=== PATIENT | female | born 1965 | race Caucasian/White ===

== ENCOUNTER 2023-04-24 08:27 | Outpatient (OUT) | payer OTHER, SELFPAY ==
--- NOTE | 2023-04-24 08:37 | US_ITS ---
[address] [address] Patient Name: LEO BRAVO MRN: [id number] date: 1965 Sex: F Assigned Patient Location: MAMMO Current Patient Location: MAMMO Accession/Order Number: [id number] Exam Date: 04/24/2023 09:00 Report Date: 04/25/2023 05:34 At the request of: BOBBI RACHEL Procedure: US pelvis w/ transvaginal EXAM: US pelvis w/ transvaginal HISTORY: Pelvic cramping R10.2 COMPARISON: None. TECHNIQUE: Transabdominal and transvaginal images FINDINGS: The uterus is normal in size, contour and echotexture measuring 6.7 x 4.4 x 3.0 cm, anteverted. No focal myometrial mass The endometrium measures 3.2 mm, identified in the endometrial cavity is 1.6 x 0.9 x 0.6 cm hyperechogenic complex area. The right ovary is normal in appearance measuring 2.4 x 2.1 x 1.5 cm. The left ovary is not visualized IMPRESSION: Complex area within the endometrial cavity of unknown etiology, consider an endometrial polyp or mass Electronically authenticated by: LEYLA KWAN Date: 04/25/2023 05:34
--- NOTE | 2023-04-24 08:41 | MM_ITS ---
Patient: LEO BRAVO Exam Date: 04/24/2023 : 1965 Gender:F Ordering : DR Florentino Richards . Admission #: [id number] Family : DR CHIARA HOOKER M.D. Order #: [id number] CLICK HERE TO VIEW EXAM RADIOLOGY REPORT PROCEDURE: MM DIAGNOSTIC MAMMO UNILAT LT, 04/24/2023, 08:33 US BREAST LT LIMITED, 04/24/2023, 08:51 COMPARISON: MG MAMM SCREEN 3D ANDREW CAD, 03/14/2023. INDICATIONS: Abnormal mammogram R92.8 Calculator Name NCI Breast Cancer Risk Assessment Tool 5 Year Breast Cancer Risk 1.80% Lifetime Breast Cancer Risk 11.40% Personal Breast Cancer No Personal Ovarian Cancer No Treatments None Family Cancers None LOCATION: [facility] BREAST COMPOSITION: Heterogeneously dense,which may obscure small masses. FINDINGS: DIAGNOSTIC CATEGORY 4--SUSPICIOUS FOR MALIGNANCY. FINDING DOES NOT EXHIBIT CLASSIC FINDINGS OF BREAST CANCER: Spot images demonstrate persistent nodular densities upper outer quadrant. Ultrasound demonstrates at the 2 o'clock position oval hypodensity with hyper echogenic hilum likely representing a lymph node. Ultrasound demonstrates a simple cyst at the 3 o'clock position. A dilated duct is noted at the 5 o'clock position with presence of a 6.4 x 2.1 x 4.4 mm area of soft tissue attenuation within the duct, indeterminate. Ultrasound core biopsy of this area is required RECOMMENDATIONS: ULTRASOUND-GUIDED CORE BIOPSY: LEFT BREAST 6.4 mm intraductal soft tissue lesion at the 5 o'clock position PLEASE NOTE: A NORMAL MAMMOGRAM DOES NOT EXCLUDE THE POSSIBILITY OF BREAST CANCER. A CLINICALLY SUSPICIOUS PALPABLE LUMP SHOULD BE BIOPSIED. Dictated by: Shan Acevedo MD on 04/24/2023 at 10:09 Approved by: Shan Acevedo MD on 04/24/2023 at 10:11
== END 2023-04-24 08:28 ==
LOC: MAMMO 08:31
PROVIDERS: PCP Neurological Surgery; Visit Provider Obstetrics & Gynecology
DX: R92.8 Other abnormal and inconclusive findings on diagnostic imaging of breast (principal); R10.2 Pelvic and perineal pain; R93.89 Abnormal findings on diagnostic imaging of other specified body structures
CPT/HCPCS: 76642; 76830; 76856; 77065

== ENCOUNTER 2023-05-08 10:59 | Day surgery (SDC) | payer OTHER, SELFPAY ==
--- NOTE | 2023-05-08 11:08 | US_ITS ---
[address] [address] Patient Name: LEO BRAVO MRN: [id number] date: 1965 Sex: F Assigned Patient Location: US Current Patient Location: US Accession/Order Number: [id number] Exam Date: 05/08/2023 11:09 Report Date: 05/08/2023 13:51 At the request of: BOBBI RACHEL Procedure: US breast vac bx w/ clip LT EXAM: US breast vac bx w/ clip LT HISTORY: Abnormal Findings On Diagnostic Imaging Of Breast R92.8 COMPARISON: Ultrasound breast left Limited 04/24/2023 TECHNIQUE: After obtaining informed consent, ultrasound-guided biopsy was performed in the usual sterile manner. The location of the biopsy was then marked as indicated below. FINDINGS: Specimen #, Location: 4 core samples; left breast subareolar 5:00 intraductal lesion versus debris. Biopsy Needle: 13 gauge vacuum core biopsy needle. Marker(s): A single metallic marker was placed in the appropriate targeted location. Medication: Buffered 1% Lidocaine with epinephrine administered locally. Complications: None. Pathology: Pending. IMPRESSION: 1. Uneventful ultrasound-guided breast biopsy. 2. Pathology results are pending. An addendum to this report will be provided after pathology results are available. Electronically authenticated by: CINDY CHAU Date: 05/08/2023 13:51
[2023-05-08] MEDS: LIDOCAINE HCL/EPINEPHRINE 10 ML, SODIUM BICARBONATE 1 MEQ INJ (12:00)
[2023-05-08] MEDS: LIDOCAINE HCL 10 ML, SODIUM BICARBONATE 1 MEQ INJ (12:00)
--- NOTE | 2023-05-08 12:25 | MM_ITS ---
Patient: LEO BRAVO Exam Date: 05/08/2023 : 1965 Gender:F Ordering : DR Florentino Richards . Admission #: [id number] Family : Order #: [id number] CLICK HERE TO VIEW EXAM This report includes an Addendum and supersedes previous reports for this exam. RADIOLOGY REPORT PROCEDURE: MM POST BIOPSY LT COMPARISON: MM DIAGNOSTIC MAMMO UNILAT LT, 04/24/2023. MG MAMM SCREEN 3D ANDREW CAD, 03/14/2023. MG MAMM SCREEN ANDREW W CAD, 10/22/2018. MAMMO ANDREW SCREEN W CAD DIG, 11/15/2012. INDICATIONS: Abnormal Imaging Of Breast R92.6 BREAST COMPOSITION: Heterogeneously dense,which may obscure small masses. FINDINGS: BIOPSY MARKER: A metallic marker has been placed in the targeted location within the lower-outer quadrant of the left breast. BREAST FINDINGS: Expected post biopsy findings. RECOMMENDATIONS: Dictated by: Boogie Alatorre M.D. on 05/08/2023 at 14:02 Approved by: Boogie Alatorre M.D. on 05/08/2023 at 14:04 ADDENDUM: FINDINGS: DIAGNOSTIC CATEGORY 3--PROBABLY BENIGN FINDING. THE FOLLOWING FINDING(S) HAS A HIGH PROBABILITY OF A BENIGN ETIOLOGY: RECOMMENDATIONS: SHORT TERM FOLLOW-UP DIAGNOSTIC MAMMOGRAM LEFT BREAST IN 6 MONTHS. Dictated by: Boogie Alatorre M.D. on 07/20/2023 at 15:41 Approved by: Boogie Alatorre M.D. on 07/20/2023 at 15:41
[2023-05-08 13:44] VITALS: BP 149/104; PULSE 77; O2SAT 94
== END 2023-05-08 12:33 | disposition home or self-care (01) ==
LOC: US 10:59
PROVIDERS: Radiology Diagnostic Radiology; PCP Neurological Surgery; Visit Provider Obstetrics & Gynecology
DX: N64.89 Other specified disorders of breast (principal)
CPT/HCPCS: 19083; 77065; 88305

== ENCOUNTER 2023-09-07 08:53 | Outpatient (OUT) | payer OTHER, SELFPAY ==
--- NOTE | 2023-09-07 09:00 | ECG_ITS ---
[facility] Test Date: 2023-09-07 Pat Name: LEO BRAVO Department: Room: - Gender: Female [employer]: : 1965 Requested By: BOBBI RACHEL Order Number: [id number] Reading MD: LUTHER TONEY Measurements Intervals Weed Rate: 66 P: 14 UT: 171 QRS: 22 QRSD: 82 T: 16 QT: 390 QTc: 411 Interpretive Statements SINUS RHYTHM No previous ECG available for comparison Electronically Signed On 09-08-2023 7:00:00 EDT by LUTHER TONEY
[2023-09-07 10:03] LABS: Basophils Absolute Auto 0.1 10^3/uL (0.0-0.1); Basophils Percent Auto 0.6 % (0.2-2.0); Eosinophils Absolute Auto 0.3 10^3/uL (0.0-0.7); Eosinophils Percent Auto 2.5 % (0.9-7.0); Hematocrit 42.7 % (36.0-48.0); Hemoglobin 14.4 g/dL (12.0-16.0); Immature Granulocytes Abs Auto 0.15 10^3/uL (0.00-0.03); Immature Granulocytes Pct Auto 1.5 % (0.0-0.5); Lymphocytes Absolute Auto 2.3 10^3/uL (1.2-3.8); Lymphocytes Percent Auto 23.3 % (20.5-60.0); Mean Corpuscular HGB Conc 33.7 g/dL (29.9-35.2); Mean Corpuscular Hemoglobin 30.6 pg (26.7-34.0); Mean Corpuscular Volume 90.9 fL (81.0-99.0); Mean Platelet Volume 9.5 fL (9.5-13.5); Monocytes Percent Auto 10.2 % (1.7-12.0); Neutrophils Absolute Auto 6.1 10^3/uL (1.4-6.5); Neutrophils Percent Auto 61.9 % (43.0-75.0); Platelet Count 337 10^3/uL (150-450); Red Cell Distribution Width 13.2 % (11.0-15.0); White Blood Count 9.9 10^3/uL (4.0-11.0)
[2023-09-07 10:13] LABS: Alanine Aminotransferase 30 U/L (14-59); Albumin Level 3.5 g/dL (3.4-5.0); Alkaline Phosphatase 67 U/L (46-116); Anion Gap 9.9; Aspartate Amino Transferase 12 U/L (15-37); BUN Creatinine Ratio 10.6; Bilirubin Direct 0.1 mg/dL (0.0-0.2); Bilirubin Total 0.8 mg/dL (0.2-1.0); Calcium 8.9 mg/dL (8.5-10.1); Chloride 103 mmol/L (98-107); Estimated GFR (African America >60 (>=60); Estimated GFR (Non-African Ame >60 (>=60); Globulin 3.6 g/dL; Glucose 85 mg/dL (74-106); Potassium 3.9 mmol/L (3.5-5.1); Sodium 139 mmol/L (136-145); Total Protein 7.1 g/dL (6.4-8.2)
[2023-09-07 10:16] LABS: INR 1.05; Prothrombin Time 11.1 sec (9.0-11.6)
[2023-09-07 10:18] LABS: Partial Thromboplastin Time 24.7 sec (22.3-36.2)
== END 2023-09-07 08:54 | disposition home or self-care (01) ==
PROVIDERS: PCP Neurological Surgery; Visit Provider Obstetrics & Gynecology
DX: Z01.812 Encounter for preprocedural laboratory examination (principal); Z01.810 Encounter for preprocedural cardiovascular examination; R10.2 Pelvic and perineal pain; N95.0 Postmenopausal bleeding; R93.89 Abnormal findings on diagnostic imaging of other specified body structures
CPT/HCPCS: 36415; 80048; 80076; 85025; 85610; 85730; 93005

== ENCOUNTER 2023-09-18 09:15 | Outpatient (OUT) | payer OTHER, SELFPAY ==
--- OUTSIDE RECORDS SUMMARY | 2023-10-24 18:53 | XMS_ITS | CCD ---
Author Name Unknown Address [address] [place] [address] Organization [facility] Care Team Providers Care Stonehand Name Role Phone Eddie De León Unavailable Josué Santoro Unavailable Rosaline Hooker Unavailable WILSON ., DR MARTINES Admitting Unavailable WILSON ., DR MARTINES Attending Unavailable MORRO, DR ROSALINE Donovan Primary Care Unavailable WILSON ., DR MARTINES Admitting Unavailable WILSON ., DR MARTINES Attending Unavailable HOOKER, DR ROSALINE Donovan Primary Care Unavailable WILSON ., DR MARTINES Consulting Unavailable WILSON ., DR MARTINES Admitting Unavailable WILSON ., DR MARTINES Attending Unavailable MORRO, DR ROSALINE Donovan Primary Care Unavailable WILSON ., DR MARTINES Consulting Unavailable REECE GUIDO Consulting Unavailable CESAR GANN Consulting Unavailable MORRO, DR ROSALINE Donovan Admitting Unavailable MORRO, DR ROSALINE Donovan Attending Unavailable MORRO, DR ROSALINE Donovan Primary Care Unavailable VERNON CENTER, DR LEYLA Romero Consulting Unavailable MORRO, DR ROSALINE Donovan Consulting Unavailable WILSON ., DR MARTNIES Admitting Unavailable WILSON ., DR MARTINES Attending Unavailable MORRO, DR ROSALINE Donovan Primary Care Unavailable WILSON ., DR MARTINES Consulting Unavailable ISAC, DR CINDY Keita Consulting Unavailable WILSON ., DR MARTINES Admitting Unavailable WILSON ., DR MARTINES Attending Unavailable MORRO, DR ROSALINE Donovan Primary Care Unavailable WILSON ., DR MARTINES Consulting Unavailable WILSON ., DR MARTINES Admitting Unavailable WILSON ., DR MARTINES Attending Unavailable MORRO, DR ROSALINE Donovan Primary Care Unavailable VERNON CENTER, DR LEYLA Romero Consulting Unavailable WILSON ., DR MARTINES Consulting Unavailable DR CINDY CHAU R Consulting Unavailable MIESHA HASSAN Attending Unavailable AKILA TUTTLE Attending Unavailable BOBBI RICHARDS Attending Unavailable BOBBI RICHARDS Attending Unavailable Allergies Allergy Classification Reported Allergen(s) Allergy Type Date of Onset Reaction(s) Facility (1 source) Gentamicin Sulfate (CARE HOME) Drug Allergy 0 [facility] Repository (1 source) peanut allergenic extract Drug Allergy 4 [facility] Repository (1 source) Sulfamethoxazole / Trimethoprim Drug Allergy 4 [facility] Repository (1 source) Thimerosal Drug Allergy 4 [facility] Repository (1 source) Misc-Food; Translations: [Misc-Food] Food allergy (disorder) 4 [facility] Repository Medications Current Medications Medication Drug Class(es) Dates Sig (Normalized) Sig (Original) acetaminophen 325 mg oral tablet (8 sources) take 1 tablet by mouth every four hours cetirizine hydrochloride 10 mg oral tablet (8 sources) Histamine-1 Receptor Antagonist take 1 tablet by mouth once daily Esomeprazole (1 source) Proton Pump Inhibitor Esomeprazole Magnesi um Active loratadine 10 mg oral tablet (3 sources) take 1 tablet by mouth once daily Claritin 10 MG 1 tablet Orally Once a day Active montelukast 10 mg oral tablet (2 sources) Leukotriene Receptor Antagonist Start: 05-01-2023 take 1 tablet by mouth every twenty-four hours Singulair 10 MG 1 tablet Orally Once a day for 30 days Apr, Active Problems Active Problems Problem Classification Problem Date Documented Da te Episodic/Chronic Esophageal disorders (9 sources) Gastroesophageal reflux disease; Translations: [Gastro-esophageal reflux disease without esophagitis] Chronic Immunizations and screening for infectious disease (1 source) Encounter for screening for human papillomavirus (HPV); Translations: [ENC SCREENING HUMAN PAPILLOMAVIRUS] Onset: 3 Episodic Menopausal disorders (5 sources) Postmenopausal bleeding; Translations: [POSTMENOPAUSAL BLEEDING] Onset: 3 Chronic Other connective tissue disease (2 sources) Trochanteric bursitis, right hip Episodic Other connective tissue disease (1 source) Other bursitis of hip, unspecified hip Episodic Other gastrointestinal disorders (9 sources) Dysphagia; Translations: [Dysphagia, unspecified] Episodic Other nervous system disorders (8 sources) Chronic pain; Translations: [Other chronic pain] Chronic Other nervous system disorders (1 source) Other chronic pain Chronic Other screening for suspected conditions (not mental disorders or infectious disease) (1 source) Abnormal findings on diagnostic imaging of other specified body structures; Translations: [ABNORML FIND DX IMG OTH BODY STRUC] Onset: 3 Chronic Other screening for suspected conditions (not mental disorders or infectious disease) (9 sources) Encounter for screening mammogram for malignant neoplasm of breast; Translations: [Other abnormal and inconclusive findings on diagnostic imaging of breast] Onset: 3 Episodic Other upper respiratory disease (1 source) Acute bronchospasm; Translations: [Acute bronchospasm] Onset: 3 Episodic Other upper respiratory infections (1 source) Acute laryngitis; Translations: [Acute laryngitis] Onset: 3 Episodic Residual codes; unclassified (1 source) Asymptomatic menopausal state; Translations: [ASYMPTOMATIC MENOPAUSAL STATE] Onset: 3 Episodic Unclassified (1 source) CONTACT W/AND (SUSP) EXPOS COVID-19; Translations: [CONTACT W/AND (SUSP) EXPOS COVID-19] Onset: 3 Viral infection (1 source) COVID-19; Translations: [COVID-19] Onset: 3 Past or Other Problems Problem Classification Problem Date Documented Da te Episodic/Chronic Other non-traumatic joint disorders (4 sources) Pain in right hip; Translations: [PAIN IN RIGHT HIP] Onset: 06-27-2022 Episodic Unclassified (1 source) Other low back pain M54.59 Results Test Name Value Interpretation Reference Range Facil ity Strep Group A, Rapidon 08-30 Strep A, Molecular Negative Normal NEG [facility] Comment on above: Performed By: #### R SAB #### [facility] [address] [place] [address] Shredder Picker: Leyla Cortez MD Source .THROAT SWAB Normal [facility] Comment on above: Performed By: #### R SAB #### [facility] [address] [place] [address] Shredder Picker: Leyla Cortez MD XR CHEST PORTABLEon 08-30-20 XR CHEST PORTABLE EXAMINATION: ONE XRAY VIEW OF THE CHEST 08/30/2023 12:22 pm COMPARISON: None. HISTORY: ORDERING SYSTEM PROVIDED HISTORY: Covid TECHNOLOGIST PROVIDED HISTORY: Covid FINDINGS: The lungs appear clear. The heart and mediastinal structures are unremarkable. Bony thorax appears normal. Visualized upper abdomen is unremarkable. IMPRESSION: No abnormalities demonstrated. Interpreted by: Dante Rivas MD Signed by: Dante Rivas MD 08/30/23 Final result [facility] 3D ANDREW CADon 03-14-2023 MG MAMM SCREEN 3D ANDREW CAD Patient: KIM BRAVO Exam Date: 03/14/2023 : 1965 Gender:F Ordering : DR BOBBI RICHARDS . Admission #: [id number] Family : Order #: [id number] CLICK HERE TO VIEW EXAM RADIOLOGY REPORT PROCEDURE: MAMMOGRAM SCREENING 3D BILATERAL CAD COMPARISON: MAMMO ANDREW SCREEN W CAD DIG, 11/15/2012. MG MAMM SCREEN ANDREW W CAD, 10/22/2018. INDICATIONS: Screening mammography Calculator Name NCI Breast Cancer Risk Assessment Tool 5 Year Breast Cancer Risk 1.80% Lifetime Breast Cancer Risk 11.40% Personal Breast Cancer No Personal Ovarian Cancer No Treatments None Family Cancers None LOCATION: [facility] BREAST COMPOSITION: Heterogeneously dense,which may obscure small masses. FINDINGS: DIAGNOSTIC CATEGORY 0--INCOMPLETE: NEED ADDITIONAL IMAGING EVALUATION. The breasts are stable in size and overall fibroglandular configuration.Scattered benign-appearing nodules are present. Scattered benign-appearing calcifications are present. Scattered benign-appearing lymph nodes are present. RIGHT BREAST: No significant suspicious finding. LEFT BREAST: Multiple new focal nodules identified in the outer left breast, four lesions identified on the CC projection and 2 lesions identified the MLO projection. Spot imaging and ultrasound follow-up is recommended. Stable micro clip marker upper outer quadrant anterior breast RECOMMENDATIONS: ADDITIONAL MAMMOGRAPHIC VIEWS REQUIRED: LEFT BREAST - spot-compression outer breast quadrant ULTRASOUND: LEFT BREAST PLEASE NOTE: A NORMAL MAMMOGRAM DOES NOT EXCLUDE THE POSSIBILITY OF BREAST CANCER. A CLINICALLY SUSPICIOUS PALPABLE LUMP SHOULD BE BIOPSIED. Dictated by: Leyla Kwan MD on 03/15/2023 at 07:06 Approved by: Leyla Kwan MD on 03/15/2023 at 07:11 Normal [facility] XR DEXA BONE DENSITYon 03-14 XR DEXA BONE DENSITY EXAMINATION: XR DEX A BONE DENSITY, 03/14/2023 2:38 PM EDT HISTORY: Menopause present COMPARISON: None. TECHNIQUE: Dual-energy X-ray absorptiometry (DEXA) bone density study performed for the axial skeleton. FINDINGS: SPINE ANALYSIS: Average bone mineral density is 1.488 g/cm2. T-score (standard deviation relative to young adult mean): 2.6 . HIP ANALYSIS: Lowest bone mineral density is within the left femoral neck, 1.124 g/cm2. T-score (standard deviation relative to young adult mean): 0.6 . IMPRESSION: [employer] Classification: Normal - Low Fracture Risk Electronically authenticated by: CINDY CHAU Date: 2023-03-14 15:40 Normal [facility] l PAP ACOG PANEL 2: 30 to 65on 03-07-2023 . . Normal [facility] ospital Comment on above: Result Comment: Perf ormed at: WB Performed By: #### [id number] #### [facility] [address] [place] [address] Dr. Mary Ortiz Age Gdln ACOG Testing 30-65 Normal [facility] Comment on above: Performed By: #### [id number] #### [facility] [address] [address] [address] Mary Ortiz DIAGNOSIS: Comment Normal [facility] Comment on above: Result Comment: NEGA TIVE FOR INTRAEPITHELIAL LESION OR MALIGNANCY. Performed at: WB Performed By: #### [id number] #### [facility] [address] [address] [address] Mary Ortiz HPV Aptima Negative Normal Negative [facility] ostal Comment on above: Result Comment: This nucleic acid amplification test detects fourteen high-risk HPV types (16,18,31,33,35,39,45,51,52,56,58,59,66,68) without differentiation. Performed at: =G Performed By: #### [id number] #### [facility] [address] [address] [address] Mary Ortiz HPV Genotype Reflex Comment Normal [facility] Comment on above: Result Comment: Crit eria not met, HPV Genotype not performed. Performed at: WB Performed By: #### [id number] #### [facility] [address] [place] [address] Dr. Mary Ortiz Methodology: Comment Normal [facility] Comment on above: Result Comment: This liquid based ThinPrep(R) pap test was screened with the use of an image guided system. Performed at: WB Performed By: #### [id number] #### [facility] [address] [place] [address] Dr. Mary Ortiz Note: Comment Normal [facility] ospital Comment on above: Result Comment: The Pap smear is a screening test designed to aid in the detection of premalignant and malignant conditions of the uterine cervix. It is not a diagnostic procedure and should not be used as the sole means of detecting cervical cancer. Both false-positive and false-negative reports do occur. . Performed at: WB Performed By: #### [id number] #### [facility] [address] [place] [address] Dr. Mary Ortiz Performed by: Comment Normal [facility] Comment on above: Result Comment: Akila Arrieta, Planting Material Carrier (ASCP) Performed at: WB Performed By: #### [id number] #### [facility] [address] [place] [address] Dr. Mary Ortiz Specimen adequacy: Comment Normal [facility] Comment on above: Result Comment: Sati sfactory for evaluation. Endocervical and/or squamous metaplastic cells (endocervical component) are present. Performed at: WB Performed By: #### [id number] #### [facility] [address] [address] [address] Mary Ortiz CBC AUTO DIFFon 11-23-2022 BASO # 0.1 103/ul Normal 0.0-0.[address] [facility] Comment on above: Performed By: #### C BC #### [facility] [address] [place] [address] Dr. Mary Ortiz Basophils/100 WBC (Bld) 1.1 % Normal 0.2-2.0 [facility] Comment on above: Performed By: #### C BC #### [facility] [address] [place] [address] Dr. Mary Ortiz EO # 0.2 103/ul Normal 0.0-0.[address] [facility] Comment on above: Performed By: #### C BC #### [facility] [address] [place] [address] Dr. Mary Ortiz Eosinophils/100 WBC (Bld) 4.1 % Normal 0.9-7.0 [facility] Comment on above: Performed By: #### C BC #### [facility] [address] [place] [address] Dr. Mary Ortiz Erythrocyte distribution wid th (RBC) [Ratio] 13.3 % Normal 11.0-15.0 [facility] Comment on above: Performed By: #### C BC #### [facility] [address] [place] [address] Dr. Mary Ortiz Hematocrit (Bld) [Volume fraction] 41.8 % Normal 3 6.0-48.0 [facility] Comment on above: Performed By: #### C BC #### [facility] [address] [place] [address] Dr. Mary Ortiz Hemoglobin (Bld) [Mass/Vol] 13.8 g/dL Normal 12.0-16. 0 [facility] Comment on above: Performed By: #### C BC #### [facility] [address] [place] [address] Dr. Mary Ortiz IG # 0.01 10e3/ul Normal 0.00-0.03 [facility] Comment on above: Performed By: #### C BC #### [facility] [address] [place] [address] Dr. Mary Ortiz IG % 0.2 % Normal 0.0-0.5 [facility] Comment on above: Performed By: #### C BC #### [facility] [address] [place] [address] Dr. Mayr Ortiz LYMPH # 1.9 103/ul Normal 1.2-3.8 [facility] Comment on above: Performed By: #### C BC #### [facility] [address] [place] [address] Dr. Mary Ortiz Lymphocytes/100 WBC (Bld) 32.7 % Normal 20.5-60.0 [facility] Comment on above: Performed By: #### C BC #### [facility] [address] [place] [address] Dr. Mary Ortiz MANUAL DIFF REQ NO Normal [facility] Comment on above: Performed By: #### C BC #### [facility] [address] [place] [address] Dr. Mary Ortiz MCH (RBC) [Entitic mass] 29.5 pg Normal 26.7-34.0 [facility] Comment on above: Performed By: #### C BC #### [facility] [address] [place] [address] Dr. Mary Ortiz MCHC (RBC) [Mass/Vol] 33.0 g/dL Normal 29.9-35.2 [facility] Comment on above: Performed By: #### C BC #### [facility] [address] [place] [address] Dr. Mary Ortiz MCV (RBC) [Entitic vol] 89.3 fL Normal 81.0-99.0 [facility] Comment on above: Performed By: #### C BC #### [facility] [address] [place] [address] Dr. Mary Ortiz MONO # 0.4 103/ul Normal 0.3-0.8 [facility] Comment on above: Performed By: #### C BC #### [facility] [address] [place] [address] Dr. Mary Ortiz Monocytes/100 WBC (Bld) 7.4 % Normal 1.7-12.0 [facility] Comment on above: Performed By: #### C BC #### [facility] [address] [place] [address] Dr. Mary Ortiz NEUT # 3.1 103/ul Normal 1.4-6.5 [facility] ospital Comment on above: Performed By: #### C BC #### [facility] [address] [place] [address] Dr. Mary Ortiz Neutrophils/100 WBC (Bld) 54.5 % Normal 43.0-75.0 [facility] Comment on above: Performed By: #### C BC #### [facility] [address] [place] [address] Dr. Mary Ortiz Platelet mean volume (Bld) [Entitic vol] 9.6 fL Normal 9.5-13.5 [facility] Comment on above: Performed By: #### C BC #### [facility] [address] [place] [address] Dr. Mary Ortiz PLT 277 103/ul Normal 150-450 [facility] ospital Comment on above: Performed By: #### C BC #### [facility] [address] [place] [address] Dr. Mary Ortiz RBC 4.68 106/ul Normal 4.20-5.40 [facility] Comment on above: Performed By: #### C BC #### [facility] [address] [place] [address] Dr. Mary Ortiz WBC 5.7 103/ul Normal 4.0-11.0 [facility] ospital Comment on above: Performed By: #### C BC #### [facility] [address] [place] [address] Dr. Mary Ortiz PREG QUANT HCGon 11-23-2022 HCG QUANT 5 mIU/mL Normal [facility] ospital Comment on above: Performed By: #### P REGQNT #### [facility] [address] [place] [address] Dr. Mary Ortiz HCG RANGE SEE BELOW Normal [facility] ospital Comment on above: Result Comment: 5-50 0.2-1 WEEK 50-500 1-2 WEEKS 100-5,000 2-3 WEEKS 500-10,000 3-4 WEEKS 1,000-50,000 4-5 WEEKS 10,000-100,000 5-6 WEEKS 15,000-200,000 6-8 WEEKS 10,000- 100,000 2-3 MONTHS Performed By: #### P REGQNT #### [facility] [address] [place] [address] [address] [address] Mary Ortiz Covid-19 PCR ([facility])on 11-06 SARS-CoV-2 (COVID-19) RNA BRANDY+probe Ql (Unsp spec) Not detected Normal NOT DETECTED [facility] Comment on above: Result Comment: This test is not yet approved or cleared by the [place] FDA. When there are no FDA-approved or cleared tests available, and other criteria are met, FDA can make tests available under an emergency access mechanism called an Emergency Use Authorization (EUA). The EUA for this test is supported by the [place] of Health and Human Service's (HHS's) declaration that circumstances exist to justify the emergency use of in vitro diagnostics for the detection and/or diagnosis of the virus that causes COVID-19. This EUA will remain in effect (meaning this test can be used) for the duration of the COVID-19 declaration justifying emergency of IVDs, unless it is terminated or revoked by FDA (after which the test may no longer be used). When diagnostic testing is negative, the possibility of a false negative should be considered in the context of a patient's recent exposures and the presence of clinical signs and symptoms consistent with SARS-CoV-2. Performed By: #### [facility] #### [facility] [address] [place] [address] [id number] [address] Mary Ortiz US PELVIS AND TRANSVAGon US PELVIS AND TRANSVAG EXAMINATION: US P DAVID AND TRANSVAG HISTORY: Postmenopausal bleeding COMPARISON: Ultrasound pelvis 02/26/2020 TECHNIQUE: Transabdominal and transvaginal sonographic examination. FINDINGS: UTERUS: Normal size and appearance. Uterus size: 7.7 x 4.1 x 3.2 cm ENDOMETRIUM: Normal homogeneous appearance. Endometrial thickness: 4 mm RIGHT OVARY: Normal size and appearance. Blood flow present within ovary on color Doppler. Ovary size: 2.0 x 2.0 x 1.9 cm LEFT OVARY: Normal size and appearance. Blood flow present within ovary on color Doppler. Ovary size: 1.4 x 1.4 x 1.2 cm CUL-DE-SAC: Unremarkable. No significant free fluid. BLADDER: Unremarkable. OTHER: None. IMPRESSION: 1. No abnormal or suspicious findings to account for patient's symptoms. Electronically authenticated by: CINDY CHAU Date: 2022-11-08 15:56 Normal [facility] XR LSPINE MIN 4 VIEWSon 06-07 XR LSPINE MIN 4 VIEWS EXAMINATION: XR LS PINE MIN 4 VIEWS HISTORY: Pain in right hip joint COMPARISON: No relevant comparison available. FINDINGS: BONES: No acute fracture or spondylolisthesis. Mild dextrocurvature centered at L2-L3. Mild degenerative spondylosis and facet osteoarthropathy DISC SPACES: Moderate disc space narrowing L5-S1 PARASPINOUS: Negative. No paraspinous abnormality is seen. OTHER: Vascular calcifications IMPRESSION: Degenerative changes with dextrocurvature Electronically authenticated by: LEYLA KWAN Date: 2022-06-28 07:15 Normal [facility] Consent for COVID Vaccineon 02-28-2021 SARS-CoV-2 (COVID-19) RNA BRANDY+probe Ql (Unsp spec) [id number]:127 Normal [facility] Consent for COVID Vaccineon 01-28-2021 SARS-CoV-2 (COVID-19) RNA BRANDY+probe Ql (Unsp spec) [id number]:127 Normal [facility] Consent for Treatmenton 01-05 Consent for Treatment [id number]:127 Normal [facility] Coding Summary.on 01-26-2021 Coding Summary. CODING DATE: [facility] STATUS: PAYOR: [facility] [place] [facility] DESCRIPTION [employer] - Level 1B ($11-$20) ADMIT DX: REASON FOR VISIT DX: Z23 Encounter for immunization FINAL DX: PRINCIPAL: Z23 Encounter for immunization SECONDARY: PYMT PROC APC STAT DESCRIPTION DOCTOR NAME DATE NOTE: The code number assigned matches the documented diagnosis and / or procedure in the patient's chart. However, the narrative phrase printed from the coding software may appear abbreviated, or result in slightly different terminology. Coded By: Denisse Rodriguez Date Saved: 01/26/2021 09:41 am Normal [facility] Vital Signs Date Time Vital Sign Value Performing Clinician Thompson tolliver 10-24-2022 09:00-0500 Body height 157.48 cm Eddie Krishan Other [employer] Other 10-24-2022 09:00-0500 Body mass index (BMI) [Ratio] 41.15 kg/m2 Eddie Perkinsley Other [employer] Other 10-24-2022 09:00-0500 Body weight 102.06 kg Eddie Krishan Other [employer] Other 09-02-2022 09:00-0400 Body height 157.48 cm Eddie Krishan Other [employer] Other 09-02-2022 09:00-0400 Body mass index (BMI) [Ratio] 41.15 kg/m2 Eddie Perkinsley Other [employer] Other 09-02-2022 09:00-0400 Body weight 102.06 kg Eddie Krishan Other [employer] Other Encounters Encounter Date Encounter Type Care Provider Facility Start: 10-09-2023 End: 10-09-2023 ambulatory BOBBI WILSON Not Available Start: 10-02-2023 End: 10-02-2023 ambulatory BOBBI RICHARDS Not Available Start: 09-27-2023 End: 09-27-2023 ambulatory AKILA TUTTLE Not Available Start: 08-30-2023 End: 08-30-2023 Emergency department patient visit [facility] Start: 08-28-2023 End: 08-29-2023 Emergency department patient visit [facility] Start: 04-28-2023 End: 04-28-2023 ambulatory Josué Santoro Other [employer] Other Start: 04-28-2023 Telephone encounter Josué Santoro [facility] Start: 04-26-2023 End: 04-26-2023 ambulatory Rosaline Hooker Other [employer] Other Start: 04-26-2023 Telephone encounter Rosaline Morro [facility] Start: 03-17-2023 End: 03-17-2023 ambulatory Rosaline Morro Other [employer] Other Start: 03-17-2023 Telephone encounter Rosaline Morro [facility] Start: 03-14-2023 End: 03-15-[address] BOBBI RICHARDS . Facility:[facility] Start: 02-28-2023 End: 02-28-2023 ambulatory DR BOBBI RICHARDS . Facility:[facility] Start: 11-25-2022 Encounter for preprocedural cardiovascular examination DR BOBBI RICHARDS . [facility] Start: 11-23-2022 End: 11-23-[address] BOBBI RICHARDS . Facility:[facility] Start: 11-18-2022 End: 11-19-[address] BOBBI RICHARDS . Facility:[facility] Start: 11-18-2022 End: 11-19-2022 Encounter for preprocedural cardiovascular examination DR BOBBI RICHARDS . Facility:[facility] Start: 11-16-2022 Encounter for other preprocedural examination DR BOBBI RICHARDS . [facility] Start: 11-11-2022 End: 11-12-[address] BOBBI RICHARDS . Facility:[facility] Start: 11-11-2022 End: 11-12-2022 Encounter for other preprocedural examination DR BOBBI RICHARDS . Facility:[facility] Start: 11-08-2022 End: 11-09-[address] BOBBI RICHARDS . Facility:[facility] Start: 10-24-2022 End: 10-24-2022 ambulatory Eddie De León Other [facility] Other Start: 10-24-2022 Office outpatient vi sit 15 minutes Eddie De León [facility] Start: 10-03-2022 (Procedure) Short Josué Santoro [facility] Start: 10-03-2022 End: 10-03-2022 ambulatory Josué Santoro Other [facility] Other Start: 09-20-2022 End: 09-20-2022 ambulatory Josué Santoro Other [facility] Other Start: 09-20-2022 Telephone encounter Josué HENDERSON [facility] Start: 09-19-2022 End: 09-19-2022 ambulatory Josué Santoro Other [facility] Other Start: 09-19-2022 Office consultation new/estab patient 60 min Josué MONTIEL [facility] [place] Start: 09-02-2022 End: 09-02-2022 ambulatory Eddie De León Other [employer] Other Start: 09-02-2022 Office outpatient ne w 30 minutes Eddie De León [facility] Start: 06-27-2022 End: 06-28-[address] ROSALINE HOOKER Facility: Payers Date Payer Category Payer Unknown [id number] 2.16.84 [id number] 1965 Unknown [id number] 2.16.84 [id number] 1965 Unknown [id number] 2.16.84 [id number] 1966 Unknown [id number] 2.16.84 [id number] 1966 Unknown [id number] 2.16.84 [id number] 1966 Unknown [id number] 2.16.84 [id number] 1966 Unknown [id number] 2.16.84 [id number] 1966 Unknown [id number] 2.16.8 [id number] 1966 Unknown [id number] 2.16.8 [id number] 1966 Unknown [id number] 2.16.840 .[id number] 1966 Unknown [id number] 2.16.840 .[id number] 1966 Unknown [id number] 2.16.840 .[id number] 1959 Unknown [id number] 2. [id number] Social History Date Type Detail Facility Sex Assigned At [facility] Other Clinical Note 11-23-2022 Note Date & Type Note Facility 11-23-2022 Note OPERATIVE NOTE OPERATION DATE: 11/23/2022 PROCEDURE: D AND C hysteroscopy with MyoSure. PREOPERATIVE DIAGNOSIS: Postmenopausal bleeding, thickened endometrium. POSTOPERATIVE DIAGNOSIS: Postmenopausal bleeding, thickened endometrium. ANESTHESIA: General. SURGEON: Bobbi Richards D.O. GAMBLING MONITOR: None. BLOOD LOSS: 5 mL. URINE OUTPUT: Yellow and clear. FINDINGS: Uterine polyp, both ostia seen; otherwise, normal appearing endometrium. SPECIMEN: Endometrial curettings as well as endometrial polyp. PROCEDURE: The patient was taken back to the Operating Room where she was prepped and draped in normal sterile fashion after being placed under general anesthesia without difficulty. She was also placed in the dorsal lithotomy position. A weighted speculum was placed in the patient's vagina. The anterior lip of the cervix was identified and grasped with a single tooth tenaculum. The patient's uterus was then sounded roughly to (size not dictated) cm. The patient was then gently dilated using Hegar dilators. The hysteroscope was passed through the patient's cervix into the uterus. Both ostia were identified. Slightly thickened appearing endometrium. No gross evidence of malignancy. Please note that the MyoSure apparatus was placed through the hysteroscope under direct visualization. The apparatus was engaged and endometrial curettings were removed under direct visualization. The MyoSure was then removed from the scope. The hysteroscope was then removed from the patient's uterus. The endometrial curettings were sent out to pathology. The single tooth tenaculum was then removed from the patient's anterior lip of the cervix where excellent hemostasis was noted. All instruments were removed from the patient's vagina. The patient tolerated the procedure well. Sponge, lap and needle counts were correct times two. The patient was taken to the Recovery Room in stable condition. [facility] Evaluation note 10-24-2022 Note Date & Type Note Facility 10-24-2022 Evaluation note Encounter Date Diagnosis Assessment Notes Oct, Trochanteric bursitis of right hip (ICD-10 - M70.61) Kim is here today now 3 weeks s/p right hip trochanteric bursa injection with Dr. Angela Santoro. She states that she is doing good. She has had some improvement. She does feel like that is the appropriate area to treat. She is taking anti-inflammato nba as needed. She is doing physical therapy and exercises at home. I would continue this treatment course. She can return for pain worsens and we could consider repeat injection The patient has been involved in our cooperative treatment plan and agrees to move forward with treatment at this time. Instructed patient to continue with physical therapy exercises. Call with any questions or concerns [facility] Other Evaluation note 09-19-2022 Note Date & Type Note Facility 09-19-2022 Evaluation note Encounter Date Diagnosis Assessment Notes Sep, Bursitis, hip (ICD-10 - M70.70) Patients primary complaint today is pain over the outide of the right hip. She shows noteable tenderness over the trochanteric bursa upon exam. We discussed other conservative options including therapy, iontophoresis, oral and topical NSAIDS. Based on location of pain and exam findings, patient is a candidate for a right trochanteric bursa injection which we will proceed with under fluoroscopic guidance as suggested by orthopedics. Risks and benefits of procedure explained to patient; patient verbalizes understanding. Patient will follow up with orthopedics 2-3 weeks following the injection. Sep, Other low back pain (ICD-10 - M54.59) Should the patient continue to experience radiating right leg pain, we can consider further work up of the lumbar spine as a possible source of her pain symptoms. Sep, Chronic pain (ICD-10 - G89.29) Sep, Other Above note written by Raman Marks MA, Boat Tester. Edited and approved by Dr. Josué Santoro MD. Medical decision making shows a new problem to me with further workup planned or suggested with the potential for extensive treatment options that were considered with the most applicable given this patient's situation as noted above. Treatment options considered include a combination of physical therapy approaches, pharmacologic management, and interventional procedures. Those most applicable to the patient were discussed at this time. Risk of complications and/or morbidity and mortality is high given that acute and chronic pain poses a threat to life and bodily function if undertreated, poorly treated or with failure to maintain adequate treatment and timely followup. Given the serious and fluctuating nature of pain with extensive consideration for whenever pain changes, there always remains the possibility of prolonged functional impairment requiring constant patient reassessment and high-level medical decision making. The amount and complexity of data reviewed is high given that patient labs, radiology reports, and other test were obtained, reviewed and summarized as applicable from the physician portal and/or outside medical records. Pertinent positive and negative findings were considered in medical decision-making. [facility] Other Evaluation note 09-02-2022 Note Date & Type Note Facility 09-02-2022 Evaluation note Encounter Date Diagnosis Assessment Notes Aug, Trochanteric bursitis of right hip (ICD-10 - M70.61) Kim presents with right hip trochanteric bursitis. At this juncture we have discussed the findings and diagnosis as well as personally reviewed appropriate imaging and performed interpretation of related testing and examination with the patient in office today. Prior medical notes from Dr. Hooker and history have been reviewed. At this time I would recommend trial of cortisone injection into the right trochanteric bursa. I would recommend doing this with Dr. Santoro under fluoroscopy due to her habitus. We will plan for follow-up 2 to 3 weeks after injection with myself to see how we did. The patient has been involved in our cooperative treatment plan and agrees to move forward with treatment at this time. Radiographs reviewed and discussed in detail with patient. This appears to be pain secondary to greater trochanteric bursitis. Discussed treatment options as oral or topical NSAIDs, physical therapy with iontophoresis, or cortisone injection to the greater trochanteric bursa. Patient opts for cortisone injections. Patient will be referred to Dr. Oscar Santoro for bursal injection. We will also submit a formal order for physical therapy. Patient is agreeable to treatment plan. Aug, Other See orders for this visit as documented in the electronic medical record. [facility] Other Clinical Note 06-28-2022 Note Date & Type Note Facility 06-28-2022 Note PROCEDURE: XR HIP RT 2 3V W PELVIS COMPARISON: None. HISTORY: Pain in right hip joint FINDINGS: BONES:No acute fracture or dislocation 1 mm lytic change with surrounding sclerosis identified along the superior margin of the right acetabulum. Marginal osteophyte formation. SOFT TISSUES:Negative. No visible soft tissue swelling. EFFUSION:None visible. OTHER: Negative. IMPRESSION: Mixed lytic and sclerotic changes of the superior right acetabulum. I favor degenerative changes Electronically authenticated by: LEYLA KWAN Date: 2022-06-28 07:13 [facility] Evaluation note Note Date & Type Note Facility Evaluation note No Information [facility] Other History general Narrative - Reported Note Date & Type Note Facility History general Narrative - Reported Type Medical History GERD Medical History Dysphasia Medical History right hip pain Surgical History left ankle surgery [facility] Other History general Narrative - Reported Note Date & Type Note Facility History general Narrative - Reported [facility] Other Summary Purpose Family History No Family History Records FoundNo Family History Records FoundNo Family History Records FoundNo Family History Records Found Advance Directives No Advanced Directives Records FoundNo Advanced Directives Records FoundNo Advanced Directives Records FoundNo Advanced Directives Records Found Reason for Referral Reason Bursal injection of right hip Diagnosis 1 Trochanteric bursiti s of right hip (M70.61) Referral Organization [facility] Referring Provider First Name Eddie Referring Provider Last Name Krishan Referring Provider Specialty Orthopedic Surgery Referred Organization [facility] Pain Manageangie whitt Tim Ruiz Referred Address [address] [place] [facility],[place],[address] Referred Provider Specialty Pain Medicin e Referral Priority Routine General Notes schedule with Dr. Angela Santoro pain management Additional Source Comments INFORMATION SOURCE (unrecogn ized section and content) DATE CREATED AUTHOR 05/22/2021 [facility] DATE CREATED AUTHOR AUTHOR'S ORGANIZ ATION 03/19/2023 [facility] DATE CREATED AUTHOR AUTHOR'S ORGANIZ ATION 09/01/2023 [facility] DATE CREATED AUTHOR AUTHOR'S ORGANIZ ATION 10/11/2023 [facility] EPIC REASON FOR VISIT (unrecogniz ed section and content) Right Hip PainREF BY DR RENÉ ORNELAS FOR BURSAL INJECTION RIGHT HIP DUE TO TROCHANTERIC BURSITISPain management consult note*KRISHAN PTRIGHT TROCHANTARIC BURSA INJECTION VWRecheck Right Hipmamm resultNo Informationmessageallergies FOR RECORDS PERTAINING TO PATIENTS WHO ARE OR HAVE BEEN ENROLLED IN A CHEMICAL DEPENDENCY/SUBSTANCEABUSE PROGRAM, SOME INFORMATION MAY BE OMITTED. This clinical summary was aggregated from multiple sources. Caution should be exercised in using it in the provision of clinical care. This summary normalizes information from multiple sources, and as a consequence, information in this document may materially change the coding, format and clinical context of patient data. In addition, data may be omitted in some cases. CLINICAL DECISIONS SHOULD BE BASED ON THE PRIMARY CLINICAL RECORDS. [facility] [employer] [facility]. provides no warranty or guarantee of the accuracy or completeness of information in this document.
== END 2023-09-18 09:16 | disposition home or self-care (01) ==
LOC: LAB 09:15
PROVIDERS: PCP Family Medicine; Visit Provider Obstetrics & Gynecology
DX: Z01.812 Encounter for preprocedural laboratory examination (principal); R10.2 Pelvic and perineal pain; N95.0 Postmenopausal bleeding; R93.89 Abnormal findings on diagnostic imaging of other specified body structures
CPT/HCPCS: 36415; 86850; 86900; 86901

== ENCOUNTER 2023-09-21 11:35 | Day surgery (SDC) | payer OTHER, SELFPAY ==
[2023-09-07 09:44] VITALS: BP 126/76; PULSE 75; RESP 18; TEMP 36.5; O2SAT 97; BMI 40.0
[2023-09-21] VITALS (13 sets, daily range): BP systolic 108–132; BP diastolic 51–78; PULSE 50–87; RESP 14–18; TEMP 36.1–36.6; O2SAT 93–100; BMI 39.8
[2023-09-21 11:48] LABS: Basophils Absolute Auto 0.1 10^3/uL (0.0-0.1); Basophils Percent Auto 1.1 % (0.2-2.0); Eosinophils Absolute Auto 0.2 10^3/uL (0.0-0.7); Eosinophils Percent Auto 3.6 % (0.9-7.0); Hematocrit 40.4 % (36.0-48.0); Hemoglobin 13.5 g/dL (12.0-16.0); Lymphocytes Absolute Auto 1.9 10^3/uL (1.2-3.8); Mean Corpuscular HGB Conc 33.4 g/dL (29.9-35.2); Mean Corpuscular Hemoglobin 30.5 pg (26.7-34.0); Mean Corpuscular Volume 91.4 fL (81.0-99.0); Mean Platelet Volume 9.7 fL (9.5-13.5); Monocytes Absolute Auto 0.5 10^3/uL (0.3-0.8); Monocytes Percent Auto 9.6 % (1.7-12.0); Neutrophils Absolute Auto 2.7 10^3/uL (1.4-6.5); Neutrophils Percent Auto 50.7 % (43.0-75.0); Platelet Count 286 10^3/uL (150-450); Red Blood Count 4.42 10^6/uL (4.20-5.40); Red Cell Distribution Width 13.5 % (11.0-15.0); White Blood Count 5.3 10^3/uL (4.0-11.0)
[2023-09-21] MEDS: LACTATED RINGER'S SOLUTION 1,000 ML 50 ML IV ×2 (12:31→21:31)
[2023-09-21] MEDS: CEFAZOLIN SODIUM/DEXTROSE,ISO 2 GM/50 ML PIGGYBACK IV ×2 (14:27→21:32)
[2023-09-21] MEDS: SCOPOLAMINE 1 MG/3 DAYS TRANSDERM PATCH 1 PATCH TD (14:56)
[2023-09-21] MEDS: LACTATED RINGER'S SOLUTION 1,000 ML 1000 ML IV ×2 (15:34→17:31)
--- NOTE | 2023-09-21 17:22 | P.ON_ITS ---
Brief Operative Note Date of procedure: 09/21/23 Pre-op diagnosis: pmb, pelvic pain, dyspareunia Post-op diagnosis: same as pre-op Procedure: NAME OF PROCEDURE: ? Robotic assisted laparoscopic hysterectomy with cystoscopy, bilateral salpingoopherectomy PROCEDURE:? The patient was taken back to the operating room, where she was prepped and draped in the normal sterile fashion after being placed in the dorsal lithotomy position.? Patient?s anesthesia was found to be adequate.? Surgical timeout was performed using two patient identifiers.? SCDs were on and in place.? Two grams of Ancef were given prior to the surgery.? Sterile Fleming catheter was inserted.? Standard size VCare was secured to the uterine cervix and the surgeon changed gloves.? Attention then was turned to the patient's abdomen, where a supraumbilical incision was then made.? Two S retractors were used to identify the patient?s fascia.? The fascia was then tented up using Brissa clamps and the patient?s fascia was incised sharply.? Patient?s abdomen was identified and entered bluntly.? The patient had the trocar placed and a pneumoperitoneum was obtained.? Approximately 4 liters of CO2 gas was used.? The camera was then placed through the trocar.? At this time, two robot trocars were placed in the patient?s left and right side, two hand widths from the midline, and this was placed under direct visualization.? The patient?s tube on the right side was tented up and the vessel sealer was then used to come across the mesosalpinx and infundibular pelvic ligament, and this was carried down to the uterine ovarian ligament.? The vessel sealer was carried down serially to the broad ligament, to the area of the bladder flap, which was then created anteriorly, and the uterine arteries were skeletonized and sealed using the vessel sealer.? The colpotomy was made using the monopolar cautery on cut, and this was carried circumferentially, posteriorly to anteriorly, until the uterus was amputated.? The specimen was then removed intact through the vagina, without difficulty.? The vagina was then closed using two running V-Loc in a non-lock fashion.? The robot was undocked.? The abdomen was desufflated.? The skin defects were closed using 4-0 Vicryl.? Please note, the fascia was closed using 0 Vicryl.? Sponge, lap and needle counts were correct x2.? Patient was taken to recovery room in stable condition.? The patient was awakened by Anesthesia first.? Patient tolerated procedure well.??Please note left ovarian cystectomy was performed using the vessel sealer Anesthesia: RANGEL Surgeon: Florentino Richards [employer]ire Mold Tester: Phoebe Sen Estimated blood loss (mL): 100 Pathology: other (uterus tubes and ovaries) Condition: stable Disposition: PACU
[2023-09-22] MEDS: CEFAZOLIN SODIUM/DEXTROSE,ISO 2 GM/50 ML PIGGYBACK IV (01:37)
[2023-09-22 04:57] VITALS: BP 132/72; PULSE 79; RESP 16; TEMP 36.8; O2SAT 93
[2023-09-22 05:29] LABS: Basophils Percent Auto 0.2 % (0.2-2.0); Hematocrit 35.4 % (36.0-48.0); Immature Granulocytes Abs Auto 0.03 10^3/uL (0.00-0.03); Immature Granulocytes Pct Auto 0.4 % (0.0-0.5); Lymphocytes Absolute Auto 0.9 10^3/uL (1.2-3.8); Lymphocytes Percent Auto 10.3 % (20.5-60.0); Mean Corpuscular HGB Conc 33.9 g/dL (29.9-35.2); Mean Corpuscular Hemoglobin 30.6 pg (26.7-34.0); Mean Corpuscular Volume 90.3 fL (81.0-99.0); Mean Platelet Volume 10.4 fL (9.5-13.5); Monocytes Absolute Auto 0.4 10^3/uL (0.3-0.8); Monocytes Percent Auto 4.5 % (1.7-12.0); Neutrophils Absolute Auto 7.2 10^3/uL (1.4-6.5); Neutrophils Percent Auto 84.6 % (43.0-75.0); Platelet Count 253 10^3/uL (150-450); Red Blood Count 3.92 10^6/uL (4.20-5.40); Red Cell Distribution Width 13.2 % (11.0-15.0); White Blood Count 8.5 10^3/uL (4.0-11.0)
== END 2023-09-22 07:58 | disposition home or self-care (01) ==
LOC: SURGOUT 17:25 → MS 18:28
PROVIDERS: PCP Family Medicine; Visit Provider Obstetrics & Gynecology
PROC: (CPT 58571; principal; 2023-09-21 12:30)
DX: R10.2 Pelvic and perineal pain (principal); N95.0 Postmenopausal bleeding; R93.89 Abnormal findings on diagnostic imaging of other specified body structures; N72 Inflammatory disease of cervix uteri; N83.209 Unspecified ovarian cyst, unspecified side; N83.8 Other noninflammatory disorders of ovary, fallopian tube and broad ligament; N80.03 Adenomyosis of the uterus; J30.2 Other seasonal allergic rhinitis; H91.93 Unspecified hearing loss, bilateral; K58.9 Irritable bowel syndrome, unspecified; Z86.16 Personal history of COVID-19; N84.0 Polyp of corpus uteri; N84.2 Polyp of vagina; E66.01 Morbid (severe) obesity due to excess calories; Z68.41 Body mass index [BMI] 40.0-44.9, adult
CPT/HCPCS: 58571; 36415; 85025; 88307; 94667; J2704

== ENCOUNTER 2023-09-30 19:44 | Emergency (ER) | payer OTHER, SELFPAY ==
[2023-09-30 19:53] VITALS: BP 167/88; PULSE 74; RESP 18; TEMP 36.6; O2SAT 98; BMI 39.0
--- NOTE | 2023-09-30 20:14 | ED_ITS ---
HPI - General Adult General Chief complaint: Wound/Laceration Stated complaint: INCISION INFECTED Time Seen by Provider: 09/30/23 19:48 Source: patient Mode of arrival: walk-in History of Present Illness HPI narrative: Patient had lap hysterectomy 09/21/[address] Richards and had been doing well, she told me. She was evaluated in the office 09/27/23 and told that the incisions were healing normally. Steri-strips were left in place. Today she noted drainage from the large incision in the center of her abdomen so she came to the ED to have it evaluated, concerned for possible infection. No systemic symptoms such as fever or vomiting. No urinary or BM issues. Minimal pain at the incision site. Related Data Home Medications Medication Instructions Recorded Confirmed PreserVision AREDS 1 tab PO DAILY 05/08/23 09/30/23 montelukast 10 mg tablet 10 mg PO DAILY 05/08/23 09/30/23 (Singulair) soy isoflavone 56 mg-black cohosh 1 cap PO DAILY 05/08/23 09/30/23 ext 40 mg-Cissus ext 300 mg capsule (Estroven Weight Management) albuterol sulfate 90 mcg/actuation 2 inh inhalation Q4H PRN 09/07/23 09/30/23 aerosol inhaler bronchospasm estrogen stay active supplement PO 09/07/23 loratadine 10 mg tablet (Claritin) 10 mg PO DAILY 09/07/23 09/30/23 Previous Rx's Medication Instructions Recorded oxycodone-acetaminophen 5 mg-325 1 tab PO Q6H PRN pain 7 days #28 09/21/23 mg tablet (Percocet) tabs cephalexin 500 mg capsule 500 mg PO QID 7 days #28 caps 09/30/23 Allergies Allergy/AdvReac Type Severity Reaction Status Date / Time bacitracin Allergy Joint Pain Verified 09/30/23 19:57 gentamicin Allergy Rash Verified 09/30/23 19:57 peanut Allergy Anaphylaxis Verified 09/30/23 19:57 peas Allergy Verified 09/30/23 19:57 sulfamethoxazole Allergy joint edema Verified 09/30/23 19:57 [From Bactrim] thimerosal Allergy Rash Verified 09/30/23 19:57 trimethoprim [From Bactrim] Allergy joint edema Verified 09/30/23 19:57 [facility] Medical History (Updated 09/30/23 @ 21:29 by Ministerio Escalante) Arthritis ?M19.90 - Unspecified osteoarthritis, unspecified site (ICD-10) Back pain ?M54.9 - Dorsalgia, unspecified (ICD-10) Bronchitis ?J40 - Bronchitis, not specified as acute or chronic (ICD-10) COVID-19 (08/27/23) ?U07.1 - COVID-19 (ICD-10) Endometrial polyp ?N84.0 - Polyp of corpus uteri (ICD-10) GERD (gastroesophageal reflux disease) ?K21.9 - Gastro-esophageal reflux disease without esophagitis (ICD-10) Heartburn ?R12 - Heartburn (ICD-10) IBS (irritable bowel syndrome) ?K58.9 - Irritable bowel syndrome without diarrhea (ICD-10) Larynx disorder ?J38.7 - Other diseases of larynx (ICD-10) Menopause ?Z78.0 - Asymptomatic menopausal state (ICD-10) Mononucleosis (2018) ?B27.90 - Infectious mononucleosis, unspecified without complication (ICD-10) Post-menopausal bleeding ?N95.0 - Postmenopausal bleeding (ICD-10) Postoperative nausea and vomiting ?R11.2 - Nausea with vomiting, unspecified (ICD-10) ?Z98.890 - Other specified postprocedural states (ICD-10) Seasonal allergies ?J30.2 - Other seasonal allergic rhinitis (ICD-10) Thickened endometrium ?R93.89 - Abnormal findings on diagnostic imaging of other specified body structures (ICD-10) Vertigo ?R42 - Dizziness and giddiness (ICD-10) Surgical History (Updated 09/21/23 @ 12:06 by Keisha Tobias RN) H/O breast biopsy ?Z98.890 - Other specified postprocedural states (ICD-10) History of ankle surgery ?Z98.890 - Other specified postprocedural states (ICD-10) History of breast biopsy ?Z98.890 - Other specified postprocedural states (ICD-10) History of dilation and curettage ?Z98.890 - Other specified postprocedural states (ICD-10) History of dilation and curettage ?Z98.890 - Other specified postprocedural states (ICD-10) History of wisdom tooth extraction ?K08.409 - Partial loss of teeth, unspecified cause, unspecified class (ICD- 10) Hx of colonoscopy ?Z98.890 - Other specified postprocedural states (ICD-10) S/P breast biopsy, left ?Z98.890 - Other specified postprocedural states (ICD-10) Family History (Updated 09/07/23 @ 09:33 by Mellissa Sun NP) Other Family history of breast cancer Family history of colon cancer Family history of coronary artery disease Family history of diabetes mellitus Family history of heart disease Family history of hypertension Family history of pancreatic cancer Family history of stroke Family history of uterine cancer Thyroid disorder Social History (Updated 09/07/23 @ 09:24 by Mellissa Sun NP) Within the past year, how often did you have a drink containing alcohol: monthly or less Smoking status: Never smoker Non-prescribed substance use: denies use 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 afebrile General: Well-appearing and in no apparent distress. Skin: Warm, dry, no pallor noted. No generalized rash. See description of abdomen below Eye: Pupils are equal, round and EOMI. No scleral icterus. Cardiovascular: Regular Rate and Rhythm without murmur, gallop or rub. Respiratory: No accessory muscle use or respiratory distress. Lungs are clear to auscultation, no wheezing, rales or rhonchi Musculoskeletal: normal ROM GI: Abdomen is soft, non-distended. Normal bowel sounds. After removing the steri-strips, all of the smaller surgical incisions are healiong as expected without erythema, warmth or discharge. The larger central incision has an 8mm area of dehiscence on the patient's left - there is serous drainage with some yellow discharge and that portion of the incision has a halo of erythema. Deeper into the incision it is closed and does not track deeply into the peritoneal space that I can appreciate. No masses appreciated. No tenderness to palpation. No rebound, guarding, or rigidity noted. Neurological: A&O x4. No cranial nerve dysfunction observed. No truncal ataxia. Moves all extremities. Sensation intact. Psychiatric: Cooperative and interactive. Normal mood and affect. Constitutional Vital Signs, click to edit/add: Last Vital Signs Temp 98 F 09/30/23 19:53 Pulse 62 09/30/23 20:38 Resp 16 09/30/23 20:38 BP 134/78 09/30/23 20:38 Pulse Ox 98 09/30/23 20:38 O2 Del Method Room Air 09/30/23 20:38 Course Vital Signs Vital signs: Vital Signs Temperature 98 F 09/30/23 19:53 Pulse Rate 74 09/30/23 19:53 Respiratory Rate 18 09/30/23 19:53 Blood Pressure 167/88 H 09/30/23 19:53 Pulse Oximetry 98 09/30/23 19:53 Oxygen Delivery Method Room Air 09/30/23 19:53 Temperature 98 F 09/30/23 19:53 Pulse Rate 62 09/30/23 20:38 Respiratory Rate 16 09/30/23 20:38 Blood Pressure 134/78 09/30/23 20:38 Pulse Oximetry 98 09/30/23 20:38 Oxygen Delivery Method Room Air 09/30/23 20:38 Medical Decision Making MDM Narrative Medical decision making narrative: wound culture obtained and sent for testing. Blood was also drawn and sent for testing. I asked the emergency Department nurse to dress the patient's dehisced incision. The patient is ALLERGIC to bacitracin therefore none was applied. She was given her first dose of Keflex. White blood cell count is normal and no left shift is noted. ESR elevated at 33 but CMP and CRP are normal. Patient is afebrile. Patient informed of results and discharged home with prescription for additional keflex and instructions to see Dr Richards for close follow up early next week. Lab Data Lab results reviewed: Yes I reviewed the patient's lab results Labs: Lab Results 09/30/23 Range/Units 20:25 WBC 7.1 (4.0-11.0) 10^3/uL RBC 4.42 (4.20-5.40) 10^6/uL Hgb 13.4 (12.0-16.0) g/dL Hct 40.8 (36.0-48.0) % MCV 92.3 (81.0-99.0) fL MCH 30.3 (26.7-34.0) pg MCHC 32.8 (29.9-35.2) g/dL RDW 13.7 (11.0-15.0) % Plt Count 282 (150-450) 10^3/uL MPV 10.2 (9.5-13.5) fL Neut % (Auto) 51.2 (43.0-75.0) % Lymph % (Auto) 32.2 (20.5-60.0) % [place] % (Auto) 9.3 (1.7-12.0) % Eos % (Auto) 6.1 (0.9-7.0) % Baso % (Auto) 0.8 (0.2-2.0) % Neut # (Auto) 3.6 (1.4-6.5) 10^3/uL Lymph # (Auto) 2.3 (1.2-3.8) 10^3/uL [place] # (Auto) 0.7 (0.3-0.8) 10^3/uL Eos # (Auto) 0.4 (0.0-0.7) 10^3/uL Baso # (Auto) 0.1 (0.0-0.1) 10^3/uL Abs Immat Gran (auto) 0.03 (0.00-0.03) 10^3/uL Imm/Tot Granulo (auto) 0.4 (0.0-0.5) % ESR 33 H (<=30) mm/hr Sodium 143 (136-145) mmol/L Potassium 3.5 (3.5-5.1) mmol/L Chloride 105 (98-107) mmol/L Carbon Dioxide 26.5 (21.0-32.0) mmol/L Anion Gap 15.0 BUN 8.0 (7.0-18.0) mg/dL Creatinine 0.95 (0.55-1.02) mg/dL Est GFR ( Amer) >60 (>=60) Est GFR (Non-Af Amer) >60 (>=60) BUN/Creatinine Ratio 8.4 Glucose 95 (74-106) mg/dL Lactate 1.4 (0.4-2.0) mmol/L Calcium 9.1 (8.5-10.1) mg/dL C-Reactive Protein 0.24 (<=0.30) mg/dL Discharge Plan Discharge Chief Complaint: Wound/Laceration Clinical Impression: Abdominal wound dehiscence Patient Disposition: Home, Self-Care Time of Disposition Decision: 21:29 Prescriptions / Home Meds: New cephalexin 500 mg capsule 500 mg PO QID 7 Days Qty: 28 0RF No Action montelukast [Singulair] 10 mg tablet 10 mg PO DAILY PreserVision AREDS 1 tab PO DAILY Estroven Weight Management 56-40-300 mg capsule 1 cap PO DAILY loratadine [Claritin] 10 mg tablet 10 mg PO DAILY estrogen stay active supplement PO albuterol sulfate 90 mcg/actuation HFA aerosol inhaler 2 inh INHALATION Q4H PRN (Reason: bronchospasm) oxycodone-acetaminophen [Percocet] 5-325 mg tablet 1 tab PO Q6H PRN (Reason: pain) 7 Days Qty: 28 0RF Instructions: Wound Dehiscence (ED) Stand Alone Forms: Portal Instructions Referrals: Florentino Richards DO [Physician] - As soon as possible
[2023-09-30 20:31] LABS: Basophils Absolute Auto 0.1 10^3/uL (0.0-0.1); Basophils Percent Auto 0.8 % (0.2-2.0); Eosinophils Absolute Auto 0.4 10^3/uL (0.0-0.7); Eosinophils Percent Auto 6.1 % (0.9-7.0); Hematocrit 40.8 % (36.0-48.0); Hemoglobin 13.4 g/dL (12.0-16.0); Immature Granulocytes Abs Auto 0.03 10^3/uL (0.00-0.03); Immature Granulocytes Pct Auto 0.4 % (0.0-0.5); Lymphocytes Absolute Auto 2.3 10^3/uL (1.2-3.8); Lymphocytes Percent Auto 32.2 % (20.5-60.0); Mean Corpuscular HGB Conc 32.8 g/dL (29.9-35.2); Mean Corpuscular Hemoglobin 30.3 pg (26.7-34.0); Mean Corpuscular Volume 92.3 fL (81.0-99.0); Mean Platelet Volume 10.2 fL (9.5-13.5); Monocytes Absolute Auto 0.7 10^3/uL (0.3-0.8); Monocytes Percent Auto 9.3 % (1.7-12.0); Neutrophils Absolute Auto 3.6 10^3/uL (1.4-6.5); Neutrophils Percent Auto 51.2 % (43.0-75.0); Platelet Count 282 10^3/uL (150-450); Red Blood Count 4.42 10^6/uL (4.20-5.40); Red Cell Distribution Width 13.7 % (11.0-15.0); White Blood Count 7.1 10^3/uL (4.0-11.0)
[2023-09-30] MEDS: CEPHALEXIN 500 MG CAPSULE PO (20:32)
[2023-09-30 20:38] VITALS: BP 134/78; PULSE 62; RESP 16; O2SAT 98
[2023-09-30 20:50] LABS: Lactate/Lactic Acid 1.4 mmol/L (0.4-2.0)
[2023-09-30 21:14] LABS: BUN Creatinine Ratio 8.4; Calcium 9.1 mg/dL (8.5-10.1); Carbon Dioxide 26.5 mmol/L (21.0-32.0); Chloride 105 mmol/L (98-107); Estimated GFR (African America >60 (>=60); Estimated GFR (Non-African Ame >60 (>=60); Glucose 95 mg/dL (74-106); Potassium 3.5 mmol/L (3.5-5.1); Sodium 143 mmol/L (136-145)
[2023-09-30 21:26] LABS: C Reactive Protein 0.24 mg/dL (<=0.30)
[2023-09-30 21:27] LABS: Erythrocyte Sedimentation Rate 33 mm/hr (<=30)
== END 2023-09-30 21:35 | disposition home or self-care (01) ==
PROVIDERS: Emergency Provider Emergency Medicine; PCP Family Medicine
DX: T81.31XA Disruption of external operation (surgical) wound, not elsewhere classified, initial encounter (principal); Z90.710 Acquired absence of both cervix and uterus; M19.90 Unspecified osteoarthritis, unspecified site; Z86.16 Personal history of COVID-19; K21.9 Gastro-esophageal reflux disease without esophagitis; K58.9 Irritable bowel syndrome, unspecified; Z98.890 Other specified postprocedural states; Z79.899 Other long term (current) drug therapy
CPT/HCPCS: 36415; 80048; 83605; 85025; 85652; 86140; 87070; 87150; 87186; 99283

== ENCOUNTER 2024-01-05 12:27 | Outpatient (OUT) | payer OTHER, SELFPAY ==
--- NOTE | 2024-01-05 12:30 | MM_ITS ---
Patient Name: LEO BRAVO MR#: [id number] : 1965 Exam Date: 01/05/2024 Ordering Doctor: DR Florentino Richards . RADIOLOGY REPORT PROCEDURE: MM TOMOSYNTHESIS DIAGNOSTIC LT COMPARISON: MM POST BIOPSY LT, 05/08/2023. INDICATIONS: history of left breast biopsy Calculator Name NCI Breast Cancer Risk Assessment Tool 5 Year Breast Cancer Risk 2.40% Lifetime Breast Cancer Risk 13.90% Personal Breast Cancer No Personal Ovarian Cancer No Treatments None Family Cancers None LOCATION: [facility] BREAST COMPOSITION: Heterogeneously dense,which may obscure small masses. FINDINGS: DIAGNOSTIC CATEGORY 2--BENIGN FINDING. NO CHANGE FROM COMPARISON. Scattered benign-appearing calcifications are present. Scattered benign-appearing nodules are present. Scattered benign-appearing lymph nodes are present. Two stable micro clip markers. The patient is due bilateral screening mammography March of 2024 RECOMMENDATIONS: ROUTINE MAMMOGRAM AND CLINICAL EVALUATION IN 12 MONTHS. PLEASE NOTE: A NORMAL MAMMOGRAM DOES NOT EXCLUDE THE POSSIBILITY OF BREAST CANCER. A CLINICALLY SUSPICIOUS PALPABLE LUMP SHOULD BE BIOPSIED. Dictated by: Shan Acevedo MD on 01/05/2024 at 12:44 Approved by: Shan Acevedo MD on 01/05/2024 at 12:47
--- OUTSIDE RECORDS SUMMARY | 2024-01-05 12:31 | XMS_ITS | CCD ---
Author Name Unknown Address [address] [place] [address] Organization [facility] Care Team Providers [employer] Organizer Name Role Phone Eddie De León Unavailable [...] MORRO, DR ROSALINE Donovan Primary Care Unavailable [place]K [place]S, DR LEYLA Romero Consulting Unavailable MORRO, DR ROSALINE Donovan Consulting Unavailable WILSON ., DR MARTINES Admitting [...] MORRO, DR ROSALINE Donovan Primary Care Unavailable [place], DR LEYLA Romero Consulting Unavailable WILSON ., DR MARTINES Consulting Unavailable DR CINDY CHAU Consulting Unavailable MIESHA HASSAN Attending Unavailable AKLIA TUTTLE Attending Unavailable AKILA TUTTLE Attending Unavailable BOBBI RICHARDS Attending Unavailable BOBBI RICHARDS Attending Unavailable Allergies Allergy Classification Reported Allergen(s) Allergy Type Date of Onset Reaction(s) Facility (1 source) Gentamicin Sulfate (JAIL) Drug Allergy 0 [facility] (1 source) peanut allergenic extract Drug Allergy 4 [facility] (1 source) Sulfamethoxazole / Trimethoprim Drug Allergy 4 [facility] (1 source) Thimerosal Drug Allergy 4 [facility] (1 source) Misc-Food; Translations: [Misc-Food] Food allergy (disorder) 4 [facility] Medications Current Medications Medication Drug [...] 08-30 Strep A, Molecular Negative Normal NEG [facility] Comment on above: Performed By: #### R SAB #### [facility] [address] [place] [address] Publicity Person: Leyla Cortez MD Source .THROAT SWAB Normal [facility] Comment on above: Performed By: #### R SAB #### [facility] [address] [place] [address] Publicity Person: Leyla Cortez MD XR CHEST PORTABLEon 08-30-20 [...] Dante Rivas MD 08/30/23 Final result Normal [facility] MG MAMM SCREEN 3D ANDREW CADon 03-14-2023 MG MAMM SCREEN 3D ANDREW CAD Patient: KIM BRAVO Exam Date: 03/14/2023 : 1965 Gender:F Ordering : DR BOBBI RICHARDS . Admission #: [id number] Family : Order #: [id number] CLICK HERE TO VIEW EXAM RADIOLOGY REPORT [...] Treatments None Family Cancers None LOCATION: [facility] BREAST COMPOSITION: Heterogeneously dense,which may obscure small masses. FINDINGS: DIAGNOSTIC CATEGORY 0--INCOMPLETE: NEED ADDITIONAL IMAGING EVALUATION. The breasts are stable in size and overall fibroglandular configuration.Scattere d benign-appearing nodules are present. Scattered benign-appearing calcifications [...] Kwan MD on 03/15/2023 at 07:11 Normal [facility] XR DEXA BONE DENSITYon 03-14 XR DEXA BONE DENSITY EXAMINATION: XR DEXA BONE DENSITY, 03/14/2023 2:38 PM EDT HISTORY: [...] authenticated by: CINDY CHAU Date: 2023-03-14 15:40 [facility] PAP ACOG PANEL 2: 30 to 65on 03-07-2023 . . Normal [facility] Comment on above: Result Comment: Perf ormed at: WB Performed By: #### [id number] #### [facility] [address] [address] [address] Mary Ortiz Age Gdln ACOG Testing 30-65 [facility] Comment on above: Performed By: #### [id number] #### [facility] [address] [address] [address] Mary Ortiz DIAGNOSIS: Comment Normal [facility] Comment on above: Result Comment: NEGA TIVE FOR INTRAEPITHELIAL LESION OR MALIGNANCY. Performed at: WB Performed By: #### [id number] #### [facility] [address] [address] [address] Mary Ortiz HPV Aptima Negative Normal Negative [facility] Comment on above: Result Comment: This nucleic acid amplification test detects fourteen high-risk HPV types (16,18,31,33,35,39,45,51,52,56,58,59,66,68) without differentiation. Performed at: =G Performed By: #### [id number] #### [facility] [address] [address] [address] Mary Ortiz HPV Genotype Reflex Comment Normal [facility] Comment on above: Result Comment: Crit eria not met, HPV Genotype not performed. Performed at: WB Performed By: #### [id number] #### [facility] [address] [place] [address] Dr. Mary Ortiz Methodology: Comment Normal [facility] Comment on above: Result Comment: This liquid based ThinPrep(R) pap test was screened with the use of an image guided system. Performed at: WB Performed By: #### [id number] #### [facility] [address] [place] [address] Dr. Mary Ortiz Note: Comment Normal [facility] Comment on above: Result Comment: The Pap smear is a screening test designed to aid in the detection of premalignant and malignant conditions of the uterine cervix. It is not a diagnostic procedure and should not be used as the sole means of detecting cervical cancer. Both false-positive and false-negative reports do occur. . Performed at: WB Performed By: #### [id number] #### [facility] [address] [place] [address] Dr. Mary Ortiz Performed by: Comment Normal [facility] Comment on above: Result Comment: Akila Arrieta, Weed Cooking Operator (ASCP) Performed at: WB Performed By: #### [id number] #### [facility] [address] [place] [address] Dr. Mary Ortiz Specimen adequacy: Comment Normal [facility] Comment on above: Result Comment: Sati sfactory for evaluation. Endocervical and/or squamous metaplastic cells (endocervical component) are present. Performed at: WB Performed By: #### [id number] #### [facility] [address] [place] [address] Dr. Mary Ortiz CBC AUTO DIFFon 11-23-2022 BASO # 0.1 103/ul Normal 0.0-0.1 [facility] Comment on above: Performed By: #### C BC #### [facility] [address] [place] [address] Dr. Mary Ortiz Basophils/100 WBC (Bld) 1.1 % Normal 0.2-2.0 [facility] Comment on above: Performed By: #### C BC #### [facility] [address] [address] [address] Mary Ortiz EO # 0.2 103/ul Normal 0.0-0.7 [facility] Comment on above: Performed By: #### C BC #### [facility] [address] [place] [address] Dr. Mary Ortiz Eosinophils/100 WBC (Bld) 4.1 % Normal 0.9-7.0 [facility] Comment on above: Performed By: #### C BC #### [facility] [address] [place] [address] Dr. Mary Ortiz Erythrocyte distribution width (RBC) [Ratio] 13.3 % Normal 11.0-15.0 [facility] Comment on above: Performed By: #### C BC #### [facility] [address] [place] [address] Dr. Mary Ortiz Hematocrit (Bld) [Volume fraction] 41.8 % Normal 36.0-48.0 [facility] Comment on above: Performed By: #### C BC #### [facility] [address] [place] [address] Dr. Mary Ortiz Hemoglobin (Bld) [Mass/Vol] 13.8 g/dL Normal 12.0-16.0 [facility] Comment on above: Performed By: #### C BC #### [facility] [address] [place] [address] Dr. Mary Ortiz IG # 0.01 10e3/ul Normal 0.00-0.03 [facility] Comment on above: Performed By: #### C BC #### [facility] [address] [place] [address] Dr. Mary Ortiz IG % 0.2 % Normal 0.0-0.5 [facility] Comment on above: Performed By: #### C BC #### [facility] [address] [place] [address] Dr. Mary Ortiz LYMPH # 1.9 103/ul Normal 1.2-3.8 [facility] Comment on above: Performed By: #### C BC #### [facility] [address] [place] [address] Dr. Mary Ortiz Lymphocytes/100 WBC (Bld) 32.7 % Normal 20.5-60.0 [facility] Comment on above: Performed By: #### C BC #### [facility] [address] [place] [address] Dr. Mary Ortiz MANUAL DIFF REQ NO Normal [facility] Comment on above: Performed By: #### C BC #### [facility] [address] [place] [address] Dr. Mary Ortiz MCH (RBC) [Entitic mass] 29.5 pg Normal 26.7-34.0 [facility] Comment on above: Performed By: #### C BC #### [facility] [address] [place] [address] Dr. Mary Ortiz MCHC (RBC) [Mass/Vol] 33.0 g/dL Normal 29.9-35.2 [facility] Comment on above: Performed By: #### C BC #### [facility] [address] [place] [address] Dr. Mary Ortiz MCV (RBC) [Entitic vol] 89.3 fL Normal 81.0-99.0 [facility] Comment on above: Performed By: #### C BC #### [facility] [address] [place] [address] Dr. Mary Ortiz MONO # 0.4 103/ul Normal 0.3-0.8 [facility] Comment on above: Performed By: #### C BC #### [facility] [address] [place] [address] Dr. Mary Ortiz Monocytes/100 WBC (Bld) 7.4 % Normal 1.7-12.0 [facility] Comment on above: Performed By: #### C BC #### [facility] [address] [place] [address] Dr. Mary Ortiz NEUT # 3.1 103/ul Normal 1.4-6.5 [facility] Comment on above: Performed By: #### C BC #### [facility] [address] [place] [address] Dr. Mary Ortiz Neutrophils/100 WBC (Bld) 54.5 % Normal 43.0-75.0 [facility] Comment on above: Performed By: #### C BC #### [facility] [address] [place] [address] Dr. Mary Ortiz Platelet mean volume (Bld) [Entitic vol] 9.6 fL Normal 9.5-13.5 [facility] Comment on above: Performed By: #### C BC #### [facility] [address] [place] [address] Dr. Mary Ortiz PLT 277 103/ul Normal 150-450 [facility] Comment on above: Performed By: #### C BC #### [facility] [address] [place] [address] Dr. Mary Ortiz RBC 4.68 106/ul Normal 4.20-5.40 [facility] Comment on above: Performed By: #### C BC #### [facility] [address] [place] [address] Dr. Mary Ortiz WBC 5.7 103/ul Normal 4.0-11.0 [facility] Comment on above: Performed By: #### C BC #### [facility] [address] [place] [address] Dr. Mary Ortiz PREG QUANT HCGon 11-23-2022 HCG QUANT 5 mIU/mL Normal [facility] Comment on above: Performed By: #### P REGQNT #### [facility] [address] [place] [address] Dr. Mary Ortiz HCG RANGE SEE BELOW Normal [facility] Comment on above: Result Comment: 5-50 0.2-1 WEEK 50-500 1-2 WEEKS 100-5,000 2-3 WEEKS 500-10,000 3-4 WEEKS 1,000-50,000 4-5 WEEKS 10,000-100,000 5-6 WEEKS 15,000-200,000 6-8 WEEKS 10,000-100,000 2-3 MONTHS Performed By: #### P REGQNT #### [facility] [address] [place] [address] [address] [address] Mayr Ortiz [facility]on 11-06 SARS-CoV-2 (COVID-19) RNA BRANDY+probe Ql (Unsp spec) Not detected Normal NOT DETECTED [facility] Comment on above: Result Comment: This test is not yet approved or cleared by the [place] FDA. When there are no FDA-approved or cleared tests available, and other criteria are met, FDA can make tests available under an emergency access mechanism called an Emergency Use Authorization (EUA). The EUA for this test is supported by the [place] of Health and Human Service's (HHS's) declaration [...] consistent with SARS-CoV-2. Performed By: #### C [facility] #### [facility] [address] [place], [place] [id number] Dr. Mary Ortiz US PELVIS AND TRANSVAGon US PELVIS AND TRANSVAG EXAMINATION: US PELVIS AND TRANSVAG HISTORY: Postmenopausal bleeding COMPARISON: Ultrasound [...] by: CINDY CHAU Date: 2022-11-08 15:56 Normal [facility] XR LSPINE MIN 4 VIEWSon 06-07 XR LSPINE MIN 4 VIEWS EXAMINATION: XR LSPINE MIN 4 VIEWS HISTORY: Pain in right hip joint COMPARISON: No relevant comparison available. FINDINGS: BONES: No acute fracture or spondylolisthesis. Mild dextrocurvature centered at L2-L3. Mild degenerative spondylosis and facet osteoarthropathy DISC SPACES: Moderate disc space narrowing L5-S1 PARASPINOUS: Negative. No paraspinous abnormality is seen. OTHER: Vascular calcifications IMPRESSION: Degenerative changes with dextrocurvature Electronically authenticated by: LEYLA KWAN Date: 2022-06-28 07:15 Normal [facility] Consent for COVID Vaccineon 02-28-2021 SARS-CoV-2 (COVID-19) RNA BRANDY+probe Ql (Unsp spec) [id number]. 00CD:127 Normal [facility] Consent for COVID Vaccineon 01-28-2021 SARS-CoV-2 (COVID-19) RNA BRANDY+probe Ql (Unsp spec) [id number] 0CD:127 [facility] Consent for Treatmenton 01-05 Consent for Treatment [id number] 0CD:127 [facility] Coding Summary.on 01-26-2021 Coding Summary. CODING DATE: 01/26/2021 FINAL [facility] STATUS: PAYOR: Medical [place] APC DESCRIPTION [employer] - Level [...] Denisse Rodriguez Date Saved: 01/26/2021 09:41 am [facility] Vital Signs Date Time Vital Sign Value Performing Clinician Thompson tolliver 10-24-2022 09:00-0500 Body height 157.48 cm Eddie Perkinsley Other [facility] 10-24-2022 09:00-0500 Body mass index (BMI) [Ratio] 41.15 kg/m2 Eddie Krishan Other [facility] 10-24-2022 09:00-0500 Body weight 102.06 kg Eddie Perkinsley Other [facility] 09-02-2022 09:00-0400 Body height 157.48 cm Eddie De eLón Other [facility] 09-02-2022 09:00-0400 Body mass index (BMI) [Ratio] 41.15 kg/m2 Eddie Perkinsley Other [facility] 09-02-2022 09:00-0400 Body weight 102.06 kg Eddie Perkinsley Other [facility] Other Encounters Encounter Date Encounter Type Care Provider Facility Start: 11-01-2023 End: 11-01-2023 ambulatory AKILA TUTTLE Not Available Start: 10-09-2023 End: 10-09-2023 ambulatory BOBBI WILSON Not Available Start: 10-02-2023 End: 10-02-2023 ambulatory BOBBI WILSON Not Available Start: 09-27-2023 End: 09-27-2023 ambulatory AKILA TUTTLE Not Available Start: 08-30-2023 End: 08-30-2023 Emergency department patient visit [facility] Start: 08-28-2023 End: 08-29-2023 Emergency department patient visit [facility] Start: 04-28-2023 End: 04-28-2023 ambulatory Josué Santoro Other [facility] Start: 04-28-2023 Telephone encounter Josué Santoro [facility] Start: 04-26-2023 End: 04-26-2023 ambulatory Rosalinesalvatore Hooker Other [facility] Start: 04-26-2023 Telephone encounter Rosaline Morro [facility] Start: 03-17-2023 End: 03-17-2023 ambulatory Rosaline Morro Other [facility] Start: 03-17-2023 Telephone encounter Rosaline Morro [facility] Start: 03-14-2023 End: 03-15-[address] BOBBI RICHARDS . Facility:[facility] Start: 02-28-2023 End: 02-28-[address] BOBBI RICHARDS . Facility:[facility] Start: 11-25-2022 Encounter for preprocedural cardiovascular examination DR BOBBI RICHARDS . [facility] Start: 11-23-2022 End: 11-23-[address] BOBBI RICHARDS . Facility:[facility] Start: 11-18-2022 End: 11-19-[address] BOBBI RICHARDS . Facility:[facility] Start: 11-18-2022 End: 11-19-2022 Encounter for preprocedural cardiovascular examination DR BOBBI RICHARDS . Facility:[facility] Start: 11-16-2022 Encounter for other preprocedural examination DR BOBBI RICHARDS . [facility] Start: 11-11-2022 End: 11-12-[address] BOBBI RICHARDS . Facility:[facility] Start: 11-11-2022 End: 11-12-2022 Encounter for other preprocedural examination DR BOBBI RICHARDS . Facility:[facility] Start: 11-08-2022 End: 11-09-[address] BOBBI RICHARDS . Facility:[facility] Start: 10-24-2022 End: 10-24-2022 ambulatory Eddie De León Other [facility] Start: 10-24-2022 Office outpatient vi sit 15 minutes Eddie De León [facility] Start: 10-03-2022 (Procedure) Short Josué Santoro [facility] Start: 10-03-2022 End: 10-03-2022 ambulatory Josué Santoro Other [facility] Start: 09-20-2022 End: 09-20-2022 ambulatory Josué Maxbyron Other [facility] Start: 09-20-2022 Telephone encounter Josué Santoro [facility] Start: 09-19-2022 End: 09-19-2022 ambulatory Josué Santoro Other [facility] Start: 09-19-2022 Office consultation new/estab patient 60 min Josué Santoro [facility] Start: 09-02-2022 End: 09-02-2022 ambulatory Eddie De León Other [facility] Start: 09-02-2022 Office outpatient ne w 30 minutes Eddie De León [facility] Start: 06-27-2022 End: 06-28-[address] ROSALINE HOOKER Facility: Payers Date Payer Category Payer Unknown [id number] 2.16.84 [id number] 1965 Unknown [id number] 2.16.84 [id number] 1965 Unknown [id number] 2.16.84 [id number] 1965 Unknown [id number] 2.16.84 [id number] 1965 Unknown [id number] 2.16.84 0.1.641419.3.579.2.593 1965 Unknown [id number] 2.16.84 0.1.682916.3.579.2.593 1965 Unknown [id number] 2.16.84 0.1.787317.3.579.2.593 1965 Unknown [id number] 2.16.8 [id number] 1965 Unknown [id number] 2.16.8 [id number] 1965 Unknown [id number] 2.16.840 .1.188950.3.579.2.1259 1965 Unknown [id number] 2.16.840 .1.644401.3.579.2.9 1965 Unknown [id number] 2.16.840 .1.072459.3.579.2.9 1965 Unknown [id number] 2.16.840 .[id number] 1959 Unknown [id number] 2. [id number] Social History Date Type Detail Facility Sex Assigned At [facility] Clinical Note 11-23-2022 Note Date & Type Note Facility 11-23-2022 Note OPERATIVE NOTE OPERATION DATE: 11/23/2022 PROCEDURE: D AND C hysteroscopy with MyoSure. PREOPERATIVE DIAGNOSIS: Postmenopausal bleeding, thickened endometrium. POSTOPERATIVE DIAGNOSIS: Postmenopausal bleeding, thickened endometrium. ANESTHESIA: General. SURGEON: Bobbi Richards D.O. MEDICAL ENGINEER: None. BLOOD LOSS: 5 mL. URINE OUTPUT: [...] the Recovery Room in stable condition. [facility] Evaluation note 10-24-2022 Note Date & [...] exercises. Call with any questions or concerns [facility] Evaluation note 09-19-2022 Note Date & [...] Above note written by Raman Marks MA, Family [employer] Teacher. Edited and approved by Dr. Josué Santoro [...] negative findings were considered in medical decision-making. [facility] Evaluation note 09-02-2022 Note Date & [...] injections. Patient will be referred to Dr. Jose Eduardo Santoro for bursal injection. We will also submit a formal order for physical therapy. Patient is agreeable to treatment plan. Aug, Other See orders for this visit as documented in the electronic medical record. [facility] Clinical Note 06-28-2022 Note Date & [...] by: LEYLA KWAN Date: 2022-06-28 07:13 [facility] Evaluation note Note Date & Type Note Facility Evaluation note No Information [employer] Other History general Narrative - Reported Note Date & Type Note Facility History general Narrative - Reported Type Medical History GERD Medical History Dysphasia Medical History right hip pain Surgical History left ankle surgery [facility] Other History general Narrative - Reported Note Date & Type Note Facility History general Narrative - Reported [facility] Other Summary Purpose Family History No Family History Records FoundNo Family History Records FoundNo Family History Records FoundNo Family History Records Found Advance Directives No Advanced Directives Records FoundNo Advanced Directives Records FoundNo Advanced Directives Records FoundNo Advanced Directives Records Found Reason for Referral Reason Bursal injection of right hip Diagnosis 1 Trochanteric bursiti s of right hip (M70.61) Referral Organization [facility] pedics Referring Provider First Name Eddie Referring Provider Last Name Krishan Referring Provider Specialty Orthopedic Surgery Referred Organization [facility] Referred Address [address] [place],[address] Referred Provider Specialty Pain Medicin e Referral Priority Routine General Notes schedule with Dr. Angela Santoro pain management Additional Source Comments INFORMATION SOURCE (unrecogn ized section and content) DATE CREATED AUTHOR 05/22/2021 Ureña Delvis [facility] DATE CREATED AUTHOR AUTHOR'S ORGANIZ ATION 03/19/2023 [facility] DATE CREATED AUTHOR AUTHOR'S ORGANIZ ATION 09/01/2023 [facility] DATE CREATED AUTHOR AUTHOR'S ORGANIZ ATION 11/02/2023 [facility] dical Specialists EPIC REASON FOR VISIT (unrecogniz [...] BE BASED ON THE PRIMARY CLINICAL RECORDS. [facility] provides no warranty or guarantee of the accuracy or completeness of information in this document.
== END 2024-01-05 12:28 | disposition home or self-care (01) ==
LOC: MAMMO 12:27
PROVIDERS: PCP Family Medicine; Visit Provider Obstetrics & Gynecology
DX: M79.89 Other specified soft tissue disorders (principal); Z79.890 Hormone replacement therapy
CPT/HCPCS: 77065; G0279

== ENCOUNTER 2024-09-30 20:44 | Outpatient (REF) | payer OTHER, SELFPAY ==
--- OUTSIDE RECORDS SUMMARY | 2024-09-30 20:50 | XMS_ITS | CCD ---
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 Name Role Phone Eddie De León Unavailable Yvan Josué Unavailable Rosaline Hooker Unavailable WILSON ., DR [...] MORRO, DR ROSALINE Donovan Primary Care Unavailable [place], DR LEYLA Romero Consulting Unavailable MORRO, DR [...] MORRO, DR ROSALINE Donovan Primary Care Unavailable [place], DR LEYLA Romero Consulting Unavailable WILSON ., DR MARTINES Consulting Unavailable ISAC, DR CINDY Keita Consulting Unavailable MIESHA HASSAN Attending Unavailable AKILA TUTTLE Attending Unavailable AKILA TUTTLE Attending Unavailable BOBBI RICHARDS Attending Unavailable BOBBI RICHARDS Attending Unavailable Allergies Allergy Classification Reported Allergen(s) Allergy Type Date of Onset Reaction(s) Facility (1 source) Gentamicin Sulfate (SKILLED NURSING) Drug Allergy 0 [facility] (1 source) peanut allergenic extract Drug Allergy 4 [facility] (1 source) Sulfamethoxazole / Trimethoprim Drug Allergy 4 [facility] (1 source) Thimerosal Drug Allergy 4 [facility] (1 source) Misc-Food; Translations: [Misc-Food] Food allergy (disorder) 4 [facility] Medications Current Medications Medication Drug Class(es) [...] 08-30 Strep A, Molecular Negative Normal NEG [facility] Comment on above: Performed By: #### R SAB #### [facility] [address] [place] [address] [employer]ble [employer]ber: Leyla Cortez MD Source .THROAT SWAB Normal [facility] Comment on above: Performed By: #### R SAB #### [facility] [address] [place] [address] [employer]: Leyla Cortez MD XR CHEST PORTABLEon 08-30-20 [...] Dante Rivas MD 08/30/23 Final result Normal [facility] MG MAMM SCREEN 3D ANDREW CADon 03-14-2023 MG MAMM SCREEN 3D ANDREW CAD Patient: KIM BRAVO Exam Date: 03/14/2023 : 1965 Gender:F Ordering : DR BOBBI RICHARDS . Admission #: [id number] Family : Order #: [id number] CLICK HERE TO VIEW EXAM RADIOLOGY REPORT [...] Treatments None Family Cancers None LOCATION: [facility] BREAST COMPOSITION: Heterogeneously dense,which may obscure small [...] PALPABLE LUMP SHOULD BE BIOPSIED. Dictated by: Lelya Kwan MD on 03/15/2023 at 07:06 Approved by: Leyla Kwan MD on 03/15/2023 at 07:11 Normal [facility] XR DEXA BONE DENSITYon 03-14 XR [...] by: CINDY CHAU Date: 2023-03-14 15:40 Normal [facility] PAP ACOG PANEL 2: 30 to 65on 03-07-2023 . . Normal [facility] Comment on above: Result Comment: Perf ormed at: WB Performed By: #### [id number] #### [facility] [address] [address] [address] Mary Ortiz Age Gdln ACOG Testing 30-65 Normal [facility] Comment on above: Performed By: #### [id number] #### [facility] [address] [address] [address] Mary Ortiz DIAGNOSIS: Comment Normal [facility] Comment on above: Result Comment: NEGA TIVE FOR INTRAEPITHELIAL LESION OR MALIGNANCY. Performed at: WB Performed By: #### [id number] #### [facility] [address] [address] [address] Mary Ortiz HPV Aptima Negative Normal Negative [facility] Comment on above: Result Comment: This nucleic acid amplification test detects fourteen high-risk HPV types (16,18,31,33,35,39,45,51,52,56,58,59,66,68) without differentiation. Performed at: =G Performed By: #### [id number] #### [facility] [address] [address] [address] Mary Ortiz HPV Genotype Reflex Comment Normal [facility] Comment on above: Result Comment: Crit eria not met, HPV Genotype not performed. Performed at: WB Performed By: #### [id number] #### [facility] [address] [place] [address] Dr. Mary Ortiz Methodology: Comment Normal [facility] Comment on above: Result Comment: This liquid based ThinPrep(R) pap test was screened with the use of an image guided system. Performed at: WB Performed By: #### [id number] #### [facility] [address] [place] [address] Dr. Mary Ortiz Note: Comment Normal [facility] Comment on above: Result Comment: The Pap smear is a screening test designed to aid in the detection of premalignant and malignant conditions of the uterine cervix. It is not a diagnostic procedure and should not be used as the sole means of detecting cervical cancer. Both false-positive and false-negative reports do occur. . Performed at: WB Performed By: #### [id number] #### [facility] [address] [place] [address] Dr. Mary Ortiz Performed by: Comment Normal [facility] Comment on above: Result Comment: Akila Arrieta, Health And Fitness Professor (ASCP) Performed at: WB Performed By: #### [id number] #### [facility] [address] [place] [address] Dr. Mary Ortiz Specimen adequacy: Comment Normal [facility] Comment on above: Result Comment: Sati sfactory for evaluation. Endocervical and/or squamous metaplastic cells (endocervical component) are present. Performed at: WB Performed By: #### [id number] #### [facility] [address] [place] [address] Dr. Mary Ortiz CBC AUTO DIFFon 11-23-2022 BASO # 0.1 103/ul Normal 0.0-0.1 [facility] Comment on above: Performed By: #### C BC #### [facility] [address] [place] [address] Dr. Mary Ortiz Basophils/100 WBC (Bld) 1.1 % Normal 0.2-2.0 [facility] Comment on above: Performed By: #### C BC #### [facility] [address] [place] [address] Dr. Mary Ortiz EO # 0.2 103/ul Normal 0.0-0.7 [facility] Comment on above: Performed By: #### C BC #### [facility] [address] [place] [address] Dr. Mary Ortiz Eosinophils/100 WBC (Bld) 4.1 % Normal 0.9-7.0 [facility] Comment on above: Performed By: #### C BC #### [facility] [address] [place] [address] Dr. Mary Ortiz Erythrocyte distribution width (RBC) [Ratio] 13.3 % Normal 11.0-15.0 [facility] Comment on above: Performed By: #### C BC #### [facility] [address] [place] [address] Dr. Mary Ortiz Hematocrit (Bld) [Volume fraction] 41.8 % Normal 36.0-48.0 [facility] Comment on above: Performed By: #### C BC #### [facility] [address] [place] [address] Dr. Mary Ortiz Hemoglobin (Bld) [Mass/Vol] 13.8 g/dL Normal 12.0-16.0 [facility] Comment on above: Performed By: #### C BC #### [facility] [address] [place] [address] Dr. Mary Ortiz IG # 0.01 10e3/ul Normal 0.00-0.03 [facility] Comment on above: Performed By: #### C BC #### [facility] [address] [place] [address] Dr. Mary Ortiz IG % 0.2 % Normal 0.0-0.5 [facility] Comment on above: Performed By: #### C BC #### [facility] [address] [place] [address] Dr. Mary Ortiz LYMPH # 1.9 103/ul Normal 1.2-3.8 [facility] Comment on above: Performed By: #### C BC #### [facility] [address] [place] [address] Dr. Mary Ortiz Lymphocytes/100 WBC (Bld) 32.7 % Normal 20.5-60.0 [facility] Comment on above: Performed By: #### C BC #### [facility] [address] [place] [address] Dr. Mary Ortiz MANUAL DIFF REQ NO Normal [facility] Comment on above: Performed By: #### C BC #### [facility] [address] [place] [address] Dr. Mary Ortiz MCH (RBC) [Entitic mass] 29.5 pg Normal 26.7-34.0 [facility] Comment on above: Performed By: #### C BC #### [facility] [address] [place] [address] Dr. Mary Ortiz MCHC (RBC) [Mass/Vol] 33.0 g/dL Normal 29.9-35.2 [facility] Comment on above: Performed By: #### C BC #### [facility] [address] [place] [address] Dr. Mary Ortiz MCV (RBC) [Entitic vol] 89.3 fL Normal 81.0-99.0 [facility] Comment on above: Performed By: #### C BC #### [facility] [address] [place] [address] Dr. Mary Ortiz MONO # 0.4 103/ul Normal 0.3-0.8 [facility] Comment on above: Performed By: #### C BC #### [facility] [address] [place] [address] Dr. Mary Ortiz Monocytes/100 WBC (Bld) 7.4 % Normal 1.7-12.0 [facility] Comment on above: Performed By: #### C BC #### [facility] [address] [place] [address] Dr. Mary Ortiz NEUT # 3.1 103/ul Normal 1.4-6.5 [facility] Comment on above: Performed By: #### C BC #### [facility] [address] [place] [address] Dr. Mary Ortiz Neutrophils/100 WBC (Bld) 54.5 % Normal 43.0-75.0 [facility] Comment on above: Performed By: #### C BC #### [facility] [address] [place] [address] Dr. Mary Ortiz Platelet mean volume (Bld) [Entitic vol] 9.6 fL Normal 9.5-13.5 [facility] Comment on above: Performed By: #### C BC #### [facility] [address] [place] [address] Dr. Mary Ortiz PLT 277 103/ul Normal 150-450 [facility] Comment on above: Performed By: #### C BC #### [facility] [address] [place] [address] Dr. Mary Ortiz RBC 4.68 106/ul Normal 4.20-5.40 [facility] Comment on above: Performed By: #### C BC #### [facility] [address] [place] [address] Dr. Mary Ortiz WBC 5.7 103/ul Normal 4.0-11.0 [facility] Comment on above: Performed By: #### C BC #### [facility] [address] [place] [address] Dr. Mary Ortiz PREG QUANT HCGon 11-23-2022 HCG QUANT 5 mIU/mL Normal [facility] Comment on above: Performed By: #### P REGQNT #### [facility] [address] [place] [address] Dr. Mary Ortiz HCG RANGE SEE BELOW Normal [facility] Comment on above: Result Comment: 5-50 0.2-1 WEEK 50-500 1-2 WEEKS 100-5,000 2-3 WEEKS 500-10,000 3-4 WEEKS 1,000-50,000 4-5 WEEKS 10,000-100,000 5-6 WEEKS 15,000-200,000 6-8 WEEKS 10,000-100,000 2-3 MONTHS Performed By: #### P REGQNT #### [facility] [address] [place] [address] Dr. Mary Ortiz Covid-19 PCR (CVDTB)on 11-06 SARS-CoV-2 (COVID-19) RNA BRANDY+probe Ql (Unsp spec) Not detected Normal NOT DETECTED [facility] Comment on above: Result Comment: This test is not yet approved or cleared by the [place] FDA. When there are no FDA-approved or cleared tests available, and other criteria are met, FDA can make tests available under an emergency access mechanism called an Emergency Use Authorization (EUA). The EUA for this test is supported by the [employer] of [employer] and Human Service's (HHS's) declaration [...] consistent with SARS-CoV-2. Performed By: #### C [facility] #### [facility] [address] [place] [address] Dr. Mary Ortiz US PELVIS AND TRANSVAGon [...] by: CINDY CHAU Date: 2022-11-08 15:56 Normal [facility] XR LSPINE MIN 4 VIEWSon 06-07 [...] by: LEYLA KWAN Date: 2022-06-28 07:15 Normal [facility] Consent for COVID Vaccineon 02-28-2021 SARS-CoV-2 (COVID-19) RNA BRANDY+probe Ql (Unsp spec) [id number]. 00CD:127 Normal [facility] Consent for COVID Vaccineon 01-28-2021 SARS-CoV-2 (COVID-19) RNA BRANDY+probe Ql (Unsp spec) [id number] 0CD:127 Normal [facility] Consent for Treatmenton 01-05 Consent for Treatment [id number] 0CD:127 Normal [facility] Coding Summary.on 01-26-2021 Coding Summary. CODING DATE: 01/26/2021 FINAL [facility] STATUS: PAYOR: Medical [place] [employer] DESCRIPTION 1492 [employer] - Level [...] Denisse Rodriguez Date Saved: 01/26/2021 09:41 am [facility] Vital Signs Date Time Vital Sign Value Performing Clinician Faci lity 10-24-2022 09:00-0500 Body height 157.48 cm Eddie Krishan Other [facility] Other 10-24-2022 09:00-0500 Body mass index (BMI) [Ratio] 41.15 kg/m2 Eddie Perkinsley Other [facility] Other 10-24-2022 09:00-0500 Body weight 102.06 kg Eddie Perkinsley Other [facility] Other 09-02-2022 09:00-0400 Body height 157.48 cm Eddie De León Other [facility] Other 09-02-2022 09:00-0400 Body mass index (BMI) [Ratio] 41.15 kg/m2 Eddie Perkinsley Other [facility] Other 09-02-2022 09:00-0400 Body weight 102.06 kg Eddie Krishan Other [facility] Other Encounters Encounter Date Encounter Type Care Provider Facility Start: 11-01-2023 End: 11-01-2023 ambulatory AKILA PARAG Not Available Start: 10-09-2023 End: 10-09-2023 ambulatory BOBBI WILSON Not Available Start: 10-02-2023 End: 10-02-2023 ambulatory BOBBI WILSON Not Available Start: 09-27-2023 End: 09-27-2023 ambulatory AKLIA PARAG Not Available Start: 08-30-2023 End: 08-30-2023 Emergency department patient visit [facility] Start: 08-28-2023 End: 08-29-2023 Emergency department patient visit [facility] Start: 04-28-2023 End: 04-28-2023 ambulatory Josué Santoro Other [facility] Other Start: 04-28-2023 Telephone encounter Josué HENDERSON G [facility] Start: 04-26-2023 End: 04-26-2023 ambulatory Rosaline Hooker Other [facility] Other Start: 04-26-2023 Telephone encounter Rosaline Hooker [facility] Start: 03-17-2023 End: 03-17-2023 ambulatory Rosaline Hooker Other [facility] Other Start: 03-17-2023 Telephone encounter Rosaline Hooker [facility] Start: 03-14-2023 End: 03-15-[address] BOBBI RICHARDS . Facility:[facility] Start: 02-28-2023 End: 02-28-[address] BOBBI RICHARDS . Facility:[facility] Start: 11-25-2022 Encounter for preprocedural cardiovascular examination DR BOBBI RICHARDS . [facility] Start: 11-23-2022 End: 11-23-[address] BOBBI RICHARDS . Facility:[facility] Start: 11-18-2022 End: 11-19-[address] BOBBI RICHARDS . Facility:[facility] Start: 11-18-2022 End: 11-19-2022 Encounter for preprocedural cardiovascular examination DR BOBBI RICHARDS . Facility:[facility] Start: 11-16-2022 Encounter for other preprocedural examination DR BOBBI RICHARDS . [facility] Start: 11-11-2022 End: 11-12-[address] BOBBI RICHARDS . Facility:[facility] Start: 11-11-2022 End: 11-12-2022 Encounter for other preprocedural examination DR BOBBI RICHARDS . Facility:[facility] Start: 11-08-2022 End: 11-09-[address] BOBBI RICHARDS . Facility:[facility] Start: 10-24-2022 End: 10-24-2022 ambulatory Eddie De León Other [facility] Other Start: 10-24-2022 Office outpatient vi sit 15 minutes Eddie De León [facility] Start: 10-03-2022 (Procedure) Short Josué Santoro [facility] Start: 10-03-2022 End: 10-03-2022 ambulatory Josué Maxbyron Other [facility] Other Start: 09-20-2022 End: 09-20-2022 ambulatory Josué Maxbyron Other [facility] Other Start: 09-20-2022 Telephone encounter Josué HENDERSON [facility] Start: 09-19-2022 End: 09-19-2022 ambulatory Josué Santoro Other [facility] Other Start: 09-19-2022 Office consultation new/estab patient 60 min Josué Santoro [facility] Start: 09-02-2022 End: 09-02-2022 ambulatory Eddie De León Other [facility] Other Start: 09-02-2022 Office outpatient ne w 30 minutes Eddie De León [facility] Start: 06-27-2022 End: 06-28-[address] ROSALINE HOOKER Facility: Payers Date Payer Category Payer Unknown [id number] 2.16.84 [id number] 1965 Unknown [id number] 2.16.84 [id number] 1965 Unknown [id number] 2.16.84 [id number] 1965 Unknown [id number] 2.16.84 0.1.412479.3.579.2.593 1965 Unknown [id number] 2.16.84 0.1.413408.3.579.2.593 1965 Unknown [id number] 2.16.84 0.1.020549.3.579.2.593 1965 Unknown [id number] 2.16.84 0.1.108396.3.579.2.593 1965 Unknown [id number] 2.16.8 40.1.178300.3.579.2.173 1965 Unknown [id number] 2.16.8 40.1.481741.3.579.2.173 1965 Unknown [id number] 2.16.840 .1.703625.3.579.2.1259 1965 Unknown [id number] 2.16.840 .1.942685.3.579.2.1259 1965 Unknown [id number] 2.16.840 .1.079538.3.579.2.1259 1965 Unknown [id number] 2.16.840 .1.133717.3.579.2.1259 1959 Unknown [id number] 2. [id number] Social History Date Type Detail Facility Sex Assigned At [facility] Other Clinical Note 11-23-2022 Note Date & Type Note Facility 11-23-2022 Note OPERATIVE NOTE OPERATION DATE: 11/23/2022 PROCEDURE: D AND C hysteroscopy with MyoSure. PREOPERATIVE DIAGNOSIS: Postmenopausal bleeding, thickened endometrium. POSTOPERATIVE DIAGNOSIS: Postmenopausal bleeding, thickened endometrium. ANESTHESIA: General. SURGEON: Bobbi Richards D.O. GROUND CREWMAN: None. BLOOD LOSS: 5 mL. URINE OUTPUT: [...] the Recovery Room in stable condition. [facility] Evaluation note 10-24-2022 Note Date & Type [...] exercises. Call with any questions or concerns [facility] Other Evaluation note 09-19-2022 Note Date & [...] Above note written by Raman Marks MA, Power Wheelchair Mechanic. Edited and approved by Dr. Josué Santoro [...] negative findings were considered in medical decision-making. [facility] Other Evaluation note 09-02-2022 Note Date & [...] as documented in the electronic medical record. [facility] Other Clinical Note 06-28-2022 Note Date & [...] by: LEYLA KWAN Date: 2022-06-28 07:13 [facility] Evaluation note Note Date & Type Note Facility Evaluation note No Information [employer] [facility] Other History general Narrative - Reported Note Date & Type Note Facility History general Narrative - Reported Type Medical History GERD Medical History Dysphasia Medical History right hip pain Surgical History left ankle surgery [facility] Other History general Narrative - Reported Note Date & Type Note Facility History general Narrative - Reported [facility] Other Summary Purpose Family History No Family History Records FoundNo Family History Records FoundNo Family History Records FoundNo Family History Records Found Advance Directives No Advanced Directives Records FoundNo Advanced Directives Records FoundNo Advanced Directives Records FoundNo Advanced Directives Records Found Reason for Referral Reason Bursal injection of right hip Diagnosis 1 Trochanteric bursiti s of right hip (M70.61) Referral Organization [facility] Referring Provider First Name Eddie Referring Provider Last Name Krishan Referring Provider Specialty Orthopedic Surgery Referred Organization [facility] Referred Address [address] [place], [place],[address] Referred Provider Specialty Pain Medicin e Referral Priority Routine General Notes schedule with Dr. Angela Santoro pain management Additional Source Comments INFORMATION SOURCE (unrecogn ized section and content) DATE CREATED AUTHOR 05/22/2021 Niranjan Edmondson [facility] DATE CREATED AUTHOR AUTHOR'S ORGANIZ ATION 03/19/2023 [facility] DATE CREATED AUTHOR AUTHOR'S ORGANIZ ATION 09/01/2023 [facility] DATE CREATED AUTHOR AUTHOR'S ORGANIZ ATION 11/02/2023 [facility] EPIC REASON FOR VISIT [...] BE BASED ON THE PRIMARY CLINICAL RECORDS. [facility] [employer] [facility]. provides no warranty or guarantee of the accuracy or completeness of information in this document.
== END 2024-09-30 20:45 | disposition home or self-care (01) ==
LOC: LAB 20:44
PROVIDERS: PCP Family Medicine; Visit Provider Obstetrics & Gynecology
DX: Z01.419 Encounter for gynecological examination (general) (routine) without abnormal findings (principal); Z90.710 Acquired absence of both cervix and uterus
CPT/HCPCS: 87624; 88175

== ENCOUNTER 2024-11-13 13:52 | Outpatient (OUT) | payer OTHER, SELFPAY ==
--- NOTE | 2024-11-13 13:55 | MM_ITS ---
Patient Name: LEO BRAVO MR#: [id number] : 1965 Exam Date: 11/13/2024 Ordering Doctor: DR Florentino Richards . RADIOLOGY REPORT PROCEDURE: MM TOMOSYNTHESIS SCREENING BI COMPARISON: MG MAMM SCREEN 3D ANDREW CAD, 03/14/2023. MM TOMOSYNTHESIS DIAGNOSTIC LT, 01/05/2024. MM POST BIOPSY LT, 05/08/2023. INDICATIONS: Screening for malignant neoplasm Calculator Name NCI Breast Cancer Risk Assessment Tool 5 Year Breast Cancer Risk 2.40% Lifetime Breast Cancer Risk 13.60% Personal Breast Cancer No Personal Ovarian Cancer No Treatments None Family Cancers None LOCATION: [facility] BREAST COMPOSITION: The breasts are heterogeneously dense,which may obscure small masses. FINDINGS: DIAGNOSTIC CATEGORY 2--BENIGN FINDING. NO CHANGE FROM COMPARISON. Scattered benign-appearing nodules are present. Scattered benign-appearing calcifications are present. Scattered benign-appearing lymph nodes are present. RIGHT BREAST: No significant suspicious finding. Small area of subtle but stable architectural distortion seen in the upper outer quadrant, mid breast LEFT BREAST: No significant suspicious finding. Two stable micro clip markers anterior breast RECOMMENDATIONS: ROUTINE MAMMOGRAM AND CLINICAL EVALUATION IN 12 MONTHS. PLEASE NOTE: A NORMAL MAMMOGRAM DOES NOT EXCLUDE THE POSSIBILITY OF BREAST CANCER. A CLINICALLY SUSPICIOUS PALPABLE LUMP SHOULD BE BIOPSIED. Dictated by: Shan Acevedo MD on 11/13/2024 at 15:14 Approved by: Shan Acevedo MD on 11/13/2024 at 15:17
== END 2024-11-13 13:53 | disposition home or self-care (01) ==
LOC: MAMMO 13:52
PROVIDERS: PCP Family Medicine; Visit Provider Obstetrics & Gynecology
DX: Z12.31 Encounter for screening mammogram for malignant neoplasm of breast (principal)
CPT/HCPCS: 77063; 77067

== ENCOUNTER 2025-03-28 10:45 | Outpatient (OUT) | payer OTHER, SELFPAY ==
--- OUTSIDE RECORDS SUMMARY | 2025-03-13 11:22 | XMS_ITS ---
Author Name Auto Generated Organization OHIP Care Team Providers Care German Instructor Name Role Phone DINORAH OROURKE Attending Unavailable ROSALINE HOOKER Referring Unavailable DINORAH OROURKE Attending Unavailable BOBBI RACHEL Attending Unavailable NILCisco Del Rosario Attending Unavailable NILCisco Del Rosario Referring Unavailable NILCisco Del Rosario Admitting Unavailable NILCisco Del Rosario Attending Unavailable ROSALINE HOOKER Referring Unavailable PROBLEMS No Problem Records Found PROCEDURES No Procedure Records Found RESULTS REMINDERS Observed: 12/02/2024 8:35 AM Status: F Source: [facility] Reminders From: Maris Serrato LPN To: N - Clinical; Sent: 12/02/2024 08:35:12 EST Show up: 10/29/2034 07:00:00 EST Subject: colonoscopy recall Due Date/Time: 11/29/2034 07:00:00 EST Reminder/Recall Patient due for screening colonoscopy 11/29/2034. PROGRESS NOTE-PHYSICIAN Observed: 2024 10:16 AM Status: F Source: [facility] Progress Note-Physician Patient: LEO BRAVO Age: 59 years Sex: Female : 1965 Associated Diagnoses: None Author: Zay Pardo Jr., DO Postoperative Information Postoperative disposition: Postoperative disposition: Home. Optimetrix number: Optimetrix number [id number]. Anesthetic utilized: General. Physical Examination Vital Signs 11/29/2024 8:45 EST Heart Rate Monitored 65 bpm Respiratory Rate Monitored 17 br/min Systolic Blood Pressure 112 mmHg Diastolic Blood Pressure 75 mmHg Blood Pressure Location Left arm Mean Arterial Pressure, Cuff 87 mmHg SpO2 97 % 11/29/2024 8:35 EST Heart Rate Monitored 73 bpm Respiratory Rate Monitored 14 br/min Systolic Blood Pressure 121 mmHg Diastolic Blood Pressure 74 mmHg Blood Pressure Location Left arm Mean Arterial Pressure, Cuff 90 mmHg SpO2 96 % 11/29/2024 8:30 EST Heart Rate Monitored 79 bpm Respiratory Rate Monitored 18 br/min Systolic Blood Pressure 103 mmHg Diastolic Blood Pressure 71 mmHg Blood Pressure Location Left arm Mean Arterial Pressure, Cuff 82 mmHg SpO2 96 % 11/29/2024 8:25 EST Heart Rate Monitored 84 bpm Respiratory Rate Monitored 20 br/min Systolic Blood Pressure 104 mmHg Diastolic Blood Pressure 69 mmHg Blood Pressure Location Left arm Mean Arterial Pressure, Cuff 81 mmHg SpO2 95 % 11/29/2024 8:23 EST Temperature Temporal Artery 36.2 DegC LOW Heart Rate Monitored 86 bpm Respiratory Rate Monitored 14 br/min Systolic Blood Pressure 110 mmHg Diastolic Blood Pressure 65 mmHg Blood Pressure Location Left arm Mean Arterial Pressure, Cuff 80 mmHg SpO2 95 % Pain Assessment: Controlled. General: Awake, Alert, Appropriate. Respiratory: Adequate air exchange, Non-labored. Cardiovascular: Stable, Normal peripheral perfusion. Neurological: Neurologic exam at baseline. No changes.. Assessment Anesthetic outcome No anesthetic complications noted. No nausea/vomiting. Review / Management Condition: Stable. Plan Transfer/Discharge: Transfer/Discharge Discharge when meets criteria ( From PACU to Ambulatory Surgery Unit, and To home ). Result Comment: Electronical ly Signed By: Zay Pardo Jr., DO\.br\Date and Time Signed: 11/29/24 10:16 EST COLONOSCOPY PROCEDURE REPORT Observed: 0 11/29/2024 10:08 AM Status: F Source: [facility] Colonoscopy Procedure Report Patient: LEO BRAVO Age: 59 years Sex: Female : 1965 Associated Diagnoses: None Author: Cisco ZAVALA MD Pre-Procedure Procedure Date 11/29/2024 08:30:00 . Procedure Type: Colonoscopy. Procedure provider Cisco Zavala M.D.. Referred by Rosaline Hooker MD. Current history and physical Documented on chart. Colorectal neoplasm risk assessment Average risk. Informed Consent After discussing the rationale, risks and benefits, and alternatives to this procedure, the patient provided signed consent for the procedure. Pre-procedure diagnosis: Age 50 years or over. ASA Classification: Class III. . Monitoring: See anesthesia record. . Procedure The procedure was performed in the hospital. See anesthesia record for sedation given during procedure. Rectal exam was performed and was normal. The patient was positioned starting in the left lateral decubitus position. Endoscope type used was an adult-size. The endoscope was lubricated then introduced through the anus. The scope was advanced to the cecum verified by photographing the appendiceal orifice, verified by photographing the ileocecal valve. No difficulties encountered during the procedure. The bowel preparation quality was good and was adequate (see polyps greater than or equal to 6 millimeters). The patient tolerated the procedure well. Findings Diverticulosis was identified in the sigmoid colon. The severity of the diverticulosis is moderate. Post-Procedure Complications: none. Estimated blood loss: none. Specimens: none. Devices/ implants: none left in place. Impression and Plan Diagnosis: Sigmoid diverticulosis ([id number] K57.30, Discharge, Medical). Course: Progressing as expected. Recommendations: Repeat colonoscopy:: In 10 years. Follow-up:: if problems/questions. Diet:: Regular diet. Medication resumption:: Continue current medications. Return to activities:: After 24 hours. Education and Follow-up: Counseled: Family. EGD Observed: 11/29/2024 10:03 AM Status: F Source: [facility] EGD Patient: LEO BRAVO Age: 59 years Sex: Female : 1965 Associated Diagnoses: None Author: ILENE CLEVELAND, Cisco Keita Pre-Procedure Procedure Date 11/29/2024 08:30:00 . Procedure Type: Esophagogastroduodenoscopy. Procedure provider Cisco Zavala MD. Referred by Rosaline Hooker MD. Current history and physical Documented on chart. Pre-procedure diagnosis: Dyspepsia. Diagnostic: chronic GERD. ASA Classification: Class III. . Monitoring: See anesthesia record. . Procedure The procedure was performed in the hospital. See anesthesia record for sedation given during procedure. The patient was positioned starting in the left lateral decubitus position. Endoscope type used was an adult-size, introduced orally, advanced to the 2nd portion of the duodenum. No difficulty was encountered during the procedure. Views were excellent. The patient tolerated the procedure well. Findings Examination of the esophagus revealed a normal esophagus. The squamocolumnar junction appeared regular and was located 34 cm from incisors. Examination of the stomach revealed a normal stomach. Examination of the duodenum revealed a normal duodenum. Images Procedure images: distal esophagus antrum hiatus . Post-Procedure Complications: none. Estimated blood loss: none. Devices/ implants: none left in place. Impression and Plan EGD: Diagnosis: Chronic GERD ([id number] K21.9, Discharge, Medical). Course: Progressing as expected. Education and Follow-up: Counseled: Family. Other Comment: Missing Attac hment - attachment storage system not supported [id number] Can be viewed in source system Missing Attachment - attachment storage system not supported [id number] Can be viewed in source systemMissing Attachment - attachment storage system not supported [id number] Can be viewed in source system PATIENT EDUCATION - TEXT Observed: 11/29 8:55 AM Status: C Source: [facility] Patient Education - Text Diverticulosis Many people have small pouches in their colon called diverticulum. The diverticulum bulge outward through weak spots in the colon. You could have one or more of these pouches in the colon. The condition of having these pouches in the colon is called diverticulosis or diverticular disease. Diverticulosis is usually diagnosed by tests to evaluate something else. For example, you may have had a colonoscopy to screen for colon cancer when the diverticulosis was found. Most people with diverticulosis do not have any discomfort or problems. If symptoms develop, they may include mild cramps, bloating, and constipation. A complication of this condition is called diverticulitis. This is when the diverticulum become inflamed and infected. How to treat diverticulosis: Increasing the amount of fiber in the diet may reduce symptoms of diverticulosis and prevent complications such as diverticulitis (infected diverticuli). Fiber keeps stool soft and lowers pressure inside the colon so that bowel contents can move through easily. You should eat 20 to 35 grams of fiber each day. The table below shows the amount of fiber in some foods that you can easily add to your diet. Adding fiber slowly may decrease the bloating and fullness sometimes felt with an immediate high fiber diet. The doctor may also recommend taking a fiber product such as Citrucel or Metamucil once a day. In the past people with diverticulosis were to avoid nuts, corn, and seeds. This has not been found to be true. If you find that certain foods create cramping or bloating, avoid that food. Foods high in fiber include: Fresh fruits, fresh vegetables, legumes (beans), whole wheat bread, bran muffins or cereal, and nuts. See the table below for examples of high fiber foods. Remember, your goal is 20- 35 grams per day. Amount of fiber in different foods Food Serving Grams of fiber Fruits Apple (with skin) 1 medium apple 4.4 Banana 1 medium banana 3.1 Oranges 1 orange 3.1 Prunes 1 cup, pitted 12.4 Juices Apple, unsweetened, w/added ascorbic acid 1 cup 0.5 Grapefruit, white, canned, sweetened 1 cup 0.2 Grape, unsweetened, w/added ascorbic acid 1 cup 0.5 [place] 1 cup 0.7 Vegetables Cooked Green beans 1 cup 4.0 Carrots 1/2 cup sliced 2.3 Peas 1 cup 8.8 Potato (baked, with skin) 1 medium potato 3.8 Raw [place] (with peel) 1 cucumber 1.5 Lettuce 1 cup shredded 0.5 Tomato 1 medium tomato 1.5 Spinach 1 cup 0.7 Legumes Baked beans, canned, no salt added 1 cup 13.9 Kidney beans, canned 1 cup 13.6 Flowers beans, canned 1 cup 11.6 Lentils, boiled 1 cup 15.6 Breads, pastas, flours Bran muffins 1 medium muffin 5.2 Oatmeal, cooked 1 cup 4.0 White bread 1 slice 0.6 Whole-wheat bread 1 slice 1.9 Pasta and rice, cooked Macaroni 1 cup 2.5 Rice, brown 1 cup 3.5 Rice, white 1 cup 0.6 Spaghetti (regular) 1 cup 2.5 Nuts Almonds 1/2 cup 8.7 Peanuts 1/2 cup 7.9 Chart from [facility] 2013. SEEK IMMEDIATE MEDICAL CARE IF: You develop abdominal (belly) pain. An oral temperature above _ 101??? F__develops. Repeated vomiting occurs. Blood is being passed in stools (bright red or black tarry stools). You develop any bowel problems or changes which you have not had before. Extra Information: To learn how much fiber and other nutrients are in different foods, visit the [place] Department of Agriculture (USDA) National Nutrient Database at: http://www.nal.usda.gov/fnic/foodcomp/search/ Created using data from the USDA National Nutrient Database for Standard Reference. Available at http://www.[employer].usda.gov/fnic/foodcomp/search/. Information adapted from: [facility] [place]??? Patient Information ???2009 [employer]. [facility] 2012 [email or web address].[facility]/contents/zvbdaoxhejxv-hbpzcdh-ezajqh-the-basics Colonoscopy Care After Surgery Please read the instructions outlined below and refer to this sheet in the next few weeks. These discharge instructions provide you with general information on caring for yourself after you leave the hospital. Your doctor may also give you specific instructions. While your treatment has been planned according to the most current medical practices available, unavoidable complications occasionally occur. If you have any problems or questions after discharge, please call your doctor. ACTIVITY You may resume your regular activity, but move at a slower pace for the next 24 hours. Take frequent rest periods for the next 24 hours. Walking will help get rid of the air and reduce the bloated feeling in your abdomen (belly). No driving for 24 hours (because of the anesthesia (medicine) used during the test). You may shower. Do not sign any important legal documents or operate any machinery for 24 hours (because of the anesthesia used during the test). NUTRITION Drink plenty of fluids. You may resume your normal diet as instructed by your doctor. Begin with a light meal and progress to your normal diet. Heavy or fried foods are harder to digest and may make you feel nauseated (sick to your stomach). Avoid alcoholic beverages for 24 hours or as instructed. MEDICATIONS You may resume your normal medications unless your doctor tells you otherwise. WHAT YOU CAN EXPECT TODAY Some feelings of bloating in the abdomen. Passage of more gas than usual. Spotting of blood in your stool or on the toilet paper. FOLLOW-UP Your doctor will discuss the results of your test with you. SEEK IMMEDIATE MEDICAL ATTENTION IF: There is more than a spotting of blood in your stool. There is abdominal distention (your abdomen is swollen). There is vomiting. You have a temperature over 101.5 F. There is abdominal pain or discomfort that is severe or gets worse throughout the day. OUTPATIENT SURGERY DISCHARGE INSTRUCTION Observed: 11/29/2024 8:55 AM Status: F Source: [facility] Outpatient Surgery Discharge Instruction [address] [address] Patient Discharge Instructions PERSON INFORMATION Name: LEO BRAVO Date of : 1965 Current Date: 11/29/2024 08:55:20 PHYSICIANS Admitting Physician: Cisco ZAVALA MD Discharge Diagnosis: Chronic GERD; Sigmoid diverticulosis LEO BRAVO has been given the following list of follow-up instructions, prescriptions, and patient education materials: PATIENT FOLLOW-UP INFORMATION Diet: Regular Discharge Activity: Arrange for a responsible adult supervision for 24 hours Discharge Restrictions: No driving for 24 hrs, Do not operate machinery or tools, Do not make important decisions for 24 hours, Do not drink alcoholic beverages for 24 hours Call Your Doctor For: Persistent or heavy bleeding, Temperature above 101.5 degrees, Severe pain at the operative site, Persistent vomiting IF UNABLE TO CONTACT YOUR PHYSICIAN AND YOU FEEL IT IS AN EMERGENCY, GO TO THE NEAREST EMERGENCY ROOM OR CALL 911 I, LEO BRAVO, have received the attached patient education materials/instructions and have verbalized understanding: May we do a follow up call? Yes No I was present when discharge instructions were given Patient Signature Date Clinican/Nurse Signature Date Follow up: With: Address: When: Cisco SALAZARMiguel [address]ng[address], [address], [place] [address] Business (1) Within 7 to 10 days With: Address: When: Cisco SALAZARMiguel [address]ngel [address], [address], [place] [address] [phone] Business (1) Comments: Call for any problems. Pharmacy Information: You may receive a survey from [facility] asking you to rate your care experience. Your feedback is important and will help us understand what we do well and how we can improve the quality of care we provide to you, your loved ones and our community. It???s an honor to serve you. Thank you for choosing [facility] HERE ARE THE MEDICATION CHANGES THAT OCCURRED DURING YOUR HOSPITAL STAY Medications to Continue with No Changes Other Medications cetirizine (Zyrtec) 10 Milligram By Mouth every day. fluticasone nasal (fluticasone 93 mcg/inh nasal spray) 2 Sprays Inhalation every day. PATIENT EDUCATION INFORMATION Instructions: Diverticulosis Many people have small pouches in their colon called diverticulum. The diverticulum bulge outward through weak spots in the colon. You could have one or more of these pouches in the colon. The condition of having these pouches in the colon is called diverticulosis or diverticular disease. Diverticulosis is usually diagnosed by tests to evaluate something else. For example, you may have had a colonoscopy to screen for colon cancer when the diverticulosis was found. Most people with diverticulosis do not have any discomfort or problems. If symptoms develop, they may include mild cramps, bloating, and constipation. A complication of this condition is called diverticulitis. This is when the diverticulum become inflamed and infected. How to treat diverticulosis: Increasing the amount of fiber in the diet may reduce symptoms of diverticulosis and prevent complications such as diverticulitis (infected diverticuli). Fiber keeps stool soft and lowers pressure inside the colon so that bowel contents can move through easily. You should eat 20 to 35 grams of fiber each day. The table below shows the amount of fiber in some foods that you can easily add to your diet. Adding fiber slowly may decrease the bloating and fullness sometimes felt with an immediate high fiber diet. The doctor may also recommend taking a fiber product such as Citrucel or Metamucil once a day. In the past people with diverticulosis were to avoid nuts, corn, and seeds. This has not been found to be true. If you find that certain foods create cramping or bloating, avoid that food. Foods high in fiber include: Fresh fruits, fresh vegetables, legumes (beans), whole wheat bread, bran muffins or cereal, and nuts. See the table below for examples of high fiber foods. Remember, your goal is 20- 35 grams per day. Amount of fiber in different foods Food Serving Grams of fiber Fruits Apple (with skin) 1 medium apple 4.4 Banana 1 medium banana 3.1 Oranges 1 orange 3.1 Prunes 1 cup, pitted 12.4 Juices Apple, unsweetened, w/added ascorbic acid 1 cup 0.5 Grapefruit, white, canned, sweetened 1 cup 0.2 Grape, unsweetened, w/added ascorbic acid 1 cup 0.5 [place] 1 cup 0.7 Vegetables Cooked Green beans 1 cup 4.0 Carrots 1/2 cup sliced 2.3 Peas 1 cup 8.8 Potato (baked, with skin) 1 medium potato 3.8 Raw [place] (with peel) 1 cucumber 1.5 Lettuce 1 cup shredded 0.5 Tomato 1 medium tomato 1.5 Spinach 1 cup 0.7 Legumes Baked beans, canned, no salt added 1 cup 13.9 Kidney beans, canned 1 cup 13.6 Flowers beans, canned 1 cup 11.6 Lentils, boiled 1 cup 15.6 Breads, pastas, flours Bran muffins 1 medium muffin 5.2 Oatmeal, cooked 1 cup 4.0 White bread 1 slice 0.6 Whole-wheat bread 1 slice 1.9 Pasta and rice, cooked Macaroni 1 cup 2.5 Rice, brown 1 cup 3.5 Rice, white 1 cup 0.6 Spaghetti (regular) 1 cup 2.5 Nuts Almonds 1/2 cup 8.7 Peanuts 1/2 cup 7.9 Chart from [facility] 2013. SEEK IMMEDIATE MEDICAL CARE IF: You develop abdominal (belly) pain. An oral temperature above _ 101??? F__develops. Repeated vomiting occurs. Blood is being passed in stools (bright red or black tarry stools). You develop any bowel problems or changes which you have not had before. Extra Information: To learn how much fiber and other nutrients are in different foods, visit the [place] Department of Agriculture (USDA) National Nutrient Database at: http://www.nal.usda.gov/fnic/foodcomp/search/ Created using data from the USDA National Nutrient Database for Standard Reference. Available at http://www.nal.usda.gov/fnic/foodcomp/search/. Information adapted from: [employer]??? Patient Information ???2009 [employer]. [employer] 2012 http://www.[facility]/contents/lxjycdfjkfsu-wrzbzmp-bhiual-the-basics Colonoscopy Care After Surgery Please read the instructions outlined below and refer to this sheet in the next few weeks. These discharge instructions provide you with general information on caring for yourself after you leave the hospital. Your doctor may also give you specific instructions. While your treatment has been planned according to the most current medical practices available, unavoidable complications occasionally occur. If you have any problems or questions after discharge, please call your doctor. ACTIVITY You may resume your regular activity, but move at a slower pace for the next 24 hours. Take frequent rest periods for the next 24 hours. Walking will help get rid of the air and reduce the bloated feeling in your abdomen (belly). No driving for 24 hours (because of the anesthesia (medicine) used during the test). You may shower. Do not sign any important legal documents or operate any machinery for 24 hours (because of the anesthesia used during the test). NUTRITION Drink plenty of fluids. You may resume your normal diet as instructed by your doctor. Begin with a light meal and progress to your normal diet. Heavy or fried foods are harder to digest and may make you feel nauseated (sick to your stomach). Avoid alcoholic beverages for 24 hours or as instructed. MEDICATIONS You may resume your normal medications unless your doctor tells you otherwise. WHAT YOU CAN EXPECT TODAY Some feelings of bloating in the abdomen. Passage of more gas than usual. Spotting of blood in your stool or on the toilet paper. FOLLOW-UP Your doctor will discuss the results of your test with you. SEEK IMMEDIATE MEDICAL ATTENTION IF: There is more than a spotting of blood in your stool. There is abdominal distention (your abdomen is swollen). There is vomiting. You have a temperature over 101.5 F. There is abdominal pain or discomfort that is severe or gets worse throughout the day. Medication Leaflets: INPATIENT PATIENT SUMMARY Observed: 11/07 8:55 AM Status: F Source: [facility] Inpatient Patient Summary [address] [address] [facility] Clinical Discharge Instructions PERSON INFORMATION Name: LEO BRAVO PHYSICIANS Admitting Physician: Cisco ZAVALA MD Attending Physician: Cisco ZAVALA MD PCP: ROSALINE HOOKER MD Discharge Diagnosis: Chronic GERD; Sigmoid diverticulosis Comment: PATIENT EDUCATION INFORMATION Instructions: Diverticulosis MAGR (CUSTOM); Colonoscopy, Care After Surgery Salam (CUSTOM) Medication Leaflets: Follow up: With: Address: When: Cisco ZAVALA [address], [address], [address] [address] Business (1) Within 7 to 10 days With: Address: When: Cisco ZAVALA [address], [address], [address] [address] Business (1) Comments: Call for any problems. MEDICATION LIST Medications to Continue with No Changes Other Medications cetirizine (Zyrtec) 10 Milligram By Mouth every day. fluticasone nasal (fluticasone 93 mcg/inh nasal spray) 2 Sprays Inhalation every day. Comment: DISCHARGE INSTRUCTIONS Observed: 025 8:29 AM Status: F Source: [facility] Discharge Instructions LEO BRAVO :1965 Visit Date:11/29/2024 Inpatient Discharge Instructions Your Care Team Admitting Physician - Cisco ZAVALA MD Referring Physician - Cisco ZAVALA MD Reason for Your Visit SCREENING This Is Your Medications List cetirizine (Zyrtec) fluticasone nasal (fluticasone 93 mcg/inh nasal spray) Procedure History Arthroscopy of ankle (09/03/2001), Colonoscopy, Core needle biopsy of breast, Dilation and curettage, Endometrial biopsy, Extraction of wisdom tooth, Laparoscopic total hysterectomy. Discharge Vitals Temperature (Temporal Artery) 36.2 ???C Heart Rate (Monitored) 84 Respiratory Rate 20 Blood Pressure 104/69 Height 157.4 cm Weight 107.1 kg BMI 43.23 What to do next Instructions From Your Doctor No qualifying data available. New Follow Up Appointments after Discharge Follow Up with Cisco ZAVALA When: Comments: Call for any problems. Where: [address], [address] [address]- Business (1) Medications What How Much When Instructions Next Dose Unchanged cetirizine (Zyrtec) 10 Milligram By Mouth Every day Unchanged fluticasone nasal (fluticasone 93 mcg/ inh nasal spray) 2 Sprays Inhalation Every day Test Results No qualifying data available. Allergies Bactrim (Joint pain) Mold Pea (Swelling of throat.) Peanuts (Swelling of throat) gentamicin (Rash) thimerosal topical (Rash) Problems Ongoing - Any problem that you are currently receiving treatment for. Allergic rhinitis due to pollen Asthma BMI 40.0-44.9, adult Chronic GERD IBS (irritable bowel syndrome) Morbid obesity Screening for malignant neoplasm of colon Education Materials Diverticulosis Many people have small pouches in their colon called diverticulum. The diverticulum bulge outward through weak spots in the colon. You could have one or more of these pouches in the colon. The condition of having these pouches in the colon is called diverticulosis or diverticular disease. Diverticulosis is usually diagnosed by tests to evaluate something else. For example, you may have had a colonoscopy to screen for colon cancer when the diverticulosis was found. Most people with diverticulosis do not have any discomfort or problems. If symptoms develop, they may include mild cramps, bloating, and constipation. A complication of this condition is called diverticulitis. This is when the diverticulum become inflamed and infected. How to treat diverticulosis: Increasing the amount of fiber in the diet may reduce symptoms of diverticulosis and prevent complications such as diverticulitis (infected diverticuli). Fiber keeps stool soft and lowers pressure inside the colon so that bowel contents can move through easily. You should eat 20 to 35 grams of fiber each day. The table below shows the amount of fiber in some foods that you can easily add to your diet. Adding fiber slowly may decrease the bloating and fullness sometimes felt with an immediate high fiber diet. The doctor may also recommend taking a fiber product such as Citrucel or Metamucil once a day. In the past people with diverticulosis were to avoid nuts, corn, and seeds. This has not been found to be true. If you find that certain foods create cramping or bloating, avoid that food. Foods high in fiber include: Fresh fruits, fresh vegetables, legumes (beans), whole wheat bread, bran muffins or cereal, and nuts. See the table below for examples of high fiber foods. Remember, your goal is 20- 35 grams per day. Amount of fiber in different foods Food Serving Grams of fiber Fruits Apple (with skin) 1 medium apple 4.4 Banana 1 medium banana 3.1 Oranges 1 orange 3.1 Prunes 1 cup, pitted 12.4 Juices Apple, unsweetened, w/added ascorbic acid 1 cup 0.5 Grapefruit, white, canned, sweetened 1 cup 0.2 Grape, unsweetened, w/added ascorbic acid 1 cup 0.5 [place] 1 cup 0.7 Vegetables Cooked Green beans 1 cup 4.0 Carrots 1/2 cup sliced 2.3 Peas 1 cup 8.8 Potato (baked, with skin) 1 medium potato 3.8 Raw [place] (with peel) 1 cucumber 1.5 Lettuce 1 cup shredded 0.5 Tomato 1 medium tomato 1.5 Spinach 1 cup 0.7 Legumes Baked beans, canned, no salt added 1 cup 13.9 Kidney beans, canned 1 cup 13.6 Flowers beans, canned 1 cup 11.6 Lentils, boiled 1 cup 15.6 Breads, pastas, flours Bran muffins 1 medium muffin 5.2 Oatmeal, cooked 1 cup 4.0 White bread 1 slice 0.6 Whole-wheat bread 1 slice 1.9 Pasta and rice, cooked Macaroni 1 cup 2.5 Rice, brown 1 cup 3.5 Rice, white 1 cup 0.6 Spaghetti (regular) 1 cup 2.5 Nuts Almonds 1/2 cup 8.7 Peanuts 1/2 cup 7.9 Chart from [facility] 2013. SEEK IMMEDIATE MEDICAL CARE IF: You develop abdominal (belly) pain. An oral temperature above _ 101??? F__develops. Repeated vomiting occurs. Blood is being passed in stools (bright red or black tarry stools). You develop any bowel problems or changes which you have not had before. Extra Information: To learn how much fiber and other nutrients are in different foods, visit the [place] Department of Agriculture (USDA) National Nutrient Database at: http://www.nal.usda.gov/fnic/foodcomp/search/ Created using data from the USDA National Nutrient Database for Standard Reference. Available at http://www.nal.usda.gov/fnic/foodcomp/search/. Information adapted from: ExitCare??? Patient Information ???2009 [employer]. [employer] 2012 http://www.[facility]/contents/vubilmfjamhx-zavvkpr-bruhwp-the-basics Colonoscopy Care After Surgery Please read the instructions outlined below and refer to this sheet in the next few weeks. These discharge instructions provide you with general information on caring for yourself after you leave the hospital. Your doctor may also give you specific instructions. While your treatment has been planned according to the most current medical practices available, unavoidable complications occasionally occur. If you have any problems or questions after discharge, please call your doctor. ACTIVITY You may resume your regular activity, but move at a slower pace for the next 24 hours. Take frequent rest periods for the next 24 hours. Walking will help get rid of the air and reduce the bloated feeling in your abdomen (belly). No driving for 24 hours (because of the anesthesia (medicine) used during the test). You may shower. Do not sign any important legal documents or operate any machinery for 24 hours (because of the anesthesia used during the test). NUTRITION Drink plenty of fluids. You may resume your normal diet as instructed by your doctor. Begin with a light meal and progress to your normal diet. Heavy or fried foods are harder to digest and may make you feel nauseated (sick to your stomach). Avoid alcoholic beverages for 24 hours or as instructed. MEDICATIONS You may resume your normal medications unless your doctor tells you otherwise. WHAT YOU CAN EXPECT TODAY Some feelings of bloating in the abdomen. Passage of more gas than usual. Spotting of blood in your stool or on the toilet paper. FOLLOW-UP Your doctor will discuss the results of your test with you. SEEK IMMEDIATE MEDICAL ATTENTION IF: There is more than a spotting of blood in your stool. There is abdominal distention (your abdomen is swollen). There is vomiting. You have a temperature over 101.5 F. There is abdominal pain or discomfort that is severe or gets worse throughout the day. Common Emergency Awareness Tips IS IT A STROKE? Act FAST and Check for these signs: FACE Does the face look uneven? ARM Does one arm drift down? SPEECH Does their speech sound strange? TIME Call at any sign of stroke Heart Attack Signs Chest discomfort: Most heart attacks involve discomfort in the center of the chest and lasts more than a few minutes, or goes away and comes back. It can feel like uncomfortable pressure, squeezing, fullness or pain. Discomfort in upper body: Symptoms can include pain or discomfort in one or both arms, back, neck, jaw or stomach. Shortness of breath: With or without discomfort. Other signs: Breaking out in a cold sweat, nausea, or lightheaded. Remember, MINUTES DO MATTER. If you experience any of these heart attack warning signs, call to get immediate medical attention! Patient Survey You may receive a survey in the mail asking you about your stay with us. We want to hear from you, please share your experience with us by completing your survey. Thank you for choosing [facility]. [facility]ez Award Nomination The MERCEDEZ (Diseases Attacking the Immune SYstem) Award is an international recognition program that honors and celebrates the skillful, compassionate care nurses provide every day. Anyone who experiences or observes amazing care being provided by a nurse is encouraged to submit a nomination. To nominate your nurse, use your smart phone to scan the QR code below. Patient Portal You may access all of your results and other medical record information on our secure patient portal. If you are not signed up for this yet, please contact [employer] at [phone] to get signed up today. Patient Name: LEO BRAVO I have received this information and my questions have been answered. Patient/Search Engine Optimization Consultant Name: Patient/Search Engine Optimization Consultant Signature: Relationship to Patient: Witness Name/Signature: Date: Result Comment: Electronical ly Signed By: Dimitri MAYO, [email or web address].all\Date and Time Signed: 11/29/24 08:29 EST MAIN OR PREOPERATIVE RECORD Observed: 8:00 AM Status: F Source: [facility] Main OR Preoperative Record Holding Area Document Type FT Summary Primary Physician: Cisco ZAVALA MD Finalized Date/Time: 11/29/24 06:56:19 Pt. Name: SHELLYLEO/Sex: 1965 Female Med Rec #: [id number] Physician: Cisco ZAVALA MD Financial #: [id number] Pt. Type: O Room/Bed: / Admit/Disch: 11/29/24 06:43:11 - Institution: Case Times Holding FT Pre-Care Text: Verifies consent for planned procedure, identifies individual values and wishes concerning care, includes family members in perioperative teaching Secures patient's records' belongings, and valuables, maintains patient's dignity and privacy, and maintains patient confidentiality Entry 1 In Holding 11/29/24 06:55:00 Outcomes Met? Yes Last Modified By: Trudi MAYO, Margarita Triana 11/29/24 06:55:14 Post-Care Text: The patient participates in decisions affecting his or her perioperative plan of care The patient's right to privacy is maintained Surgery Checklist FT Entry 1 Patient Birthday, ID Band Procedure History and Physical, Identification: Check, Patient Verification: Surgical Consent, With Participation Patient NPO after Midnight: Yes Date/Time: 11/29/24 02:40:00 Personal Items: Glasses, Jewelry Personal Items glasses, clothes, Comment: shoes, left breast marker, watch, ring Limitations: n/a Complaints of Pain: No Pain Comment: denies Operative Site n/a Marking: Marked By: n/a Availability Equipment Verified: Does Patient Smoke No Patient states Yes Comment - Adult La postop adult Supervision supervision available Case Cancelled in No Holding Area see comments below for reason Last Modified By: Margarita Brush RN 11/29/24 06:56:17 General Comments: Pt finished colon prep at 0240, states stool is clear liquid yellow, has been NPO since. /MDRN Finalized By: Margarita Brush RN Document Signatures Signed By: Margarita Brush RN 11/29/24 06:56 MAIN OR PACU II RECORD Observed: 025 7:56 AM Status: F Source: [facility] Main OR PACU II Record PACU Phase II Document Type FT Summary Primary Physician: Cisco ZAVALA MD Finalized Date/Time: 11/29/24 09:00:06 Pt. Name: SHELLYLEO/Sex: 1965 Female Med Rec #: [id number] Physician: Cisco ZAVALA MD Financial #: [id number] Pt. Type: O Room/Bed: / Admit/Disch: 11/29/24 06:43:11 - Institution: Case Times PACU II FT Pre-Care Text: Identifies barriers to communication and implements measures to provide psychological support and determines knowledge level Develops individualized plan of care, and ensures continuity of care Maintains patient's dignity and privacy, and maintains patient confidentiality Identifies and reports philosophical, cultural, and spiritual beliefs and values Identifies individual values and wishes concerning care administers prescribed antibiotic therapy and immunizing agents as ordered, Evaluates postoperative tissue perfusion Implements thermoregulation measures, and monitors body temperature Evaluates postoperative respiratory status Evaluates postoperative cardiac status Evaluates postoperative neurological status Assesses pain control, collaborated in initiating patient-controlled analgesia and implements alternative methods of pain control Verifies allergies, administers prescribed medications and solutions, evaluates response to medications Entry 1 In PACU II 11/29/24 08:23:00 Discharge from PACU 11/29/24 08:53:00 II Outcomes Met? Yes Last Modified By: Sharlene Mosley RN 11/29/24 09:00:00 Post-Care Text: The patient demonstrates knowledge of the expected response to the operative or invasive procedure The patient's care is consistent with the individualized perioperative plan of care The patient's right to privacy is maintained The patient's value system, lifestyle, ethnicity, and culture are considered, respected, and incorporated into the perioperative plan of care The patient participates in decisions affecting his or her perioperative plan of care. The patient is free from signs and symptoms of infection The patient has wound/tissue perfusion consistent with or improved from baseline levels established preoperatively The patient is at or returning to normothermia at the conclusion of the immediate postoperative period The patient's respiratory function is consistent with or improved from baseline levels established preoperatively The patient's cardiovascular status is consistent with or improved from baseline levels established preoperatively The patient's neurological status is consistent with or improved from baseline levels established preoperatively The patient demonstrates and/or reports adequate pain control throughout the perioperative period The patient received appropriate medication(s), safely administered during the perioperative period Finalized By: Sharlene Mosley RN Document Signatures Signed By: Sharlene Mosley RN 11/29/24 09:00 MAIN OR INTRAOPERATIVE RECORD Observed: 11/29/2024 7:56 AM Status: C Source: [facility] Main OR Intraoperative Recor d IntraOp Document Type FT Summary Primary Physician: Cisco ZAVALA MD Finalized Date/Time: 12/02/24 12:41:15 Pt. Name: LEO BRAVO/Sex: 1965 Female Med Rec #: [id number] Physician: Cisco ZAVALA MD Financial #: [id number] Pt. Type: O Room/Bed: / Admit/Disch: 11/29/24 06:43:11 - 11/29/24 23:59:59 Institution: Case Times FT Entry 1 Patient Times In Room 11/29/24 07:53:00 Out Room 11/29/24 08:21:00 Procedure Times Start 11/29/24 07:56:00 Stop 11/29/24 08:18:00 Anesthesia Times Start 11/29/24 07:53:00 Stop 11/29/24 08:21:00 Time at [facility] 11/29/24 08:09:00 Last Modified By: Mohamud Estrada RN 11/29/24 08:22:26 General Comments: 0759 EGD completed MSRN 0803 Colonoscopy started MSRN 12/02/24 Chart opened to review and send charges [facility] CSFA Case Attendance FT Entry 1 Entry 2 Entry 3 Case Attendee Greg Jc MD, Cisco Estrada RN, Mohamud Donovan Role Performed Anesthesiologist Surgeon - Primary Overweaver - Primary Tower Erector Helper Time In 11/29/24 07:53:00 11/29/24 07:53:00 11/29/24 07:53:00 Time Out 11/29/24 08:21:00 11/29/24 08:21:00 11/29/24 08:21:00 Procedure EGD AND COLONOSCOPY(.) EGD AND COLONOSCOPY(.) EGD AND COLONOSCOPY(.) Comments Dr. Pardo supervising case Last Modified By: Sean RN, Mohamud Estrada RN, Mohamud Estrada RN, Mohamud Donovan 11/29/24 08:22:26 11/29/24 08:22:26 11/29/24 08:22:26 Entry 4 Entry 5 Case Attendee Jasmin Warner CST, Rhianna Pink Role Performed Scrub - Primary Staff - Other Time In 11/29/24 07:53:00 11/29/24 07:53:00 Time Out 11/29/24 08:21:00 11/29/24 08:21:00 Procedure EGD AND COLONOSCOPY(.) EGD AND COLONOSCOPY(.) Comments help in room Last Modified By: Sean RN, Mohamud Estrada RN, Mohamud Donovan 11/29/24 08:22:26 11/29/24 08:22:26 Perioperative Protocols FT Pre-Care Text: Implements protective measures prior to operative or invasive procedure, confirms identity before the operative or invasive procedure, verifies operative procedure, surgical site, and laterality Entry 1 Procedure(s) EGD AND COLONOSCOPY(.) Patient Identity Birthday, ID Band Verified (select at Check, Patient least 2): Participation Consents / H and P Anesthesia Consent, Operative Site N/A Verified H&P, Surgery/Procedure Marking Verified Consent Surgical Site No Laterality Verified n/a Verified Procedure Verified Yes Correct Patient Yes Position Verified Availability Equipment, Medication Prep Dry n/a Verified (If Applicable) PreOp Antibiotic No Time Out Greg Jc, Given Participants ILENE CLEVELAND, Sean Cao RN, Timmy Rios Micala E, Schafer CST, Rhianna M Time Out Complete 11/29/24 07:54:00 Outcomes Met? Yes Last Modified By: Mohamud Estrada RN 11/29/24 07:57:40 Post-Care Text: The patient is free from signs and symptoms of injury caused by extraneous objects Allergy Information FT Pre-Care Text: Verifies allergies Entry 1 Allergies Reviewed? Yes Allergies Reviewed Self/Patient With Outcomes Met? Yes Last Modified By: Mohamud Estrada RN 11/29/24 07:57:46 Post-Care Text: The patient received appropriate medication(s) safely administered during the perioperative period Surgical Procedures FT Entry 1 Procedure Description Procedure EGD AND COLONOSCOPY Modifiers . Surgeon Description EGD. Colonoscopy Primary Procedure Yes Primary Surgeon ILENE CLEVELAND, Cisco Lemos 11/29/24 07:56:00 Stop 11/29/24 08:18:00 Anesthesia Type General Surgical Service General Wound Class 2 - Clean-Contaminated Last Modified By: Mohamud Estrada RN 11/29/24 08:22:19 General Case Data FT Pre-Care Text: Classifies surgical wound, implements aseptic technique, initiates traffic control Entry 1 Case Information OR ENDO 2 FT Case Level Level 2 Wound Class 2 - Clean-Contaminated Specialty General ASA Class 3 Preop Diagnosis Chronic GERD, Colon Postop Same As Preop No cancer screening Postop Diagnosis Normal EGD. Outcomes Met? Yes Colonoscopy- Sigmoid diverticulosis Last Modified By: Mohamud Estrada RN 11/29/24 08:18:16 Post-Care Text: The patient is free from signs and symptoms of infection Skin Assessment (Pre Procedure) FT Pre-Care Text: Implements protective measures to prevent skin/ tissue injury due to thermal or mechanical sources Evaluates for signs and symptoms of physical injury to skin and tissue Entry 1 Skin Integrity Dry, Warm Skin Abnormality No Outcomes Met? Yes Last Modified By: Mohamud Estrada RN 11/29/24 08:02:57 Post-Care Text: The patient is free from signs and symptoms of injury caused by extraneous objects Patient Positioning FT Pre-Care Text: Identifies physical alterations that require additional precautions for procedure-specific positioning, verifies presence of prosthetics or corrective devices, positions the patient, evaluates the patient for signs and symptoms of injury as a result of positioning Entry 1 Procedure EGD AND COLONOSCOPY(.) Body Position Lateral, right side up Feet Uncrossed? Yes Left Arm Position Resting at Side Right Arm Position Resting at Side Left Leg Position Extended Right Leg Position Extended Positioning Device Safety Strap, Pillow Under Head Large Press Points Checked Yes By Mohamud Estrada RN Outcomes Met? Yes Last Modified By: Mohamud Estrada RN 11/29/24 08:02:47 Post-Care Text: The patient is free from signs and symptoms of injury related to positioning Patient Care Devices FT Pre-Care Text: Implements protective measures to prevent skin/ tissue injury due to thermal or mechanical sources Entry 1 Entry 2 Equipment Type MONITOR CHARGE SURGERY ENDOSCOPY VIDEO SYSTEM Equipment Number [id number] Equipment Setting Outcomes Met? Yes Yes Last Modified By: Mohamud Estrada RN, RN, Morgan E 11/29/24 08:31:56 11/29/24 08:31:56 Post-Care Text: The patient is free from signs and symptoms of injury caused by extraneous objects Transport To OR Pre-Care Text: Transports according to individual needs. Evaluates for signs and symptoms of skin and tissue injury as a result of transfer or transport Entry 1 Via Cart By Mohamud Estrada RN Safety Precautions Side Rails Up Outcomes Met? Yes Last Modified By: Mohamud Estrada RN 11/29/24 08:02:25 Post-Care Text: The patient is free from signs and symptoms of injury related to transfer/transport Departure From OR FT Pre-Care Text: Transports according to individual needs. Evaluates for signs and symptoms of skin and tissue injury as a result of transfer or transport. Entry 1 Via Cart Safety Precautions Side Rails Up PostOp Destination PACU Transported By Mohamud Estrada RN Patient Status Stable Report Given Sharlene Mosley RN To/Hand Off Communication Skin. Condition Dry, Warm Airway Maintenance Oxygen in Use? No Airway Device N/A Outcomes Met? Yes Last Modified By: Mohamud Estrada RN 11/29/24 08:29:00 Post-Care Text: The patient is free from signs and symptoms of injury related to transfer/transport General Comments: Report given to PACU nurse MSRN Medication Administration FT Pre-Care Text: Verifies allergies, administers prescribed medications and solutions, administers prescribed antibiotic therapy and immunizing agents as ordered, evaluates response to medications Administers prescribed medications and solutions Entry 1 Expiration Date Yes Outcomes Met? Yes Verified Last Modified By: Mohamud Estrada RN 11/29/24 08:02:20 Post-Care Text: The patient received appropriate medication(s) safely administered during the perioperative period [facility] scanned medication reconcilliation form for medications used at the field during the procedure. Cultures & Specimens FT Pre-Care Text: Manages specimen handling and disposition Manages culture specimen collection Entry 1 Cultures Ordered n/a Specimens Ordered n/a Frozen Section Times Outcomes Met? Yes Last Modified By: Mohamud Etsrada RN 11/29/24 08:18:26 Post-Care Text: The patient is free from signs and symptoms of injury caused by extraneous objects The patient is free from signs and symptoms of infection Sign Out FT Entry 1 Before Patient Leaves OR Nurse verbally Yes Nurse verbally n/a confirms with the confirms with the team the name of team that the procedure(s) instrument, sponge, recorded and needle counts are correct (or N/A) Nurse verbally n/a Nurse verbally Yes confirms with the confirms with the team how the team whether there specimen is labeled are any equipment (including patient problems to be name), if applicable addressed Sign Out Complete 11/29/24 08:19:00 Last Modified By: Mohamud Estrada RN 11/29/24 08:19:28 Case Comments <None> Finalized By: Haleigh Burdick CST Document Signatures Signed By: Mohamud Estrada RN 11/29/24 08:29 Mohamud Estrada RN 11/29/24 08:31 Haleigh Burdick CST 12/02/24 12:41 HISTORY AND PHYSICAL Observed: 7:37 AM Status: F Source: [facility] History and Physical Patient: LEO BRAVO Age: 59 years Sex: Female : 1965 Associated Diagnoses: None Author: Cisco ZAVALA MD Subjective no changes to H & P Result Comment: Electronical ly Signed By: Cicso ZAVALA MD\.br\Date and Time Signed: 11/29/24 07:38 EST PROGRESS NOTE-PHYSICIAN Observed: 2024 7:15 AM Status: F Source: [facility] Progress Note-Physician Patient: LEO BRAVO Age: 59 years Sex: Female : 1965 Associated Diagnoses: None Author: Zay Pardo Jr., DO Preoperative Information NPO after midnight Review of Systems Eye Respiratory: Negative except as documented in history of present illness. Cardiovascular: Negative except as documented in history of present illness. Health Status Allergies: Allergic Reactions (Selected) Severity Not Documented Bactrim- Joint pain. Gentamicin- Rash. Mold- No reactions were documented. Pea- Swelling of throat.. Peanuts- Swelling of throat. Thimerosal topical- Rash., Allergies (6) Active Severity Reaction Mold None Documented Bactrim Joint pain gentamicin Rash thimerosal topical Rash Pea Swelling of throat. Peanuts Swelling of throat Current medications: (Selected) Inpatient Medications Ordered Sodium Chloride 0.9% IV Angela 1000 mL 1,000 mL: 1,000 mL, IV, 20 mL/hr, Routine, Start date 11/29/24 6:39:00 EST, 50 hour(s), Total volume (mL): 1,000, 107.1 kg, 2.16, m2 Documented Medications Documented Zyrtec: 10 mg, Oral, Daily, Refills(s) 0, Allergy symptoms fluticasone 93 mcg/inh nasal spray: 2 spray(s), Inhalation, Daily, Refill(s) 0, Allergy symptoms, Home Medications (2) Active fluticasone 93 mcg/inh nasal spray 2 spray(s), Inhalation, Daily Zyrtec 10 mg, Oral, Daily , Medications (1) Active Scheduled: (0) Continuous: (1) Sodium Chloride 0.9% 1,000 mL 1,000 mL, IV, 20 mL/hr PRN: (0) Problem list: All Problems Allergic rhinitis due to pollen / SNOMED CT 0166232846 / Confirmed Asthma / SNOMED CT 100514586 / Confirmed BMI 40.0-44.9, adult / SNOMED CT 2314319700 / Confirmed Chronic GERD / SNOMED CT 394526436 / Confirmed IBS (irritable bowel syndrome) / SNOMED CT 34910696 / Confirmed Morbid obesity / SNOMED CT 225986715 / Confirmed Screening for malignant neoplasm of colon / SNOMED CT 673180635 / Confirmed Histories Past Medical History: No active or resolved past medical history items have been selected or recorded. Procedure history: Arthroscopy of ankle ([id number]) on 09/03/2001 at 35 Years. Comments: 11/13/2024 15:15 Maris Yoo LPN with cartilage removal Endometrial biopsy ([id number]). Comments: 10/23/2024 11:29 Maris Yoo LPN x 3 Dilation and curettage ([id number]). Core needle biopsy of breast ([id number]). Laparoscopic total hysterectomy ([id number]). Extraction of wisdom tooth ([id number]). Colonoscopy ([id number]). Social History Social & Psychosocial Habits Tobacco 11/29/2024 Tobacco Use: Never (less than 100 in l Smokeless tobacco use: Never . Physical Examination Vital Signs 11/29/2024 7:05 EST Temperature Temporal Artery 36.6 DegC Heart Rate Monitored 80 bpm Respiratory Rate Monitored 18 br/min Systolic Blood Pressure 132 mmHg Diastolic Blood Pressure 80 mmHg Blood Pressure Location Left arm SpO2 96 % Measurements from flowsheet : Measurements 11/29/2024 6:56 EST Height/Length Measured 157.4 cm Height/Length Dosing 157.4 cm Weight Dosing 107.1 kg BSA Measured 2.16 m2 Body Mass Index Measured 43.23 kg/m2 Weight Measured 107.1 kg Airway: Mallampati classification: II (soft palate, fauces, uvula visible). Plan [employer] [employer] (ASA) physical status classification: Class III. Anesthetic Preoperative Plan: Anesthesia Monitored anethesia care. Result Comment: Electronical ly Signed By: Zay Pardo Jr., DO\.br\Date and Time Signed: 11/29/24 07:16 EST GENERAL SURGERY OFFICE/CLINI C NOTE Observed: 11/13/2024 3:34 PM Status: F Source: [facility] General Surgery Office/Clini c Note Chief Complaint consultation for colonoscopy HPI Staff 59 year old female presents on self referral consultation for screening colonoscopy. Denies abdominal or rectal pain. No rectal bleeding or change in bowel habits. Denies nausea or vomiting. No unexplained weight loss. Previous colonoscopy completed greater than 10 years ago and reported normal per patient. Father with history of colon cancer, diagnosed age mid-late 70's. History of Present Illness 59 yo female with h/o asthma, presents for colorectal screening; denies change in bms or blood in stools, no abd complaints; does report worsening GERD symptoms over past month despite over the counter H2 blockers; worse at night, burning pain radiating into chest, no dysphagia or early satiety, no wt loss, no N/V; abd operations significant for LS hysterectomy; last colonoscopy over 10 years ago, reportedly wnl, no asa or NSAID use; no tobacco use; fmhx of colon cancer in patient's father, dx at age 80 ; no fmhx of IBD. Review of Systems PHQ Score Initial Depression Screen Score: 0 SCORE ROS - Provider Constitutional: no fever, no sweats, no weight loss. Eyes: no glasses, no blurred vision, no visual loss. ENMT: no dentures, no hoarseness, no swallowing difficulties, no hearing loss, no ear infection(s), no nose bleeds. Cardiovascular: normal blood pressure, no chest pain, regular heartbeat, no heart murmur. Respiratory: no shortness of breath, no cough, no asthma, no wheezing. Gastrointestinal: no nausea, no vomiting, no diarrhea, no constipation, no blood in stool, no change in bowel habits, no abdominal pain, no hepatitis. Genitourinary: no kidney stones, no urine infection, no dysuria. Musculoskeletal: no pain, no weakness. Skin: no changing moles, no rash, no skin lumps. Neurologic: no seizures, no epilepsy, no headache. Psychiatric: no emotional or psychiatric problem. Heme/Lymph: no bleeding problems, no anemia, no blood clots, no transfusions. Allergy/Immunologic: no swollen lymph nodes/glands, no IV drug abuse. Other: Additional ROS info: Except as noted in the above Review of Systems and in the History of Present Illness, all other systems have been reviewed and are negative or noncontributory. Physical Exam Vitals & Measurements HR: 76(Peripheral) RR: 16 BP: 132/82 HT: 62 in HT: 157.4 cm WT: 107.1 kg WT: 236.115 lb BMI: 43.23 HEENT: normal conjunctiva, sclera clear, no scleral icterus, EOM intact, PERRLA, oral mucosa moist without lesions. Neck: trachea midline, no mass, symmetric, no thyromegaly or nodules, no adenopathy Respiratory: lungs CTA, respirations non labored. Cardiovascular: regular rate and rhythm, no murmur, no pedal edema or varicosities. Gastrointestinal: obese, soft, non distended, no tenderness, no masses, no palpable hernias, diastasis recti no, no hepatosplenomegaly; normal bs Lymphatic: no cervical adenopathy, no supraclavicular adenopathy. Musculoskeletal: normal gait, digits and nails without infection, nodes, cyanosis, clubbing. Skin: no rashes, no lesions, no ulcers, no subcutaneous nodules, induration. Psychiatric/Neuro: oriented to time, place, person, judgement normal, affect appropriate for age, insight intact, no focal deficits. Tests: review of old records completed , Discussed surgical options, risks, and possible complications with patient. Assessment/Plan 1. Screening for malignant neoplasm of colon (Z12.11: Encounter for screening for malignant neoplasm of colon) plan colonoscopy under anesthesia, informed consent obtained. 2. Chronic GERD (K21.9: Gastro-esophageal reflux disease without esophagitis) plan EGD under anesthesia, informed consent obtained. Follow-up No qualifying data available Problem List/Past Medical History Ongoing Allergic rhinitis due to pollen Asthma BMI 40.0-44.9, adult Chronic GERD IBS (irritable bowel syndrome) Morbid obesity Screening for malignant neoplasm of colon Historical No qualifying data Procedure/Surgical History Arthroscopy of ankle (09/03/2001), Colonoscopy, Core needle biopsy of breast, Dilation and curettage, Endometrial biopsy, Extraction of wisdom tooth, Laparoscopic total hysterectomy. Medications fluticasone 93 mcg/inh nasal spray, 2 spray(s), Inhalation, Daily Zyrtec, 10 mg, Oral, Daily Allergies Bactrim (Joint pain) Mold Pea (Swelling of throat.) Peanuts (Swelling of throat) gentamicin (Rash) thimerosal topical (Rash) Social History Alcohol Current. Beer, Wine, Liquor. 1-2 times per year., 11/10/2024 Substance Abuse Never., 11/10/2024 Tobacco Never (less than 100 in lifetime) Tobacco Use:. Never Smokeless Tobacco Use:., 11/13/2024 Family History Dementia: Father. Heart disease: Father. Hyperlipidemia: Mother. Hypothyroidism: Mother. Primary malignant neoplasm of colon: Father. Uterine cancer: Mother. Immunizations Vaccine Date Status Comments SARSCoV2 mRNA(oshwhzcqz-tjxx-dpilig) vac 04/13/2022 Recorded SARS-CoV-2 (COVID-19) mRNA BNT-162b2 vax 10/28/2021 Recorded SARS-CoV-2 (COVID-19) mRNA BNT-162b2 vax 02/19/2021 Given Prophylaxis SARS-CoV-2 (COVID-19) mRNA BNT-162b2 vax 01/22/2021 Given Prophylaxis Result Comment: Electronical ly Signed By: ILENE CLEVELAND, Cisco Keita\.br\Date and Time Signed: 11/13/24 15:35 EST ALLERGIES DATE TYPE / CODE NAME / CODE REACTION SEVERITY SOURCE [id number](SNOMED CT) gentamicin [id number] [facility] [id number](SNOMED CT) thimerosal topical [id number] [facility] NISHANT116721765(SNOMED CT) Mold [facility] NISHANT246340885(SNOMED CT) Peanuts 9343982742 [facility] NISHANT594967707(SNOMED CT) Bactrim 82195363 [facility] NISHANT098743878(SNOMED CT) Pea [id number] [facility] ENCOUNTERS ADMIT/DISCHARGE ACCOUNT NUMBER ADMITTING ENCOUNTER CLASS LOCATION SOURCE 03/13/2025/03/13/20 [id number] Ambulatory Building:NOM S [facility] 03/11/2025/03/11/20 [id number] Ambulatory Building:NOM S [facility] 11/29/2024/11/29/19 [id number] Cisco ZAVALA Ambulatory FTBuilding :FT END [facility] 11/13/2024/11/13/19 [id number] [place] [facility] [facility] [place] [facility] 11/07/2024 [id number] [place]ulatory [place] [facility] 10/23/2024 [id number] [place] [facility] 09/30/2024/09/30/20 [id number] Ambulatory Building:NOM S [facility] PAYERS ENCOUNTER GUARANTOR PAYER SUBSCRIBER SOURCE 03/13/2025 LEO GOLDEN: [id number] [address] [address]Bkw: (HP) Primary Insurance:MEDICAL MUTUALPolicy Number: [id number] e Date:2022-11-06 LEO BRAVOB: [id number] [address] [address] [facility] 03/11/2025 LEO Siegel LUCIEVICB: [id number] [address] [address]Bzm: (HP) Primary Insurance:MEDICAL MUTUALPolicy Number: [id number] e Date:2022-11-06 LEO BRAVOB: [id number] [address] [address] [facility] 11/29/2024 LEO LUCIEVICB: [id number] E [facility] 58Tel: ~~([phone] (HP) Primary Insurance:MEDICAL MUTUALPolicy Number: [id number] e Date:[id number] [address] [address]GI: LEOGENNY MILLER [facility] 11/13/2024 LEOGENNY BRAVOB: [id number] E [facility] 58Tel: ~~([phone] (HP) Primary Insurance:MEDICAL MUTUALPolicy Number: [id number] e Date:0400-57-61VU [address] [address]NE[facility]07/2024 LEO BRAVOB: [id number] E [facility] 58Tel: ~([phone] (HP) Primary Insurance:MEDICAL MUTUALPolicy Number: [id number] e Date:[id number] [place] [id number]: LEO MILLER [facility] 10/23/2024 LEO GOLDEN: [id number] E [facility] 58Tel: ~[phone] (HP) Primary Insurance:MEDICAL MUTUALPolicy Number: [id number] e Date:4602-77-85WM [address] [place] [id number]: LEO MILLER [facility] 09/30/2024 LEO GOLDEN: [id number] [address] [address]Lwa: (HP) Primary Insurance:MEDICAL MUTUALPolicy Number: [id number] e Date:2022-11-06 LEO GOLDEN: [id number] [address] [facility] EPIC
--- OUTSIDE RECORDS SUMMARY | 2025-03-28 10:49 | XMS_ITS | Encounter Summary ---
Author Organization [facility] Address [address] [place] [address] Care Team Providers Care Exploration Geologist Name Role Phone Rosaline Singh MD Primary Care Provider [phone] Rosaline Singh MD Primary Care Provider [phone] Encounter Details Date Type Department Care Team (Late st Contact Info) Description 09/27/2023 Abstract [facility] [address] [place] [address] Annette Matthew LPN [address] [facility] [address] [place] [address] [place] [address] Social History Tobacco Use Types Packs/Day Years Used Date Smoking Tobacco: Never Alcohol Use Standard Drinks/Week Comments Yes 0 (1 standard drink = 0.6 oz pure alcohol) 1or 2 drinks on typical day/monthly or less. caffeine: 1-2 cups/day AUDIT-C Answer Date Recorded Q1: How often do you have a drink containing alc ohol? Monthly or less 09/25/2023 Q2: How many drinks containi ng alcohol do you have on a typical day when you are drinking? 1 or 2 09/25/2023 Q3: How often do you have si x or more drinks on one occasion? Never 09/25/2023 Comments No Sex and Gender Information Value Date Recorded Sex Assigned at Female 04/30/2023 9:02 PM EDT Legal Sex Female 6:57 PM EDT Gender Identity Female 04/30/2023 9:02 PM EDT Sexual Orientation Straight 04/30/2023 9: 02 PM EDT documented as of this encounter Plan of Treatment Upcoming Encounters Date Type Department Care Team (Late st Contact Info) Description 10/07/2025 9:00 AM EST Office Visit [facility] [address] [place] [address] Florentino Richards, DO [address] [place] [address] documented as of this encounter Visit Diagnoses Not on filedocumented in this encounter Care Teams Exploration Geologist Relationship Specialty Start Date End Date Rosaline Singh MD PCP - General 04/30/23 03/10/25 Rosaline Singh MD [facility] Referrals ONLY PCP - General Family Medicine 03/11/25 documented as of this encounter
--- OUTSIDE RECORDS SUMMARY | 2025-03-28 10:49 | XMS_ITS | Encounter Summary ---
Author Organization [facility] Address [address] [place] [address] Care Team Providers Care Boat Designer Name Role Phone Rosaline Singh MD Primary Care Provider [phone] Rosaline Singh MD Primary Care Provider [phone] Encounter Details Date Type Department Care Team (Late st Contact Info) Description 11/13/2024 Clinisync Result Encounter [facility] External Department Unsolicited Florentino Richards, DO [address] [facility] [address] [place], [place] [id number] Social History Tobacco Use Types Packs/Day Years [...] EST Office Visit [facility] [address] [place] [address] Florentino Richards, DO [address] [place] [address] documented as of this encounter Procedures Procedure Name Priority Date/Time Associated Diagnosis Comments MM TOMOSYNTHESIS SCREENING BI 11/13/2024 3:17 PM EST documented in this encounter Results * MM TOMOSYNTHESIS SCREENING BI (11/13/2024 3:17 PM EST) Anatomical Region Laterality Modality Other 11/13/2024 3:17 PM EST Narrative 11/13/2024 3:18 PM EST [address] [address] Mammography Report Signed Patient: LEO BRAVO MR#: [id number] : 1965 Acct:[id number] Age/Sex: 59 / F ADM Date: 11/13/24 Loc: MAMMO Attending Dr: Florentino Richards D.O. Ordering Physician: Florentino Richards D.O. Results: Date of Service: 11/13/24 Follow Up: Procedure(s): MM tomosynthesis screening BI Accession Number(s): [id number] cc: Rosaline Singh M.D.; Florentino Richards D.O. Patient Name: LEO BRAVO MR#: [id number] : 1965 Exam Date: 11/13/2024 Ordering Doctor: DR Florentino Richards . RADIOLOGY REPORT PROCEDURE: MM TOMOSYNTHESIS SCREENING BI COMPARISON: MG MAMM SCREEN 3D ANDREW CAD, 03/14/2023. MM TOMOSYNTHESIS DIAGNOSTIC LT, 01/05/2024. MM POST BIOPSY LT, 05/08/2023. INDICATIONS: Screening for malignant neoplasm Calculator Name NCI Breast Cancer Risk Assessment Tool 5 Year Breast Cancer Risk 2.40% Lifetime Breast Cancer Risk 13.60% Personal Breast Cancer No Personal Ovarian Cancer No Treatments None Family Cancers None LOCATION: [facility] BREAST COMPOSITION: The breasts are heterogeneously dense,which may obscure small masses. FINDINGS: DIAGNOSTIC CATEGORY 2--BENIGN FINDING. NO CHANGE FROM COMPARISON. Scattered benign-appearing nodules are present. Scattered benign-appearing calcifications are present. Scattered benign-appearing lymph nodes are present. RIGHT BREAST: No significant suspicious finding. Small area of subtle but stable architectural distortion seen in the upper outer quadrant, mid breast LEFT BREAST: No significant suspicious finding. Two stable micro clip markers anterior breast RECOMMENDATIONS: ROUTINE MAMMOGRAM AND CLINICAL EVALUATION IN 12 MONTHS. PLEASE NOTE: A NORMAL MAMMOGRAM DOES NOT EXCLUDE THE POSSIBILITY OF BREAST CANCER. A CLINICALLY SUSPICIOUS PALPABLE LUMP SHOULD BE BIOPSIED. Dictated by: Shan Acevedo MD on 11/13/2024 at 15:14 Approved by: Shan Acevedo MD on 11/13/2024 at 15:17 Dictated By: Shan Acevedo M.D. Signed By: 11/13/24 1518 DD/ 1517 TD/TT: Director Of Preclinical Research: Procedure Note Radiology, RadiologistMD - 11/13/2024 [place] [address] Mammography Report Signed Patient: LEO BRAVO AMR#: [id number] : 1965Acct:[id number] Age/Sex: 59 / FADM Date: 11/13/24 Loc: MAMMO Attending Dr: Florentino Richards D.O. Ordering Physician: Florentino Richards D.O.Results: Date of Service: 11/13/24Follow Up: Procedure(s): MM tomosynthesis screening BI Accession Number(s): [id number] cc: Rosaline Singh M.D.; Florentino Richards D.O. Patient Name: LEO BRAVO MR#: [id number] : 1965 Exam Date: 11/13/2024 Ordering Doctor: DR Florentino Richards . RADIOLOGY REPORT PROCEDURE: MM TOMOSYNTHESIS SCREENING BI COMPARISON: MG MAMM SCREEN 3D ANDREW CAD, 03/14/2023. MM TOMOSYNTHESIS DIAGNOSTIC LT, 01/05/2024. MM POST BIOPSY LT, 05/08/2023. INDICATIONS: Screening for malignant neoplasm Calculator Name NCI Breast Cancer Risk Assessment Tool 5 Year Breast Cancer Risk 2.40% Lifetime Breast Cancer Risk 13.60% Personal Breast Cancer No Personal Ovarian Cancer No Treatments None Family Cancers None LOCATION: [facility] BREAST COMPOSITION: The breasts are heterogeneously dense,which may obscure small masses. FINDINGS: DIAGNOSTIC CATEGORY 2--BENIGN FINDING. NO CHANGE FROM COMPARISON. Scattered benign-appearing nodules are present. Scatteredbenign-appearing calcifications are present. Scattered benign-appearing lymph nodes are present. RIGHT BREAST: No significant suspicious finding. Small area of subtlebut stable architectural distortion seen in the upper outer quadrant, midbreast LEFT BREAST: No significant suspicious finding. Two stable micro clip markers anterior breast RECOMMENDATIONS: ROUTINE MAMMOGRAM AND CLINICAL EVALUATION IN 12 MONTHS. PLEASE NOTE: A NORMAL MAMMOGRAM DOES NOT EXCLUDE THE POSSIBILITY OFBREAST CANCER. A CLINICALLY SUSPICIOUS PALPABLE LUMP SHOULD BE BIOPSIED. Dictated by: Shan Acevedo MD on 11/13/2024 at 15:14 Approved by: Shan Acevedo MD on 11/13/2024 at 15:17 Dictated By: Shan Acevedo M.D. Signed By:11/13/24 1518 DD/ 1517 TD/TT: Director Of Preclinical Research: Florentino Richards DO [facility] Final Result documented in this encounter Visit Diagnoses Not on filedocumented in this encounter Care Teams Boat Designer Relationship Specialty Start Date End Date Rosailne Singh MD PCP - General 04/30/23 03/10/25 Rosaline Singh MD [facility] Referrals ONLY PCP - General Family Medicine 03/11/25 documented as of this encounter
--- OUTSIDE RECORDS SUMMARY | 2025-03-28 10:49 | XMS_ITS | Encounter Summary ---
Author Organization [facility] Address [address] [place] [address] Care Team Providers Care Spring Repairer Helper Hand Name Role Phone Rosaline Singh MD Primary Care Provider [phone] Rosaline Singh MD Primary Care Provider [phone] Encounter Details Date Type Department Care Team (Late st Contact Info) Description 05/08/2023 Clinisync Result Encounter [facility] External Department Unsolicited Florentino Richards DO [address] [facility] [address] [place] [address] Social History Tobacco Use Types Packs/Day Years Used Date Smoking Tobacco: Never Assessed Comments Unknown Sex and Gender Information Value Date Recorded Sex Assigned at Female 04/30/2023 9:02 PM EDT Legal Sex Female 6:57 PM EDT Gender Identity Female 04/30/2023 9:02 PM EDT Sexual Orientation Straight 04/30/2023 9: 02 PM EDT COVID-19 Exposure Response Date Recorded In the last 10 days, have yo u been in contact with someone who was confirmed or suspected to have Coronavirus/COVID-19? No / Unsure 04/30/2023 9:20 PM EDT documented as of this encounter Plan of Treatment Upcoming Encounters Date Type Department Care Team (Late st Contact Info) Description 10/07/2025 9:00 AM EST Office Visit [facility] [address] [facility] [place] [phone] Florentino Richards, DO [address] [facility] [address] [place] [address] documented as of this encounter Procedures Procedure Name Priority Date/Time Associated Diagnosis Comments US GUIDED BREAST BIOPSY LT 05/08/2023 1:51 PM EDT documented in this encounter Results * US GUIDED BREAST BIOPSY LT (05/08/2023 1:51 PM EDT) Anatomical Region Laterality Modality Radiographic Kelsey ging 05/08/2023 1:51 PM EDT Narrative 05/31/2024 11:54 AM EDT The [address] [address] Ultrasound Report Signed with Addenda Patient: LEO BRAVO MR#: [id number] : 1965 Acct:[id number] Age/Sex: 57 / F ADM Date: 05/08/23 Loc: US Attending Dr: Florentino Richards D.O. Ordering Physician: Florentino Richards D.O. Date of Service: 05/08/23 Procedure(s): US breast vac bx w/ clip LT Accession Number(s): [id number] cc: CHIARA SINGH; Florentino Richards D.O. ADDENDUM The [address] [id number] Patient Name: LEO BRAVO MRN: [id number] date: 1965 Sex: F Assigned Patient Location: US Current Patient Location: US Accession/Order Number: [id number] Exam Date: 05/08/2023 11:09 Report Date: 05/16/2023 10:18 At the request of: FLORENTINO RICHARDS Procedure: US breast vac bx w/ clip LT Begin Addendum #1 COLLECTED DATE/TIME: 05/08/2023 12:12 EDT Final Diagnosis: Report for [facility] [place] LEFT BREAST 5 O'CLOCK INTRADUCTAL LESION BIOPSY: - BENIGN BREAST PARENCHYMA WITH DENSE STROMA, SEE COMMENT: COMMENT: Multiple levels were examined. Microcalcifications are not seen. Clinical and radiographic correlation is suggested to determine if the targeted lesion was adequately sampled. Intradepartmental consultation was obtained with diagnostic concurrence by Dr. Raven Cordova. 05/12/[address] Richards. 05/16/2023 Verified with Annette that report was present in office. Original Report EXAM: US breast vac bx w/ clip LT HISTORY: Abnormal Findings On Diagnostic Imaging Of Breast R92. 8 COMPARISON: Ultrasound breast left Limited 04/24/2023 TECHNIQUE: After obtaining informed consent, ultrasound-guided biopsy was performed in the usual sterile manner. The location of the biopsy was then marked as indicated below. FINDINGS: Specimen #, Location: 4 core samples; left breast subareolar 5:00 intraductal lesion versus debris. Biopsy Needle: 13 gauge vacuum core biopsy needle. Marker(s): A single metallic marker was placed in the appropriate targeted location. Medication: Buffered 1% Lidocaine with epinephrine administered locally. Complications: None. Pathology: Pending. Addendum Dictated By: Boogie Alatorre M.D. Addendum Signed By: <Electronically signed by Boogie Alatorre M.D.> 05/31/24 1154 Addendum Cosigned By: DD/ /28/1018 TD/TT: / ADDENDUM US/US breast vac bx w/ clip LT IMPRESSION: 1. Uneventful ultrasound-guided breast biopsy. 2. Pathology results are pending. An addendum to this report will be provided after pathology results are available. Electronically authenticated by: BOOGIE ALATORRE Date: 05/16/2023 10:18 Addendum Dictated By: Boogie Alatorre M.D. Addendum Signed By: <Electronically signed by Boogie Alatorre M.D.> 05/31/24 1154 Addendum Cosigned By: DD/ /28/1018 TD/TT: / [place] [address] [place], [place] [address] Patient Name: LEO BRAVO MRN: [id number] date: 1965 Sex: F Assigned Patient Location: US Current Patient Location: US Accession/Order Number: [id number] Exam Date: 05/08/2023 11:09 Report Date: 05/08/2023 13:51 At the request of: FLORENTINO RICHARDS Procedure: US breast vac bx w/ clip LT EXAM: US breast vac bx w/ clip LT HISTORY: Abnormal Findings On Diagnostic Imaging Of Breast R92.8 COMPARISON: Ultrasound breast left Limited 04/24/2023 TECHNIQUE: After obtaining informed consent, ultrasound-guided biopsy was performed in the usual sterile manner. The location of the biopsy was then marked as indicated below. FINDINGS: Specimen #, Location: 4 core samples; left breast subareolar 5:00 intraductal lesion versus debris. Biopsy Needle: 13 gauge vacuum core biopsy needle. Marker(s): A single metallic marker was placed in the appropriate targeted location. Medication: Buffered 1% Lidocaine with epinephrine administered locally. Complications: None. Pathology: Pending. IMPRESSION: 1. Uneventful ultrasound-guided breast biopsy. 2. Pathology results are pending. An addendum to this report will be provided after pathology results are available. Electronically authenticated by: BOOGIE ALATORRE Date: 05/08/2023 13:51 Dictated By: Boogie Alatorre M.D. Signed By: 05/08/23 1353 DD/ 1351 TD/TT: Chancellor: Procedure Note Radiology, Radiologist, MD - 05/31/2024 [place] [address] Ultrasound Report Signed with Addenda Patient: LEO BRAVO AMR#: [id number] : 1965Acct:[id number] Age/Sex: 57 / FADM Date: 05/08/23 Loc: US Attending Dr: Florentino Richards D.O. Ordering Physician: Florentino Richards D.O. Date of Service: 05/08/23 Procedure(s): US breast vac bx w/ clip LT Accession Number(s): [id number] cc: CHIARA SINGH; Florentino Richards D.O. ADDENDUM The [address] [address] Patient Name: LEO BRAVO MRN: [id number] date: 1965 Sex: F Assigned Patient Location: US Current Patient Location: US Accession/Order Number: [id number] Exam Date: 05/08/2023 11:09 Report Date: 05/16/2023 10:18 At the request of: FLORENTINO RICHARDS Procedure: US breast vac bx w/ clip LT Begin Addendum #1 COLLECTED DATE/TIME: 05/08/2023 12:12 EDT Final Diagnosis: Report for [facility] [place] LEFT BREAST 5 O'CLOCK INTRADUCTAL LESION BIOPSY: - BENIGN BREAST PARENCHYMA WITH DENSE STROMA, SEE COMMENT: COMMENT: Multiple levels were examined. Microcalcifications are not seen. Clinical and radiographic correlation is suggested to determine if the targeted lesion was adequately sampled. Intradepartmental consultation was obtained with diagnostic concurrence by Dr. Raven Cordova. 05/12/[address] Richards. 05/16/2023 Verified with Annette that report was present in office. Original Report EXAM: US breast vac bx w/ clip LT HISTORY: Abnormal Findings On Diagnostic Imaging Of Breast R92. 8 COMPARISON: Ultrasound breast left Limited 04/24/2023 TECHNIQUE: After obtaining informed consent, ultrasound-guided biopsy was performed in the usual sterile manner. The location of the biopsy was then marked as indicated below. FINDINGS: Specimen #, Location: 4 core samples; left breast subareolar 5:00intraductal lesion versus debris. Biopsy Needle: 13 gauge vacuum core biopsy needle. Marker(s): A single metallic marker was placed in the appropriate targeted location. Medication: Buffered 1% Lidocaine with epinephrine administered locally. Complications: None. Pathology: Pending. Addendum Dictated By: Boogie Alatorre M.D. Addendum Signed By: <Electronically signed by Boogie Alatorre M.D.> 05/31/24 1154 Addendum Cosigned By: DD/ /28/1018 TD/TT: / ADDENDUM US/US breast vac bx w/ clip LT IMPRESSION: 1. Uneventful ultrasound-guided breast biopsy. 2. Pathology results are pending. An addendum to this report will be provided after pathology results are available. Electronically authenticated by: BOOGIE ALATORRE Date: 05/16/2023 10:18 Addendum Dictated By: Boogie Alatorre M.D. Addendum Signed By: <Electronically signed by Boogie Alatorre M.D.> 05/31/24 1154 Addendum Cosigned By: DD/ /28/1018 TD/TT: / [place] [id number] Patient Name: LEO BRAVO MRN: [id number] date: 1965 Sex: F Assigned Patient Location: US Current Patient Location: US Accession/Order Number: [id number] Exam Date: 05/08/2023 11:09 Report Date: 05/08/2023 13:51 At the request of: FLORENTINO RICHARDS Procedure: US breast vac bx w/ clip LT EXAM: US breast vac bx w/ clip LT HISTORY: Abnormal Findings On Diagnostic Imaging Of Breast R92.8 COMPARISON: Ultrasound breast left Limited 04/24/2023 TECHNIQUE: After obtaining informed consent, ultrasound-guided biopsy was performed in the usual sterile manner. The location of the biopsy was then marked as indicated below. FINDINGS: Specimen #, Location: 4 core samples; left breast subareolar 5:00intraductal lesion versus debris. Biopsy Needle: 13 gauge vacuum core biopsy needle. Marker(s): A single metallic marker was placed in the appropriate targeted location. Medication: Buffered 1% Lidocaine with epinephrine administered locally. Complications: None. Pathology: Pending. IMPRESSION: 1. Uneventful ultrasound-guided breast biopsy. 2. Pathology results are pending. An addendum to this report will be provided after pathology results are available. Electronically authenticated by: BOOGIE ALATORRE Date: 05/08/2023 13:51 Dictated By: Boogie Alatorre M.D. Signed By:05/08/23 1353 DD/ 1351 TD/TT: Chancellor: us Florentino Askewo DO IMG XR PROCEDURES Final Result documented in this encounter Visit Diagnoses Not on filedocumented in this encounter Care Teams Spring Repairer Helper Hand Relationship Specialty Start Date End Date Rosaline Singh MD PCP - General 04/30/23 03/10/25 Rosaline Singh MD [facility] Referrals ONLY PCP - General Family Medicine 03/11/25 documented as of this encounter
--- OUTSIDE RECORDS SUMMARY | 2025-03-28 10:49 | XMS_ITS | Encounter Summary ---
Author Organization [facility] Address [address] [place] [address] Care Team Providers Care Production Director Name Role Phone Rosaline Singh MD Primary Care Provider [phone] Rosaline Singh MD Primary Care Provider [phone] Encounter Details Date Type Department Care Team (Late st Contact Info) Description 05/05/2023 Abstract [facility] OB [address] [place] [address] Florentino Richards, [address] [facility] [address] [place], [place] [phone] Social History Tobacco Use Types Packs/Day Years [...] EST Office Visit [facility] OB [address] [facility] [place] [address] Florentino Richards DO [address] [place] [address] [place] [address] documented as of this encounter Visit Diagnoses Not on filedocumented in this encounter Care Teams Production Director Relationship Specialty Start Date End Date Rosaline Singh MD PCP - General 04/30/23 03/10/25 Rosaline Singh MD [facility] Referrals ONLY PCP - General Family Medicine 03/11/25 documented as of this encounter
--- OUTSIDE RECORDS SUMMARY | 2025-03-28 10:49 | XMS_ITS | Clinical Summary ---
Author Organization [facility] Address [address] [place] [address] Care Team Providers Care Aging Box Hand Name Role Phone Unavailable Primary Care Provider Unavailabl e Allergies Active Allergy Reactions Criticality Noted Date Comments Dust Mite Extract 01/09/2012 Peanut-Containing Drug Products 03/2012 peanuts Other 01/09/2012 peas Seasonal 01/09/2012 Grass, pollen Medications CIPROFLOXACIN HCL PO take by mouth 2 times daily. Active Misc Natural Products (GREEN FOOD COMPLEX PO) Act marimar Active Problems Problem Noted Date Diagnosed Date Primary localized osteoarthrosis, lower leg 01/04 Family History Medical History Relation Name Comments Heart Disease - Other Father Other - Specify Father high cholest canelo Other - Specify Mother hypothyroid Other - Specify Sister 1 hypothyroid Relation Name Status Comments Brother 1 Alive Brother 2 Alive Father Alive Mother Alive Sister 1 Alive Sister 2 Alive Sister 3 Alive Sister 4 Alive Social History Tobacco Use Types Packs/Day Years Used Date Smoking Tobacco: Never Smokeless Tobacco: Never Alcohol Use Standard Drinks/Week Comments Yes 0 (1 standard drink = 0.6 oz pur e alcohol) Comments Unknown Sex and Gender Information Value Date Recorded Sex Assigned at Not on file Legal Sex Female 7:10 PM EST Gender Identity Not on file Sexual Orientation Not on file Last Filed Vital Signs Vital Sign Reading Time Taken Comments Blood Pressure 110/70 03/14/2012 3:18 PM EDT Pulse 72 03/14/2012 3:18 PM EDT Temperature - - Respiratory Rate 16 03/14/2012 3:18 PM EDT Oxygen Saturation - - Inhaled Oxygen Concentration - - Weight 83.5 kg (184 lb) 01/23/2012 1:50 PM EDT Height 157.5 cm (5' 2 ) 01/23/2012 1:50 PM EDT Body Mass Index 33.65 01/23/2012 1:50 PM EDT Plan of Treatment Health Maintenance Due Date Last Done Comments HEPATITIS C VIRUS SCREENING 1965 TETANUS 1965 HIV SCREENING DISCUSSION 1981 HEP B VACCINE (1 of 3 - 19+ 3-dose series) 1985 TDAP (ADULT) 1985 CERVICAL CANCER SCREENING DISCUSSION 1987 LIPID SCREENING 2006 MAMMOGRAM SCREENING DISCUSSION 2006 COLORECTAL CANCER SCREENING DISCUSSION 2011 PNEUMOCOCCAL VACCINE SERIES (1 of 1 - PCV) 2016 ZOSTER (SHINGLES) VACCINE (1 of 2) 2016 COVID-19 VACCINE ( - season) 2024 INFLUENZA VACCINE (Season Ended) [address] [place] [address] MMO
--- OUTSIDE RECORDS SUMMARY | 2025-03-28 10:49 | XMS_ITS | Encounter Summary ---
Author Organization [facility] Address [address] [place] [address] Care Team Providers Care Retail Event Assistant Name Role Phone Rosaline Singh MD Primary Care Provider [phone] Rosaline Singh MD Primary Care Provider [phone] Encounter Details Date Type Department Care Team (Late st Contact Info) Description 02/09/2021 Abstract [facility] [address] [place] [phone] Kristie Kurtz, [facility] [address] [place] [address] Social History Tobacco Use Types Packs/Day Years [...] 10/07/2025 9:00 AM EST Office Visit [facility] OB [address] [place] [address] Florentino Richards, DO [address] [place] [address] documented as of this encounter Visit Diagnoses Not on filedocumented in this encounter Care Teams Retail Event Assistant Relationship Specialty Start Date End Date Rosaline Singh MD PCP - General 04/30/23 03/10/25 Rosaline Singh MD [facility] Referrals ONLY PCP - General Family Medicine 03/11/25 documented as of this encounter
--- OUTSIDE RECORDS SUMMARY | 2025-03-28 10:49 | XMS_ITS | Encounter Summary ---
Author Organization [facility] Address [address] [place] [address] Care Team Providers Care Manager Support Services Name Role Phone Rosaline Singh MD Primary Care Provider [phone] Rosaline Singh MD Primary Care Provider [phone] Encounter Details Date Type Department Care Team (Late st Contact Info) Description 07/20/2023 Clinisync Result Encounter [facility] External Department Unsolicited Florentino Richards, DO [address] [place], [place] [id number] Social History Tobacco Use Types Packs/Day Years Used Date Smoking Tobacco: Never Alcohol Use Standard Drinks/Week Comments Yes 0 (1 standard drink = 0.6 oz pure alcohol) 1or 2 drinks on typical day/monthly or less. caffeine: 1-2 cups/day Comments Unknown Sex and Gender Information Value [...] EST Office Visit [facility] [address] [facility] [place] [place] [address] Florentino Richards, DO [address] [facility] [place] [address] documented as of this encounter Procedures Procedure Name Priority Date/Time Associated Diagnosis Comments MM POST BIOPSY LT 07/20/2023 3:4 1 PM EDT documented in this encounter Results * MM POST BIOPSY LT (07/20/2023 3:41 PM EDT) Anatomical Region Laterality Modality Other 07/20/2023 3:41 PM EDT Narrative 07/20/2023 3:41 PM EDT [address] [address] Mammography Report Signed Patient: Leo Bravo MR#: [id number] : 1965 Acct:[id number] Age/Sex: 57 / F ADM Date: 05/08/23 Loc: US Attending Dr: Florentino Richards D.O. Ordering Physician: Florentino Richards D.O. Results: Date of Service: 05/08/23 Follow Up: Procedure(s): MM post biopsy LT Accession Number(s): [id number] cc: CHIARA SINGH ; Florentino Richards D.O. Patient: LEO BRAVO Exam Date: 05/08/2023 : 1965 Gender:F Ordering : DR Florentino Richards . Admission #: [id number] Family : Order #: [id number] CLICK HERE TO VIEW EXAM This report includes an Addendum and supersedes previous reports for this exam. RADIOLOGY REPORT PROCEDURE: MM POST BIOPSY LT COMPARISON: MM DIAGNOSTIC MAMMO UNILAT LT, 04/24/2023. MG MAMM SCREEN 3D ANDREW CAD, 03/14/2023. MG MAMM SCREEN ANDREW W CAD, 10/22/2018. MAMMO ANDREW SCREEN W CAD DIG, 11/15/2012. INDICATIONS: Abnormal Imaging Of Breast R92.6 BREAST COMPOSITION: Heterogeneously dense,which may obscure small masses. FINDINGS: BIOPSY MARKER: A metallic marker has been placed in the targeted location within the lower-outer quadrant of the left breast. BREAST FINDINGS: Expected post biopsy findings. RECOMMENDATIONS: Dictated by: Boogie Alatorre M.D. on 05/08/2023 at 14:02 Approved by: Boogie Alatorre M.D. on 05/08/2023 at 14:04 ADDENDUM: FINDINGS: DIAGNOSTIC CATEGORY 3--PROBABLY BENIGN FINDING. THE FOLLOWING FINDING(S) HAS A HIGH PROBABILITY OF A BENIGN ETIOLOGY: RECOMMENDATIONS: SHORT TERM FOLLOW-UP DIAGNOSTIC MAMMOGRAM LEFT BREAST IN 6 MONTHS. Dictated by: Boogie Alatorre M.D. on 07/20/2023 at 15:41 Approved by: Boogie Alatorre M.D. on 07/20/2023 at 15:41 Dictated By: Boogie Alatorre M.D. Signed By: 07/20/23 1542 DD/ 154 TD/TT: Cinder Pitman: Procedure Note Radiology, Radiologist, MD - 07/28/2023 [place] [address] Mammography Report Signed Patient: Leo Bravo AMR#: [id number] : 1965Acct:[id number] Age/Sex: 57 / FADM Date: 05/08/23 Loc: US Attending Dr: Florentino Richards D.O. Ordering Physician: Florentino Richards D.O.Results: Date of Service: 05/08/23Follow Up: Procedure(s): MM post biopsy LT Accession Number(s): [id number] cc: CHIARA SINGH ; Florentino Richards D.O. Patient: LEO BRAVO Exam Date: 05/08/2023 : 1965 Gender:F Ordering : DR Florentino Richards . Admission #: [id number] Family : Order #: [id number] CLICK HERE TO VIEW EXAM This report includes an Addendum and supersedes previous reports for this exam. RADIOLOGY REPORT PROCEDURE: MM POST BIOPSY LT COMPARISON: MM DIAGNOSTIC MAMMO UNILAT LT, 04/24/2023. MG MAMM [id number] ANDREW CAD, 03/14/2023. MG MAMM SCREEN ANDREW W CAD, 10/22/2018. MAMMO BILSCREEN W CAD DIG, 11/15/2012. INDICATIONS: Abnormal Imaging Of Breast R92.6 BREAST COMPOSITION: Heterogeneously dense,which may obscure smallmasses. FINDINGS: BIOPSY MARKER: A metallic marker has been placed in the targetedlocation within the lower-outer quadrant of the left breast. BREAST FINDINGS: Expected post biopsy findings. RECOMMENDATIONS: Dictated by: Boogie Alatorre M.D. on 05/08/2023 at 14:02 Approved by: Boogie Alatorre M.D. on 05/08/2023 at 14:04 ADDENDUM: FINDINGS: DIAGNOSTIC CATEGORY 3--PROBABLY BENIGN FINDING. THE FOLLOWING FINDING(S)HAS A HIGH PROBABILITY OF A BENIGN ETIOLOGY: RECOMMENDATIONS: SHORT TERM FOLLOW-UP DIAGNOSTIC MAMMOGRAM LEFT BREAST IN 6 MONTHS. Dictated by: Boogie Alatorre M.D. on 07/20/2023 at 15:41 Approved by: Boogie Alatorre M.D. on 07/20/2023 at 15:41 Dictated By: Boogie Alatorre M.D. Signed By:07/20/23 1542 DD/ 1541 TD/TT: Cinder Pitman: [facility] DO [facility] Final Result documented in this encounter Visit Diagnoses Not on filedocumented in this encounter Care Teams Manager Support Services Relationship Specialty Start Date End Date Rosaline Singh MD PCP - General 04/30/23 03/10/25 Rosaline Singh MD [facility] Referrals ONLY PCP - General Family Medicine 03/11/25 documented as of this encounter
--- OUTSIDE RECORDS SUMMARY | 2025-03-28 10:49 | XMS_ITS | Encounter Summary ---
Author Organization [facility] Address [address] [place] [address] Care Team Providers Care Jet Wiper Name Role Phone Rosaline Singh MD Primary Care Provider [phone] Rosaline Singh MD Primary Care Provider [phone] Encounter Details Date Type Department Care Team (Late st Contact Info) Description 05/26/2023 Abstract [facility] OB [address] [place] [address] Folrentino Richards, DO [address] [facility] [address] [place], [place] [id number] Social History Tobacco Use Types Packs/Day Years [...] EST Office Visit [facility] OB [address] [place] [phone] Florentino Richards, DO [address] [facility] [address] [place], [place] [phone] documented as of this encounter Visit Diagnoses Not on filedocumented in this encounter Care Teams Jet Wiper Relationship Specialty Start Date End Date Rosaline Singh MD PCP - General 04/30/23 03/10/25 Rosaline Singh MD [facility] Referrals ONLY PCP - General Family Medicine 03/11/25 documented as of this encounter
--- OUTSIDE RECORDS SUMMARY | 2025-03-28 10:49 | XMS_ITS | Clinical Summary ---
Author Organization [facility] Address [address] [place] [address] Care Team Providers Care Report Checker Name Role Phone Unavailable Primary Care Provider Unavailabl e Allergies Active Allergy Reactions Criticality Noted Date Comments Bacitracin Swelling 08/21/2023 Sulfamethoxazole-Trimethoprim 2022 Gentamicin 08/28/2023 Other/Food 08/28/2023 Peanuts, peas Medications loratadine (CLARITIN) 10 MG capsule Take 1 capsule by mouth daily Active Multiple Vitamins-Minera ls ([facility] HEALTH PO) Take by mouth A ctive acetaminophen (TYLENOL) 500 MG tablet Take 2 tablets by mouth every 6 hours as needed for Pain Active albuterol sulfate HFA (VENTOLIN HFA) 108 (90 Base) MCG/ACT inhaler Inhale 2 puffs into the lungs 4 times daily as needed for Wheezing 18 g 08/30/2023 Active Active Problems No known active problems Social History Tobacco Use Types Packs/Day Years Used Date Smoking Tobacco: Never Smokeless Tobacco: Never Tobacco Cessation:Counseling Given: Not Answered AUDIT-C Answer Date Recorded Q1: How often do you have a drink containing alcohol? Never 08/30/2023 Q2: How many drinks containi ng alcohol do you have on a typical day when you are drinking? Patient does not drink Q3: How often do you have si x or more drinks on one occasion? Never 08/30/2023 PHQ-2 Answer Date Recorded PHQ-9 Total Score 0 08/30/2023 Comments Unknown Sex and Gender Information Value Date Recorded Sex Assigned at Not on file Legal Sex Female 12:33 PM EST Gender Identity Not on file Sexual Orientation Not on file Last Filed Vital Signs Vital Sign Reading Time Taken Comments Blood Pressure 125/83 08/30/2023 11:56 AM EDT Pulse 83 08/30/2023 11:54 AM EDT Temperature 36.8 C (98.3 F) 08/30/2023 12:16 PM EDT Respiratory Rate 18 08/30/2023 11:54 AM EDT Oxygen Saturation 97% 08/30/2023 12:28 PM EDT Inhaled Oxygen Concentration - - Weight - - Height - - Body Mass Index - - Plan of Treatment Health Maintenance Due Date Last Done Comments HIV screen 1981 Hepatitis C screen 1984 DTaP/Tdap/Td vaccine (1 - Tdap) 1985 Hepatitis B vaccine (1 of 3 - 19+ 3-dose series) 1985 Pap smear 1987 Cervical cancer screen 1996 HPV (without or with Pap) 1996 Lipids 2006 Colonoscopy 2011 Colorectal Cancer Screen 2011 FIT/FOBT: Average risk 2011 Fecal-DNA (Cologuard): Average risk 2011 Sigmoidoscopy/CT colonography 2011 Pneumococcal 50+ years Vaccine (1 of 1 - PCV) 2016 Shingles vaccine (1 of 2) 2016 COVID-19 Vaccine (5 - season) 2024 04/13/2022, 10/28/2021, 02/19/2021, Additional history exists Depression Screen 08/30/2024 08/30/2023 Breast cancer screen 03/14/2025 03/14/2023 Flu vaccine (Season Ended) 06/06/202508/12, 11/14/2019, 09/14/2018, Additional history exists Hepatitis A vaccine Aged Out No longe r eligible based on patient's age to complete this topic Hib vaccine Aged Out No longer eligi ble based on patient's age to complete this topic Meningococcal (ACWY) vaccine Aged Out No longer eligible based on patient's age to complete this topic Meningococcal B vaccine Aged Out No l onger eligible based on patient's age to complete this topic Polio vaccine Aged Out No longer elig ible based on patient's age to complete this topic Insurance [employer]
--- OUTSIDE RECORDS SUMMARY | 2025-03-28 10:49 | XMS_ITS | Clinical Summary ---
Author Organization [facility] Address [address] [place] [address] Care Team Providers Care Composition Molder Name Role Phone Rosaline Singh MD Primary Care Provider [phone] Allergies Active Allergy Reactions Criticality Noted Date Comments Bacitracin Swelling 08/21/2023 Dust Mite Extract 01/09/2012 Gentamicin Itching,Rash,Unknow n Low 08/21/2023 Grass Pollen(K-O-R-T-Swt Les) Runny nose,Wheezing 08/23/2023 Molds & Smuts Cough,Itching,Runny nose,Wheezing 08/23/2023 Other Unknown 01/09/2012 peas Peanut-Containing Drug Products Anaphylaxis,Cough,H eadache,Shortness of breath,Wheezing High 01/09/2012 peanuts Pollen Extract 01/09/2012 Grass, pollen Sulfamethoxazole Unknown 08/21/2023 Sulfamethoxazole-Trimethopr im 08/28/2023 Thimerosal (Thiomersal) Unknown 08/21/2023 Trimethoprim Unknown 08/21/2023 Medications albuterol HFA 90 mcg/act inhaler Inhale 2 puffs. 08/30/2023 Active Loratadine 10 MG capsule Take 1 capsule by mouth in the morning. Active Active Problems No known active problems Encounters Date Type Department Care Team Description 03/13/2025 11:30 AM EDT Clinical Support [facility] [address] [facility] [place] [address] Kristie Kurtz CCC-A Sensorineural hearing loss (SNHL) of both ears (Primary Dx); Otalgia, right 03/13/2025 Bamboo flowsheet [facility] [address] [facility] [address] Kristie Kurtz CCC-A 03/11/2025 1:30 PM EDT Clinical Support [facility] [address] [facility] [place] [address] Kristie Kurtz CCC-A Sensorineural hearing loss (SNHL) of both ears (Primary Dx); Otalgia, right 03/11/2025 Bamboo flowsheet [facility] [address] [facility] [place] [address] Kristie Kurtz CCC-A from Last 3 Months Family History Medical History Relation Name Comments Heart disease Father Cancer Mother Crohn's disease Other Ulcerative colitis Other Relation Name Status Comments Father Alive Mother Alive Other Social History Tobacco Use Types Packs/Day Years Used Date Smoking Tobacco: Never Tobacco Cessation:Counseling Given: Not Answered Alcohol Use Standard Drinks/Week Comments Yes 0 [...] Orientation Straight 04/30/2023 9: 02 PM EDT Last Filed Vital Signs Vital Sign Reading Time Taken Comments Blood Pressure 124/76 09/30/2024 8:50 AM EST Pulse - - Temperature - - Respiratory Rate - - Oxygen Saturation - - Inhaled Oxygen Concentration - - Weight 104 kg (230 lb) 09/30/2024 8:50 AM EST Height 157.5 cm (5' 2 ) 10/09/2023 10:50 AM EST Body Mass Index 42.07 10/09/2023 10:50 AM EST Plan of Treatment Upcoming Encounters Date Type Department Care Team (Late st Contact Info) Description 10/07/2025 9:00 AM EST Office Visit [facility] [address] [place] [address] Florentino Richards, DO [address] [facility] [place] [address] Health Maintenance Due Date Last Done Comments CT Colonography 1966 Colonoscopy 1966 Colorectal Cancer Screening 1966 FIT-DNA 1966 FIT 1966 FOBT 1966 Sigmoidoscopy 1966 Influenza Vaccine (Season Ended) 2025 12/29/2023, 08/12/2020, 11/14/2019, Additional history exists Mammogram 11/13/2025 11/13/2024, 03/14/2023 Cervical Cancer Screening 09/30/2029 HPV/Cotest 09/30/2029 Pap Smear 09/30/2029 09/30/2024, 02/28/2023 Procedures Procedure Name Priority Date/Time Associated Diagnosis Comments AUDITORY FUNCTION TESTS Routine 03/13/2025 1:46 PM EDT MM TOMOSYNTHESIS SCREENING BI 11/13/2024 3:17 PM EST PAP SMEAR Routine 09/30/2024 12:00 AM EST from Last 3 Months or Most Recently Relevant to Health Maintenance Results * Auditory function tests (03/13/2025 1:46 PM EDT) Addenda Addendum by Kristie Kurtz CCC-A on 03/13/2025 1:46 PM EDT Narrative Kristie Kurtz CCC-A - 03/11/2025 2:09 PM EDT Bilateral Mild sloping to moderate sensorineural hearing loss above 2K Hz Kristie Kurtz [facility] ORDERA BLES Edited Result - Final * MM TOMOSYNTHESIS SCREENING BI (11/13/2024 3:17 PM EST) Anatomical Region Laterality Modality Other 11/13/2024 3:17 PM EST Narrative 11/13/2024 3:18 [place] [address] Mammography Report Signed Patient: LEO BRAVO MR#: [id number] : 1965 Acct:[id number] Age/Sex: 59 / F ADM Date: 11/13/24 Loc: MAMMO Attending Dr: Florentino Richards D.O. Ordering Physician: Florentino Richards D.O. Results: Date of Service: 11/13/24 Follow Up: Procedure(s): MM tomosynthesis screening BI Accession Number(s): [id number] cc: Rosaline Singh M.D.; Florentino Richards D.O. Patient Name: LEO BRAVO MR#: [id number] : 1965 Exam Date: 11/13/2024 Ordering Doctor: [...] Treatments None Family Cancers None LOCATION: [facility] BREAST COMPOSITION: The breasts are heterogeneously dense,which [...] Signed By: 11/13/24 1518 DD/ 1517 TD/TT: Production Analyst: Procedure Note Radiology, Radiologist, MD - 11/13/2024 [place] [address] Mammography Report Signed Patient: LEO BRAVO AMR#: [id number] : 1965Acct:[id number] Age/Sex: 59 / FADM Date: 11/13/24 Loc: MAMMO Attending Dr: Florentino Richards D.O. Ordering Physician: Florentino Richards D.O.Results: Date of Service: 11/13/24Follow Up: Procedure(s): MM tomosynthesis screening BI Accession Number(s): [id number] cc: Rosaline Singh M.D.; Florentino Richards D.O. Patient Name: LEO BRAVO MR#: [id number] : 1965 Exam Date: 11/13/2024 Ordering Doctor: [...] Treatments None Family Cancers None LOCATION: [facility] BREAST COMPOSITION: The breasts are heterogeneously dense,which [...] M.D. Signed By:11/13/24 1518 DD/ 1517 TD/TT: Production Analyst: us Florentino Maurice DO [facility] Final Result * Pap Smear (09/30/2024 12:00 AM EST) Swab Cervical swab / Unknown us Florentino Maurice DO LAB CYTOLOGY ORDERABLES Final Re sult EXTERNAL LAB from Last 3 Months or Most Recently Relevant to Health Maintenance Insurance [employer] Care Teams Composition Molder Relationship Specialty Start Date End Date Rosaline Singh MD [facility] Referrals ONLY PCP - General Family Medicine 03/11/25
--- OUTSIDE RECORDS SUMMARY | 2025-03-28 10:49 | XMS_ITS | Encounter Summary ---
Author Organization [facility] Address [address] [place] [address] Care Team Providers Care Chassis Engineer Name Role Phone Rosaline Singh MD Primary Care Provider [phone] Rosaline Singh MD Primary Care Provider [phone] Encounter Details Date Type Department Care Team (Late st Contact Info) Description 05/02/2023 Abstract [facility] [address] [place] [address] Florentino Richards, [address] [facility] [address] [place], [place] [id number] Social History Tobacco Use Types Packs/Day Years [...] EST Office Visit [facility] [address] [facility] [place] [address] Florentino Richards DO [address] [place] [address] [place] [address] documented as of this encounter Visit Diagnoses Not on filedocumented in this encounter Care Teams Chassis Engineer Relationship Specialty Start Date End Date Rosaline Singh MD PCP - General 04/30/23 03/10/25 Rosaline Singh MD [facility] Referrals ONLY PCP - General Family Medicine 03/11/25 documented as of this encounter
--- OUTSIDE RECORDS SUMMARY | 2025-03-28 10:49 | XMS_ITS | Encounter Summary ---
Author Organization [facility] Address [address] [place] [address] Care Team Providers Care Stocking Inspector Name Role Phone Rosaline Singh MD Primary Care Provider [phone] Rosaline Singh MD Primary Care Provider [phone] Encounter Details Date Type Department Care Team (Late st Contact Info) Description 05/05/2023 Abstract [facility] [address] [place] [address] Florentino Richards, [address] [facility] [address] [place], [place] [id number] Social History Tobacco Use Types Packs/Day Years [...] EST Office Visit [facility] [address] [facility] [place] [address] Florentino Richards DO [address] [place] [address] [place] [address] documented as of this encounter Visit Diagnoses Not on filedocumented in this encounter Care Teams Stocking Inspector Relationship Specialty Start Date End Date Rosaline Singh MD PCP - General 04/30/23 03/10/25 Rosaline Singh MD [facility] Referrals ONLY PCP - General Family Medicine 03/11/25 documented as of this encounter
--- OUTSIDE RECORDS SUMMARY | 2025-03-28 10:49 | XMS_ITS | Encounter Summary ---
Author Organization [facility] Address [address] [place] [address] Care Team Providers Care Cardiovascular Surgeon Name Role Phone Rosaline Singh MD Primary Care Provider [phone] Rosaline Singh MD Primary Care Provider [phone] Encounter Details Date Type Department Care Team (Late st Contact Info) Description 10/22/2024 Orders Only [facility] [address] [facility] [place] [address] Tania Regan MA [address] [facility] [place] [address] Social History Tobacco Use Types Packs/Day Years [...] EST Office Visit [facility] [address] [facility] [place] [address] Florentino Richards DO [address] [place] [address] [place] [address] documented as of this encounter Procedures Procedure Name Priority Date/Time Associated Diagnosis Comments PAP SMEAR Routine 09/30/2024 12:00 AM EST documented in this encounter Results * Pap Smear (09/30/2024 12:00 AM EST) Swab Cervical swab / Unknown us Florentino Richards DO LAB CYTOLOGY ORDERABLES Final Re sult EXTERNAL LAB documented in this encounter Visit Diagnoses Not on filedocumented in this encounter Care Teams Cardiovascular Surgeon Relationship Specialty Start Date End Date Rosaline Singh MD PCP - General 04/30/23 03/10/25 Rosaline Singh MD [facility] Referrals ONLY PCP - General Family Medicine 03/11/25 documented as of this encounter
--- OUTSIDE RECORDS SUMMARY | 2025-03-28 10:49 | XMS_ITS | Encounter Summary ---
Author Organization [facility] Address [address] [place] [address] Care Team Providers Care Personnel Manager Name Role Phone Rosaline Singh MD Primary Care Provider [phone] Rosaline Singh MD Primary Care Provider [phone] Encounter Details Date Type Department Care Team (Late st Contact Info) Description 05/18/2023 Abstract [facility] [address] [place] [address] Florentino Richards, DO [address] [facility] [address] [place], [place] [id number] Social History Tobacco Use Types Packs/Day Years [...] Office Visit [facility] [address] [place] [address] Florentino Richards, DO [address] [facility] [address] [place], [place] [id number] documented as of this encounter Visit Diagnoses Not on filedocumented in this encounter Care Teams Personnel Manager Relationship Specialty Start Date End Date Rosaline Singh MD PCP - General 04/30/23 03/10/25 Rosaline Singh MD [facility] Referrals ONLY PCP - General Family Medicine 03/11/25 documented as of this encounter
--- OUTSIDE RECORDS SUMMARY | 2025-03-28 10:49 | XMS_ITS | Encounter Summary ---
Author Organization [facility] Address [address] [place] [address] Care Team Providers Care External Grinder Tool Name Role Phone Rosaline Singh MD Primary Care Provider [phone] Rosaline Singh MD Primary Care Provider [phone] Encounter Details Date Type Department Care Team (Late st Contact Info) Description 05/22/2023 Abstract [facility] [address] [place] [address] Florentino Richards, DO [address] [facility] [address] [place], [place] [id number] Social History Tobacco Use Types Packs/Day Years [...] Office Visit [facility] [address] [place] [address] Florentino Richards, DO [address] [facility] [address] [place], [place] [address] documented as of this encounter Visit Diagnoses Not on filedocumented in this encounter Care Teams External Grinder Tool Relationship Specialty Start Date End Date Rosaline Singh MD PCP - General 04/30/23 03/10/25 Rosaline Singh MD [facility] Referrals ONLY PCP - General Family Medicine 03/11/25 documented as of this encounter
--- OUTSIDE RECORDS SUMMARY | 2025-03-28 10:49 | XMS_ITS | Encounter Summary ---
Author Organization [facility] Address [address] [place] [address] Care Team Providers Care Lead Technologist In Cytogenetics Name Role Phone Rosaline Singh MD Primary Care Provider [phone] Rosaline Singh MD Primary Care Provider [phone] Encounter Details Date Type Department Care Team (Late st Contact Info) Description 09/07/2023 Clinisync Result Encounter [facility] External Department Unsolicited Bobbi Richards, DO [address] [facility] [address] [place], [place] [phone] Social History Tobacco Use Types Packs/Day Years [...] suspected to have Coronavirus/COVID-19? No / Unsure 08/16/2023 8:39 AM EDT documented as of this encounter Plan of Treatment Upcoming Encounters Date Type Department Care Team (Late st Contact Info) Description 10/07/2025 9:00 AM EST Office Visit [facility] [address] [facility] [place] [address] Bobbi Richards, [address] [facility] [place] [address] documented as of this encounter Procedures Procedure Name Priority Date/Time Associated Diagnosis Comments ECG 12-LEAD 09/07/2023 9:45 AM EDT documented in this encounter Results * ECG 12-LEAD (09/07/2023 9:45 AM EDT) Anatomical Region Laterality Modality Other 09/07/2023 9:45 AM EDT Narrative 09/07/2023 9:45 AM EDT The [address] [address] Electrocardiograph Report Signed Patient: LEO BRAVO MR#: [id number] : 1965 Acct:[id number] Age/Sex: 57 / F ADM Date: 09/07/23 Loc: PST Attending Dr: Bobbi Richards D.O. Ordering Physician: Bobbi Richards D.O. Date of Service: 09/07/23 Procedure(s): ECG 12 lead Accession Number(s): [id number] cc: [facility] Test Date: 2023-09-07 Pat Name: LEO BRAVO Department: Room: - Gender: Female Ram Car Operator: : 1965 Requested By: BOBBI RICHARDS Order Number: [id number] Reading MD: MICAH TONEY Measurements Intervals [place] Rate: 66 P: 14 DE: 171 QRS: 22 QRSD: 82 T: 16 QT: 390 QTc: 411 Interpretive Statements SINUS RHYTHM No previous ECG available for comparison Electronically Signed On 09-08-2023 7:00:00 EDT by MICAH TONEY Dictated By: Micah Toney D.O. Signed By: 09/08/23 0700 DD/ 4 TD/TT: Quality Assurance Group Leader: Procedure Note Radiology, Radiologist, MD - 09/08/[address] [address] Electrocardiograph Report Signed Patient: LEO BRAVO AMR#: [id number] : 1965Acct:[id number] Age/Sex: 57 / FADM Date: 09/07/23 Loc: PST Attending Dr: Bobbi Richards D.O. Ordering Physician: Bobbi Richards D.O. Date of Service: 09/07/23 Procedure(s): ECG 12 lead Accession Number(s): [id number] cc: [facility] Test Date: 2023-09-07 Pat Name: LEO BRAVO Department: Room: - Gender: Female Ram Car Operator: : 1965 Requested By: BOBBI RICHARDS Order Number: [id number] Reading MD: MICAH TONEY Measurements Intervals [place] Rate: 66 P: 14 DE: 171 QRS: 22 QRSD: 82 T: 16 QT: 390 QTc: 411 Interpretive Statements SINUS RHYTHM No previous ECG available for comparison Electronically Signed On 09-08-2023 7:00:00 EDT by MICAH TONEY Dictated By: Micah Toney D.O. Signed By:09/08/23 0700 DD/ 4 TD/TT: Quality Assurance Group Leader: us Bobbi Richards DO [facility] Final Result documented in this encounter Visit Diagnoses Not on filedocumented in this encounter Care Teams Lead Technologist In Cytogenetics Relationship Specialty Start Date End Date Rosaline Singh MD PCP - General 04/30/23 03/10/25 Rosaline Singh MD [facility] Referrals ONLY PCP - General Family Medicine 03/11/25 documented as of this encounter
--- NOTE | 2025-03-28 10:52 | XR_ITS ---
The [address] [address] Patient Name: LEO BRAVO MRN: [id number] date: 1965 Sex: F Assigned Patient Location: [facility] Current Patient Location: [facility] Accession/Order Number: [id number] Exam Date: 03/28/2025 12:56 Report Date: 03/28/2025 12:57 At the request of: RAMONITA HOOKER MD Procedure: XR knee LT 4V XR knee LT 4V 03/28/2025 11:09 AM SIGNS AND SYMPTOMS: ^Left Knee Pain PROTOCOL: Frontal, lateral, and oblique radiographs of the left knee COMPARISON: 07/12/2018 FINDINGS: The weightbearing joint spaces are preserved. There is narrowing of the patellofemoral joint space. There is mild prepatellar soft tissue swelling. No joint. No acute bony injury. XR/XR knee LT 4V IMPRESSION: No acute bony injury. Degenerative changes are noted in the patellofemoral joint space. Impression dictated by: Dennis Medrano M.D. 03/28/2025 12:57 PM Dictation Location: [place] [address] Electronically authenticated by: [id number] Y Date: 03/28/2025 12:57
== END 2025-03-28 10:46 | disposition home or self-care (01) ==
LOC: RAD 10:47
PROVIDERS: PCP Family Medicine; Visit Provider Family Medicine
DX: M25.562 Pain in left knee (principal)
CPT/HCPCS: 73564

== ENCOUNTER 2025-08-10 21:08 | Emergency (ER) | payer OTHER, SELFPAY ==
--- OUTSIDE RECORDS SUMMARY | 2025-08-10 21:14 | XMS_ITS | Clinical Summary ---
Author Organization [facility] Address [address] [place] [address] Care Team Providers Care Agile Tester Name Role Phone Unavailable Primary Care Provider [...] VACCINE (1 of 2) 2016 COVID-19 VACCINE (1 - season) 2025 INFLUENZA VACCINE (#1) [address] [place] [address] MMO
--- OUTSIDE RECORDS SUMMARY | 2025-08-10 21:14 | XMS_ITS | CCD ---
Author Organization [facility] CliniSyin Care Team Providers Care Farmer Vegetable Name Role Phone Eddie De León Unavailable Josué Santoro Unavailable Ramonita Hooker Unavailable MAURICE ., DR MARTINES Admitting Unavailable MAURICE ., DR MARTINES Attending Unavailable HOOKER, DR RAMONITA Donovan Primary Care Unavailable MAURICE ., DR MARTINES Admitting Unavailable MAURICE ., DR MARTINES Attending Unavailable MORRO, DR RAMONITA Donovan Primary Care Unavailable MAURICE ., DR MARTINES Consulting Unavailable MAURICE ., DR MARTINES Admitting Unavailable MAURICE ., DR MARTINES Attending Unavailable HOOKER, DR RAMONITA Donovan Primary Care Unavailable MAURICE ., DR MARTINES Consulting Unavailable REECE GUIDO Consulting Unavailable CESAR GANN Consulting Unavailable MORRO, DR RAMONITA Donovan Admitting Unavailable MORRO, DR RAMONITA Donovan Attending Unavailable MORRO, DR RAMONITA Donovan Primary Care Unavailable AQUILES, DR LEYLA Romero Consulting Unavailable MORRO, DR RAMONITA Donovan Consulting Unavailable MAURICE ., DR MARTINES Admitting Unavailable MAURICE ., DR MARTINES Attending Unavailable MORRO, DR RAMONITA Donovan Primary Care Unavailable MAURICE ., DR MARTINES Consulting Unavailable ZIANKIT, DR CINDY Keita Consulting Unavailable MAURICE ., DR MARTINES Admitting Unavailable MAURICE ., DR MARTINES Attending Unavailable MORRO, DR RAMONITA Donovan Primary Care Unavailable MAURICE ., DR MARTINES Consulting Unavailable MAURICE ., DR MARTINES Admitting Unavailable MAURICE ., DR MARTINES Attending Unavailable MORRO, DR RAMONITA Donovan Primary Care Unavailable [place], DR LEYLA Romero Consulting Unavailable MAURICE ., DR MARTINES Consulting Unavailable ISAC, DR CINDY Keita Consulting Unavailable MIESHA HASSAN Attending Unavailable Ramonita Hooker MD Primary Care Provider [phone] RAMONITA HOOKER Primary Care Physician Cisco ZAVALA Referring Unavailable NILL, Cisco R Attending Unavailable Cisco ZAVALA Admitting Unavailable RAMONITA HOOKER Referring Unavailable Cisco ZAVALA Attending Unavailable Ramonita Hooker MD Primary Care Provider [phone] KRISTIE KURTZ Attending Unavailable RAMONITA HOOKER Referring Unavailable KRISTIE KURTZ Attending Unavailable FLORENTINO RICHARDS Attending Unavailable Ramonita Hooker MD Primary Care Provider [phone] Sharlene Skelton APRN Attending Provider Allergies Allergy Classification Reported Allergen(s) Allergy Type Date of Onset Reaction(s) Facility (5 sources) Gentamicin Sulfate (LONG TERM); Translations: [gentamicin] Drug Allergy 11-06-19 [facility] Repository (4 sources) peanut allergenic extract Drug Allergy 09-13-20 14 [facility] Repository Comment on above: Onset Date: 02/27/20 20 (1 source) Sulfamethoxazole / Trimethoprim Drug Allergy 09-13-20 14 [facility] Repository (4 sources) Thimerosal Drug Allergy 09-13-20 14 [facility] Repository Comment on above: Onset Date: 02/27/20 20 (1 source) Misc-Food; Translations: [Misc-Food] Food allergy (disorder) 10-13-20 14 [facility] Repository (8 sources) Bacitracin Drug Allergy 08-21-20 Swelling [facility] (9 sources) Gentamicin; Translations: [gentamicin] Drug Allergy 08-21-20 Itching, Rash, Unknown, Eruption of skin (disorder) [facility] (8 sources) Grass pollen Propensity to adverse reactions 08-23-20 23 Runny nose, Wheezing [facility] (8 sources) House dust mite Propensity to adverse reactions 01-09-20 12 [facility] Work Phone: (8 sources) Mold Extract Drug Allergy 08-23-20 Cough, Itching, Runny nose, Wheezing [facility] (8 sources) Pollen Propensity to adverse reactions 01-09-20 12 [facility] (11 sources) Sulfamethoxazole Allergy to substance 08-21-20 Unknown [facility] (9 sources) Sulfamethoxazole / Trimethoprim; Translations: [sulfamethoxazole-t rimethoprim] Drug Allergy 08-28-20 Joint pain (finding) [facility] Healthcare (8 sources) Thimerosal Drug Allergy 08-21-20 Unknown [facility] (11 sources) Trimethoprim Drug Allergy 08-21-20 Unknown [facility] (8 sources) Other Propensity to adverse reactions 01-09-20 Unknown [facility] (8 sources) Peanut-Containing Drug Products Drug Intolerance 01-09-20 Anaphylaxis, Cough, Headache, Shortness of breath, Wheezing [facility] (2 sources) Mold Extract; Translations: [Mold] Drug Allergy [facility] (2 sources) peanut; Translations: [Peanuts] Drug allergy Pharyngeal swelling (finding) [facility] (2 sources) Pisum sativum (pea) extract; Translations: [Pea] Drug Allergy Pharyngeal swelling (finding) [facility] (2 sources) Thimerosal; Translations: [thimerosal topical] Drug Allergy Eruption of skin (disorder) [facility] (1 source) Sulfamethoxazole / Trimethoprim; Translations: [Bactrim] Drug Allergy [facility] Repository (3 sources) peas Allergy to substance 01-15-20 [facility] Comment on above: Onset Date: 02/27/20 Medications Current Medications Medication Drug Class(es) Dates Sig (Normalized) Sig (Original) acetaminophen 500 mg oral tablet (11 sources) End: 09-30-2024 take 2 tablets by mouth every six hours as needed acetaminophen (Tylenol) 500 MG tablet Take 2 tablets by mouth every 6 (six) hours if needed. 09/30/2024 Discontinued (Therapy completed) take 1 tablet by mouth every fou r hours [id number] 200 actuat albuterol 0.09 mg/actuat metered dose inhaler (8 sources) beta2-Adrenergic Agonist Start: 08-30-2023 albuterol HFA 90 mcg/act inhaler Inhale 2 puffs. 08/30/2023 Active azithromycin 250 mg oral tablet (1 source) Macrolide Antimicrobial Start: 07-17-2025 Azithromycin 250 mg tablet Active 0 PO daily 04 10July 17, 2025 12:00am Take 2 on day 1 and then take 1 for the next 4 days (days 2-5) Complies with drug therapy benzonatate 200 mg oral capsule (1 source) Non-narcotic Antitussive Start: 07-17-2025 take 1 capsule by mouth three times daily as needed for cough Benzonatate 200 mg capsule Active 200 MG PO Three times daily as needed for cough 04 09July 17, 2025 12:00am Complies with drug therapy cetirizine hydrochloride 10 mg chewable tablet (11 sources) Histamine-1 Receptor Antagonist Start: 03-26-2025 take 1 tablet by mouth once daily Start: 11-08-2024 take 10 mg by mouth once daily Zyrtec 10 mg, Oral, Daily, Refills(s) 0 Start Date: 11/08/24 Status: Ordered take 1 tablet by sharon once daily Esomeprazole (1 source) Proton Pump Inhibitor Esomeprazo le Magnesium Active fluticasone propionate 0.05 mg/actuat metered dose nasal spray (6 sources) Corticosteroid Start: 03-28-20 take 1 spray(s) nasal route once daily as needed Fluticasone Propionate (Flonase Allergy Relief) 50 mcg/actuation spray,suspension Active 1 SPRAY INTRANASAL Daily as needed March 28, 2025 12:00am administer into each nostril Complies with drug therapy Start: 11-08-2024 take 2 spray(s) by i nhalation once daily fluticasone 93 mcg/inh nasal spray 2 spray(s), Inhalation, Daily, Refill(s) 0 Start Date: 11/08/24 Status: Ordered Start: 10-07-2024 End: 01-14-2025 take 1 spray(s) nasal route once daily Fluticasone Propionate (Flonase Allergy Relief) 50 mcg/actuation spray,suspension Discontinued 2 SPRAY INTRANASAL Daily October 07, 2024 1:00am January 14, 2025 10:28am administer into each nostril Completed/Discontinued Medications Medication Drug Class(es) Dates Sig (Normalized) Sig (Original) cephalexin 500 mg oral capsule (6 sources) Cephalosporin Antibacterial Start: 01-14-2025 End: 03-28-2025 take 1 capsule by mouth three times daily Cephalexin 500 mg capsule Discontinued 500 MG PO Three times daily 26 05January 14, 2025 12:00am March 28, 2025 10:12am Start: 10-01-2023 End: 11-25-2024 cephalexin (Keflex) 500 MG c apsule Take 500 mg by mouth in the morning and 500 mg at noon and 500 mg in the evening and 500 mg before bedtime. 10/01/2023 09/30/2024 Discontinued (Therapy completed) diclofenac sodium 0.01 mg/mg topical gel (1 source) Nonsteroidal Anti-inflammatory Drug Start: 03-28-2025 End: 07-17-2025 apply 4 g topically four times daily Diclofenac Sodium 1 % gel Discontinued 4 GM TOPICAL Four times daily 100 March 28, 2025 12:00am July 17, 2025 10:43am apply to single knee loratadine 10 mg oral tablet (13 sources) Start: 03-26-2025 End: 03-28-2025 take 1 tablet by mouth once daily Loratadine (Claritin) 10 mg tablet Discontinued 10 MG PO Daily March 26, 2025 12:00am March 28, 2025 10:13am FreeTextSi tablet Orally Once a day; Note: Source Status: Taking; Provider: Morro Waggoner ( ) take 1 capsule by mouth in the m orning Loratadine 10 MG capsule Take 1 capsule by mouth in the morning. Active take 1 tablet by mouth once baldemar y Claritin 10 MG 1 tablet Orally Once a day Active montelukast 10 mg oral tablet (7 sources) Leukotriene Receptor Antagonist Start: 03-26-2025 End: 03-28-2025 take 1 tablet by mouth once daily Montelukast 10 mg tablet Discontinued 1 TAB PO Daily March 26, 2025 12:00am March 28, 2025 10:13am FreeTextSig: take 1 tablet by mouth once daily; Note: Source Status: Start; Refills: 0; Qty: 30 Tablet; Provider: Morro Waggoner ( ) Start: 06-23-2023 End: 09-30-2024 take 1 tablet by mouth in the morning montelukast (Singulair) 10 MG tablet Take 10 mg by mouth in the morning. 06/23/2023 09/30/2024 Discontinued (Therapy completed) Start: 05-01-2023 take 1 tablet by sharon th every twenty-four hours Singulair 10 MG 1 tablet Orally Once a day for 30 days 26 Juan, 2023 Active Problems Active Problems Problem Classification Problem Date Documented Da te Episodic/Chronic Asthma (1 source) Asthma 10-23-2024 Chronic Chronic obstructive pulmonary disease and bronchiectasis (2 sources) Bronchitis; Translations: [Bronchitis, not specified as acute or chronic] 07-17-2025 Episodic Esophageal disorders (11 sources) Gastroesophageal reflux disease; Translations: [Gastro-esophageal reflux disease without esophagitis] Onset: 5 Chronic Immunizations and screening for infectious disease (1 source) Encounter for screening for human papillomavirus (HPV); Translations: [ENC SCREENING HUMAN PAPILLOMAVIRUS] Onset: 3 Episodic Menopausal disorders (5 sources) Postmenopausal bleeding; Translations: [POSTMENOPAUSAL BLEEDING] Onset: 3 Chronic Other connective tissue disease (2 sources) Trochanteric bursitis, right hip Episodic Other connective tissue disease (1 source) Other bursitis of hip, unspecified hip Episodic Other ear and sense organ disorders (2 sources) Sensorineural hearing loss, bilateral; Translations: [Sensorineural hearing loss, bilateral] 03-11-2025 Chronic Other ear and sense organ disorders (2 sources) Otalgia, right ear; Translations: [Otalgia, unspecified] 03-11-2025 Episodic Other gastrointestinal disorders (1 source) Irritable bowel syndrome 11-13-2024 Chronic Other gastrointestinal disorders (9 sources) Dysphagia; Translations: [Dysphagia, unspecified] Episodic Other nervous system disorders (8 sources) Chronic pain; Translations: [Other chronic pain] Chronic Other nervous system disorders (1 source) Other chronic pain Chronic Other non-traumatic joint disorders (3 sources) Pain in left knee; Translations: [Left knee pain] 03-28-2025 Episodic Other nutritional; endocrine; and metabolic disorders (1 source) Body mass index 40+ - severely obese 11-13-2024 Chronic Other nutritional; endocrine; and metabolic disorders (1 source) Morbid obesity 11-13-2024 Chronic Other screening for suspected conditions (not mental disorders or infectious disease) (1 source) Abnormal findings on diagnostic imaging of other specified body structures; Translations: [ABNORML FIND DX IMG OT BODY STRUC] Onset: 3 Chronic Other screening for suspected conditions (not mental disorders or infectious disease) (12 sources) Encounter for screening mammogram for malignant neoplasm of breast; Translations: [Other abnormal and inconclusive findings on diagnostic imaging of breast] Onset: 3 Episodic Other upper respiratory disease (1 source) Allergic rhinitis due to pollen 11-08-2024 Chronic Other upper respiratory disease (1 source) Acute bronchospasm; Translations: [Acute bronchospasm] Onset: 3 Episodic Other upper respiratory infections (1 source) Acute laryngitis; Translations: [Acute laryngitis] Onset: 3 Episodic Otitis media and related conditions (4 sources) Otitis media; Translations: [Unspecified nonsuppurative otitis media, right ear] 10-07-2024 Episodic Residual codes; unclassified (1 source) Asymptomatic menopausal state; Translations: [ASYMPTOMATIC MENOPAUSAL STATE] Onset: 3 Episodic Unclassified (1 source) CONTACT W/AND (SUSP) EXPOS COVID-19; Translations: [CONTACT W/AND (SUSP) EXPOS COVID-19] Onset: 3 Unclassified (1 source) Patient encounter status 11-13-2024 Viral infection (1 source) COVID-19; Translations: [COVID-19] Onset: 3 Past or Other Problems Problem Classification Problem Date Documented Da te Episodic/Chronic Other non-traumatic joint disorders (4 sources) Pain in right hip; Translations: [PAIN IN RIGHT HIP] Onset: 06-27-2022 Episodic Unclassified (1 source) Other low back pain M54.59 Results Test Name Value Interpretation Reference Range Facility Auditory function testson Bilateral Mild sloping to moderate sensorineural hearing loss above 2K Hz [facility] Main OR Intraoperative Recor don 12-02-2024 Main OR Intraoperative Record Main OR Intraoperative Record IntraOp Document Type FT Summary Primary Physician: Cisco ZAVALA MD Finalized Date/Time: 12/02/24 12:41:15 Pt. Name: LEO BRAVO/Sex: 1965 Female Med Rec #: [id number] Physician: Cisco ZAVALA MD Financial #: [id number] Pt. Type: O Room/Bed: / Admit/Disch: 11/29/24 [...] 1 Entry 2 Entry 3 Case Attendee Chauncey COELLO, Greg ZAVALA MD, Cisco Estrada RN, Mohamud Donovan Role Performed Anesthesiologist Surgeon - Primary Efficiency Engineer - Primary Testing Lead Time In 11/29/24 07:53:00 11/29/24 07:53:00 11/29/24 07:53:00 Time Out 11/29/24 08:21:00 11/29/24 08:21:00 11/29/24 08:21:00 Procedure EGD AND COLONOSCOPY(.) EGD AND COLONOSCOPY(.) EGD AND COLONOSCOPY(.) Comments Dr. Pardo supervising case Last Modified By: Sean RN, Mohamud Estrada RN, Mohamud Adams RN 11/29/24 08:22:26 11/29/24 08:22:26 11/29/24 08:22:26 Entry 4 Entry 5 Case Attendee Jasmin Warner CST, Rhianna Pink Role Performed Scrub - Primary Staff - Other Time In 11/29/24 07:53:00 11/29/24 07:53:00 Time Out 11/29/24 08:21:00 11/29/24 08:21:00 Procedure EGD AND COLONOSCOPY(.) EGD AND COLONOSCOPY(.) Comments help in room Last Modified By: Sean RN, Mohamud Adams RN 11/29/24 08:22:26 11/29/24 08:22:26 Perioperative Protocols FT [...] Out Greg Jc, Given Participants ILENE CLEVELAND, Cisco Keita, Sean MAYO, Timmy Rios Micala E, Elaine CHANDLER, Rhianna Pink Time Out Complete 11/29/24 07:54:00 Outcomes Met? [...] EGD. Colonoscopy Primary Procedure Yes Primary Surgeon Cisco ZAVALA MD Start 11/29/24 07:56:00 Stop 11/29/24 08:18:00 Anesthesia Type [...] patient, evaluates the patient for signs and symp (more content not included)... [facility] Reminderson 12-02-2024 Reminders Reminders --- From: Maris Serrato LPN To: [facility] ER - Clinical; Sent: 12/02/2024 08:35:12 EST Show up: 10/29/2034 07:00:00 EST Subject: colonoscopy recall Due Date/Time: 11/29/2034 07:00:00 EST Reminder/Recall Patient due for screening colonoscopy 11/29/2034. [facility] Discharge Instructionson Discharge Instructions Discharge Instructions LEO BRAVO :1965 Visit Date:11/29/2024 [...] When: Comments: Call for any problems. Where: [address] [place] [address], [address] [address] Business (1) Medications What How Much When [...] high fiber foods. Remember, your goal is 20-35 grams per day. Amount of fiber in different foods Food Serving Grams of fiber Fruits Apple (with skin) 1 medium apple 4.4 Banana 1 medium banana 3.1 Oranges 1 orange 3.1 Prunes 1 cup, pitted 12.4 Juices Apple, unsweetened, w/added ascorbic acid 1 cup 0.5 Grapefruit, white, canned, sweetened 1 cup 0.2 Grape, unsweetened, w/added ascorbic acid 1 cup 0.5 [place] 1 cup 0.7 Vegetables Cooked Green beans 1 cup 4.0 Carrots 1/2 cup sliced 2.3 Peas 1 cup 8.8 Potato (baked, with skin) 1 medium potato 3.8 Raw [place] (with peel) 1 cucumber 1.5 Lettuce 1 [...] 8.7 Peanuts 1/2 cup 7.9 Chart from [facility] 2013. SEEK IMMEDIATE MEDICAL CARE IF: You develo (more content not included)... [facility] Comment on above: Result Comment: Elec tronically Signed By: Dimitri MAYO, Sharlene\.all\Date and Time Signed: 11/29/24 08:29 ISRRAEL Gross 11-29-2024 Esophagogastroduodenoscopy EGD Patient: LEO BRAVO Age: 59 years Sex: Female : 1965 Associated Diagnoses: None Author: Cisco ZAVALA MD Pre-Procedure Procedure Date 11/29/2024 08:30:00 . Procedure Type: Esophagogastroduod enoscopy. Procedure provider Cisco Zavala MD. Referred by Ramonita Hooker MD. Current history and physical Documented [...] Impression and Plan EGD: Diagnosis: Chronic GERD ([id number]-CW K21.9, Discharge, Medical). Course: Progressing as expected. Education and Follow-up: Counseled: Family. [facility] Comment on above: Other Comment: Ashli chung Attachment - attachment storage system not supported [id number] Can be viewed in source systemMissing Attachment - attachment storage system not supported [id number] Can be viewed in source systemMissing Attachment - attachment storage system not supported [id number] Can be viewed in source system Inpatient Patient Summaryon 11-29-2024 Inpatient Patient Summary Inpatient Catarina ent Summary [address] [address] [facility] Clinical Discharge Instructions PERSON INFORMATION Name: ELO BRAVO PHYSICIANS Admitting Physician: Cisco ZAVALA MD Attending Physician: Cisco ZAVALA MD PCP: RAMONITA HOOKER MD Discharge Diagnosis: Chronic GERD; Sigmoid diverticulosis Comment: PATIENT EDUCATION INFORMATION Instructions: Diverticulosis MAGR (CUSTOM); Colonoscopy, Care After Surgery Salam (CUSTOM) Medication Leaflets: Follow up: With: Address: When: Cisco [address], [address], [facility] [address] [place] [address] Business (1) Within 7 to 10 days With: Address: When: Cisco [address], [address], [facility] [address] [place] [address] Business (1) Comments: Call for any problems. MEDICATION LIST Medications to Continue with No Changes Other Medications cetirizine (Zyrtec) 10 Milligram By Mouth every day. fluticasone nasal (fluticasone 93 mcg/inh nasal spray) 2 Sprays Inhalation every day. Comment: [facility] Main OR PACU II Recordon Main OR PACU II Record Main OR PACU II Record PACU Phase II Document Type FT Summary Primary Physician: Cisco ZAVALA MD Finalized Date/Time: 11/29/24 09:00:06 Pt. Name: LEO BRAVO/Sex: 1965 Female Med Rec #: [id number] Physician: Cisco ZAVALA MD Financial #: [id number] Pt. Type: O Room/Bed: / Admit/Disch: 11/29/24 [...] Signed By: Sharlene Mosley RN 11/29/24 09:00 [facility] Main OR Preoperative Recordo n 11-29-2024 Main OR Preoperative Record Main OR Preoperative Record Holding Area Document Type FT Summary Primary Physician: Cisco ZAVALA MD Finalized Date/Time: 11/29/24 06:56:19 Pt. Name: LEO BRAVO Dennis/Sex: 1965 Female Med Rec #: [id number] Physician: Cisco ZAVALA MD Financial #: [id number] Pt. Type: O Room/Bed: / Admit/Disch: 11/29/24 [...] No Patient states Yes Comment - Adult Anupama postop adult Supervision supervision available Case Cancelled in No Holding Area see comments below for reason Last Modified By: Margarita Brush RN 11/29/24 06:56:17 General Comments: Pt finished colon prep at 0240, states stool is clear liquid yellow, has been NPO since. /,RN Finalized By: Margarita Brush RN Document Signatures Signed By: Margarita Brush RN 11/29/24 06:56 [facility] Outpatient Surgery Discharge Instructionon 11-29-2024 Outpatient Surgery Discharge Instruction Outpatient Surgery Discharge Instruction [place] [id number] Patient Discharge Instructions PERSON INFORMATION Name: LEO [...] THE NEAREST EMERGENCY ROOM OR CALL 911 ISHELLY CYNTHIA, have received the attached patient education materials/instruct ions and have verbalized understanding: May we do a follow up call? Yes No I was present when discharge instructions were given Patient Signature Date Clinican/Nurse Signature Date Follow up: With: Address: When: Cisco [address]ane [address]athanael [address], [facility] [address], [place] [address] Business (1) Within 7 to 10 days With: Address: When: Cisco Mane Nathanael Ugal[place], [facility] [address], [facility] [address] [place] [address] Business (1) Comments: Call for any problems. [...] to serve you. Thank you for choosing [facility] HERE ARE THE MEDICATION CHANGES THAT [...] high fiber foods. Remember, your goal is 20-35 grams per day. Amount of fiber in different foods Food Serving Grams of fiber Fruits Apple (with skin) 1 medium apple 4.4 Banana 1 medium banana 3.1 Oranges 1 orange 3.1 Prunes 1 cup, pitted 12.4 Juices Apple, unsweetened, w/added ascorbic acid 1 cup 0.5 Grapefruit, white, canned, sweetened 1 cup 0.2 Grape, unsweetened, w/added ascorbic acid 1 cup 0.5 [place] 1 cup 0.7 Vegetables Cooked Green beans 1 c (more content not included)... [facility] IGP,APTIMA HPV,AGE GDLNon AGE GDLN ACOG TESTING Note . [facility] Comment on above: TESTS RESULT FLAG UN ITS REF RANGE LAB ---- Clinician Provided Cytology Information Source.............Vagina No. of containers..01 ThinPrep Vial Age Algo ACOG Vicky... ---- FLAG LEGEND: L-Low Normal,H-High Normal,LL-Alert Low,HH-Alert High <-Panic Low,>-Panic High,A-Abnormal,AA-Critical Abnormal ---- Performed at: 01 = [facility] [place] [place] [address] Sulma Kerr MD, HPV APTIMA Negative Negative [facility] Comment on above: This nucleic acid am plification test detects fourteen high- risk HPV types (16,18,31,33,35,39,45,51,52,56,58,59,66,68) without differentiation. Performed at: =[facility] [id number] Spa Manager: Sulma Kerr MD, Phone: [phone] Performed at: [place] [address] [facility] [id number] Spa Manager: Sulma Kerr MD, Phone: [phone] IGP, APTIMA HPV, RFX 16/18,45 Note . [facility] Comment on above: TESTS RESULT FLAG UN ITS REF RANGE LAB ---- DIAGNOSIS: 02 NEGATIVE FOR INTRAEPITHELIAL LESION OR MALIGNANCY. Specimen adequacy: 02 Satisfactory for evaluation. No endocervical component is identified. Performed by: 02 Amanda Prescott, Credit And Collections Analyst (ASC) . 02 Note: Note 02 The Pap smear is a screening test designed to aid in the detection of premalignant and malignant conditions of the uterine cervix. It is not a diagnostic procedure and should not be used as the sole means of detecting cervical cancer. Both false-positive and false-negative reports do occur. Test Methodology: Note 02 This liquid based ThinPrep(R) pap test was screened with the use of an image guided system. HPV Genotype Reflex Note 02 Criteria not met, HPV Genotype not performed. ---- FLAG LEGEND: L-Low Normal,H-High Normal,LL-Alert Low,HH-Alert High <-Panic Low,>-Panic High,A-Abnormal,AA-Critical Abnormal ---- Performed at: 02 WB [facility] [address] [facility] [place] [address] Sulma Kerr MD, SPATULA-ALONE VAGINA CLINISYNC [facility] Strep Group A, Rapidon 08-30 Strep A, Molecular Negative Normal NEG [facility] Comment on above: Performed By: #### R SAB #### [facility] [address] [place] [address] Spa Manager: Leyla Cortez MD Source .THROAT SWAB Normal [facility] Comment on above: Performed By: #### R SAB #### [facility] [address] [place] [address] Spa Manager: Leyla Cortez MD XR CHEST PORTABLEon 08-30-20 [...] Dante Rivas MD 08/30/23 Final result Normal [facility] MG MAMM SCREEN 3D ANDREW CADon 03-14-2023 MG MAMM SCREEN 3D ANDREW CAD Patient: LEO MONAHAN. Exam Date: 03/14/2023 : 1965 Gender:F Ordering : DR FLORENTINO RICHARDS . Admission #: [id number] Family : Order #: [id number] CLICK HERE TO VIEW EXAM RADIOLOGY REPORT [...] None Family Cancers None LOCATION: [facility] BREAST COMPOSITION: Heterogeneously dense,which may obscure small masses. FINDINGS: DIAGNOSTIC CATEGORY 0--INCOMPLETE: NEED ADDITIONAL IMAGING EVALUATION. The breasts are stable in size and overall fibroglandular configuration.Scat tered benign-appearing nodules are present. Scattered benign-appearing calcifications [...] Leyla Kwan MD on 03/15/2023 at 07:11 [facility] XR DEXA BONE DENSITYon 03-14 XR [...] authenticated by: CINDY CHAU Date: 2023-03-14 15:40 [facility] PAP ACOG PANEL 2: 30 to 65on 03-07-2023 . . Normal [facility] Comment on above: Result Comment: Perf ormed at: WB Performed By: #### [id number] #### [facility] [address] [place] [address] Dr. Mary Ortiz Age Gdln ACOG Testing 30-65 [facility] Comment on above: Performed By: #### [id number] #### [facility] [address] [address] [address] Mary Ortiz DIAGNOSIS: Comment [facility] Comment on above: Result Comment: NEGA TIVE FOR INTRAEPITHELIAL LESION OR MALIGNANCY. Performed at: WB Performed By: #### [id number] #### [facility] [address] [place] [address] Dr. Mary Ortiz HPV Aptima Negative Normal Negative [facility] Comment on above: Result Comment: This nucleic acid amplification test detects fourteen high-risk HPV types (16,18,31,33,35,39,45,51,52,56,58,59,66,68) without differentiation. Performed at: =G Performed By: #### [id number] #### [facility] [address] [place] [address] Dr. Mary Ortiz HPV Genotype Reflex Comment Normal [facility] Comment on above: Result Comment: Crit eria not met, HPV Genotype not performed. Performed at: WB Performed By: #### [id number] #### [facility] [address] [place] [address] Dr. Mary Ortiz Methodology: Comment Normal [facility] Comment on above: Result Comment: This liquid based ThinPrep(R) pap test was screened with the use of an image guided system. Performed at: WB Performed By: #### [id number] #### [facility] [address] [place] [address] Dr. Mary Ortiz Note: Comment Normal [facility] Comment on above: Result Comment: The Pap smear is a screening test designed to aid in the detection of premalignant and malignant conditions of the uterine cervix. It is not a diagnostic procedure and should not be used as the sole means of detecting cervical cancer. Both false-positive and false-negative reports do occur. . Performed at: WB Performed By: #### [id number] #### [facility] [address] [place] [address] Dr. Mary Ortiz Performed by: Comment Normal [facility] Comment on above: Result Comment: Akila Arrieta, Credit And Collections Analyst (ASCP) Performed at: WB Performed By: #### [id number] #### [facility] [address] [place] [address] Dr. Mary Ortiz Specimen adequacy: Comment Normal [facility] Comment on above: Result Comment: Sati sfactory for evaluation. Endocervical and/or squamous metaplastic cells (endocervical component) are present. Performed at: WB Performed By: #### 4 [id number] #### [facility] [address] [address] [address] Mary Ortiz CBC AUTO DIFFon 11-23-2022 BASO # 0.1 103/ul Normal 0.0-0.1 [facility] Comment on above: Performed By: #### C BC #### [facility] [address] [address] [address] Mary Ortiz Basophils/100 WBC (Bld) 1.1 % Normal 0.2-2.0 [facility] Comment on above: Performed By: #### C BC #### [facility] [address] [place] [address] Dr. Mary Ortiz EO # 0.2 103/ul Normal 0.0-0.7 [facility] Comment on above: Performed By: #### C BC #### [facility] [address] [place] [address] Dr. Mary Ortiz Eosinophils/100 WBC (Bld) 4.1 % Normal 0.9-7.0 [facility] Comment on above: Performed By: #### C BC #### [facility] [address] [place] [address] Dr. Mary Ortiz Erythrocyte distribution width (RBC) [Ratio] 13.3 % Normal 11.0-15.0 [facility] Comment on above: Performed By: #### C BC #### [facility] [address] [place] [address] Dr. Mary Ortiz Hematocrit (Bld) [Volume fraction] 41.8 % Normal 36.0-48.0 [facility] Comment on above: Performed By: #### C BC #### [facility] [address] [place] [address] Dr. Mary Ortiz Hemoglobin (Bld) [Mass/Vol] 13.8 g/dL Normal 12.0-16. 0 [facility] Comment on above: Performed By: #### C BC #### [facility] [address] [place] [address] Dr. Mary Ortiz IG # 0.01 10e3/ul Normal 0.00-0.03 [facility] Comment on above: Performed By: #### C BC #### [facility] [address] [place] [address] Dr. Mary Ortiz IG % 0.2 % Normal 0.0-0.5 [facility] Comment on above: Performed By: #### C BC #### [facility] [address] [place] [address] Dr. Mary Ortiz LYMPH # 1.9 103/ul Normal 1.2-3.8 [facility] Comment on above: Performed By: #### C BC #### [facility] [address] [place] [address] Dr. Mary Ortiz Lymphocytes/100 WBC (Bld) 32.7 % Normal 20.5-60.0 [facility] Comment on above: Performed By: #### C BC #### [facility] [address] [place] [address] Dr. Mary Ortiz MANUAL DIFF REQ NO Normal [facility] Comment on above: Performed By: #### C BC #### [facility] [address] [place] [address] Dr. Mary Ortiz MCH (RBC) [Entitic mass] 29.5 pg Normal 26.7-34.0 [facility] Comment on above: Performed By: #### C BC #### [facility] [address] [place] [address] Dr. Mary Ortiz MCHC (RBC) [Mass/Vol] 33.0 g/dL Normal 29.9-35.2 [facility] Comment on above: Performed By: #### C BC #### [facility] [address] [place] [address] Dr. Mary Ortiz MCV (RBC) [Entitic vol] 89.3 fL Normal 81.0-99.0 [facility] Comment on above: Performed By: #### C BC #### [facility] [address] [place] [address] Dr. Mary Ortiz MONO # 0.4 103/ul Normal 0.3-0.8 [facility] Comment on above: Performed By: #### C BC #### [facility] [address] [place] [address] Dr. Mary Ortiz Monocytes/100 WBC (Bld) 7.4 % Normal 1.7-12.0 [facility] Comment on above: Performed By: #### C BC #### [facility] [address] [place] [address] Dr. Mary Ortiz NEUT # 3.1 103/ul Normal 1.4-6.5 [facility] Comment on above: Performed By: #### C BC #### [facility] [address] [place] [address] Dr. Mary Ortiz Neutrophils/100 WBC (Bld) 54.5 % Normal 43.0-75.0 [facility] Comment on above: Performed By: #### C BC #### [facility] [address] [place] [address] Dr. Mary Ortiz Platelet mean volume (Bld) [Entitic vol] 9.6 fL Normal 9.5-13.5 [facility] Comment on above: Performed By: #### C BC #### [facility] [address] [place] [address] Dr. Mary Ortiz PLT 277 103/ul Normal 150-450 [facility] Comment on above: Performed By: #### C BC #### [facility] [address] [place] [address] Dr. Mary Ortiz RBC 4.68 106/ul Normal 4.20-5.40 [facility] Comment on above: Performed By: #### C BC #### [facility] [address] [place] [address] Dr. Mary Ortiz WBC 5.7 103/ul Normal 4.0-11.0 [facility] Comment on above: Performed By: #### C BC #### [facility] [address] [place] [address] Dr. Mary Ortiz PREG QUANT HCGon 11-23-2022 HCG QUANT 5 mIU/mL Normal [facility] Comment on above: Performed By: #### P REGQNT #### [facility] [address] [place] [address] Dr. Mary Ortiz HCG RANGE SEE BELOW Normal [facility] Comment on above: Result Comment: 5-50 0.2-1 WEEK 50-500 1-2 WEEKS 100-5,000 2-3 WEEKS 500-10,000 3-4 WEEKS 1,000-50,000 4-5 WEEKS 10,000-100,000 5-6 WEEKS 15,000-200,000 6-8 WEEKS 10,000-100,000 2-3 MONTHS Performed By: #### P REGQNT #### [facility] [address] [place] [address] Dr. aMry Ortiz Covid-19 PCR ([facility])on 11-06 SARS-CoV-2 (COVID-19) RNA BRANDY+probe Ql (Unsp spec) Not detected Normal NOT DETECTED [facility] Comment on above: Result Comment: This test is not yet approved or cleared by the [place] FDA. When there are no FDA-approved or cleared tests available, and other criteria are met, FDA can make tests available under an emergency access mechanism called an Emergency Use Authorization (EUA). The EUA for this test is supported by the [place] of Health and Human Service's (HHS's) declaration [...] consistent with SARS-CoV-2. Performed By: #### C VDTBH #### [facility] [address] [place], [place] [id number] Dr. Mary Ortiz US PELVIS AND TRANSVAGon [...] by: CINDY CHAU Date: 2022-11-08 15:56 Normal [facility] XR LSPINE MIN 4 VIEWSon 06-07 [...] by: LEYLA KWAN Date: 2022-06-28 07:15 Normal [facility] Vital Signs Date Time Vital Sign Value Performing Clinician Facility 07-17-2025 10:36-0400 Body height 157.48 cm Ramonita Hooker MD Work Phone: [facility] 07-17-2025 10:36-0400 Body mass index (BMI) [Ratio] 43 kg/m2 Ramonita Hooker MD Work Phone: [facility] 07-17-2025 10:36-0400 Body temperature 96.6 [degF] Ramonita Hooker MD Work Phone: [facility] 07-17-2025 10:36-0400 Body weight 106.59 kg Ramonita Hooker MD Work Phone: [facility] 07-17-2025 10:36-0400 Diastolic blood pressure 84 mm[Hg] Ramonita Hooker MD Work Phone: [facility] 07-17-2025 10:36-0400 Heart rate 71 /min Ramonita Hooker MD Work Phone: [facility] 07-17-2025 10:36-0400 SaO2% (BldA) [Mass fraction] 98 % Ramonita Hooker MD Work Phone: [facility] 07-17-2025 10:36-0400 Systolic blood pressure 132 mm[Hg] Ramonita Hooker MD Work Phone: [facility] 03-28-2025 10:09-0400 Body height 157.48 cm [facility] 03-28-2025 10:09-0400 Body mass index (BMI) [Ratio] 42.6 kg/m2 [facility] 03-28-2025 10:09-0400 Body weight 105.68 kg [facility] 03-28-2025 10:09-0400 Diastolic blood pressure 74 mm[Hg] [facility] 03-28-2025 10:09-0400 Heart rate 75 /min [facility] 03-28-2025 10:09-0400 Systolic blood pressure 105 mm[Hg] [facility] 01-14-2025 10:14-0400 Body height 157.48 cm [facility] 01-14-2025 10:14-0400 Body mass index (BMI) [Ratio] 42.6 kg/m2 [facility] 01-14-2025 10:14-0400 Body temperature 98.1 [degF] [facility] 01-14-2025 10:14-0400 Body weight 105.68 kg [facility] 01-14-2025 10:14-0400 Diastolic blood pressure 83 mm[Hg] [facility] 01-14-2025 10:14-0400 Heart rate 65 /min [facility] 01-14-2025 10:14-0400 SaO2% (BldA) [Mass fraction] 97 % [facility] 01-14-2025 10:14-0400 Systolic blood pressure 125 mm[Hg] [facility] 11-13-2024 15:09-0500 Blood Pressure Location [facility] [place] 11-13-2024 15:09-0500 Diastolic blood pressure 82 mm[Hg] [facility] [place] 11-13-2024 15:09-0500 Heart rate 76 /min [facility] [place] 11-13-2024 15:09-0500 Respiratory rate 16 /min [facility] [place] 11-13-2024 15:09-0500 Systolic blood pressure 132 mm[Hg] [facility] 09-30-2024 08:50-0500 Body mass index (BMI) [Ratio] 42.07 kg/m2 Florentino Maurice DO Work Phone: [facility] 09-30-2024 08:50-0500 Body weight 104.33 kg Florentino Maurice DO Work Phone: [facility] 09-30-2024 08:50-0500 Diastolic blood pressure 76 mm[Hg] Florentino Maurice DO Work Phone: [facility] 09-30-2024 08:50-0500 Systolic blood pressure 124 mm[Hg] Florentino Maurice DO Work Phone: [facility] 10-24-2022 09:00-0500 Body height 157.48 cm Eddie De León Other [employer] Other 10-24-2022 09:00-0500 Body mass index (BMI) [Ratio] 41.15 kg/m2 Eddie De León Other [employer] Other 10-24-2022 09:00-0500 Body weight 102.06 kg Eddie De León Other [employer] Other 09-02-2022 09:00-0400 Body height 157.48 cm Eddie De León Other [employer] Other 09-02-2022 09:00-0400 Body mass index (BMI) [Ratio] 41.15 kg/m2 Eddie De León Other [employer] Other 09-02-2022 09:00-0400 Body weight 102.06 kg Eddie De León Other [employer] Other Encounters Encounter Date Encounter Type Care Provider Facility Start: 07-17-2025 End: 07-17-2025 ambulatory Ramonita Hooker MD Work Phone: [facility] Work Phone: Start: 07-17-2025 End: 07-17-2025 Patient encounter procedure Sharlene Skelton APRN [facility] Work Phone: Start: 03-28-2025 End: 03-28-2025 ambulatory [facility] Work Phone: Start: 03-28-2025 End: 03-28-2025 Patient encounter procedure [facility] Physician [facility] Work Phone: Start: 03-13-2025 End: 03-13-2025 Bamboo flowsheet Kristie Kurtz [facility] Work Phone: [facility] Start: 03-13-2025 End: 03-13-2025 Bamboo flowsheet Kristie Kurtz CCC-A Work Phone: [facility] Start: 03-13-2025 End: 03-13-2025 Clinical Support Kristie Kurtz CCC-A Work Phone: [facility] Comment on above: Sensorineural hearin g loss (SNHL) of both ears (Primary Dx); Otalgia, right Start: 03-11-2025 End: 03-11-2025 Bamboo flowsheet Kristie Kurtz CCC-A Work Phone: [facility] Start: 03-11-2025 End: 03-11-2025 Bamboo flowsheet Kristie Kurtz CCC-A Work Phone: [facility] Start: 03-11-2025 End: 03-11-2025 Clinical Support Kristie Kurtz CCC-A Work Phone: [facility] Comment on above: Sensorineural hearin g loss (SNHL) of both ears (Primary Dx); Otalgia, right Start: 01-14-2025 End: 01-14-2025 ambulatory [facility] Work Phone: Start: 01-14-2025 End: 01-14-2025 Patient encounter procedure [facility] Work Phone: Start: 11-29-2024 End: 11-29-2024 ambulatory Cisco R NILL Facility:[facility] Start: 11-13-2024 End: 11-13-2024 ambulatory RAMONITA HOOKER Facility: [facility] Start: 11-13-2024 End: 11-13-2024 Patient encounter procedure Cisco R MARTINL [facility] [place] Start: 11-07-2024 ambulatory Cisco NILL Facility:[facility] Start: 10-23-2024 ambulatory Cisco NILL Facility:[facility] Start: 09-30-2024 End: 09-30-2024 Bamboo flowsheet Florentino Maurice DO Work Phone: [facility] Start: 09-30-2024 End: 10-10-2024 Bamboo flowsheet Florentino Maurice DO Work Phone: [facility] Start: 09-30-2024 End: 10-10-2024 Clinisync Result Encounter Florentino Maurice DO Work Phone: [facility] Unsolicited Start: 09-30-2024 End: 09-30-2024 ambulatory FLORENTINO RICHARDS Not Available Start: 09-30-2024 End: 09-30-2024 Patient encounter procedure Florentino Richards DO Work Phone: [facility] Start: 09-30-2024 End: 09-30-2024 Periodic preventive med est patient 40-64yrs Florentino Richards DO Work Phone: [facility] Comment on above: Well woman exam with routine gynecological exam; H/O: hysterectomy; Breast cancer screening by mammogram Start: 08-30-2023 End: 08-30-2023 Emergency department patient visit [facility] Start: 08-28-2023 End: 08-29-2023 Emergency department patient visit [facility] Start: 04-28-2023 End: 04-28-2023 ambulatory Josué Santoro Other [employer] Other Start: 04-28-2023 Telephone encounter Josué Santoro [facility] Start: 04-26-2023 End: 04-26-2023 ambulatory Ramonita Hooker Other [employer] Other Start: 04-26-2023 Telephone encounter Ramonita Hooker [facility] Start: 03-17-2023 End: 03-17-2023 ambulatory Ramonita Hooker Other [employer] Other Start: 03-17-2023 Telephone encounter Ramonita Hooker [facility] Start: 03-14-2023 End: 03-15-[address] FLORENTINO RICHARDS . Facility:[facility] Start: 02-28-2023 End: 02-28-[address] FLORENTINO RICHARDS . Facility:[facility] Start: 11-25-2022 Encounter for preprocedural cardiovascular examination DR FLORENTINO RICHARDS . [facility] Start: 11-23-2022 End: 11-23-[address] FLORENTINO RICHARDS . Facility:[facility] Start: 11-18-2022 End: 11-19-[address] FLORENTINO RICHARDS . Facility:[facility] Start: 11-18-2022 End: 11-19-2022 Encounter for preprocedural cardiovascular examination DR FLORENTINO RICHARDS . Facility:[facility] Start: 11-16-2022 Encounter for other preprocedural examination DR FLORENTINO RICHARDS . [facility] Start: 11-11-2022 End: 11-12-[address] FLORENTINO RICHARDS . Facility:[facility] Start: 11-11-2022 End: 11-12-2022 Encounter for other preprocedural examination DR FLORENTINO RICHARDS . Facility:[facility] Start: 11-08-2022 End: 11-09-[address] FLORENTINO RICHARDS . Facility: Start: 10-24-2022 End: 10-24-2022 ambulatory Eddie D eLeón Other [employer] Other Start: 10-24-2022 Office outpatient vi sit 15 minutes Eddie De León [facility] [facility] Start: 10-03-2022 (Procedure) Short Josué Santoro [facility] Start: 10-03-2022 End: 10-03-2022 ambulatory Josué Santoro Other [employer] Other Start: 09-20-2022 End: 09-20-2022 ambulatory Josué Santoro Other [employer] Other Start: 09-20-2022 Telephone encounter Josué Santoro [facility] Start: 09-19-2022 End: 09-19-2022 ambulatory Josué Santoro Other [employer] Other Start: 09-19-2022 Office consultation new/estab patient 60 min Josué Santoro [facility] Start: 09-02-2022 End: 09-02-2022 ambulatory Eddie De León Other [employer] Other Start: 09-02-2022 Office outpatient ne w 30 minutes Eddie De León [facility] Start: 06-27-2022 End: 06-28-[address] RAMONITA HOOKER Facility:[facility] Procedures Date Procedure Procedure Detail Performing Clinician Start: 03-11-2025 AUDITORY FUNCTION TESTS Kristie Kurtz CCC-A Work Phone: Start: 11-13-2024 Mammography Kristie Moy CCC-A Work Phone: Start: 09-30-2024 IGP,APTIMA HPV,AGE GDLN Florentino Maurice DO Work Phone: Start: 09-30-2024 Microscopic observat ion [Identifier] in Cervix by Cyto stain Kristie Kurtz CCC-A Work Phone: Start: 03-14-2023 Mammography Florentino Fazi o DO Work Phone: Start: 02-28-2023 Microscopic observat ion [Identifier] in Cervix by Cyto stain Florentino Maurice DO Work Phone: Start: 09-03-2001 Arthroscopy of ankle Mi keke NILL Comment on above: with cartilage remov al Colonoscopy [facility] Core needle biopsy o f breast [facility] Dilation and curettage Manpreet nguyen NILL Endometrial biopsy [facility] Comment on above: x 3 Extraction of wisdom tooth M dwayne NILL H/O: hysterectomy H/O: hysterectomy Florentino Maurice DO Work Phone: Laparoscopic total hysterectomy [facility] Plan of Treatment Date Care Activity Detail Author Start: 09-30-2029 Screening for malignant neoplasm of cervix [facility] Start: 02-29-2028 Screening for malignant neoplasm of cervix [facility] Start: 11-13-2025 Screening for malignant neoplasm of breast Mammogram [facility] Start: 10-07-2025 End: 12-02-2025 Patient encounter procedure 10/07/2025 9:00 AM EST Office Visit [facility] [address] [place] [place] [id number] Florentino Richards DO [address] [place] [address] [facility] Start: 07-07-2025 Influenza vaccination Influenz a Vaccine (Season Ended) [facility] Start: 03-13-2025 End: 03-13-2025 Clinical Support [facility] Comment on above: Arrived Start: 03-11-2025 End: 03-11-2025 Clinical Support 03/11/2025 1:30 PM EDT Clinical Support [facility] [address] [facility] [place] [id number] Kristie Kurtz, [facility] [address] [place] [address] Arrived [facility] Comment on above: Arrived Start: 09-30-2024 End: 11-30-2025 MG Breast - bilateral Screening Bilateral screening mammogram Imaging Routine Breast cancer screening by mammogram Expected: 09/30/2024 (Approximate), Expires: 11/30/2025 [facility] Comment on above: Expected: 09/30/2024 (Approximate), Expires: 11/30/2025 Start: 07-07-2024 Influenza vaccination Influenza Vacc ine (#1) [facility] Start: 03-14-2024 Screening for malignant neoplasm of breast Mammogram [facility] Start: 1965 Screening for malignant neoplasm of colon [facility] THIN PREP TIS PAP AN D HR HPV DNA THIN PREP TIS PAP AND HR HPV DNA Pathology and Cytology Routine Well woman exam with routine gynecological exam H/O: hysterectomy Ordered: 09/30/2024 [facility] Work Phone: Comment on above: Ordered: 09/30/2024 XR Knee - left 4 Views [facility] Immunizations Immunization Date Immunization Notes Care Provider Olinda victoria 12-29-2023 influenza virus vaccine, unspecified formulation Florentino Mauirce DO Work Phone: [facility] 04-13-2022 SARS-CoV-2 mRNA (aakhxkfnqbc-qlgs-aocpa se) vaccine [facility] [place] 10-28-2021 SARS-CoV-2 (COVID-19 ) mRNA BNT-162b2 vax [facility] [place] 02-19-2021 SARS-CoV-2 (COVID-19 ) mRNA BNT-162b2 vax [facility] Comment on above: Reason for Medicatio n: Prophylaxis 01-22-2021 SARS-CoV-2 (COVID-19 ) mRNA BNT-162b2 vax [facility] Comment on above: Reason for Medicatio n: Prophylaxis 08-12-2020 influenza virus vaccine, unspecified formulation [facility] Payers Date Payer Category Payer Private Health Insurance [employer] [id number] 1965 Unknown [id number]. 593 1965 Unknown [id number] 2.0.1.159647.3.579.2. 593 1965 Unknown [id number] 2.0.1.327917.3.579.2. 593 1965 Unknown [id number] 2.16.840.1.881591.3.579.2. 593 1965 Unknown [id number] 2.16.840.1.827997.3.579.2. 593 1965 Unknown [id number] 2.16.840.1.141608.3.579.2. 593 1966 Unknown [id number] 2.16.840.1.321788.3.579.2. 593 1966 Unknown [id number] 2.16.840.1.380675.3.579.2. 173 1966 Unknown [id number] 2.16.840.1.609185.3.579.2. 173 1966 Unknown [id number] 2.16.840.1.595423.3.579.2. 727 1966 Unknown [id number] 2.16.840.1.560651.3.579.2. 727 1966 Unknown [id number] 2.16.840.1.183307.3.579.2. 727 1966 Unknown [id number] 2.16.840.1.946420.3.579.2. 727 1966 Unknown [id number] 2.16.840.1.255737.3.579.2. 1259 1966 Unknown [id number] 2.16.840.1.019083.3.579.2. 1259 1966 Unknown [id number] 2.16.840.1.014859.3.579.2. 1259 1959 Unknown [id number] 2.16.840.1.354407.19 Social History Date Type Detail Facility Start: 09-25-2023 End: 11-01-2023 Sex Assigned At [facility] Start: 05-10-2023 End: 03-28-2025 Tobacco smoking status MSIS Never smoked tobacco [facility] Start: 11-01-2023 End: 09-30-2024 Alcoholic beverage intake Current drinker of alcohol (finding) [facility] Start: 09-25-2023 End: 11-01-2023 History of Social function [facility] How often to you hav e a drink containing alcohol? Monthly or less [facility] How many standard drinks containing alcohol do you have on a typical day? 1 or 2 [facility] How often do you hav e 6 or more drinks on 1 occasion? Never [facility] Start: 05-10-2023 Alcohol Comment 1or 2 drinks on typical day/monthly or less. caffeine: 1-2 cups/day [facility] Start: 1965 Sex assigned at Female [facility] Start: 04-30-2023 Gender identity Identifies as female gender (finding) [facility] Start: 04-30-2023 Sexual orientation Heterosexual (finding) [facility] Tobacco smoking status Never [facility] Tobacco smoking stat [facility] Unknown if ever smoked [facility] Work Phone: Start: 01-14-2025 End: 03-28-2025 Sex Female (finding) [facility] Functional Status Date Assessment Result Facility 11-13-2024 Functional Status N/A [facility] General Surgery [place] Clinical Notes 06-28-2022 to 03-13-2025 JOSELUIS Buenrostro - 03/13/2025 11:30 AM EDTJOSELUIS Buenrostro - 03/11/2025 1:30 PM EDT Note Date & Type Note Facility 03-13-2025 History of Presen t illness Narrative Tymp completed today. Did not have working tymp when audio was completed. Tympanometry Right Ear: Type A tympanogram Left Ear: Type A tympanogram documented in this encounter [facility] 03-11-2025 History of Presen t illness Narrative History: Pt was referred to Dr. Lopez because of right otitis media. Per Dr. Lopez, pt was scheduled only for an audiogram. Last fall pt had difficulty with her right ear when flying - she lost her hearing, had pain in the ear, and was dizzy. Symptoms occurred on the flight to and from her destination. Ear slowly improved after her flight was over. Pt reports periodic right ear pain. She wants to be able to fly without ear pain and hearing loss. History is positive for noise exposure and bilateral mild sensorineural hearing loss. Last audio at this office was 02-09-2021. Otoscopic Exam: Ear canal clear and TM intact. Pure Tone Audiometry Right Ear: Mild sloping to moderate sensorineural hearing loss above 2K Hz Left Ear: Mild sloping to moderate sensorineural hearing loss above 2K Hz Speech Audiometry Right SRT = 30 dB and word discrimination score at 55 dBHL = 100% Left SRT = 30 dB and word discrimination score at 55 dBHL = 96% Tympanometry [place] Equipment not working Impressions: Bilateral high frequency sensorineural hearing loss, slightly worse in the right ear. Recommendations: Will schedule Tympanogram Dr. Lopez will review results and make ENT recommendations. documented in this encounter [facility] 01-14-2025 Evaluation note Diagnosis Onset Date Resolution Right otitis media with effusion acute January 14, 2025 10:08am Left knee pain acute March 28, 2025 10:04am [facility] Work Phone: 1(933) 710-639501-24-2025 NoteProgress Note-Physician Patient: LEO BRAVO Age: 59 years Sex: Female : 1965 Associated Diagnoses: None Author: Zay Pardo Jr., DO Postoperative Information Postoperative disposition: Postoperative disposition: Home. Optimetrix number: Optimetrix number [id number]. Anesthetic utilized: General. Physical Examination Vital Signs [...] to Ambulatory Surgery Unit, and To home ).[facility]:Result Comment: Electronically Signed By: Zay Pardo Jr., DO\.br\Date and Time Signed: 11/29/24 10:16 [id number] NoteColonoscopy Procedure Report Patient: LEO BRAVO Age: 59 years Sex: Female : 1965 Associated Diagnoses: None Author: Cisco ZAVALA MD Pre-Procedure Procedure Date 11/29/2024 08:30:00 . Procedure Type: Colonoscopy. Procedure provider Cisco Zavala M.D.. Referred by Ramonita Hooker MD. Current history and physical Documented [...] place. Impression and Plan Diagnosis: Sigmoid diverticulosis (URI29-IU K57.30, Discharge, Medical). Course: Progressing as expected. Recommendations: Repeat colonoscopy:: In 10 years. Follow-up:: if problems/questions. Diet:: Regular diet. Medication resumption:: Continue current medications. Return to activities:: After 24 hours. Education and Follow-up: Counseled: Family.[facility] NotePatient Education - Text Diverticulosis Many people have [...] colon so that bowel contents can move througheasily. You should eat 20 to 35 grams [...] corn, and seeds. This has not been foundto be true. If you find that certain [...] unsweetened, w/added ascorbic acid 1 cup 0.5 [place] 1 cup 0.7 Vegetables Cooked Green beans 1 cup 4.0 Carrots 1/2 cup sliced 2.3 Peas 1 cup 8.8 Potato (baked, with skin) 1 medium potato 3.8 Raw [place] (with peel) 1 cucumber 1.5 Lettuce 1 [...] 8.7 Peanuts 1/2 cup 7.9 Chart from [facility] 2013. SEEK IMMEDIATE MEDICAL CARE IF: You [...] Nutrient Database for Standard Reference. Available at http://www.FasterPants.usda.gov/fnic/foodcomp/search/. Information adapted from: ExitCare??? Patient Information ???2009 [employer] 2012 http://www.SixDoors/contents/inbfoxnjuthm-hwnvgov-wsosed-the-basics Colonoscopy Care After Surgery Please read the instructions outlined below and refer to this sheet in the next few weeks. These discharge instructions provide you with general information on caring for yourself after you leave thehospital. Your doctor may also give you specific [...] normal diet as instructed by your doctor. Beg (more content not included)...[facility] Note History and Physical Patient: LEO BRAVO Age: 59 years Sex: Female : 1965 Associated Diagnoses: None Author: Cisco ZAVALA MD Subjective no changes to H & PFMansfield HospitalComment on above:Result Comment: Electronically Signed By: Cisco ZAVALA MD\.br\Date and Time Signed: 11/29/24 07:38 [id number] NoteProgress Note-Physician Patient: LEO BRAVO Age: 59 years [...] rhinitis due to pollen / SNOMED CT 0449391779 / Confirmed Asthma / SNOMED CT 163317986 / Confirmed BMI 40.0-44.9, adult / SNOMED CT 7428317467 / Confirmed Chronic GERD / SNOMED CT 942847526 / Confirmed IBS (irritable bowel syndrome) / SNOMED CT 11247666 / Confirmed Morbid obesity / SNOMED CT 610732735 / Confirmed Screening for malignant neoplasm of colon / SNOMED CT 343849287 / Confirmed Histories Past Medical History: No active or resolved past medical history items have been selected or recorded. Procedure history: Arthroscopy of ankle ([id number]) on 09/03/2001 at 35 Years. Comments: 11/13/2024 15:15 EST - Maris Serrato LPN with cartilage removal Endometrial biopsy ([id number]). Comments: 10/23/2024 11:29 EST - Maris Serrato LPN x 3 Dilation and curettage (75131324). Core needle biopsy of breast ([id number]). Laparoscopic total hysterectomy (4840910284). Extraction of wisdom tooth (017170116). Colonoscopy (136881827). Social History Social & Psychosocial Habits Tobacco [...] II (soft palate, fauces, uvula visible). Plan [place] Society of Anesthesiologists (ASA) physical status classification: Class III. Anesthetic Preoperative Plan: Anesthesia Monitored anethesia care.[facility] HospitalComment on above:Result Comment: Electronically Signed By: Zay Pardo Jr., DO.all\Date and Time Signed: 11/29/24 07:16 [id number] Note General Surgery Office/Clinic Note Chief Complaint consultation for colonoscopy HPI Staff 59 year old female presents on self referral consultation for screening colonoscopy. Denies abdominal or rectal pain. No rectal bleeding or change in bowel habits. Denies nausea or vomiting. No unexplained weight loss. Previous colonoscopy completed greater than 10 years ago and reported normal perpatient. Father with history of colon cancer, diagnosed age mid-late 70's. History of Present Illness 59 yo female with h/o asthma, presents for colorectal screening; denies change in bms or blood in stools, no abd complaints; does report worsening GERD symptoms over past month despite over the counter H2 blockers; worse at night, burning pain radiating into chest, no dysphagia or early satiety, nowt loss, no N/V; abd operations significant for [...] swallowing difficulties, no hearing loss, no ear infection(s),no nose bleeds. Cardiovascular: normal blood pressure, no [...] Mother. Immunizations Vaccine Date Status Comments SARSCoV2 mRNA(mikina (more content not included)...[facility] Comment on above:Result Comment: Electronically Signed By: ILENE CLEVELAND, Cisco Gtz\Date and Time Signed: 11/13/24 15:35 [id number] History of Present illness Narrative* Janet Davidson, CITRIX ARCHITECT - 09/30/2024 8:30 AM EST Reason for Appointment: Patient ID: Tanya Bravo is a 58 y.o. female who presents for Gynecologic Exam Patient presents today for Annual Exam. MEDICATIONS Current Outpatient Medications Medication Instructions albuterol HFA 90 mcg/act inhaler 2 puffs, Inhalation Loratadine 10 MG capsule 1 capsule, Oral, Daily ALLERGIES Allergies Allergen Reactions Peanut-Containing Drug Products Anaphylaxis, Cough, Headache, Shortness of breath and Wheezing peanuts Bacitracin Swelling Dust Mite Extract Grass Pollen(K-O-R-T-Swt Les) Runny nose and Wheezing Molds & Smuts Cough, Itching, Runny nose and Wheezing Other Unknown peas Pollen Extract Grass, pollen Sulfamethoxazole Unknown Sulfamethoxazole-Trimethoprim Thimerosal (Thiomersal) Unknown Trimethoprim Unknown Gentamicin Itching, Rash and Unknown PROBLEMS Active Ambulatory Problems Diagnosis Date Noted No Active Ambulatory Problems Resolved Ambulatory Problems Diagnosis Date Noted No Resolved Ambulatory Problems Past Medical History: Diagnosis Date Environmental allergies Hearing loss, bilateral IBS (irritable bowel syndrome) Sciatica Seasonal allergies Swallowing difficulty HISTORY PAST MEDICAL HISTORY SOCIAL HISTORY Past Medical History: Diagnosis Date Environmental allergies Hearing loss, bilateral IBS (irritable bowel syndrome) Sciatica Seasonal allergies Swallowing difficulty Social History Tobacco Use Smoking status: Never Smokeless tobacco: Not on file Substance Use Topics Alcohol use: Yes Comment: 1or 2 drinks on typical day/monthly or less. caffeine: 1-2 cups/day Drug use: Not on file FAMILY HISTORY Family History Problem Relation Name Age of Onset Cancer Mother Heart disease Father Crohn's disease Other Ulcerative colitis Other SURGICAL HISTORY Past Surgical History: Procedure Laterality Date ANKLE SURGERY 1999 left ankle reconstruction BI US GUIDED BREAST LOCALIZATION AND BIOPSY LEFT Left 05/18/2023 BI US GUIDED BREAST LOCALIZATION AND BIOPSY LEFT DILATION AND CURETTAGE 03/2020 DILATION AND CURETTAGE 11/23/2022 D&C with polyp removal PAP SMEAR 02/25/2020 ROBOTIC ASSISTED HYSTERECTOMY 09/21/2023 REVIEW OF SYSTEMS Review of Systems: Review of Systems Constitutional: Negative. HENT: Negative. Eyes: Negative. Respiratory: Negative. Cardiovascular: Negative. Gastrointestinal: Negative. Genitourinary: Negative. Musculoskeletal: Negative. Skin: Negative. Neurological: Negative. All other systems reviewed and are negative. Hematological: Negative. Endocrine: Negative. Allergic/Immunologic: Negative. OBJECTIVE Objective: Physical Exam Constitutional: Appearance: Normal appearance. She is well-developed. Genitourinary: Vulva normal. Vaginal cuff intact. Cervix is absent. Uterus is absent. Breasts: Breasts are soft. Right: Normal. Left: Normal. Cardiovascular: Rate and Rhythm: Normal rate and regular rhythm. Pulmonary: Effort: Pulmonary effort is normal. Breath sounds: Normal breath sounds. Abdominal: General: Bowel sounds are normal. There is no distension. Palpations: Abdomen is soft. Tenderness: There is no abdominal tenderness. There is no guarding or rebound. Musculoskeletal: General: No swelling. Normal range of motion. Right lower leg: No edema. Left lower leg: No edema. Neurological: Mental Status: She is alert and oriented to person, place, and time. Skin: General: Skin is warm and dry. Psychiatric: Mood and Affect: Mood normal. Behavior: Behavior normal. Vitals and nursing note reviewed. Exam conducted with a pear picker present. Vitals: Estimated body mass index is 42.07 kg/m as calculated from the following: Height as of 10/09/23: 5' 2 . Weight as of this encounter: 230 lb. BP: 124/76 No LMP recorded. Patient has had a hysterectomy. ASSESSMENT & PLAN ICD-10-CM 1. Well woman exam with routine gynecological exam Z01.419 THIN PREP TIS PAP AND HR HPV DNA 2. H/O: hysterectomy Z90.710 THIN PREP TIS PAP AND HR HPV DNA 3. Breast cancer screening by mammogram Z12.31 Bilateral screening mammogram Bilateral screening mammogram Annual: Patient presents today for an annual exam. Patient states she is doing well and has no complaints. Pap was obtained without difficulty and patient given mammogram order to have scheduled/obtained. Ptadvised to have colonoscopy Orders Placed This Encounter Procedures Bilateral screening mammogram Follow Up: Patient is to return in one year for annual unless needed otherwise. Documented by Janet Davidson LPN on behalf of: Florentino Richards DO [id number] NoteOPERATIVE NOTE OPERATION DATE: 11/23/2022 PROCEDURE: D AND C hysteroscopy with MyoSure. PREOPERATIVE DIAGNOSIS: Postmenopausal bleeding, thickened endometrium. POSTOPERATIVE DIAGNOSIS: Postmenopausal bleeding, thickened endometrium. ANESTHESIA: General. SURGEON: Florentino Richards D.O. MOTOR COACH DRIVER: None. BLOOD LOSS: 5 mL. URINE OUTPUT: [...] taken to the Recovery Room in stable condition.[facility] [id number] Evaluation note* Encounter Date Diagnosis Assessment Notes Treatment Notes Treatment Clinical Notes Oct, Trochanteric bursitis of right hip (ICD-10 - M70.61) Leo is here today now 3 weeks s/p right hip trochanteric bursa injection with Dr. Angela Santoro. She states that she is doing good. She has had some improvement. She does feel like that is the appropriate area to treat. She is taking anti-inflammatorie s as needed. She is doing physical therapy and exercises at home. I would continue this treatment course. She can return for pain worsens and we could consider repeat injection The patient has been involved in our cooperative treatment plan and agrees to move forward with treatment at this time. Instructed patient to continue with physical therapy exercises. Call with any questions or concerns [employer] Other 11-14-2022 Evaluation note* Encounter Date Diagnosis Assessment Notes Treatment Notes Treatment Clinical Notes Sep, Bursitis, hip (ICD-10 - M70.70) [...] (ICD-10 - G89.29) Sep, Other Above note writ ten by Raman Marks MA, Manufacturing Software Engineer. Edited and approved by Dr. Josué Santoro [...] negative findings were considered in medical decision-making. [employer] Other 10-28-2022 Evaluation note* Encounter Date Diagnosis Assessment Notes Treatment Notes Treatment Clinical Notes Aug, Trochanteric bursitis of right hip (ICD-10 - M70.61) Leo presents with right hip trochanteric bursitis. At [...] as documented in the electronic medical record. [employer] Other 08-23-2022 NotePROCEDURE: XR HIP RT 2 3V W PELVIS [...] Electronically authenticated by: LEYLA KWAN Date: 2022-06-28 07:13[facility] note Future Appointments Appointment Date:11/29/2024 08:00:00 AM Scheduled Provider: Location:[facility] Appointment Type:Surgery FT [facility] General Surgery [place] Evaluation noteNo InformationNortNew [facility] [place] Other Evaluation note* Diagnosis Well woman exam with routine gynecological exam Routine gynecological examination H/O: hysterectomy Acquired absence of both cervix and uterus Breast cancer screening by mammogram documented in this encounter [facility]eral[facility] noteNo assessment information availableUniversity Hospitals [facility] Work Phone: Evaluation note* Diagnosis Sensorineural hearing loss (SNHL) of both ears- Primary Otalgia, right documented in this encounter [facility] SportyBirdaluation note* Diagnosis Sensorineural hearing loss (SNHL) of both ears- Primary Otalgia, right [facility]* Diagnosis Onset Date Resolution Status Admit Date Bronchitis acute July 10:31am [facility] Work Phone: History general Narrative - Reported* Type Description Date Medical History GERD Medical History Dysphasia Medical History right hip pain Surgical History left ankle surgery [facility] [place] Other History [facility] - [facility] [place] Other Hospital course Narrative No data available for this section [facility] [place] [facility] Discharge instructions No data available for this section [facility] Surgery [place] Progress note No data available for this section [facility] Surgery [place] Reason for referral (narrative)No reason for referral information availableUniversity Hospitals [facility] Center Work Phone: Reason for Referral Reason Bursal injection of right hip Diagnosis 1 Trochanteric bursiti s of right hip (M70.61) Referral Organization [facility] Referring Provider First Name Eddie Referring Provider Last Name Genet Referring Provider Specialty Orthopedic Surgery Referred Organization [facility] Tim Ruiz Referred Address [address] [place],[address] Referred Provider Specialty Pain Medicin e Referral Priority Routine General Notes schedule with Dr. Angela Santoro pain management Summary Purpose Family History Relationship Condition Age at Onset Recorded Date/T vanessa father Unknown Advance Directives Advance Directive Response Recorded Date/ Time Advance Directives No October 07, 2024 11:47am Chief Complaint and Reason for Visit Chief Complaint Admit Date Cough January 14, 2025 10: 08am Chief Complaint Admit Date Cough January 14, 2025 10: 08am knee pain March 28, 2025 10:04 am Reason for Visit Admit Date Right otitis media with effusion January 042024 10:08am Left knee pain March 28, 2025 10:04 am Chief Complaint Admit Date Congestion/Cough/COVID- July 17, 2025 10:31am Reason for Visit Admit Date Bronchitis July 17, 2025 10:31am Additional Source Comments REASON FOR VISIT (unrecogniz ed section and content) Reason Comments Gynecologic Exam INFORMATION SOURCE (unrecogn ized section and content) DATE CREATED AUTHOR 03/19/2023 [facility] DATE CREATED AUTHOR AUTHOR'S ORGANIZ ATION 09/01/2023 [facility] DATE CREATED AUTHOR AUTHOR'S ORGANIZ ATION 12/03/2024 [facility] DATE CREATED AUTHOR AUTHOR'S ORGANIZ ATION 03/14/2025 [facility] Care Teams (unrecognized sec tion and content) Farmer Vegetable Relationship Specialty Start Date End Date Ramonita Hooker MD [address] [place] [address] PCP - General 04/30/23 Farmer Vegetable Relationship Specialty Start Date End Date Ramonita Hooker MD [address] [place] [id number] PCP - General 04/30/23 Farmer Vegetable Relationship Specialty Start Date End Date Ramonita Hooker MD [address] [facility] [place] [address] PCP - General 04/30/23 Team Status: Active Member Role Status Dates Ramonita Hooker MD Primary Care Provider Active Team Status: Inactive Member Role Status Dates Ramonita Hooker MD Primary Care Provide r, Attending Provider Active Start: January 14, 2025 End: January 14, 2025 Farmer Vegetable Relationship Specialty Start Date End Date Ramonita Hooker MD [facility] Referrals ONLY PCP - [facility] 03/11/25 Farmer Vegetable Relationship Specialty Start Date End Date Ramonita Hooker MD [facility] Referrals ONLY PCP - [facility] 03/11/25 Farmer Vegetable Relationship Specialty Start Date End Date Ramonita Hooker MD [facility] Referrals ONLY PCP - [facility] 03/11/25 Team Status: Inactive Member Role Status Dates Ramonita Hooker MD Primary Care Provide r, Attending Provider Active Start: March 28, 2025 End: March 28, 2025 Team Status: Inactive Member Role Status Dates Ramonita Hooker MD Primary Care Provider Active Start: July 17, 2025 End: July 17, 2025 Sharlene Skelton APRN WAREHOUSE ADMINISTRATIVE ASSISTANT-C Attending Provider Active Start: July End: July 17, 2025 Goals (unrecognized section and content) Goals may be documented in a n alternate section FOR RECORDS PERTAINING TO PATIENTS WHO ARE [...] BE BASED ON THE PRIMARY CLINICAL RECORDS. [employer] [facility]. provides no warranty or guarantee of the accuracy or completeness of information in this document.
[2025-08-10 21:42] VITALS: BP 138/75; PULSE 74; TEMP 36.7; O2SAT 96; BMI 41.7
--- NOTE | 2025-08-10 22:28 | ECG_ITS ---
The [facility] Test Date: 2025-08-10 Pat Name: LEO BRAVO Department: Room: - Gender: Female [employer]: : 1965 Requested By: [id number] Order Number: [id number] Reading MD: HAILEY CANTRELL M.D. Measurements Intervals [place] Rate: 68 P: 50 AL: 160 QRS: 60 QRSD: 80 T: 48 QT: 386 QTc: 404 Interpretive Statements 1100 Sinus rhythm 8102 Low QRS voltage in chest leads 9120 atypical ECG Compared to ECG 09/07/2023 09:45:07 Low QRS voltage now present Electronically Signed On 08-11-2025 18:23:45 EDT by HAILEY CANTRELL M.D.
--- NOTE | 2025-08-10 22:28 | XR_ITS ---
The [address] [address] Patient Name: LEO BRAVO MRN: [id number] date: 1965 Sex: F Assigned Patient Location: ER Current Patient Location: ED.MAIN Accession/Order Number: [id number] Exam Date: 08/10/2025 22:30 Report Date: 08/11/2025 08:14 At the request of: ROSA ELENA DAVALOS MD Procedure: XR chest 1V Single view chest: CLINICAL HISTORY: SOB COMPARISON: None FINDINGS: The heart is normal in size. The lungs are clear. The pulmonary vasculature is normal. Mediastinum and hilar regions are unremarkable. No pleural effusions are seen. Visualized bones are intact. XR/XR chest 1V IMPRESSION: NO ACUTE PROCESS. Impression dictated by: Saeid Aleman Jr., D.OMichelle 08/11/2025 8:14 AM Dictation Location: [place] [address] Electronically authenticated by: [id number] Date: 08/11/2025 08:14
--- NOTE | 2025-08-10 22:28 | ED.GENADUL1 ---
HPI HPI - General Adult General Stated complaint: shortness of breath Time Seen by Provider: 08/10/25 22:24 Source: patient Mode of arrival: walk-in Limitations: no limitations History of Present Illness HPI narrative: 59-year-old female presented to the emergency department for rash. It is pruritic and its on her right arm. She states around July 26 she was bitten by something and she is not sure if it was a spider or not. She then contracted poison rita on the right arm as well and was treated for that with steroids. She still on the tapering dose. She felt a little bit short of breath and thought it was probably from the rash. No fever or cough or chest pain or palpitations. Related Data Home Medications ?Medication ?Instructions ?Recorded ?Confirmed PreserVision AREDS 1 tab PO DAILY 05/08/23 09/30/23 montelukast 10 mg tablet 10 mg PO DAILY 05/08/23 09/30/23 (Singulair) soy isoflavone 56 mg-black cohosh 1 cap PO DAILY 05/08/23 09/30/23 ext 40 mg-Cissus ext 300 mg capsule (Estroven Weight Management) albuterol sulfate 90 mcg/actuation 2 inh inhalation Q4H PRN 09/07/23 09/30/23 aerosol inhaler bronchospasm estrogen stay active supplement PO 09/07/23 loratadine 10 mg tablet (Claritin) 10 mg PO DAILY 09/07/23 09/30/23 Previous Rx's ?Medication ?Instructions ?Recorded oxycodone-acetaminophen 5 mg-325 1 tab PO Q6H PRN pain 7 days #28 09/21/23 mg tablet (Percocet) tabs cephalexin 500 mg capsule 500 mg PO QID 7 days #28 caps 09/30/23 hydroxyzine HCl 25 mg tablet 25 mg PO Q8H PRN itching #20 tabs 08/10/25 Allergies Allergy/AdvReac Type Severity Reaction Status Date / Time peas Allergy Intermediate Swelling Verified 08/10/25 21:41 of Lip/Tongue/Throat bacitracin Allergy Joint Pain Verified 08/10/25 21:41 gentamicin Allergy Rash Verified 08/10/25 21:41 peanut Allergy Anaphylaxis Verified 08/10/25 21:41 sulfamethoxazole (From Allergy joint edema Verified 08/10/25 21:41 Bactrim) thimerosal Allergy Rash Verified 08/10/25 21:41 trimethoprim (From Bactrim) Allergy joint edema Verified 08/10/25 21:41 Opioid HPI Opioid Management Most Recent Opioid Data: Last Pain Scale 5 09/30/23, 20:05 Review of Systems ROS Narrative A ten point review of systems is negative except as noted above. [facility] Medical History (Updated 08/10/25 @ 23:06 by Bobby Marie MD) Arthritis ?M19.90 - Unspecified osteoarthritis, unspecified site (ICD-10) Back pain ?M54.9 - Dorsalgia, unspecified (ICD-10) Bronchitis ?J40 - Bronchitis, not specified as acute or chronic (ICD-10) Vertigo ?R42 - Dizziness and giddiness (ICD-10) GERD (gastroesophageal reflux disease) ?K21.9 - Gastro-esophageal reflux disease without esophagitis (ICD-10) Heartburn ?R12 - Heartburn (ICD-10) Postoperative nausea and vomiting ?R11.2 - Nausea with vomiting, unspecified (ICD-10) ?Z98.890 - Other specified postprocedural states (ICD-10) Larynx disorder ?J38.7 - Other diseases of larynx (ICD-10) Endometrial polyp ?N84.0 - Polyp of corpus uteri (ICD-10) Thickened endometrium ?R93.89 - Abnormal findings on diagnostic imaging of other specified body structures (ICD-10) Post-menopausal bleeding ?N95.0 - Postmenopausal bleeding (ICD-10) Mononucleosis (2018) ?B27.90 - Infectious mononucleosis, unspecified without complication (ICD-10) Menopause ?Z78.0 - Asymptomatic menopausal state (ICD-10) Seasonal allergies ?J30.2 - Other seasonal allergic rhinitis (ICD-10) COVID-19 (08/27/23) ?U07.1 - COVID-19 (ICD-10) IBS (irritable bowel syndrome) ?K58.9 - Irritable bowel syndrome without diarrhea (ICD-10) Surgical History (Updated 09/21/23 @ 12:06 by Keisha Tobias RN) Hx of colonoscopy ?Z98.890 - Other specified postprocedural states (ICD-10) History of wisdom tooth extraction ?K08.409 - Partial loss of teeth, unspecified cause, unspecified class (ICD-10) History of breast biopsy ?Z98.890 - Other specified postprocedural states (ICD-10) History of dilation and curettage ?Z98.890 - Other specified postprocedural states (ICD-10) History of dilation and curettage ?Z98.890 - Other specified postprocedural states (ICD-10) History of ankle surgery ?Z98.890 - Other specified postprocedural states (ICD-10) S/P breast biopsy, left ?Z98.890 - Other specified postprocedural states (ICD-10) H/O breast biopsy ?Z98.890 - Other specified postprocedural states (ICD-10) Family History (Updated 09/07/23 @ 09:33 by Mellissa Sun NP) Other Family history of breast cancer Family history of colon cancer Family history of coronary artery disease Family history of diabetes mellitus Family history of heart disease Family history of hypertension Family history of pancreatic cancer Family history of stroke Family history of uterine cancer Thyroid disorder Social History (Updated 09/07/23 @ 09:24 by Mellissa Sun NP) Within the past year, how often did you have a drink containing alcohol: monthly or less Smoking status: Never smoker Non-prescribed substance use: denies use 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 General:The patient appears well and in no apparent distress.Patient is resting comfortably on cart. Skin:Warm, dry, no pallor noted.There is areas of what appear to be healing poison rita on her right arm. Some areas are linear. Head:Normocephalic, atraumatic Eye: Normal conjunctiva, no drainage Ears, Nose, Mouth, and Throat: oral mucosa is moist. Nares patent. Cardiovascular:Regular Rate and Rhythm Respiratory:Patient is in no distress, no accessory muscle use, lungs are clear to auscultation, no wheezing, rales or rhonchi. Good air movement present. Back:non-tender GI:Normal bowel sounds, no tenderness to palpation, no masses appreciated.No rebound, guarding, or rigidity noted. Musculoskeletal: The patient has no evidence of calf tenderness, no pitting edema, symmetrical pulses noted bilaterally Neurological:A&O, normal speech Psychiatric:Cooperative Constitutional Vital Signs, click to edit/add: Last Vital Signs Temp 98.1 F 08/10/25 21:42 Pulse 74 08/10/25 21:42 Resp 16 08/10/25 21:42 BP 138/75 08/10/25 21:42 Pulse Ox 96 08/10/25 21:42 O2 Del Method Room Air 08/10/25 21:42 Course Vital Signs Vital signs: Vital Signs Temperature 98.1 F 08/10/25 21:42 Pulse Rate 74 08/10/25 21:42 Respiratory Rate 16 08/10/25 21:42 Blood Pressure 138/75 08/10/25 21:42 Pulse Oximetry 96 08/10/25 21:42 Oxygen Delivery Method Room Air 08/10/25 21:42 Temperature 98.1 F 08/10/25 21:42 Pulse Rate 74 08/10/25 21:42 Respiratory Rate 16 08/10/25 21:42 Blood Pressure 138/75 08/10/25 21:42 Pulse Oximetry 96 08/10/25 21:42 Oxygen Delivery Method Room Air 08/10/25 21:42 Medical Decision Making MDM Narrative Medical decision making narrative: Chest x-ray and EKG are negative. There are no physical findings to explain her shortness of breath. I have no clinical suspicion of pulmonary embolism. She will be treated for the rash with Atarax and was given IM Solu-Medrol. Follow-up with her doctor if there is no improvement. Treatment diagnosis and follow-up were discussed with the patient. Differential Diagnosis Differential Diagnosis: Contact dermatitis, anxiety Imaging Data Chest x-ray: My impression: No acute findings ECG Data Attestation: I personally reviewed and interpreted this ECG as follows: (EKG on my interpretation shows sinus rhythm with a rate of 68 and no acute findings) Discharge Plan Discharge Clinical Impression: Contact dermatitis Patient Disposition: Home, Self-Care Time of Disposition Decision: 23:06 Condition: Good Mode of Transportation: Private Vehicle Prescriptions / Home Meds: New hydroxyzine HCl 25 mg tablet 25 mg PO Q8H PRN (Reason: itching) Qty: 20 0RF No Action cephalexin 500 mg capsule 500 mg PO QID 7 Days Qty: 28 0RF montelukast [Singulair] 10 mg tablet 10 mg PO DAILY PreserVision AREDS 1 tab PO DAILY Estroven Weight Management 56-40-300 mg capsule 1 cap PO DAILY loratadine [Claritin] 10 mg tablet 10 mg PO DAILY estrogen stay active supplement PO albuterol sulfate 90 mcg/actuation HFA aerosol inhaler 2 inh INHALATION Q4H PRN (Reason: bronchospasm) oxycodone-acetaminophen [Percocet] 5-325 mg tablet 1 tab PO Q6H PRN (Reason: pain) 7 Days Qty: 28 0RF Print Language: Eritrean Instructions: Contact Dermatitis (ED) Referrals: Rosaline Singh MD [Primary Care Provider, Family Practice] - 1 week
[2025-08-10] MEDS: METHYLPREDNISOLONE SOD SUCC PF 125 MG/2 ML VIAL IM (23:01)
== END 2025-08-10 23:23 | disposition home or self-care (01) ==
PROVIDERS: Emergency Provider Emergency Medicine; PCP Family Medicine
DX: L25.9 Unspecified contact dermatitis, unspecified cause (principal); R06.02 Shortness of breath
CPT/HCPCS: 71045; 93005; 96372; 99284; J2919

== ENCOUNTER 2025-10-07 16:29 | Outpatient (REF) | payer OTHER, SELFPAY ==
--- OUTSIDE RECORDS SUMMARY | 2025-10-07 09:00 | XMS_ITS | Encounter Summary ---
Author Organization [facility] Address [address] [place] [address] Care Team Providers Care Nitrogen Operator Name Role Phone Rosaline Singh MD Primary Care Provider [phone] Reason for Visit * ReasonCommentsGynecologic Exam Encounter Details DateTypeDepartmentCare Team (Latest Contact Info)Gskszxgozww92/02/2025 9:00 AM ESTOffice Visit [facility] [address] [place] [place] [address] Florentino Richards, [address] [place], [place] [id number] Well woman exam with routine gynecological exam; Encounter for screening mammogram for malignant neoplasm of breast; Postmenopausal state Social History Tobacco UseTypesPacks/DayYears UsedDateSmoking Tobacco: FormerCigarettes Smokeless Tobacco: Never Tobacco Cessation:Counseling Given: Not Answered Alcohol UseStandard Drinks/WeekCommentsYes0 (1 standard drink = 0.6 oz pure alcohol)SocialAUDIT-CAnswerDate RecordedQ1: How often do you have a drink containing alcohol?Monthly or less09/25/2023Q2: How many drinks containing alcohol do you have on a typical day when you are drinking?1 or Q3: How often do you have six or more drinks on one occasion?Never11/20/2023 CommentsNoSex and Gender InformationValueDate RecordedSex Assigned at Cckwhw3704/30/2023 9:02 PM EDTLegal MapTacglc93/15/2023 6:57 PM EDTGender Identity Ypycww8104/30/2023 9:02 PM EDTSexual XlpxloxnkkvJmztjlka41/25/2023 9:02 PM EDT documented as of this encounter Last Filed Vital Signs Vital SignReadingTime TakenCommentsBlood Tduulwzd019/9210/07/2025 9:22 AM EST Pulse--Temperature--Respiratory Rate--Oxygen Saturation--Inhaled Oxygen Concentration--Knhuwl891 kg (241 lb)10/07/2025 9:22 AM ESTHeight--Body Mass Index44.0810/09/2023 10:50 AM ESTdocumented in this encounter Plan of Treatment DateTypeDepartmentCare Team (Latest Contact Info)Oyjkbhuptfk05/07/2026 9:00 AM ESTProcedure Visit [facility] [address] [place] [phone] Florentino Richards DO [address] [place] [place] [address] NameTypePriorityAssociated DiagnosesOrder ScheduleBilateral screening mammogram ImagingRoutine Encounter for screening mammogram for malignant neoplasm of breast Expected: 10/07/2025, Expires: 12/08/2026DEXA bone densityImagingRoutine Postmenopausal state Expected: 10/07/2025 (Approximate), Expires: 10/07/2026THIN PREP TIS PAP AND HR HPV DNAPathology and CytologyRoutine Well woman exam with routine gynecological exam Ordered: 10/07/2025documented as of this encounter Visit Diagnoses Diagnosis Well woman exam with routine gynecological exam Routine gynecological examination Encounter for screening mammogram for malignant neoplasm of breast Postmenopausal state Asymptomatic postmenopausal status (age-related) (natural) documented in this encounter Care Teams Team MemberRelationshipSpecialtyStart DateEnd Date Rosaline Singh MD [facility] Referrals ONLY PCP - GeneralFamily Medicine03/11/25documented as of this encounter
--- OUTSIDE RECORDS SUMMARY | 2025-10-07 16:35 | XMS_ITS | Clinical Summary ---
Author Organization [facility] Address [address], [address] [place] [address] Care Team Providers Care Employment Legal Assistant Name Role Phone Unavailable Primary Care Provider Unavailabl e Allergies Active AllergyReactionsCriticalityNoted ZizhTnezyujnTkdgvinrgeIpusirra40/16/2023 Sulfamethoxazole-Rlwgpmrsodzd61/23/4736Jgucbijdby53/23/6587Vuinh41/23/2023 Peanuts, peas Medications MedicationSigDispense QuantityRefillsLast FilledStart DateEnd DateStatus loratadine (CLARITIN) 10 MG capsule Take 1 capsule by mouth dailyActive Multiple Vitamins-Minerals (ADVANCED EYE HEALTH PO) Take by mouthActive acetaminophen (TYLENOL) 500 MG tablet Take 2 tablets by mouth every 6 hours as needed for PainActive albuterol sulfate HFA (VENTOLIN HFA) 108 (90 Base) MCG/ACT inhaler Inhale 2 puffs into the lungs 4 times daily as needed for Wheezing 18 g 08/30/2023ctive Active Problems No known active problems Social History Tobacco UseTypesPacks/DayYears UsedDateSmoking Tobacco: NeverSmokeless Tobacco: Never Tobacco Cessation:Counseling Given: Not Answered AUDIT-CAnswerDate RecordedQ1: How often do you have a drink containing alcohol? Never08/30/2023Q2: How many drinks containing alcohol do you have on a typical day when you are drinking?Patient does not drink08/30/2023Q3: How often do you have six or more drinks on one occasion?Never08/30/2023HQ-2AnswerDate Recorded PHQ-9 Total Ygqme029regnantCommentsUnknownSex and Gender Information ValueDate RecordedSex Assigned at BirthNot on fileLegal ZzfKaoymz16/10/2013 12:33 PM ESTGender IdentityNot on fileSexual OrientationNot on file Last Filed Vital Signs Vital SignReadingTime TakenCommentsBlood Fkyxnuqy129/8308/30/2023 11:56 AM EDT Aqmth667308/30/2023 11:54 AM EBDModpnxthvcu26.8 ??C (98.3 ??F)08/30/2023 12:16 PM EDTRespiratory Qgve7546 11:54 AM EDTOxygen Njnehtwukd27%08/30/2023 12:28 PM EDTInhaled Oxygen Concentration--Weight--Height--Body Mass Index-- Plan of Treatment Health MaintenanceDue DateLast DoneCommentsDepression Sflpia4211/03/1978HIV screen 1981Hepatitis C eqosjn3911/03/1984DTaP/Tdap/Td vaccine (1 - Tdap)1985 Hepatitis B vaccine (1 of 3 - 19+ 3-dose series)1985Pap smear1987 Cervical cancer ddmovp4311/03/1996HPV (without or with Pap)1996Lipids 11/03/20065796Idrhitfdlwo21/29/2011Colorectal Cancer Nbtnep6711/03/2011FIT/FOBT: Average risk2011Fecal-DNA (Cologuard): Average risk2011 Sigmoidoscopy/CT vdupfpoexwlq66/29/2011Pneumococcal 50+ years Vaccine (1 of 1 - PCV)2016Shingles vaccine (1 of 2)2016Breast cancer vgwfcm8603/14/2025 03/14/2023Flu vaccine (#1), 11/14/2019, 09/14/2018, Additional history existsCOVID-19 Vaccine ( season)2025 04/13/2022, 10/28/2021, 02/19/2021, Additional history existsHepatitis A vaccine Aged OutNo longer eligible based on patient's age to complete this topicHib vaccineAged OutNo longer eligible based on patient's age to complete this topic Meningococcal (ACWY) vaccineAged OutNo longer eligible based on patient's age to complete this topicMeningococcal B vaccineAged OutNo longer eligible based on patient's age to complete this topicPolio vaccineAged OutNo longer eligible based on patient's age to complete this topic Insurance
--- OUTSIDE RECORDS SUMMARY | 2025-10-07 16:35 | XMS_ITS | Clinical Summary ---
Author Organization [facility] Address [address] [place] [address] Care Team Providers Care Audit Associate Name Role Phone Rosaline Singh MD Primary Care Provider [phone] Allergies Active AllergyReactionsCriticalityNoted XewmUvxsqzdwLhmsbxzwedGzrxuiba36/16/2023 Dust Mite Emysufs9001/09/2012GentamicinItching,Rash,BvsdtsiWsf20/16/2023rass Pollen(K-O-R-T-Swt Les)Runny nose,Odpczrkm96/18/2023Molds & SmutsCough,Itching, Runny nose,Ysfyxyhx81/18/9007VcovlNzydhan86/05/2012 peas Peanut-Containing Drug ProductsAnaphylaxis,Cough,Headache,Shortness of breath, YlyhljvqDkcm12/05/2012 peanuts Pollen Ereqfwd5001/09/2012 Grass, pollen YurvqnjzsinxskulJkmdqnu64/16/2023Sulfamethoxazole-Kovgupgjzlyl90/23/2023 Thimerosal (Thiomersal)Exgqkgk1008/21/20231260MmuiuvqkwyubHsnzohb15/16/2023 Medications MedicationSigDispense QuantityRefillsLast FilledStart DateEnd DateStatus albuterol HFA 90 mcg/act inhaler Inhale 2 puffs.08/30/2023ctive Loratadine 10 MG capsule Take 1 capsule by mouth in the morning.Active Active Problems No known active problems Encounters DateTypeDepartmentCare LcpjYuaubuakzto40/02/2025 9:00 AM ESTOffice Visit [facility] [address] [place] [address] Florentino Richards, DO Well woman exam with routine gynecological exam; Encounter for screening mammogram for malignant neoplasm of breast; Postmenopausal state10/07/2025amboo flowsheet [facility] [address] [place] [address] Florentino Richards, 10/01/2025Travelfrom Last 3 Months Family History Medical HistoryRelationNameCommentsCancerFatherEugene AichholzHeart disease FatherEugene AichholzCancerFather's Brother 1Gilbert AichholzCancerFather's Brother 2Gilbert AichholzBreast cancerFather's Sister 1Evelyn AichholzBreast cancerFather's Sister 2Evelyn AichholzCancerMotherCarol AichholzCancerMother's Brother 1Richard MillerCancerMother's Brother 2Richard MillerCrohn's disease OtherUlcerative colitisOtherRelationNameStatusCommentsFatherEugene AichholzAlive Father's Brother 1Gilbert AichholzAliveFather's Brother 2Gilbert AichholzAlive Father's Sister 1Evelyn AichholzAliveFather's Sister 2Evelyn AichholzAliveMother Lluvia AichholzAliveMother's Brother 1Richard MillerAliveMother's Brother 2 Rj MillerAliveOther Social History Tobacco UseTypesPacks/DayYears UsedDateSmoking Tobacco: FormerCigarettes [...] have six or more drinks on one occasion?Never3 CommentsNoSex and Gender InformationValueDate RecordedSex Assigned at Gohlfc1804/30/2023 9:02 PM EDTLegal SebZrfgzh09/15/2023 6:57 PM EDTGender Identity Tfdhdv4304/30/2023 9:02 PM EDTSexual CeregzkpnqrKiohwgdy86/25/2023 9:02 PM EDT Last Filed Vital Signs Vital SignReadingTime TakenCommentsBlood Horkybtv646/9210/07/2025 9:22 AM EST Pulse--Temperature--Respiratory Rate--Oxygen Saturation--Inhaled Oxygen Concentration--Inrwls906 kg (241 lb)10/07/2025 9:22 AM RJTRcwtec746.5 cm (5' 2 ) 10/09/2023 10:50 AM ESTBody Mass Index44.0810/09/2023 10:50 AM EST Plan of Treatment DateTypeDepartmentCare Team (Latest Contact Info)Mztlbhlaguj66/07/2026 9:00 AM ESTProcedure Visit [facility] [address] [address] Florentino Richards DO [address] [place], [facility] Insurance * Guarantor: Kim Paz AAccount TypeRelation to PatientDate of BirthPhone Billing AddressPersonal/CvwqicChqu1965 [address] [address] Care Teams Team MemberRelationshipSpecialtyStart DateEnd Date Rosaline Singh MD [facility] Referrals ONLY [facility] - [facility]/25
--- OUTSIDE RECORDS SUMMARY | 2025-10-07 16:35 | XMS_ITS | CCD ---
Author Organization [facility] Care Team Providers Care Head Sawyer Name Role Phone Eddie De León Unavailable [...] MORRO, DR RAMONITA Donovan Primary Care Unavailable BURLINGTON, DR LEYLA Romero Consulting Unavailable MORRO, DR RAMONITA Donovan Consulting Unavailable MAURICE ., DR MARTINES Admitting Unavailable MAURICE ., DR MARTINES Attending Unavailable MORRO, DR RAMONITA Donovan Primary Care Unavailable MAURICE ., DR MARTINES Consulting Unavailable ISAC, DR CINDY Keita Consulting Unavailable MAURICE ., DR MARTINES Admitting Unavailable MAURICE ., DR MARTINES Attending Unavailable MORRO, DR RAMONITA Donovan Primary Care Unavailable MAURICE ., DR MARTINES Consulting Unavailable MAURICE ., DR MARTINES Admitting Unavailable MAURICE ., DR MARTINES Attending Unavailable MORRO, DR RAMONITA Donovan Primary Care Unavailable BURLINGTON, DR LEYLA Romero Consulting Unavailable MAURICE ., DR MARTINES Consulting Unavailable ISAC, DR CINDY Keita Consulting Unavailable MIESHA HASSAN Attending Unavailable Ramonita Hooker MD Primary Care Provider RAMONITA HOOKER Primary Care Physician NILL, Cisco R Referring Unavailable NILL, Cisco R Attending Unavailable Cisco ODOM R Admitting Unavailable RAMONITA HOOKER Referring Unavailable ILENE, Cisco Keita Attending Unavailable Ramonita Hooker MD Primary Care Provider [phone] KRISTIE OROURKE Attending Unavailable RAMONITA HOOKER Referring Unavailable KRISTIE OROURKE Attending Unavailable FLORENTINO RICHARDS Attending Unavailable Ramonita Hooker MD Primary Care Provider Sharlene Skelton APRN Attending Provider Beverly Leon CMA Attending Provider UnavailRamonita Burgos MD Attending Provider Ramonita Hooker MD Primary Care Provider Allergies Allergy ClassificationReported Allergen(s)Allergy TypeDate of OnsetReaction(s) Facility (6 sources)Gentamicin Sulfate ([facility]ARE [facility]); Translations: [gentamicin]Drug Allergy 40-40-8958YpjhtYpjHolmes [facility] (5 sources)peanut allergenic extractDrug Qqlywvs24-35-5413OoyorSdkHocking Valley Community Hospital RepositoryComment on above:Onset Date: 02/27/2020 (1 source)Sulfamethoxazole / TrimethoprimDrug Qeyksvw18-26-7069AuqReg[facility] Rep[facility] (5 sources)ThimerosalDrug Ykkqjem27-25-9767HvhtrQxuHocking Valley Community Hospital Repository Comment on above:Onset Date: 02/27/2020 (1 source)Misc-Food; Translations: [Misc-Food]Food allergy (disorder)10-13-2014 [facility] Repository (11 sources)BacitracinDrug Owncmls95-03-0270RvlhypwoIJRO Healthcare (12 sources)Gentamicin; Translations: [gentamicin]Drug Zlxqmfg57-08-2563Fztkulk, Rash, Unknown, Eruption of skin (disorder)[facility] Healthcare (11 sources)Grass pollenPropensity to adverse ybkufsryg56-32-5738Twmtp nose, WheezingNOMS Healthcare (11 sources)House dust mitePropensity to adverse sjpyhxxuq36-60-0950EQNL Healthcare Work Phone: (11 sources)Mold ExtractDrug Nuuavvi56-44-9873Liavf, Itching, Runny nose, WheezingNOMS Healthcare (11 sources)PollenPropensity to adverse cehagyhjo81-52-0503LYFS Healthcare (15 sources)SulfamethoxazoleAllergy to diwvarukf31-28-3764VungrniUYPI Healthcare (12 sources)Sulfamethoxazole / Trimethoprim; Translations: [sulfamethoxazole-trimethoprim]Drug Iewzmpt18-34-2914Ndvxl pain (finding)[facility] (11 sources)ThimerosalDrug Tcdxkkz80-42-0938KvpzqyxBEKW Healthcare (15 sources)TrimethoprimDrug Hhgcrsu01-95-7860ZfunxrjQMCM Healthcare (11 sources)OtherPropensity to adverse zpobyyccl22-14-5394DtjxvijEAEL Healthcare (11 sources)Peanut-Containing Drug ProductsDrug Klkrnbnbhbr47-70-4606 Anaphylaxis, Cough, Headache, Shortness of breath, WheezingSSM Health [facility] (2 sources)Mold Extract; Translations: [Mold][facility] (2 sources)peanut; Translations: [Peanuts]Drug allergyPharyngeal swelling (finding)[facility] (2 sources)Pisum sativum (pea) extract; Translations: [Pea]Drug Allergy Pharyngeal swelling (finding)[facility] (2 sources)Thimerosal; Translations: [thimerosal topical]Drug AllergyEruption of skin (disorder)[facility] (1 source)Sulfamethoxazole / Trimethoprim; Translations: [Bactrim]Drug Allergy [facility] Repository (4 sources)peasAllergy to hxkamiosy91-26-3489NaxksYzviaqdewTriHealth Bethesda Butler HospitalComment on above:Onset Date: 02/27/2020 Medications Current Medications MedicationDrug Class(es)DatesSig (Normalized)Sig (Original)acetaminophen 500 mg oral tablet (11 sources) End: 86-01-1565xltf 2 tablets by mouth every six hours as neededacetaminophen (Tylenol) 500 MG tablet Take 2 tablets by mouth every 6 (six) hours if needed. 09/30/2024 Discontinued (Therapy completed)take 1 tablet by mouth every four [id number] 200 actuat albuterol 0.09 mg/actuat metered dose inhaler (10 sources)beta2-Adrenergic AgonistStart: 61-13-3313ibjpcygkt HFA 90 mcg/act inhaler Inhale 2 puffs. 08/30/2023 Activecetirizine hydrochloride 10 mg chewable tablet (12 sources)Histamine-1 Receptor AntagonistStart: 69-28-8240cyeg 1 tablet by mouth once dailyStart: 93-66-7674tpbq 10 mg by mouth once dailyZyrtec 10 mg, Oral, Daily, Refills(s) 0 Start Date: 11/08/24 Status: Orderedtake 1 tablet by mouth once dailyEsomeprazole (1 source)Proton Pump InhibitorEsomeprazole Magnesium Activefluticasone propionate 0.05 mg/actuat metered dose nasal spray (8 sources)CorticosteroidStart: 39-93-6788enja 1 spray(s) nasal route once daily as neededFluticasone Propionate (Flonase Allergy Relief) 50 mcg/actuation spray,suspension Active 1 SPRAY INTRANASAL Daily as needed March 28, 2025 12:00am administer into each nostril Complies with drug therapyStart: 11-08-2024 take 2 spray(s) by inhalation once dailyfluticasone 93 mcg/inh nasal spray 2 spray(s), Inhalation, Daily, Refill(s) 0 Start Date: 11/08/24 Status: Ordered Start: 10-07-2024 End: 62-57-4284ojor 1 spray(s) nasal route once dailyFluticasone Propionate (Flonase Allergy Relief) 50 mcg/actuation spray,suspension Discontinued 2 SPRAY INTRANASAL Daily October 07, 2024 1:00am January 14, 2025 10:28am administer into each nostril Completed/Discontinued Medications MedicationDrug Class(es)DatesSig (Normalized)Sig (Original)azithromycin 250 mg oral tablet (2 sources)Macrolide AntimicrobialStart: 07-17-2025 End: 35-29-5744Rmdntausyfzi 250 mg tablet Discontinued 0 PO daily 6 July 17, 2025 12:00am August 14, 2025 11:46am Take 2 on day 1 and then take 1 for the next 4 days (days 2-5)benzonatate 200 mg oral capsule (2 sources)Non-narcotic AntitussiveStart: 07-17-2025 End: 21-71-3425maog 1 capsule by mouth three times daily as needed for cough Benzonatate 200 mg capsule Discontinued 200 MG PO Three times daily as needed for cough 30 July 17, 2025 12:00am August 14, 2025 11:46amcephalexin 500 mg oral capsule (7 sources)Cephalosporin AntibacterialStart: 01-14-2025 End: 42-00-7256huti 1 capsule by mouth three times dailyCephalexin 500 mg capsule Discontinued 500 MG PO Three times daily 26 05January 14, 2025 12:00am March 28, 2025 10:12amStart: 10-01-2023 End: 23-12-2946hnuszqbesj (Keflex) 500 MG capsule Take 500 mg by mouth in the morning and 500 mg at noon and 500 mg in the evening and 500 mg before bedtime. 10/01/2023 09/30/2024 Discontinued (Therapy completed)diclofenac sodium 0.01 mg/mg topical gel (2 sources)Nonsteroidal Anti-inflammatory DrugStart: 03-28-2025 End: 76-23-6653cbtim 4 g topically four times dailyDiclofenac Sodium 1 % gel Discontinued 4 GM TOPICAL Four times daily March 28, 2025 12:00am July 17, 2025 10:43am apply to single kneeloratadine 10 mg oral tablet (16 sources)Start: 03-26-2025 End: 55-27-5106bidl 1 tablet by mouth once dailyLoratadine (Claritin) 10 mg tablet Discontinued 10 MG PO Daily March 26, 2025 12:00am March 28, 2025 10:13am FreeTextSi tablet Orally Once a day; Note: Source Status: Taking; Provider: Morro Waggoner ( )take 1 capsule by mouth in the morningLoratadine 10 MG capsule Take 1 capsule by mouth in the morning. Activetake 1 tablet by mouth once dailyClaritin 10 MG 1 tablet Orally Once a day Activemontelukast 10 mg oral tablet (8 sources)Leukotriene Receptor AntagonistStart: 03-26-2025 End: 75-31-6601pvvv 1 tablet by mouth once dailyMontelukast 10 mg tablet Discontinued 1 TAB PO Daily March 26, 2025 12:00am March 28, 2025 10:13am F reeTextSig: take 1 tablet by mouth once daily; Note: Source Status: Start; Refills: 0; Qty: 30 Tablet; Provider: Morro Waggoner ( )Start: 06-23-2023 End: 40-53-9332xzqy 1 tablet by mouth in the morningmontelukast (Singulair) 10 MG tablet Take 10 mg by mouth in the morning. 06/23/2023 09/30/2024 Discontinued (Therapy completed)Start: 23-18-8407rdxu 1 tablet by mouth every twenty-four hoursSingulair 10 MG 1 tablet Orally Once a day for 30 days Apr, Active Problems Active Problems Problem ClassificationProblemDateDocumented DateEpisodic/ChronicAsthma (1 source)Qawdks35-98-0701BtmuzepGsrffsf obstructive pulmonary disease and bronchiectasis (4 sources)Bronchitis; Translations: [Bronchitis, not specified as acute or chronic]99-24-0773FzcdpglzPbumngvaaj disorders (11 sources)Gastroesophageal reflux disease; Translations: [Gastro-esophageal reflux disease without esophagitis]Onset: 42-32-3816FfnigxtPatozosyfzfex and screening for infectious disease (1 source)Encounter for screening for human papillomavirus (HPV); Translations: [ENC SCREENING HUMAN PAPILLOMAVIRUS]Onset: 16-59-5667ByayvyuhIjdfqwjcmr disorders (5 sources)Postmenopausal bleeding; Translations: [POSTMENOPAUSAL BLEEDING] Onset: 66-11-0409NmqrqvdWffte connective tissue disease (2 sources)Trochanteric bursitis, right hipEpisodicOther connective tissue disease (1 source)Other bursitis of hip, unspecified hipEpisodicOther ear and sense organ disorders (2 sources)Sensorineural hearing loss, bilateral; Translations: [Sensorineural hearing loss, bilateral]73-55-3066JlzixbrLrisa ear and sense organ disorders (2 sources)Otalgia, right ear; Translations: [Otalgia, unspecified]03-11-2025 EpisodicOther gastrointestinal disorders (1 source)Irritable bowel ouetqeuy92-22-5860MbebrnkGbrno gastrointestinal disorders (9 sources)Dysphagia; Translations: [Dysphagia, unspecified]EpisodicOther nervous system disorders (8 sources)Chronic pain; Translations: [Other chronic pain]ChronicOther nervous system disorders (1 source)Other chronic painChronicOther non-traumatic joint disorders (4 sources)Pain in left knee; Translations: [Left knee pain]46-68-3258Eeubnisg Other nutritional; endocrine; and metabolic disorders (1 source)Body mass index 40+ - severely zcodq47-36-8566WnqzxuyQfpks nutritional; endocrine; and metabolic disorders (1 source)Morbid dtnwxxi51-22-2404WroomdwWuoar screening for suspected conditions (not mental disorders or infectious disease) (1 source)Abnormal findings on diagnostic imaging of other specified body structures; Translations: [ABNORML FIND DX IMG OTH BODY STRUC]Onset: 11-28-2022 ChronicOther screening for suspected conditions (not mental disorders or infectious disease) (12 sources)Encounter for screening mammogram for malignant neoplasm of breast; Translations: [Other abnormal and inconclusive findings on diagnostic imaging of breast]Onset: 13-57-1009SrhsrdjkGavzq upper respiratory disease (1 source)Allergic rhinitis due to nzpzdo46-53-4536VstzngfWlgmp upper respiratory disease (1 source)Acute bronchospasm; Translations: [Acute bronchospasm]Onset: 24-22-2749GinhgoqtUdtji upper respiratory infections (1 source)Acute laryngitis; Translations: [Acute laryngitis]Onset: 08-30-2023 EpisodicOtitis media and related conditions (5 sources)Otitis media; Translations: [Unspecified nonsuppurative otitis media, right ear]76-30-9607VoofdjeeGxvexnhd codes; unclassified (1 source)Asymptomatic menopausal state; Translations: [ASYMPTOMATIC MENOPAUSAL STATE]Onset: 24-32-1196AabaazhcAqzjzflfclvw (1 source)CONTACT W/AND (SUSP) EXPOS COVID-19; Translations: [CONTACT W/AND (SUSP) EXPOS COVID-19]Onset: 08-36-8140Afhbwfwcgvai (1 source)Patient encounter wajtkk75-78-8112Efkoj infection (1 source)COVID-19; Translations: [COVID-19]Onset: 08-28-2023 Past or Other Problems Problem ClassificationProblemDateDocumented DateEpisodic/ChronicOther non- traumatic joint disorders (4 sources)Pain in right hip; Translations: [PAIN IN RIGHT HIP]Onset: 06-27-2022 EpisodicUnclassified (1 source)Other low back pain M54.59 Results Test NameValueInterpretationReference RangeFacilityAuditory function testson 85-11-0629Mkijjgkqe Mild sloping to moderate sensorineural hearing loss above 2K Hz [facility] HealthcareNOTX HealthcareMain OR Intraoperative Recordon 34-73-5395Owoj OR Intraoperative RecordMain OR Intraoperative Record IntraOp Document Type FT Summary Primary Physician: Cisco ODOM MD Finalized Date/Time: 12/02/24 12:41:15 Pt. Name: LEO PAZO.B./Sex: 1965 Female Med Rec #: [id number] Physician: Cisco ODOM MD Financial #: [id number] Pt. Type: O Room/Bed: / Admit/Disch: 11/29/24 06:43:11 - 11/29/24 23:59:59 Institution: Case Times FT Entry 1 Patient Times In Room 11/29/24 07:53:00 Out Room 11/29/24 08:21:00 Procedure Times Start 11/29/24 07:56:00 Stop 11/29/24 08:18:00 Anesthesia Times Start 11/29/24 07:53:00 Stop 11/29/24 08:21:00 Time at [facility] 11/29/24 08:09:00 Last Modified By: Sean MAYO, Mohamud Donovan 11/29/24 08:22:26 General Comments: 0759 EGD completed MSRN 0803 Colonoscopy started MSRN 12/02/24 Chart opened to review and send charges LRoth CSFA Case Attendance FT Entry 1 Entry 2 Entry 3 Case Attendee Greg Jc MD, Cisco Estrada RN, Mohamud Donovan Role Performed Anesthesiologist Surgeon - Primary Air Tucker - Primary Sole Leather Cutting Machine Operator Time In 11/29/24 07:53:00 11/29/24 07:53:00 11/29/24 07:53:00 Time Out 11/29/24 08:21:00 11/29/24 08:21:00 11/29/24 08:21:00 Procedure EGD AND COLONOSCOPY(.) EGD AND COLONOSCOPY(.) EGD AND COLONOSCOPY(.) Comments Dr. Pardo supervising case Last Modified By: Sean MAYO, Mohamud Estrada RN, Mohamud Estrada RN, Mohamud Donovan 11/29/24 08:22:26 11/29/24 08:22:26 11/29/24 08:22:26 Entry 4 Entry 5 Case Attendee Jasmin Warner CST, Rhianna Pink Role Performed Scrub - Primary Staff - Other Time In 11/29/24 07:53:00 11/29/24 07:53:00 Time Out 11/29/24 08:21:00 11/29/24 08:21:00 Procedure EGD AND COLONOSCOPY(.) EGD AND COLONOSCOPY(.) Comments help in room Last Modified By: Mohamud Estrada RN, RN, Morgan E 11/29/24 08:22:26 11/29/24 08:22:26 Perioperative Protocols FT [...] No Time Out Greg Jc, Given Participants Cisco ODOM MD, Souter RN, Timmy Rios Micala E, Schafer CST, Rhianna Pink Time Out Complete 11/29/24 07:54:00 [...] Colonoscopy Primary Procedure Yes Primary Surgeon Cisco ODOM MD Start 11/29/24 07:56:00 Stop 11/29/24 08:18:00 [...] for signs and symp (more content not included)...[facility] Reminderson 72-85-9936NxehgeazuVbkxvzjre From: Maris Serrato LPN To: N - Clinical; Sent: 12/02/2024 08:35:12 EST Show up: 10/29/2034 07:00:00 EST Subject: colonoscopy recall Due Date/Time: 11/29/2034 07:00:00 EST Reminder/Recall Patient due for screening colonoscopy 11/29/2034.[facility] HospitalDischarge Instructionson 36-51-4279Zgcsurzhd InstructionsDischarge Instructions LEO PAZ :1965 Visit Date:11/29/2024 Inpatient Discharge Instructions Your Care Team Admitting Physician - Cisco ODOM MD Referring Physician - Cisco ODOM MD Reason for Your Visit SCREENING This [...] Appointments after Discharge Follow Up with Cisco ODOM When: Comments: Call for any problems. Where: [facility], [facility] [address] [place] [address]- [employer] (1) Medications What How Much When Instructions [...] unsweetened, w/added ascorbic acid 1 cup 0.5 [place] 1 cup 0.7 Vegetables Cooked Green beans 1 cup 4.0 Carrots 1/2 cup sliced 2.3 Peas 1 cup 8.8 Potato (baked, with skin) 1 medium potato 3.8 Raw [place] (with peel) 1 cucumber 1.5 Lettuce 1 [...] 8.7 Peanuts 1/2 cup 7.9 [facility]. SEEK IMMEDIATE MEDICAL CARE IF: You develo (more content not included)...[facility] Comment on above:Result Comment: Electronically Signed By: Dimitri MAYO, Sharlene\.br\Date and Time Signed: 11/29/24 08:29 ESTEGDon 11-29-2024 EsophagogastroduodenoscopyEGD Patient: LEO PAZ Age: 59 years Sex: Female : 1965 Associated Diagnoses: None Author: Cisco ODOM MD Pre-Procedure Procedure Date 11/29/2024 08:30:00 . Procedure Type: Esophagogastroduodenoscopy. Procedure provider Cisco Odom MD. Referred by Ramonita Hooker MD. Current history and physical Documented on chart. Pre-procedure diagnosis: Dyspepsia. Diagnostic: chronic GERD. ASA Classification: Class III. . Monitoring: See anesthesia record. . Procedure The procedure was performed in the hospital. See anesthesia record for sedation given during procedure. The patient was positioned starting in the left lateral decubitus position. Endoscope type usedwas an adult-size, introduced orally, advanced to the [...] Impression and Plan EGD: Diagnosis: Chronic GERD (MEV74-ZK K21.9, Discharge, Medical). Course: Progressing as expected. Education and Follow-up: Counseled: Family.[facility] Comment on above:Other Comment: Missing Attachment - attachment storage system not supported [id number] Can be viewed in source systemMissing Attachment - attachment storage system not supported [id number] Can be viewed [facility] systemMissing Attachment - attachment storage system not supported [id number] Can be viewed in source systemInpatient Patient Summaryon 22-86-4189Unjbzcgwh Patient SummaryInpatient Patient Summary [place] [id number] [facility] Clinical Discharge Instructions PERSON INFORMATION Name: LEO PAZ PHYSICIANS Admitting Physician: Cisco ODOM MD Attending Physician: Cisco ODOM MD PCP: RAMONITA HOOKER MD Discharge Diagnosis: Chronic GERD; Sigmoid diverticulosis Comment: PATIENT EDUCATION INFORMATION Instructions: Diverticulosis MAGR (CUSTOM); Colonoscopy, Care After Surgery Salam (CUSTOM) Medication Leaflets: Follow up: With: Address: When: Cisco ILENE [address] [place] [address], [facility] [address], [place] [address] Business (1) Within 7 to 10 days With: Address: When: Cisco ILENE [address] [place] [address] Ave, [address], [place] [address] Business (1) Comments: Call for any problems. MEDICATION LIST Medications to Continue with No Changes Other Medications cetirizine (Zyrtec) 10 Milligram By Mouth every day. fluticasone nasal (fluticasone 93 mcg/inh nasal spray) 2 Sprays Inhalation every day. Comment:[facility] HospitalMain OR PACU II Recordon 39-00-2171Vnjt OR PACU II RecordMain OR PACU II Record PACU Phase II Document Type FT Summary Primary Physician: Cisco ODOM MD Finalized Date/Time: 11/29/24 09:00:06 Pt. Name: LEO PAZ Dennis/Sex: 1965 Female Med Rec #: [id number] Physician: Cisco ODOM MD Financial #: [id number] Pt. Type: O Room/Bed: / Admit/Disch: 11/29/24 [...] and monitors body temperature Evaluates postoperative respiratory statusEvaluates postoperative cardiac status Evaluates postoperative neurological status [...] individualized perioperative plan of care The patient's rightto privacy is maintained The patient's value system, [...] with or improved from baseline levels established preoperativelyThe patient's cardiovascular status is consistent with or improved from baseline levels established preoperatively The patient's neurological status is consistent with or improved from baseline levels established preoperatively The patient demonstrates and/or reports adequate pain control throughout the perioperative period The patient received appropriate medication(s), safely administered during the perioperativeperiod Finalized By: Sharlene Mosley RN Document Signatures Signed By: Sharlene Mosley RN 11/29/24 09:00[facility]Main OR Preoperative Recordon 75-46-4759Quep OR Preoperative RecordMain OR Preoperative Record Holding Area Document Type FT Summary Primary Physician: Cisco ODOM MD Finalized Date/Time: 11/29/24 06:56:19 Pt. Name: LEO PAZ D.O.B./Sex: 1965 Female Med Rec #: [id number] Physician: Cisco ODOM MD Financial #: [id number] Pt. Type: O Room/Bed: / Admit/Disch: 11/29/24 06:43:11 - Institution: Case Times Holding FT Pre-Care Text: Verifies consent for planned procedure, identifies individual values and wishes concerning care, includes family members in perioperative teaching Secures patient's records' belongings, and valuables, maintains patient's dignity and privacy, and maintains patient confidentiality Entry 1 In Holding 11/29/24 06:55:00 Outcomes Met? Yes Last Modified By: Margarita Brush RN 11/29/24 06:55:14 Post-Care Text: The patient participates in decisions affecting his or her perioperative plan of care The patient'sright to privacy is maintained Surgery Checklist FT [...] Signatures Signed By: Margarita Brush RN 11/29/24 06:56[facility] Surgery Discharge Instructionon 55-99-7661Bknhssvpdu Surgery Discharge InstructionOutpatient Surgery Discharge Instruction [address] [address] Patient Discharge Instructions PERSON INFORMATION Name: LEO PAZ Date of : 1965 Current Date: 11/29/2024 08:55:20 PHYSICIANS Admitting Physician: Cisco ODOM MD Discharge Diagnosis: Chronic GERD; Sigmoid diverticulosis LEO PAZ has been given the following list of [...] bleeding, Temperature above 101.5 degrees, Severe pain atthe operative site, Persistent vomiting IF UNABLE TO CONTACT YOUR PHYSICIAN AND YOU FEEL IT IS AN EMERGENCY, GO TO THE NEAREST EMERGENCY ROOM OR CALL 911 I, LEO PAZ, have received the attached patient education materials/instructions and have verbalized understanding: May we do a follow up call? Yes No I was present when discharge instructions were given Patient Signature Date Clinican/Nurse Signature Date Follow up: With: Address: When: Cisco SALAZARMiguel Ángel Jones, [address], [place] [address] [address] Business (1) Within 7 to 10 days With: Address: When: Cisco Mane Nathanael Jones, [address], [place] [address] [place] [address] Business (1) Comments: Call for any problems. Pharmacy Information: You may receive a survey from [employer] asking you to rate your care experience. Your feedback is important and will help us understand what we do well and how we can improve the quality of care we provide to you, your loved ones and our community. It???s an honor to serve you. Thank you for choosing [facility] HERE ARE THE MEDICATION CHANGES THAT OCCURRED [...] unsweetened, w/added ascorbic acid 1 cup 0.5 [place] 1 cup 0.7 Vegetables Cooked Green beans 1 c (more content not included)...[facility] MM TOMOSYNTHESIS SCREENING BIon 21-90-6895[place] [address] Mammography Report Signed Patient: LEO PAZ MR#: [id number] : 1965 Acct:[id number] Age/Sex: 59 / F ADM Date: 11/13/24 Loc: MAMMO Attending Dr: Florentino Richards D.O. Ordering Physician: Florentino Richards D.O. Results: Date of Service: 11/13/24 Follow Up: Procedure(s): MM tomosynthesis screening BI Accession Number(s): [id number] cc: Ramonita Hooker M.D.; Florentino Richards D.O. Patient Name: LEO PAZ MR#: [id number] : 1965 Exam Date: 11/13/2024 Ordering Doctor: [...] Treatments None Family Cancers None LOCATION: [facility] BREAST COMPOSITION: The breasts are heterogeneously dense,which [...] LUMP SHOULD BE BIOPSIED. Dictated by: Leyla Acevedo MD on 11/13/2024 at 15:14 Approved by: Leyla Acevedo MD on 11/13/2024 at 15:17 Dictated By: Leyla Acevedo M.D. Signed By: 11/13/24 1518 DD/ 1517 TD/TT: [place]:TBHRadiology, Radiologist, - 11/13/2024 [place] [address] Mammography Report Signed Patient: LEO PAZ MR#: [id number] : 1965 Acct:[id number] Age/Sex: 59 / F ADM Date: 11/13/24 Loc: MAMMO Attending Dr: Florentino Richards D.O. Ordering Physician: Florentino Richards D.O. Results: Date of Service: 11/13/24 Follow Up: Procedure(s): MM tomosynthesis screening BI Accession Number(s): [id number] cc: Ramonita Hooker M.D.; Florentino Richards D.O. Patient Name: LEO PAZ MR#: [id number] : 1965 Exam Date: 11/13/2024 Ordering Doctor: [...] Treatments None Family Cancers None LOCATION: [facility] BREAST COMPOSITION: The breasts are heterogeneously dense,which [...] LUMP SHOULD BE BIOPSIED. Dictated by: Leyla Acevedo MD on 11/13/2024 at 15:14 Approved by: Leyla Acevedo MD on 11/13/2024 at 15:17 Dictated By: Leyla Acevedo M.D. Signed By: 11/13/24 1518 DD/ 1517 TD/TT: Coyote Hunter: [facility] Children's HospitalRadiology Study observation (narrative)[facility] TOMOSYNTHESIS SCREENING BIOrdered By: Radiologist Radiology on 80-20-3497[facility] Work Phone: IGP,APTIMA HPV,AGE GDLNon 56-18-3912XIS GDLN ACOG TESTINGNote.[facility] HealthcareComment on above:TESTS RESULT FLAG UNITS REF RANGE LAB Clinician Provided Cytology Information Source.............Vagina No. of containers..01 ThinPrep Vial Age Robert VERGARA Vicky... 3065 01 FLAG LEGEND: L-Low Normal,H-High Normal,LL-Alert Low,HH-Alert High <-Panic Low,>-Panic High,A-Abnormal,AA-Critical Abnormal Performed at: 01 =[address] [address] Sulma Kerr MD, HPV APTIMANegativeNegativeNOMS HealthcareComment on above:This nucleic acid amplification test detects fourteen high- risk HPV types (16,18,31,33,35,39,45,51,52,56,58,59,66,68) without differentiation. Performed at: =[address] [id number] Client Service Administrator: Sulma Kerr MD, Phone: [phone] Performed at: [address] [id number] Client Service Administrator: Sulma Kerr MD, Phone: [phone] IGP, APTIMA HPV, RFX 16/18,45Note.NOMS HealthcareComment on above:TESTS RESULT FLAG UNITS REF RANGE LAB DIAGNOSIS: 02 NEGATIVE FOR INTRAEPITHELIAL LESION OR MALIGNANCY. Specimen adequacy: 02 Satisfactory for evaluation. No endocervical component is identified. Performed by: 02 Amanda Prescott, Military Cook (ASCP) . 02 Note: Note 02 The Pap [...] Criteria not met, HPV Genotype not performed. FLAG LEGEND: L-Low Normal,H-High Normal,LL-Alert Low,HH-Alert High <-Panic Low,>-Panic High,A-Abnormal,AA-Critical Abnormal Performed at: [address] [address] Sulma Kerr MD, SPATULA-ALONE VAGINA CLINISYNCNOMS HealthcareUS GUIDED BREAST BIOPSY LTon 45-35-1894[place] [address] Ultrasound Report Signed with Maddi Patient: LEO PAZ MR#: [id number] : 1965 Acct:[id number] Age/Sex: 57 / F ADM Date: 05/08/23 Loc: US Attending Dr: Florentino Richards D.O. Ordering Physician: Florentino Richards D.O. Date of Service: 05/08/23 Procedure(s): US breast vac bx w/ clip LT Accession Number(s): [id number] cc: CHIARA HOOKER; Florentino Richards D.O. ADDENDUM The [address] [address] Patient Name: LEO PAZ MRN: [id number] date: 1965 Sex: F Assigned Patient Location: US Current Patient Location: US Accession/Order Number: [id number] Exam Date: 05/08/2023 11:09 Report Date: 05/16/2023 10:18 At the request of: FLORENTINO RICHARDS Procedure: US breast vac bx w/ clip LT Begin Addendum #1 COLLECTED DATE/TIME: 05/08/2023 12:12 EDT Final Diagnosis: Report for THE [place] LEFT BREAST 5 O'CLOCK INTRADUCTAL LESION [...] Complications: None. Pathology: Pending. Addendum Dictated By: Cindy Chau M.D. Addendum Signed By: 05/31/24 1154 Addendum Cosigned By: DD/ /28/1018 TD/TT: / ADDENDUM US/US breast vac bx w/ clip LT IMPRESSION: 1. Uneventful ultrasound-guided breast biopsy. 2. Pathology results are pending. An addendum to this report will be provided after pathology results are available. Electronically authenticated by: CINDY CHAU Date: 05/16/2023 10:18 Addendum Dictated By: Cindy Chau M.D. Addendum Signed By: 05/31/24 1154 Addendum Cosigned By: DD/ /28/1018 TD/TT: / The [place] [id number] Patient Name: LEO PAZ MRN: [id number] date: 1965 Sex: F Assigned Patient Location: US Current Patient Location: US Accession/Order Number: [id number] Exam Date: 05/08/2023 11:09 Report Date: 05/08/2023 13:51 At (more content not included)...TBHRadiology, Radiologist, MD - 05/31/2024 [place] [address] Ultrasound Report Signed with Addenda Patient: LEO PAZ MR#: [id number] : 1965 Acct:[id number] Age/Sex: 57 / F ADM Date: 05/08/23 Loc: US Attending Dr: Florentino Richards D.O. Ordering Physician: Florentino Richards D.O. Date of Service: 05/08/23 Procedure(s): US breast vac bx w/ clip LT Accession Number(s): [id number] cc: CHIARA HOOKER; Florentino Richards D.O. ADDENDUM The [address] [address] Patient Name: LEO PAZ MRN: [id number] date: 1965 Sex: F Assigned Patient Location: US Current Patient Location: US Accession/Order Number: [id number] Exam Date: 05/08/2023 11:09 Report Date: 05/16/2023 10:18 At the request of: FLORENTINO RICHARDS Procedure: US breast vac bx w/ clip LT Begin Addendum #1 COLLECTED DATE/TIME: 05/08/2023 12:12 EDT Final Diagnosis: Report for [place] LEFT BREAST 5 O'CLOCK INTRADUCTAL LESION [...] Complications: None. Pathology: Pending. Addendum Dictated By: Cindy Chau M.D. Addendum Signed By: Nathalia> 05/31/24 1154 Addendum Cosigned By: DD/ /28/1018 TD/TT: / ADDENDUM US/US breast vac bx w/ clip LT IMPRESSION: 1. Uneventful ultrasound-guided breast biopsy. 2. Pathology results are pending. An addendum to this report will be provided after pathology results are available. Electronically authenticated by: CINDY CHAU Date: 05/16/2023 10:18 Addendum Dictated By: Cindy Chau M.D. Addendum Signed By: Nathalia> 05/31/24 1154 Addendum Cosigned By: DD/ /28/1018 TD/TT: / [place] [id number] Patient Name: LEO PAZ MRN: [facility]:[id number] date: 1965 Sex: F Assigned Patient Location: US Current Patient Location: US Accession/Order Number: [id number] Exam Date: 05/08/2023 11:09 Report Date: 05/08/2023 [...] pathology results are available. Electronically authenticated by: CINDY CHAU Date: 05/08/2023 13:51 Dictated By: Cindy Chau M.D. Signed By: 05/08/23 1353 DD/ 1351 TD/TT: Coyote Hunter: MELVI CuelloUS GUIDED BREAST BIOPSY LTOrdered By: Radiologist Radiology on 81-44-0603EZNM [employer] Work Phone: mm TOMOSYNTHESIS DIAGNOSTIC LTon 17-71-7859Zye[address] [address] Mammography Report Signed Patient: LEO PAZ MR#: [id number] : 1965 Acct:[id number] Age/Sex: 58 / F ADM Date: 01/05/24 Loc: MAMMO Attending Dr: Florentino Richards D.O. Ordering Physician: Florentino Richards D.O. Results: Date of Service: 01/05/24 Follow Up: Procedure(s): MM tomosynthesis diagnostic LT Accession Number(s): [id number] cc: Ramonita Hooker M.D.; Florentino Richards D.O. Patient Name: LEO PAZ MR#: [id number] : 1965 Exam Date: 01/05/2024 Ordering Doctor: DR Florentino Richards . RADIOLOGY REPORT PROCEDURE: MM TOMOSYNTHESIS DIAGNOSTIC LT COMPARISON: MM POST BIOPSY LT, 05/08/2023. INDICATIONS: history of left breast biopsy Calculator Name NCI Breast Cancer Risk Assessment Tool 5 Year Breast Cancer Risk 2.40% Lifetime Breast Cancer Risk 13.90% Personal Breast Cancer No Personal Ovarian Cancer No Treatments None Family Cancers None LOCATION: [facility] BREAST COMPOSITION: Heterogeneously dense,which may obscure small masses. FINDINGS: DIAGNOSTIC CATEGORY 2--BENIGN FINDING. NO CHANGE FROM COMPARISON. Scattered benign-appearing calcifications are present. Scattered benign-appearing nodules are present. Scattered benign-appearing lymph nodes are present. Two stable micro clip markers. The patient is due bilateral screening mammography March of 2024 RECOMMENDATIONS: ROUTINE MAMMOGRAM AND CLINICAL EVALUATION IN 12 MONTHS. PLEASE NOTE: A NORMAL MAMMOGRAM DOES NOT EXCLUDE THE POSSIBILITY OF BREAST CANCER. A CLINICALLY SUSPICIOUS PALPABLE LUMP SHOULD BE BIOPSIED. Dictated by: Leyla Acevedo MD on 01/05/2024 at 12:44 Approved by: Leyla Acevedo MD on 01/05/2024 at 12:47 Dictated By: Leyla Acevedo M.D. Signed By: 01/05/24 1248 DD/ 1247 TD/TT: Coyote Hunter:TBHRadiology, Radiologist, - 01/05/2024 [place] [address] Mammography Report Signed Patient: LEO PAZ MR#: [id number] : 1965 Acct:[id number] Age/Sex: 58 / F ADM Date: 01/05/24 Loc: MAMMO Attending Dr: Florentino Richards D.O. Ordering Physician: Florentino Richards D.O. Results: Date of Service: 01/05/24 Follow Up: Procedure(s): MM tomosynthesis diagnostic LT Accession Number(s): [id number] cc: Ramonita Hooker M.D.; Florentino Richards D.O. Patient Name: LEO PAZ MR#: [id number] : 1965 Exam Date: 01/05/2024 Ordering Doctor: DR Florentino Richards . RADIOLOGY REPORT PROCEDURE: MM TOMOSYNTHESIS DIAGNOSTIC LT COMPARISON: MM POST BIOPSY LT, 05/08/2023. INDICATIONS: history of left breast biopsy Calculator Name NCI Breast Cancer Risk Assessment Tool 5 Year Breast Cancer Risk 2.40% Lifetime Breast Cancer Risk 13.90% Personal Breast Cancer No Personal Ovarian Cancer No Treatments None Family Cancers None LOCATION: [facility] BREAST COMPOSITION: Heterogeneously dense,which may obscure small masses. FINDINGS: DIAGNOSTIC CATEGORY 2--BENIGN FINDING. NO CHANGE FROM COMPARISON. Scattered benign-appearing calcifications are present. Scattered benign-appearing nodules are present. Scattered benign-appearing lymph nodes are present. Two stable micro clip markers. The patient is due bilateral screening mammography March of 2024 RECOMMENDATIONS: ROUTINE MAMMOGRAM AND CLINICAL EVALUATION IN 12 MONTHS. PLEASE NOTE: A NORMAL MAMMOGRAM DOES NOT EXCLUDE THE POSSIBILITY OF BREAST CANCER. A CLINICALLY SUSPICIOUS PALPABLE LUMP SHOULD BE BIOPSIED. Dictated by: Leyla Acevedo MD on 01/05/2024 at 12:44 Approved by: Leyla Acevedo MD on 01/05/2024 at 12:47 Dictated By: Leyla Acevedo M.D. Signed By: 01/05/24 1248 DD/ 1247 TD/TT: Coyote Hunter: MELVI HealthcareRadiology Study observation (narrative)[facility] TOMOSYNTHESIS DIAGNOSTIC LTOrdered By: Radiologist Radiology on 96-18-2937MORG [employer] Work Phone: [employer], Rapidon 41-54-2825Fqpbm A, Molecular NegativeNormalNEGMercy Middlesex HospitalComment on above:Performed By: #### RSAB #### [facility] [address] [place] [address] Client Service Administrator: Tameka Mccord.[facility] Comment on above:Performed By: #### RSAB #### [facility] [address] [place] [address] Client Service Administrator: ANTONIETA Mccord CHEST PORTABLEon 43-88-0126PR CHEST PORTABLE EXAMINATION: ONE XRAY VIEW OF THE CHEST 08/30/2023 12:22 pm COMPARISON: None. HISTORY: ORDERING SYSTEM PROVIDED HISTORY: Covid TECHNOLOGIST PROVIDED HISTORY: Covid FINDINGS: The lungs appear clear. The heart and mediastinal structures are unremarkable. Bony thorax appears normal. Visualized upper abdomen is unremarkable. IMPRESSION: No abnormalities demonstrated. Interpreted by: Dante Rivas MD Signed by: Dante Rivas MD 08/30/23 Final resultNoSt. Elizabeth HospitalUS GUIDED BREAST BIOPSY LTon 05-08-2023 Radiology Study observation (narrative)NOMS HealthcareMG MAMM SCREEN 3D ANDREW CAD on 00-89-1784ZH MAMM SCREEN 3D ANDREW CADPatient: SHELLY LEO AMichelle Exam Date: 03/14/2023 : 1965 Gender:F Ordering : DR FLORENTINO RICHARDS . Admission #: [id number] Family : Order #: [id number] CLICK HERE TO VIEW EXAM RADIOLOGY REPORT [...] Treatments None Family Cancers None LOCATION: [facility] BREAST COMPOSITION: Heterogeneously dense,which may obscure [...] LUMP SHOULD BE BIOPSIED. Dictated by: Leyla Acevedo MD on 03/15/2023 at 07:06 Approved by: Leyla Acevedo MD on 03/15/2023 at 07:11[facility] HospitalXR DEXA BONE DENSITYon 57-32-0257BY DEXA BONE DENSITYEXAMINATION: XR DEXA BONE DENSITY, 03/14/2023 2:38 PM [...] Electronically authenticated by: CINDY CHAU Date: 2023-03-14 15:40[facility] ACOG PANEL 2: 30 to 65on 03-07-2023..NormalRegency Hospital Cleveland EastComment on above:Result Comment: Performed at: WBPerformed By: #### [id number] #### [facility] [address] [place] [address] Dr. Mary Sandoval Gdln ACOG Ygvokoh37-85DbgnrhIsqSelect Medical Cleveland Clinic Rehabilitation Hospital, Edwin ShawComment on above:Performed By: #### [id number] #### [facility] [address] [address] [address] Mary OrtizDIAGNOSIS:CommentLicking Memorial HospitalComment on above: Result Comment: NEGATIVE FOR INTRAEPITHELIAL LESION OR MALIGNANCY. Performed at: WBPerformed By: #### [id number] #### [facility] [address] [address] [address] Mary OrtizHPV AptimaNegativeNormalNegativeJ.W. Ruby Memorial Hospital on above:Result Comment: This nucleic acid amplification test detects fourteen high-risk HPV types (16,18,31,33,35,39,45,51,52,56,58,59,66,68) without differentiation. Performed at: =GPerformed By: #### [id number] #### [facility] [address] [place] [address] Dr. Mary OrtizHPV Genotype ReflexCommentSumma Health Wadsworth - [facility]ittman [facility] Center on above:Result Comment: Criteria not met, HPV Genotype not performed. Performed at: WBPerformed By: #### [id number] #### [place] [address] Dr. Mary OrtizMethodology:CommentSumma Health Wadsworth - Rittman Medical Center on above: Result Comment: This liquid based ThinPrep(R) pap test was screened with the use of an image guided system. Performed at: WBPerformed By: #### [id number] #### [place] [address] Dr. Mary OrtizNote:CommentSumma Health Wadsworth - Rittman Medical Center on above:Result Comment: The Pap smear is a screening test designed to aid in the detection of premalignant and malignant conditions of the uterine cervix. It is not a diagnostic procedure and should not be used as the sole means of detecting cervical cancer. Both false-positive and false-negative reports do occur. . Performed at: WBPerformed By: #### [id number] #### [facility] [address] [place] [address] Dr. Mary OrtizPerformed by:CommentSumma Health Wadsworth - Rittman Medical Center on above: Result Comment: Akila Arrieta, Military Cook (ASCP) Performed at: WBPerformed By: #### [id number] #### [place] [address] Dr. Mary Hylton adequacy:CommentSumma Health Wadsworth - Rittman Medical Center on above:Result Comment: Satisfactory for evaluation. Endocervical and/or squamous metaplastic cells (endocervical component) are present. Performed at: WBPerformed By: #### [id number] #### [facility] [address] [address] [address] Mary Honeycutt AUTO DIFFon 18-43-0500QVMB #0.1 103/ulNormal0.0-0.1The [facility] HospitalComment on above:Performed By: #### CBC #### [facility] [address] [place] [address] Dr. Mary OrtizBasophils/100 WBC (Bld)1.1 %Normal0.2-2.0[facility] Comment on above:Performed By: #### CBC #### [facility] [address] [place] [address] Dr. Mary Spaulding #0.2 103/ulNormal0.0-0.7The [facility] HospitalComment on above: Performed By: #### CBC #### [facility] [address] [place] [address] Dr. Mary Jinosinophils/100 WBC (Bld)4.1 %Normal0.9-7.0[facility] Comment on above:Performed By: #### CBC #### [facility] [address] [place] [address] Dr. Mary Jinrythrocyte distribution width (RBC) [Ratio]13.3 %Gibqna53.0-15.0 [facility] HospitalComment on above:Performed By: #### CBC #### [facility] [address] [place] [address] Dr. Mary OrtizHematocrit (Bld) [Volume fraction]41.8 %Dkefbj23.0-48.0The [facility] HospitalComment on above:Performed By: #### CBC #### [facility] [address] [place] [address] Dr. Mary OrtizHemoglobin (Bld) [Mass/Vol]13.8 g/qXEsfgxy80.0-16.0[facility] Hospital Cleveland EastComment on above:Performed By: #### CBC #### [facility] [address] [place] [address] Dr. Mary Gutierrez #0.01 10e3/ulNormal0.00-0.03The [facility] HospitalComment on above:Performed By: #### CBC #### [facility] [address] [place] [address] Dr. Mary Gutierrez %0.2 %Normal0.0-0.5The [facility] HospitalComment on above: Performed By: #### CBC #### [facility] [address] [place] [address] Dr. Mary Stanley #1.9 103/ulNormal1.2-3.8The [facility] HospitalComment on above:Performed By: #### CBC #### [facility] [address] [place] [address] Dr. Mary Nobleshocytes/100 WBC (Bld)32.7 %Qeqbam58.5-60.0The [facility] HospitalComment on above:Performed By: #### CBC #### [facility] [address] [place] [address] Dr. Mary Cano DIFF REQNONormalThe [facility] Community HospitalComment on above: Performed By: #### CBC #### [facility] [address] [place] [address] Dr. Mary Argueta (RBC) [Entitic mass]29.5 koObvqnt28.7-34.0The [facility] HospitalComment on above:Performed By: #### CBC #### [facility] [address] [place] [address] Dr. Mary Reyes (RBC) [Mass/Vol]33.0 g/uPTebuws93.9-35.2The [facility] HospitalComment on above:Performed By: #### CBC #### [facility] [address] [place] [address] Dr. Mary Reyes (RBC) [Entitic vol]89.3 mTUutllt32.0-99.0The [facility] HospitalComment on above:Performed By: #### CBC #### [facility] [address] [place] [address] Dr. Mary Rosales #0.4 103/ulNormal0.3-0.8The [facility] HospitalComment on above:Performed By: #### CBC #### [facility] [address] [place] [address] Dr. Mary Morenoocytes/100 WBC (Bld)7.4 %Normal1.7-12.0The [facility] Comment on above:Performed By: #### CBC #### [facility] [address] [place] [address] Dr. Mary Rai #3.1 103/ulNormal1.4-6.5The [facility] HospitalComment on above:Performed By: #### CBC #### [facility] [address] [place] [address] Dr. Mary Hillutrophils/100 WBC (Bld)54.5 %Bfxyif58.0-75.0The [facility] HospitalComment on above:Performed By: #### CBC #### [facility] [address] [place] [address] Dr. Mary Groverlet mean volume (Bld) [Entitic vol]9.6 fLNormal9.5-13.5The [facility] HospitalComment on above:Performed By: #### CBC #### [facility] [address] [place] [address] Dr. Mary OrtizPLT277 103/wvHfqgzy718-102Tao [facility] HospitalComment on above: Performed By: #### CBC #### [facility] [address] [place] [address] Dr. Mary VeraC4.68 106/ulNormal4.20-5.40The [facility] HospitalComment on above:Performed By: #### CBC #### [facility] [address] [place] [address] Dr. Mary OrtizWBC5.7 103/ulNormal4.0-11.0The [facility] HospitalComment on above: Performed By: #### CBC #### [facility] [address] [place] [address] Dr. Mary De La Rosa QUANT HCGon 57-73-5280MRZ QUANT5 mIU/mLNormalRegency Hospital Cleveland EastComment on above:Performed By: #### PREGQNT #### [facility] [address] [place] [address] Dr. Mary Guadalupe RANGESEE BELOWNormalThe [facility] HospitalComment on above: Result Comment: 5-50 0.2-1 WEEK 50-500 1-2 WEEKS 100-5,000 2-3 WEEKS 500-10,000 3-4 WEEKS 1,000-50,000 4-5 WEEKS 10,000-100,000 5-6 WEEKS 15,000-200,000 6-8 WEEKS 10,000-100,000 2-3 MONTHSPerformed By: #### PREGQNT #### [facility] [address] [place] [address] Dr. Mary OrtizCovid-19 PCR (CVDTB)on 98-87-1228LKUW-CoV-2 (COVID-19) RNA BRANDY+probe Ql (Unsp spec)Not detectedNormalNOT DETECTEDRegency Hospital Cleveland East Comment on above:Result Comment: This test is not yet approved or cleared by the [place] FDA. When there are no FDA-approved or cleared tests available, and other criteria are met, FDA can make tests available under an emergency access mechanism called an Emergency Use Authorization (EUA). The EUA for this test is supported by the Sys Dir of Health and Human Service's (HHS's) declaration that circumstances exist to justify the emergency use of in vitro diagnostics for the detection and/or diagnosis of the virus that causes COVID- 19. This EUA will remain in effect (meaning [...] of clinical signs and symptoms consistent with SARS-CoV-2.Performed By: #### CVDTBH #### [facility] [id number] Mary OrtizUS PELVIS AND TRANSVAGon 82-91-6749PS PELVIS AND TRANSVAG EXAMINATION: US PELVIS AND [...] Electronically authenticated by: CINDY CHAU Date: 2022-11-08 15:56[facility] HospitalXR LSPINE MIN 4 VIEWSon 45-51-7971TT LSPINE MIN 4 VIEWS EXAMINATION: XR LSPINE [...] changes with dextrocurvature Electronically authenticated by: LEYLA ACEVEDO Date: 2022-06-28 07:15NF[facility] Vital Signs Date TimeVital SignValuePerforming MdoitqukwOlwtloci06-44-3722 11:43-0400Body wqwjce696.48 cmRamonita Hooker MD Work Phone: [facility]10-09-2025 11:43-0400 Body mass index (BMI) [Ratio]43.3 kg/q7HostehRamonita Hooker MD Work Phone: [facility]10-09-2025 11:43-0400 Body dumqfm683.5 kgRamonita Hooker MD Work Phone: [facility]10-09-2025 11:43-0400 Diastolic blood btcuxsmg85 mm[Hg]Rmaonita Hooker MD Work Phone: [phone]10-09-2025 11:43-0400 Heart rate74 /Eve Hooker MD Work Phone: 1(079)[address] [place], [place] 570[address]10-09-2025 11:43-0400 Systolic blood hubqruqu330 mm[Hg]Ramonita Hooker MD Work Phone: 1(606)[address] [place], [place] 5703409-11-2025 10:36-0400 Body yoibmk860.48 cmRamonita Hooker MD Work Phone: 1(118)[address] [place], [place] 5703409-11-2025 10:36-0400 Body mass index (BMI) [Ratio]43 kg/g3YfvqbxRamonita Hooker MD Work Phone: 1(746)[address] [place], [place] 5703409-11-2025 10:36-0400 Body mcgljzqeait29.6 [degF]Ramonita Hooker MD Work Phone: 1(240)[address] [place], [place] 570[address]9-11-2025 10:36-0400 Body igtjpd133.59 kgRamonita Hooker MD Work Phone: 1(632)[address] [place], [place] 570[address]9-11-2025 10:36-0400 Diastolic blood tkjaebum12 mm[Hg]Ramonita Hooker MD Work Phone: 1(406)[address] [place], [place] 570[address]9-11-2025 10:36-0400 Heart rate71 /Eve Hooker MD Work Phone: 1(838)[address] [place], [place] 5703409-11-2025 10:36-0400 SaO2% (BldA) [Mass fraction]98 %Ramonita Hooker MD Work Phone: 1(243)[address] [place], [place] 5703409-11-2025 10:36-0400 Systolic blood vncyrxbn134 mm[Hg]Ramonita Hooker MD Work Phone: 1(035)[address] [place], [place] 5703405-23-2025 10:09-0400 Body yuqgko744.48 cmHenry [facility] Hospital05-23-2025 10:09-0400Body mass index (BMI) [Ratio]42.6 kg/l7YfnsldaigHenry County Hospital05-23-2025 10:090400Body ehrilu063.68 kgHenry County Hospital05-23-2025 10:09-0400Diastolic blood idjoxtvu69 mm[Hg][facility] 03-28-2025 10:090400Heart rate75 /minHenry County Hospital 03-28-2025 10:09-0400Systolic blood heiphiab219 mm[Hg][facility]03-11-2025 10:140400Body .48 cmHenry County Hospital03-11-2025 10:14-0400Body mass index (BMI) [Ratio]42.6 kg/m1IuqjglivkHenry County Hospital03-11-2025 10:14-0400Body zxygbtxgito13.1 [degF][facility]03-11-2025 10:14040Body eallcq146.68 kgHenry County Hospital03-11-2025 10:14040Diastolic blood mm[Hg] [facility]03-11-2025 10:14-0400Heart rate65 /[facility]03-11-2025 10:14-0663AgV4% (BldA) [Mass fraction]97 % [facility]03-11-2025 10:14-0400Systolic blood ibkmskmw974 mm[Hg][facility]01-08-2025 15:09-0500Blood Pressure LocationMichael NILL [phone]-KjohrWright[facility] [place] 11-13-2024 15:09-0500Diastolic blood apunhwrg01 mm[Hg][employer] NILL [phone]-LspjqW[facility] [place] 11-13-2024 15:09-0500Heart rate76 /minMichael NILL [phone]-LjnuvSalem [facility] [place] 11-13-2024 15:09-0500Respiratory rate16 /minMichael NILL [phone]-DvdcvW[facility] [place] 11-13-2024 15:09-0500Systolic blood dnswyrpr941 mm[Hg]Cisco NILL [phone]-RgynuWright-Patterson Medical Center General Surgery [place] 09-30-2024 08:50-0500Body mass index (BMI) [Ratio]42.07 kg/h5Gaspr Maurice DO Work Phone: [facility] HospitalTklylljbtz33-25-8213 08:50-0500Body gclajz341.33 kgCorey Maurice DO Work Phone: [facility] HospitalYjgoybeeey33-42-7227 08:50-0500Diastolic blood erxzplig36 mm[Hg]Florentino Maurice DO Work Phone: [facility] HospitalIxlkbrwotn51-62-4750 08:50-0500Systolic blood ftjtaadg666 mm[Hg]Florentino Maurice MOBi-LEARN Work Phone: [facility] HospitalLxrteyqure72-84-9150 09:00-0500Body .48 cmJustin Genet Other [employer] Other 12-19-2022 09:00-0500Body mass index (BMI) [Ratio] 41.15 kg/j3Vvmips Genet Other [employer] Other 12-19-2022 09:00-0500Body pfkynq373.06 kgJustin Genet Other [employer] Other 10-28-2022 09:00-0400Body .48 cmJustin Genet Other [employer] Other 10-28-2022 09:00-0400Body mass index (BMI) [Ratio] 41.15 kg/e6Ytitoc Genet Other [employer] Other 10-28-2022 09:00-0400Body uljkxt864.06 kgJustin Genet Other [place] [employer] Other Encounters Encounter DateEncounter TypeCare ProviderFacilityStart: 08-14-2025 End: 99-17-8140wfaekvlxriDiysbf E Braun MD Work Phone: [facility] Work Phone: Start: 08-14-2025 End: 68-02-3401Tumlpsi encounter procedureRamonita Hooker MD-[facility] Work Phone: Start: 32-60-1056Squ-patient / Non-visitCatherine Edward GARCIA-[facility] Work Phone: Start: 07-17-2025 End: 21-71-4100dreuutjfgoIswvpa E Braun MD Work Phone: [facility] Work Phone: Start: 07-17-2025 End: 61-50-0440Kuhblaj encounter procedureSharlene Skelton APRN [facility] Work Phone: Start: 03-28-2025 End: 19-61-9297gmguxdwqzmYbvfoaqmkSt. Mary's Medical Center Work Phone: Start: 03-28-2025 End: 50-45-7341Oippvxk encounter procedureFirtulio Physician Group-[facility] Work Phone: Start: 03-13-2025 End: 25-77-6908Cwpvvh flowsheetKristie Siegel Tessie CCC-A Work Phone: noMS AUDStart: 03-13-2025 End: 56-25-9966Xdefkc flowsheetDemathewah Robbin Tessie CCC-A Work Phone: NOMS AUDStart: 03-13-2025 End: 88-59-0405Desygkbf SupportDelela Orourke CCC-A Work Phone: noms AUDComment on above:Sensorineural hearing loss (SNHL) of both ears (Primary Dx); Delores rightStart: 03-11-2025 End: 55-24-8970Ivwlgk flowsheetKristie SaundersCentra Health-A Work Phone: noms AUDStart: 03-11-2025 End: 08-64-4417Pmtkfh flowsheetKristie Siegel [facility]-A Work Phone: noms AUDStart: 03-11-2025 End: 16-66-8877Ylyzqusf SupportKristie SaundersCentra Health-A Work Phone: noms AUDComment on above:Sensorineural hearing loss (SNHL) of both ears (Primary Dx); Delores rightStart: 01-14-2025 End: 67-35-2193kzydiqqjhyBjjksaovgSt. Mary's Medical Center Work Phone: Start: 01-14-2025 End: 61-30-7126Aroinpn encounter procedureCentral Carolina Hospital Phys[facility] GroupSt[facility] Work Phone: Start: 11-29-2024 End: 97-89-7008kxrvpnndftQdzbhrk R NILLFacility:FTMCStart: 11-13-2024 End: 76-95-1017fxalhiomuhULZWBA BRAUNFacility:SONIA SheltonevueStart: 11-13-2024 End: 80-62-7287Lcrlwrl encounter procedureMichael R NILL [phone]-RqrhjWright-Patterson [facility] General Surgery [place] Start: 11-13-2024 End: 22-73-1134Mlipwdsra Result EncounterCorey Maurice DO Work Phone: noms External Department UnsolicitedStart: 11-13-2024 End: 64-88-7413Ocywcrgfj Result EncounterCorey Maurice DO Work Phone: noms External Department UnsolicitedStart: 11-07-2024 ambulatoryMichael NILLFacility:GS BellevueStart: 29-83-6907bmedgvfheaTviggtk NILLFacility:GS NorwalkStart: 09-30-2024 End: 34-38-0346Xcgltf flowsheetCorey Maurice DO Work Phone: noms BCP OBStart: 09-30-2024 End: 31-26-5690Zfyhms flowsheetCorey Maurice DO Work Phone: noms BCP OBStart: 09-30-2024 End: 86-29-4858Lyczspbpc Result EncounterCorey Maurice DO Work Phone: noms External Department UnsolicitedStart: 09-30-2024 End: 15-28-4534cpyzafcrhhAYNIF FAZIONot AvailableStart: 09-30-2024 End: 55-60-3599Pnuymzc encounter procedureCorey Maurice DO Work Phone: noms HealthcareStart: 09-30-2024 End: 18-59-2052Bfxdeweq preventive med est patient 40-64yrsCorey Maurice DO Work Phone: noms [facility] OBComment on above:Well woman exam with routine gynecological exam; H/O: hysterectomy; Breast cancer screening by mammogramStart: 01-05-2024 End: 73-38-5049Ywxdioapv Result EncounterCorey Maurice DO Work Phone: noms External Department UnsolicitedStart: 01-05-2024 End: 06-02-5007Cyukmrlya Result EncounterCorey Maurice DO Work Phone: noms External Department UnsolicitedStart: 08-30-2023 End: 61-62-2076Pgtfjzysh department patient visitSEAN [facility] Start: 08-28-2023 End: 42-42-1491Shgdmtfxw department patient visitSEAN [facility] Start: 05-08-2023 End: 29-48-1866Ndupcjiik Result EncounterCorey Maurice DO Work Phone: noms External Department UnsolicitedStart: 05-08-2023 End: 34-25-6720Viuzicrip Result EncounterCorey Maurice DO Work Phone: noTX External Department UnsolicitedStart: 04-28-2023 End: 99-40-1355cmdbddwycaKifzcd Felter Other [employer] Other Start: 36-81-2260Vrlrspbrj encounterThomas FelterCentervilletart: 04-26-2023 End: 42-17-2835necmqcguixGscqmp Hooker Other [facility] [employer] Other Start: 43-51-3376Tbtzfkuud encounterMarcia BraunCentervilletart: 03-17-2023 End: 26-32-3343vkpygxwkhrRqlqcd Hooker Other [employer] Other Start: 53-33-8132Hdnrpbylz encounterMarcia BraunCentervilletart: 03-14-2023 End: 74-66-2842bzxydwjduqIE FLORENTINO MAURICE .Facility:W2Idfag: 02-28-2023 End: 97-79-0354rbetekbaquTU FLORENTINO MAURICE .Facility:X2Pehqm: 34-08-5826Pfosxkghm for preprocedural cardiovascular examinationDR FLORENTINO MAURICE .[facility] Hospitaltart: 11-23-2022 End: 13-87-3675wteawgrdxiFX FLORENTINO MAURICE .Facility:L3Tgojf: 11-18-2022 End: 84-56-1279cvwhpsftrqJP FLORENTINO MAURICE .Facility:P1Gvsbi: 11-18-2022 End: 65-18-7218Qutieoubm for preprocedural cardiovascular examinationDR FLORENTINO MAUIRCE .Facility:V2Ajafo: 45-11-4842Awxjuixnj for other preprocedural examination DR FLORENTINO RICHARDS .[facility] Hospitaltart: 11-11-2022 End: 97-62-2544whmxvhwomtMX FLORENTINO MAURICE .Facility:L0Vgeye: 11-11-2022 End: 97-78-4426Hltfjrgvc for other preprocedural examinationDR FLORENTINO RICHARDS . Facility:F2Pjzde: 11-08-2022 End: 95-17-4146aulsmjlfhlEQ FLORENTINO RICHARDS .Facility:D8Ixgrt: 10-24-2022 End: 28-84-3032lhsluibjezBilptb Kelley Other [employer] Other Start: 09-08-7917Rfexjc outpatient visit 15 minutes Eddie Osborneusky OrthopedicsStart: 10-03-2022(Procedure) ShortThomas FelterErie Murphy Army Hospital Surgery CenterStart: 10-03-2022 End: 01-12-1861bugtxvcsaxOicojy Felter Other [employer] Other Start: 09-20-2022 End: 81-76-9290qjruiqxjucLcztdk Felter Other [employer] Other Start: 34-72-7789Xfhfjelnb encounterThomas FelterFPG Referral CoordinatorStart: 09-19-2022 End: 33-19-4365alcippbjfyVzcpjc Felter Other [employer] Other Start: 71-40-6773Xcbxtm consultation new/estab patient 60 minThomas FelterFPG Pain Management Bone CreekStart: 09-02-2022 End: 71-32-5668iruazdrdwlDstlgr Kelley Other [employer] Other Start: 88-38-0662Gzfevm outpatient new 30 minutes Eddie De LeónBEATRIZG Amber OrthopedicsStart: 06-27-2022 End: 54-15-0797rjamoavfapQA RAMONITA HOOKERFacility:H1 Procedures DateProcedureProcedure DetailPerforming ClinicianStart: 70-28-8087HJPXNUVS FUNCTION TESTSJono Robbin [facility]-A Work Phone: start: 43-00-0119KQ TOMOSYNTHESIS SCREENING BICorey Maurice DO Work Phone: Start: 85-00-2883ZrsvgdwlhmbYroyskw McGill CCC-A Work Phone: start: 78-54-9441GJE,APTIMA HPV,AGE GDLNCorey Maurice DO Work Phone: Start: 98-35-9925Ronkpqkouio observation [Identifier] in Cervix by Cyto stainDeAdventHealth Lake Placid-A Work Phone: start: 78-26-3246NM TOMOSYNTHESIS DIAGNOSTIC LTCorey Maurice MOBi-LEARN Work Phone: Start: 53-31-8571FN GUIDED BREAST BIOPSY LTCorey Maurice MOBi-LEARN Work Phone: Start: 02-94-9267IbqrjdlxzgwLycyl Maurice DO Work Phone: Start: 15-95-2422Nwkxqqnecgs observation [Identifier] in Cervix by Cyto stainCorey Maurice DO Work Phone: Start: 25-88-1761Vzcmfgeysbo of ankleMichael NILL Comment on above:with cartilage removalColonoscopy Cisco NILL Core needle biopsy of breastMichael NILL Dilation and curettageMichael NILL Endometrial biopsyMichael NILL Comment on above:x 3Extraction of wisdom toothMichael NILL H/O: hysterectomyH/O: hysterectomyCorey Maurice DO Work Phone: Laparoscopic total hysterectomyMichael NILL Plan of Treatment DateCare ActivityDetailAuthorStart: 67-93-3763Dvdjnglgj for malignant neoplasm of cervixNOMS HealthcareStart: 25-22-1377Khwyirekb for malignant neoplasm of cervixNOMS HealthcareStart: 69-40-5130Ktjzruroy for malignant neoplasm of breast MammogramNOTX HealthcareStart: 10-07-2025 End: 76-51-5780Ozkkvzn encounter procedureNOMS BCP OBStart: 14-45-4979Vvjegikca vaccinationInfluenza Vaccine (Season Ended)[facility] HealthcareStart: 03-13-2025 End: 61-72-6562Hddzjctk SupportINLAND NORTHWEST BEHAVIORAL HEALTH AUDComment on above:ArrivedStart: 03-11-2025 End: 87-10-6439Puajbtfi Kjxsyow7003/11/2025 1:30 PM EDT Clinical Support [facility] AUD [address] [place] [id number] Kristie Orourke, [facility]A [address] [place] [address] ArrivedINLAND NORTHWEST BEHAVIORAL HEALTH AUDComment on above:ArrivedStart: 09-30-2024 End: 67-71-9805ET Breast - bilateral ScreeningBilateral screening mammogram Imaging Routine Breast cancer screening by mammogram Expected: 09/30/2024 (Approximate), Expires: 11/30/2025[facility] HealthcareComment on above:Expected: 09/30/2024 (Approximate), Expires: 11/30/2025Start: 47-85-4658Vzlxyqqqp vaccinationInfluenza Vaccine (#1)[facility] HealthcareStart: 91-56-2607Hksdvjklw for malignant neoplasm of breastMammogramNOTX HealthcareStart: 27-44-0603Ecuxwevya for malignant neoplasm of colonNOTX HealthcareTHIN PREP TIS PAP AND HR HPV DNA THIN PREP TIS PAP AND HR HPV DNA Pathology and Cytology Routine Well woman exam with routine gynecological exam H/O: hysterectomy Ordered: 09/30/2024[facility] Work Phone: comment on above:Ordered: 09/30/2024XR Knee - left 4 ViewsHenry County Hospital Immunizations Immunization DateImmunizationNotesCare KrzgxqcdWotxstpt54-44-4516pjavyzenc virus vaccine, unspecified formulationCorey Maurice DO Work Phone: NOChildren's Mercy NorthlandJzmnnrzdlq82-94-5786IYSX-VjN-1 mRNA (zuyznrifuxx-yblj-khrlrjo) vaccineMichael NILL [phone]-IfpckWright-Patterson [facility] General Surgery [place] 42-90-1849TJPG-CoV-2 (COVID-19) mRNA BNT-162b2 vaxMichael NILL [phone]-UsyegWright-Patterson Medical Center General Surgery [place] 15-01-0620RGOY-CoV-2 (COVID-19) mRNA BNT-162b2 vaxMichael NILL [facility] HospitalComment on above:Reason for Medication: Vpztqapfnex19-74-1806JAVE-JmU-8 (COVID-19) mRNA BNT-162b2 vax Cisco NILL [facility] HospitalComment on above:Reason for Medication: Ryrrroyexja40-08-6799fqiclsvev virus vaccine, unspecified formulationHenry County Hospital Payers DatePayer CategoryPayerPolicy [id number] Health InsuranceMEDICAL MUTUAL [id number] .1.338367.3.57[id number] 2.1.598829.3.57[id number] 2.16.840.1.753541.3.57[id number] 2.16.840.1.066915.3.57[id number] 2.16.840.1.890082.3.57[id number] 2.16.840.1.013857.3.57[id number] 2.16.840.1.653171.3.57[id number] 2.16.840.1.716222.3.57[id number] 2.16840.1.532945.3.57[id number] 2.16.840.1.709629.3.57[id number] 2.16.840.1.085368.3.57[id number] 2.16.840.1.170575.3.579.[id number] 2.16840.1.693313.3.57[id number] 2.16.840.1.827531.3.57[id number] 2.16.840.1.606100.3.57[id number] 2.16.840.1.946496.3.57[id number] 2.16.840.1.976272.19 Social History DateTypeDetailFacilityStart: 09-25-2023 End: 39-37-4165Usw [facility] At [facility] HealthcareStart: 05-10-2023 End: 96-89-4558Cnsdlld smoking status NHISNever smoked tobaccoUINTAH BASIN MEDICAL CENTER Healthcare Start: 11-01-2023 End: 71-87-4519Mbrcjynzt beverage intakeCurrent drinker of alcohol (finding)[facility] HealthcareStart: 09-25-2023 End: 48-69-6924Yfyymyt of Social functionNOTX HealthcareHow often to you have a drink containing alcohol?Monthly or lessNOMS HealthcareHow many standard drinks containing alcohol do you have on a typical day?1 or 2NOMS HealthcareHow often do you have 6 or more drinks on 1 occasion?NeverUIN[facility] HealthcareStart: 05-10-2023 Alcohol Hyueqvx3cv 2 drinks on typical day/monthly or less. caffeine: 1-2 cups/dayUINTAH BASIN MEDICAL CENTER HealthcareStart: 12-02-0031Wgp assigned at [facility] HealthcareStart: 00-22-0333Goelop identityIdentifies as female gender (finding) [facility] HealthcareStart: 66-02-5831Wtnfhq orientationHeterosexual (finding)[facility] HealthcareStart: 29-89-2016Whxrxuu smoking statusNeverSalem City Hospital Surgery [facility] smoking status NHISUnknown if ever smoked [facility] HealthcareStart: 01-14-2025 End: 08-58-8305ZukSqgocm (finding)[facility]tart: 08-06-2023 End: 05-84-0605Uzptapir to SARS-CoV-2 (event)[facility] Functional Status AtxhNubhejgsnkDvaoxwHtlrjwor78-65-7185Bqqrigbzqa StatusN/AFdanisCleveland Clinic Hill[facility] Hospital Surgery Xpxmjcjh26-42-3764Emqzw score [AUDIT-C]1 09/25/2023 7:48 PM [facility] Clinical Notes 06-28-2022 to 07-17-2025 Note Date & DgndUxrdHsbhobvn21-44-0870 Evaluation note* Diagnosis Onset Date Resolution Status Admit Date Bronchitis acuteSeptember 2024 10:31am [facility] Work Phone: 1(649) 123-474805-08-2025 History of Present illness Narrative* JOSELUIS Buenrostro - 03/13/2025 11:30 AM EDT Tymp completed today. Did not have working tymp when audio was completed. Tympanometry Right Ear: Type A tympanogram Left Ear: Type A tympanogram documented in this [facility]05-06-2025 History of Present illness Narrative* JOSELUIS Buenrostro - 03/11/2025 1:30 PM EDT History: Pt was referred to Dr. Lopez [...] score at 55 dBHL = 96% Tympanometry [place] Equipment not working Impressions: Bilateral high frequency sensorineural hearing loss, slightly worse in the right ear. Recommendations: Will schedule Tympanogram Dr. Lopez will review results and make ENT recommendations. documented in this [facility]03-11-2025 Evaluation note* Diagnosis Onset Date Resolution Status Admit Date Right otitis media with effusion acuteMarch 2024 10:08amLeft knee painacuteMay 2024 10:04am [facility] Work Phone: [phone]) 792-444301-24-2025 NoteProgress Note-Physician Patient: LEO PAZ Age: 59 years Sex: Female : 1965 Associated Diagnoses: None Author: Zay Pardo Jr., DO Postoperative Information Postoperative disposition: Postoperative disposition: Home. Optimetrix number: Optimetrix number [id number]. Anesthetic utilized: General. Physical Examination Vital Signs [...] to Ambulatory Surgery Unit, and To home ).[facility] CenterComment on above:Result Comment: Electronically Signed By: Zay Pardo Jr., DO.all\Date and Time Signed: 11/29/24 10:16 [id number] NoteColonoscopy Procedure Report Patient: LEO PAZ Age: 59 years Sex: Female : 1965 Associated Diagnoses: None Author: Cisco DOOM MD Pre-Procedure Procedure Date 11/29/2024 08:30:00 . Procedure Type: Colonoscopy. Procedure provider Cisco Odom M.D.. Referred by Ramonita Hooker MD. Current [...] place. Impression and Plan Diagnosis: Sigmoid diverticulosis (IGB58-NJ K57.30, Discharge, Medical). Course: Progressing as expected. Recommendations: Repeat colonoscopy:: In 10 years. Follow-up:: if problems/questions. Diet:: Regular diet. Medication resumption:: Continue current medications. Return to activities:: After 24 hours. Education and Follow-up: Counseled: Family.[facility]01-24-2025 NotePatient Education - Text Diverticulosis Many people [...] unsweetened, w/added ascorbic acid 1 cup 0.5 [place] 1 cup 0.7 Vegetables Cooked Green beans 1 cup 4.0 Carrots 1/2 cup sliced 2.3 Peas 1 cup 8.8 Potato (baked, with skin) 1 medium potato 3.8 Raw [place] (with peel) 1 cucumber 1.5 Lettuce 1 [...] 8.7 Peanuts 1/2 cup 7.9 Chart from [facility] 2013. SEEK IMMEDIATE MEDICAL CARE IF: You [...] Reference. Available at http://www.nal.usda.gov/fnic/foodcomp/search/. Information adapted from: [facility]??? Patient Information ???2009 [employer]. [facility] 2012 [email or web address] Colonoscopy Care After Surgery Please read the [...] by your doctor. Beg (more content not included)...[facility]01-24-2025 Note History and Physical Patient: LEO PAZ Age: 59 years Sex: Female : 1965 Associated Diagnoses: None Author: Cisco ODOM MD Subjective no changes to H & PFOhioHealth Van Wert HospitalComment on above:Result Comment: Electronically Signed By: Cisco ODOM MD\.br\Date and Time Signed: 11/29/24 07:38 [id number] NoteProgress Note-Physician Patient: LEO PAZ Age: 59 years Sex: Female : 1965 [...] rhinitis due to pollen / SNOMED CT 2102640883 / Confirmed Asthma / SNOMED CT 018477040 / Confirmed BMI 40.0-44.9, adult / SNOMED CT 4492493250 / Confirmed Chronic GERD / SNOMED CT 022634127 / Confirmed IBS (irritable bowel syndrome) / SNOMED CT 16015858 / Confirmed Morbid obesity / SNOMED CT 629693413 / Confirmed Screening for malignant neoplasm of colon / SNOMED CT 568410628 / Confirmed Histories Past Medical History: No active or resolved past medical history items have been selected or recorded. Procedure history: Arthroscopy of ankle ([id number]) on 09/03/2001 at 35 Years. Comments: 11/13/2024 15:15 Maris Yoo LPN with cartilage removal Endometrial biopsy ([id number]). Comments: 10/23/2024 11:29 Maris Yoo LPN x 3 Dilation and curettage (15635347). Core needle biopsy of breast ([id number]). Laparoscopic total hysterectomy ([id number]). Extraction of wisdom tooth (382870174). Colonoscopy ([id number]). Social History Social & Psychosocial Habits Tobacco [...] II (soft palate, fauces, uvula visible). Plan [place] [employer] Anesthesiologists (ASA) physical status classification: Class III. Anesthetic Preoperative Plan: Anesthesia Monitored anethesia care.[facility] CenterComment on above:Result Comment: Electronically Signed By: Zay Pardo Jr., DO.all\Date and Time Signed: 11/29/24 07:16 [id number] Note General Surgery Office/Clinic Note Chief Complaint [...] Mother. Immunizations Vaccine Date Status Comments SARSCoV2 mRNA(tozina (more content not included)...[facility] Comment on above:Result Comment: Electronically Signed By: ILENE CLEVELAND, Cisco Duenas.all\Date and Time Signed: 11/13/24 15:35 [id number] History of Present illness Narrative* Janet Davidson, ROCK - 09/30/2024 8:30 AM EST Reason for Appointment: Patient ID: Tanya Paz is a 58 y.o. female who presents [...] nursing note reviewed. Exam conducted with a hedis specialist present. Vitals: Estimated body mass index is [...] of: Florentino Richards DO documented in this encounterSSM Health Cardinal Glennon Children's HospitalEbuqftwasg28-31-5973 NoteOPERATIVE NOTE OPERATION DATE: 11/23/2022 PROCEDURE: D AND C hysteroscopy with MyoSure. PREOPERATIVE DIAGNOSIS: Postmenopausal bleeding, thickened endometrium. POSTOPERATIVE DIAGNOSIS: Postmenopausal bleeding, thickened endometrium. ANESTHESIA: General. SURGEON: Florentino Richards D.O. ACCOUNT STRATEGIST: None. BLOOD LOSS: 5 mL. URINE OUTPUT: [...] to the Recovery Room in stable condition.[facility] HospitalTraxmjsj74-26-6692 Evaluation note* Encounter Date Diagnosis Assessment Notes Treatment Notes Treatment Clinical Notes Oct, Trochanteric bursitis of right h ip (ICD-10 - M70.61) Leo is here today now 3 weeks s/p right hip trochanteric bursa injection with Dr. Angela Santoro. She states that she is doing good. She has had some improvement. She does feel like that is the appropriate area to treat. She is taking anti-inflammatories as needed. She is doing physical therapy and e xercises at home. I would continue this treatment course. She can return for pain worsens and we could consider repeat injection The patient has been involved in our cooperative treatment plan and agrees to move forward with treatment at this time. Instructed patient to continue with physical therapy exercises. Call with any questions or concerns [employer] Other 11-14-2022 Evaluation note* Encounter Date Diagnosis [...] with orthopedics 2-3 weeks following the injection. 14 Nov, 2022Other low back pain (ICD-10 - M54.59)Should the patient continue to experience radiating right leg pain, we can consider further work upof the lumbar spine as a possible source of her pain symptoms. Sep,hronic pain (ICD-10 - G89.29) Sep,2OtherAbove note written by Raman Marks MA, [employer] Crewmember. Edited and approved by Dr. Josué Santoro MD.Medical decision making shows a new problem to me with further workup planned or suggested with thepotential for extensive treatment options that were considered with the most applicable given this patient's situation as noted above. Treatment options considered include a combination of physical therapy approaches, pharmacologic management, and interventional procedures. Those most applicable tothe patient were discussed at this time. Risk [...] negative findings were considered in medical decision-making. [facility] Other 10-28-2022 Evaluation note* Encounter Date Diagnosis Assessment Notes Treatment Notes Treatment Clinical Notes Aug, Trochanteric bursitis of right h ip (ICD-10 - M70.61) Leo presents with right hip trochanteric bursitis. At this juncture we have discussed the findings and diagnosis as well as personally reviewed appropriate imaging and performed interpretation ofrelated testing and examination with the patient in [...] therapy. Patient is agreeable to treatment plan. Aug,therSee orders for this visit as documented in the electronic medical record. [facility] [employer] Other 08-23-2022 NotePROCEDURE: XR HIP RT 2 [...] favor degenerative changes Electronically authenticated by: LEYLA ACEVEDO Date: 2022-06-28 07:13[facility] + Plan note Future Appointments Appointment Date:11/29/2024 08:00:00 AM Scheduled Provider: Location:[facility] Surgical Services Appointment Type:Surgery [facility] General Surgery [place] Evaluation noteNo InformationNortFirst Hospital [facility] [employer] Other Evaluation note* Diagnosis Well woman exam with routine gynecological exam Routine gynecological examination H/O: hysterectomy Acquired absence of both cervix and uterus Breast cancer screening by mammogram documented in this encounter [facility] HealthcareEvaluation noteNo assessment information availableHolzer Health System Work Phone: Evaluation note* Diagnosis Sensorineural hearing loss (SNHL) of both ears- Primary Otalgia, right documented in this encounter [facility] HealthcareEvaluation note* Diagnosis Sensorineural hearing loss (SNHL) of both ears- Primary Otalgia, right documented in this encounter [facility] HealthcareEvaluation note* Diagnosis Onset Date Resolution Status Admit Date Bronchitis acuteSeptember 2024 10:31am [facility] Work Phone: History general Narrative - Reported* Type Description Date Medical History GERD Medical HistoryDysphasiaMedical Historyright hip painSurgical Historyleft ankle surgery [facility] Other History general [facility] - [facility] Other Hospital course Narrative No data available for this section [facility] [place] [facility] Discharge instructions No data available for this section [facility] General Surgery [place] Progress note No data available for this section [facility] Surgery [place] Reason for referral (narrative)No reason for referral information availableHol[facility] Work Phone: Reason for Referral Reason Bursal injection of right hip Diagnosis 1 Trochanteric bursiti s of right hip (M70.61) Referral Organization [facility] Referring Provider First Name Eddie Referring Provider Last Name Genet Referring Provider Specialty Orthopedic Surgery Referred Organization [facility] Pain Managemen t Bone Venetie Referred Address [address] [facility] [place], [place],[address] Referred Provider Specialty Pain Medicin e Referral [...] Admit Date Bronchitis July 17, 2025 10:31am Chief Complaint Admit Date Congestion/Cough/COVID- July 17, 2025 10:31am [facility] Documentation August 11, 2025 1: 42pm [facility] f/u rash August 14, 2025 11 :42am Additional Source Comments REASON FOR VISIT (unrecogniz ed section and content) ReasonCommentsGynecologic Exam INFORMATION SOURCE (unrecogn ized section and content) DATE CREATED AUTHOR 03/19/2023 [facility] DATE CREATED AUTHOR AUTHOR'S ORGANIZ ATION 09/01/2023 [facility] DATE CREATED AUTHOR AUTHOR'S ORGANIZ ATION 12/03/2024 [facility] DATE CREATED AUTHOR AUTHOR'S ORGANIZ ATION 03/14/2025 [facility] EPIC Care Teams (unrecognized sec tion and content) Team MemberRelationshipSpecialtyStart DateEnd Date Ramonita Hooker MD [address] [place] [phone] PCP - General04/30/23Team MemberRelationshipSpecialtyStart DateEnd Date Raomnita Hooker MD [address] [place] [phone] PCP - General04/30/23Team MemberRelationshipSpecialtyStart DateEnd Date Ramonita Hooker MD [address] [place] [facility] [place] [phone] PCP - General04/30/23 Team Status: Active Member Role Status Dates Ramonita Hooker MD Primary Care Provider Active Team Status: Inactive Member Role Status Dates Ramonita Hooker MD Primary Care Provide r, Attending Provider Active Start: January 14, 2025 End: January 14, 2025Team MemberRelationshipSpecialtyStart DateEnd Date Ramonita Hooker MD [facility] Referrals ONLY [facility]25Team MemberRelationshipSpecialtyStart DateEnd Date Ramonita Hooker MD [facility] Referrals ONLY PCP - [facility]03/11/25Team MemberRelationshipSpecialtyStart DateEnd Date Ramonita Hooker MD [facility] Referrals ONLY PCP - [facility]03/11/25 Team Status: Inactive Member Role Status Dates Ramonita Hooker MD Primary Care Provide r, Attending Provider Active Start: March 28, 2025 End: March 28, 2025 Team Status: Inactive Member Role Status Dates Ramonita Hooker MD Primary Care Provider Active Start: July 17, 2025 End: July 17, 2025Sharlene Skelton APRN RADIOPHONE OPERATOR-CAttending ProviderActive Start: July 17, 2025 End: July 17, 2025 Team Status: Active Member Role Status Dates Ramonita Hooker MD Primary Care Provider Active Start: August 11, 2025 Beverly Leon CMAAttending ProviderActiveStart: August 11, 2025 Team Status: Inactive Member Role Status Dates Ramonita Hooker MD Primary Care Provider Active Start: August 14, 2025 End: August 14, 2025Ramonita Hooker MDAttending ProviderActiveStart: August 14, 2025 End: August 14, 2025Team MemberRelationshipSpecialtyStart DateEnd Date Ramonita Hooker MD [facility]04/30/ Ramonita Hooker MD [facility] Referrals ONLY PCP - [facility]03/11/25 Goals (unrecognized section and content) Goals may [...] BE BASED ON THE PRIMARY CLINICAL RECORDS. [facility], [facility]. provides no warranty or guarantee of the accuracy or completeness of information in this document.
--- OUTSIDE RECORDS SUMMARY | 2025-10-07 16:35 | XMS_ITS | Encounter Summary ---
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 Metal Caster Name Role Phone Rosailne Singh MD Primary Care Provider [phone] Encounter Details DateTypeDepartmentCare Team (Latest Contact Info)Kuuizrewhvl02/02/2025Bamboo flowsheet [facility] [address] [place] [address] Florentino Richards DO [address] [place], [place] [id number] Social History Tobacco UseTypesPacks/DayYears UsedDateSmoking Tobacco: FormerCigarettes Smokeless Tobacco: NeverAlcohol UseStandard Drinks/WeekCommentsYes0 (1 standard drink = 0.6 oz pure alcohol)SocialAUDIT-CAnswerDate RecordedQ1: How often do you have a drink containing alcohol?Monthly or less09/25/2023Q2: How many drinks containing alcohol do you have on a typical day when you are drinking?1 or 2 09/25/2023Q3: How often do you have six or more drinks on one occasion?Never 3CommentsNoSex and Gender InformationValueDate RecordedSex Assigned at FdfrqSezsag62/25/2023 9:02 PM EDTLegal PldEoissx78/15/2023 6:57 PM EDTGender MbolswsxVnrfyn95/25/2023 9:02 PM EDTSexual OrientationStraight 04/30/2023 9:02 PM EDTdocumented as of this encounter Plan of Treatment DateTypeDepartmentCare Team (Latest Contact Info)Vqjovsmqipw13/07/2026 9:00 AM ESTProcedure Visit [facility] [address] [place] [phone] Florentino Richards DO [address] [place] [address] documented as of this encounter Visit Diagnoses Not on filedocumented in this encounter Care Teams Team MemberRelationshipSpecialtyStart DateEnd Date Rosaline Singh MD [facility] Referrals ONLY PCP - GeneralFamily Medicine03/11/25documented as of this encounter
--- OUTSIDE RECORDS SUMMARY | 2025-10-07 16:35 | XMS_ITS | Encounter Summary ---
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 caffeine: 1-2 cups/dayAUDIT-CAnswerDate RecordedQ1: How often do you have a drink containing alcohol?Monthly or less09/25/2023Q2: How many drinks containing alcohol do you have on a typical day when you are drinking?1 or Q3: How often do you have six or more drinks on one occasion?Never3CommentsNoSex and Gender InformationValueDate RecordedSex Assigned at AcfzuKznjfg20/25/2023 9:02 PM EDTLegal SexFemale 01/18/2023 6:57 PM EDTGender UuuaoljuGqmpeg30/25/2023 9:02 PM EDTSexual JgydvtxdbrkHvnenomd17/25/2023 9:02 PM EDTdocumented as of this encounter Plan of Treatment DateTypeDepartmentCare Team (Latest Contact Info)Zlftueqavrz57/07/2026 9:00 AM ESTProcedure Visit [facility] [address] [place] [address] Florentino Richards DO [address] [place] [address] documented as of this encounter Visit Diagnoses Not on filedocumented in this encounter Care Teams Team MemberRelationshipSpecialtyStart DateEnd Date Rosaline Singh MD [facility] Referrals ONLY PCP - GeneralFamily Medicine03/11/25documented as of this encounter
== END 2025-10-07 16:30 | disposition home or self-care (01) ==
LOC: LAB 16:29
PROVIDERS: PCP Family Medicine; Visit Provider Obstetrics & Gynecology
DX: Z01.419 Encounter for gynecological examination (general) (routine) without abnormal findings (principal)
CPT/HCPCS: 87624; 88175